=== PATIENT | female | born 1970 ===

== ENCOUNTER 2019-12-03 07:26 | Outpatient (REF) | payer OTHER, SELFPAY | END 2019-12-03 07:27 | disposition home or self-care (01) | LOC: HO.MDS 07:26 | PROVIDERS: PCP Internal Medicine; Visit Provider Internal Medicine | DX: D50.9 Iron deficiency anemia, unspecified (principal) | CPT/HCPCS: 96365; 96366; J1200; J1750; Q0163 ==

== ENCOUNTER 2019-12-21 14:10 | Outpatient (REF) | payer OTHER, SELFPAY | END 2019-12-21 14:11 | disposition home or self-care (01) | LOC: HO.LAB 14:10 | PROVIDERS: Visit Provider Nurse Practitioner Family | DX: Z20.828 Contact with and (suspected) exposure to other viral communicable diseases (principal) | CPT/HCPCS: U0003 ==

== ENCOUNTER 2020-07-26 12:00 | Outpatient (REF) | payer OTHER, SELFPAY ==
--- NOTE | ~2020-07-26 | XR_ITS ---
EXAMINATION: XR CHEST CLINICAL INFORMATION: Shortness of breath COMPARISON: CT chest without contrast TECHNIQUE: 2 views of the chest were obtained. FINDINGS: No significant abnormality is noted involving the heart, lungs, mediastinum, bony thorax or soft tissues. XR/XR chest 2V IMPRESSION: Unremarkable chest exam.
[2020-07-26 13:58] LABS: MANUAL DIFF FLAG NO
[2020-07-26 14:02] LABS: Basophils Percent Auto 0.4 % (0-2); Eosinophils Absolute Auto 0.1 X10*3/uL (0.0-0.4); Eosinophils Percent Auto 0.9 % (0-4); Hematocrit 38.7 % (37-47); Hemoglobin 12.4 g/dl (12.0-16.0); Imm Gran Abs Auto 0.01 X10*3/uL (0.00-0.03); Imm Gran Pct Auto 0.1 % (0.0-0.4); Lymphocytes Absolute Auto 2.6 X10*3/uL (1.2-4.9); Lymphocytes Percent Auto 39.3 % (20-40); Mean Corpuscular Hemoglobin 28.1 pg (27.0-33.0); Mean Corpuscular Volume 87.8 fL (80-98); Mean Platelet Volume 10.3 fL (9.4-12.3); Monocytes Absolute Auto 0.5 X10*3/uL (0.1-1.2); Monocytes Percent Auto 8.1 % (2-11); Neutrophils Absolute Auto 3.4 X10*3/uL (2.0-8.3); Neutrophils Percent Auto 51.2 % (45-73); Platelet Count 320 X10*3/uL (160-400); Red Blood Count 4.41 X10*6/uL (4.20-5.50); Red Cell Distribution Width 13.2 % (11.0-16.0); White Blood Count 6.7 X10*3/uL (4.8-10.8)
[2020-07-26 16:27] LABS: TSH reflex Free T4 1.29 uIU/mL (0.32-4.0)
[2020-07-26 16:33] LABS: Alanine Aminotransferase 13 U/L (0-31); Albumin Level 4.2 g/dL (3.5-5.0); Alkaline Phosphatase 79 U/L (39-117); Anion Gap 12 (12-20); Aspartate Amino Transferase 15 U/L (5-31); Bilirubin Total 0.2 mg/dL (0.0-1.0); Blood Urea Nitrogen 12 mg/dL (9-16); Calcium 9.3 mg/dL (8.4-10.2); Carbon Dioxide 27 mmol/L (22-29); Chloride 106 mmol/L (96-108); Estimated Glomerular Filt Rate > 60; Glucose Random 85 mg/dL (60-115); Potassium 4.2 mmol/L (3.3-5.1); Sodium 141 mmol/L (135-145)
== END 2020-07-26 12:01 | disposition home or self-care (01) ==
LOC: HO.HMGCX 12:00
PROVIDERS: PCP Internal Medicine; Visit Provider Internal Medicine
DX: R06.02 Shortness of breath (principal); E66.01 Morbid (severe) obesity due to excess calories; M25.471 Effusion, right ankle; M25.472 Effusion, left ankle; F41.1 Generalized anxiety disorder; R20.2 Paresthesia of skin
CPT/HCPCS: 36415; 71046; 80053; 84443; 85025

== ENCOUNTER 2020-12-04 13:53 | Outpatient (REF) | payer OTHER, SELFPAY ==
[2020-12-05 03:27] LABS: CT PCR NOT DETECTED (Not Detect.); NG PCR NOT DETECTED (Not Detect.)
[2020-12-05 11:38] LABS: BV Int Neg Control Negative (Negative); BV Int Pos Control Positive (Positive)
[2020-12-06 18:16] LABS: HPV mRNA E6/E7 rflx Not Detected (Not Detected)
== END 2020-12-04 13:54 | disposition home or self-care (01) ==
LOC: HO.LAB 13:53
PROVIDERS: PCP Internal Medicine; Visit Provider Advanced Practice Midwife
DX: Z01.419 Encounter for gynecological examination (general) (routine) without abnormal findings (principal); E66.01 Morbid (severe) obesity due to excess calories; Z20.2 Contact with and (suspected) exposure to infections with a predominantly sexual mode of transmission; Z79.899 Other long term (current) drug therapy; Z87.891 Personal history of nicotine dependence
CPT/HCPCS: 87480; 87491; 87510; 87591; 87624; 87660; 88142

== ENCOUNTER 2020-12-13 14:30 | Outpatient (REF) | payer OTHER, SELFPAY ==
[2020-12-13 16:26] LABS: MANUAL DIFF FLAG NO
[2020-12-13 16:31] LABS: Basophils Percent Auto 0.4 % (0-2); Eosinophils Absolute Auto 0.1 X10*3/uL (0.0-0.4); Eosinophils Percent Auto 0.7 % (0-4); Hematocrit 40.9 % (37-47); Hemoglobin 12.8 g/dl (12.0-16.0); Imm Gran Abs Auto 0.02 X10*3/uL (0.00-0.03); Imm Gran Pct Auto 0.3 % (0.0-0.4); Lymphocytes Absolute Auto 3.2 X10*3/uL (1.2-4.9); Lymphocytes Percent Auto 41.4 % (20-40); Mean Corpuscular HGB Conc 31.3 g/dl (31.0-35.0); Mean Corpuscular Hemoglobin 26.5 pg (27.0-33.0); Mean Corpuscular Volume 84.7 fL (80-98); Mean Platelet Volume 10.5 fL (9.4-12.3); Monocytes Absolute Auto 0.7 X10*3/uL (0.1-1.2); Monocytes Percent Auto 9.1 % (2-11); Neutrophils Absolute Auto 3.7 X10*3/uL (2.0-8.3); Neutrophils Percent Auto 48.1 % (45-73); Platelet Count 354 X10*3/uL (160-400); Red Blood Count 4.83 X10*6/uL (4.20-5.50); Red Cell Distribution Width 16.2 % (11.0-16.0); White Blood Count 7.7 X10*3/uL (4.8-10.8)
[2020-12-13 16:54] LABS: Alanine Aminotransferase 12 U/L (0-31); Albumin Level 4.1 g/dL (3.5-5.0); Alkaline Phosphatase 80 U/L (39-117); Anion Gap 11 (12-20); Aspartate Amino Transferase 14 U/L (5-31); Bilirubin Total 0.2 mg/dL (0.0-1.0); Blood Urea Nitrogen 11 mg/dL (9-16); Calcium 8.9 mg/dL (8.4-10.2); Carbon Dioxide 28 mmol/L (22-29); Chloride 103 mmol/L (96-108); Estimated Glomerular Filt Rate > 60; Glucose Random 81 mg/dL (60-115); Potassium 4.3 mmol/L (3.3-5.1); Sodium 138 mmol/L (135-145); Total Protein 7.1 g/dL (6.5-8.0)
[2020-12-13 17:28] LABS: Ferritin 5 ng/mL (10-250)
== END 2020-12-13 14:31 | disposition home or self-care (01) ==
LOC: HO.HMGCLDS 14:30
PROVIDERS: PCP Internal Medicine; Visit Provider Internal Medicine
DX: D64.9 Anemia, unspecified (principal); G43.909 Migraine, unspecified, not intractable, without status migrainosus; M79.2 Neuralgia and neuritis, unspecified
CPT/HCPCS: 36415; 80053; 82728; 85025

== ENCOUNTER → 2021-02-21 15:08 | Outpatient (BNVA) | payer OTHER, SELFPAY | PROVIDERS: PCP Internal Medicine; Visit Provider Internal Medicine Pulmonary Disease ==

== ENCOUNTER 2021-03-07 13:04 | Outpatient (REF) | payer OTHER, SELFPAY ==
--- NOTE | 2021-03-07 15:11 | PFT_ITS ---
FLOWS: FEV1 50% of predicted at 1.44 L. FVC 48% of predicted at 1.70 L. FEV1 to FVC ratio of 0.85. No bronchodilator response. LUNG VOLUMES: Total lung capacity 70% of predicted at 3.65 L. Residual volume 62% of predicted at 1.17 L. Slow vital capacity 74% of predicted at 2.48 L. Expiratory reserve volume 17% of predicted at 0.18 L. Diffusion capacity is moderately decreased, diffusion capacity corrects to normal after adjustment for alveolar ventilation. In comparison to pulmonary function test from March of 2019, FEV1 has decreased by 0.76 L; FVC has decreased by 0.96 L; total lung capacity and slow vital capacity have been without significant changes; residual volume has decreased by 0.23 L; diffusion capacity has been without significant changes. IMPRESSION: Moderate to severe restrictive ventilatory defect with no bronchodilator response. Decreased expiratory reserve volume suggests extrathoracic restriction likely secondary to abdominal obesity. MD SUSANNE Nation/MODL / [id number]
== END 2021-03-07 13:05 | disposition home or self-care (01) ==
LOC: HO.RESP 13:04
PROVIDERS: PCP Internal Medicine; Visit Provider Internal Medicine Pulmonary Disease
DX: R06.00 Dyspnea, unspecified (principal)
CPT/HCPCS: 94060; 94727; 94729

== ENCOUNTER 2021-03-08 16:14 | Outpatient (REF) | payer OTHER, SELFPAY ==
--- NOTE | ~2021-03-08 | CT_ITS ---
EXAMINATION: CT CHEST WITHOUT CONTRAST CLINICAL INFORMATION: Abnormal finding of lung field. Follow-up pulmonary nodules. COMPARISON: Previous chest x-ray July [address] most recent October 2019 TECHNIQUE: Multidetector volumetric CT imaging of the chest was done. Axial MIP volume rendering provided. Sagittal and coronal reformatted images were obtained. This CT examination was performed using dose optimization techniques as appropriate, variously including the following: *Automated exposure control *Adjustment of mA and/or kV according to patient size (this includes techniques or standardized protocols for targeted exams where dose is matched to indication/reason for exam; i.e. extremities or head) *Use of iterative reconstruction technique DLP: 194 mGy-cm FINDINGS: [employer]GER: There is slight elevation of the right hemidiaphragm. LUNGS: The pulmonary nodules are stable. Largest pulmonary nodule is a 8 x 10 mm right lower lobe nodule axial image 233 series 37. No new pulmonary nodule is seen. There are scattered areas of increased groundglass attenuation seen in the lungs that are new, right greater than left. Largest areas measure approximately 2 x 3 cm in the lateral segment of the right middle lobe axial image 297 series 7 and 3 cm in the medial segment of the right middle lobe for example axial image 267 series 7. This may represent areas of pneumonitis MEDIASTINUM: The mediastinum is normal. PLEURA: There is no pleural effusion. No pleural mass or thickening. AXILLA: No lymphadenopathy. UPPER ABDOMEN: Unremarkable. OSSEOUS STRUCTURES: Unremarkable. CT/CT chest wo con IMPRESSION: Stable solid pulmonary nodules, largest measuring 8 x 10 mm in the right lower lobe. New scattered areas of groundglass attenuation questionable for pneumonitis. Largest area measures 3 cm in the medial segment of the right lower lobe. Fleischner guidelines were followed.
== END 2021-03-08 16:15 | disposition home or self-care (01) ==
LOC: HO.CT 16:14
PROVIDERS: PCP Internal Medicine; Visit Provider Internal Medicine Pulmonary Disease
DX: R91.8 Other nonspecific abnormal finding of lung field (principal)
CPT/HCPCS: 71250

== ENCOUNTER → 2021-03-21 14:29 | Outpatient (BNVA) | payer OTHER, SELFPAY | PROVIDERS: PCP Internal Medicine; Visit Provider Internal Medicine Pulmonary Disease ==

== ENCOUNTER 2021-09-25 09:22 | Outpatient (REF) | payer OTHER, SELFPAY ==
--- NOTE | ~2021-09-25 | CT_ITS ---
EXAMINATION: CT CHEST WITHOUT CONTRAST CLINICAL INFORMATION: Follow-up pulmonary nodules COMPARISON: Previous chest CT scans most recent February 2021 TECHNIQUE: Multidetector volumetric CT imaging of the chest was done. Axial MIP volume rendering provided. Sagittal and coronal reformatted images were obtained. This CT examination was performed using dose optimization techniques as appropriate, variously including the following: *Automated exposure control *Adjustment of mA and/or kV according to patient size (this includes techniques or standardized protocols for targeted exams where dose is matched to indication/reason for exam; i.e. extremities or head) *Use of iterative reconstruction technique DLP: 196 mGy-cm FINDINGS: LUNGS: The pulmonary nodules are stable. Largest pulmonary nodule measures 9 mm in the right lower lobe axial image 218 series 5. No new pulmonary nodule is seen. Previously identified scattered areas of groundglass attenuation appear improved from most recent exam February 2021. MEDIASTINUM: The mediastinum is normal. PLEURA: There is no pleural effusion. No pleural mass or thickening. AXILLA: No lymphadenopathy. UPPER ABDOMEN: There is a 1 cm low-attenuation lesion exophytic to the lateral left kidney that is stable and probably represents a cyst. OSSEOUS STRUCTURES: There are mild degenerative changes of the spine. CT/CT chest wo con IMPRESSION: Stable bilateral pulmonary nodules. Interval decrease in areas of groundglass attenuation compared to most recent exam February 2021. Fleischner guidelines were followed.
== END 2021-09-25 09:23 | disposition home or self-care (01) ==
LOC: HO.CT 09:22
PROVIDERS: PCP Internal Medicine; Visit Provider Internal Medicine Pulmonary Disease
DX: R91.8 Other nonspecific abnormal finding of lung field (principal)
CPT/HCPCS: 71250

== ENCOUNTER 2021-10-16 10:27 | Day surgery (SDC) | payer OTHER, SELFPAY ==
[2021-10-16] VITALS (8 sets, daily range): BP systolic 120–157; BP diastolic 78–96; PULSE 91–106; RESP 16–24; TEMP 36–36.3; O2SAT 92–98; BMI 36.3
--- NOTE | ~2021-10-16 | FL_ITS ---
EXAMINATION: XR FL WITH IMAGES CLINICAL INFORMATION: Stone. COMPARISON: CT abdomen of 10/16/2021. TECHNIQUE: Fluoroscopy performed by Dr. Demetris Bautista. Fluoroscopy Time: 54.1 seconds. Cumulative Dose: 24.97 mGy. Images: 1. FINDINGS: Single view of the lower pelvis provided with cystoscope overlying inferior right pubic bone. FL/FL guidance in OR IMPRESSION: Fluoroscopy for urologic procedure.
--- NOTE | ~2021-10-16 | CT_ITS ---
EXAMINATION: CT ABDOMEN AND PELVIS WITHOUT CONTRAST CLINICAL INFORMATION: Right flank pain COMPARISON: CT chest 09/25/2021, CT abdomen 11/30/2007. TECHNIQUE: Multidetector volumetric imaging was performed from the superior aspect of the liver through the pubic symphysis. No oral or intravenous contrast. Sagittal and coronal reformatted images were obtained on the technologist's workstation. This CT examination was performed using dose optimization techniques as appropriate, variously including the following: *Automated exposure control *Adjustment of mA and/or kV according to patient size (this includes techniques or standardized protocols for targeted exams where dose is matched to indication/reason for exam; i.e. extremities or head) *Use of iterative reconstruction technique DLP: 883 mGy-cm FINDINGS: LUNG BASES: The visualized lung bases are unremarkable. LIVER, GALLBLADDER, AND BILIARY TREE: Liver is smooth in contour and homogeneous and upper limits of normal size. No focal parenchymal lesion. No intrahepatic ductal dilatation. The gallbladder is unremarkable. No visible stone or pericholecystic inflammatory changes. Common duct unremarkable. PANCREAS: Unremarkable. SPLEEN: Normal in size. Incidental splenule again seen left upper quadrant under 2 cm. ADRENAL GLANDS: Unremarkable. KIDNEYS AND URETERS: Right: There is moderate to prominent right hydronephrosis and right hydroureter secondary to a right ureteral calculus at level S1, measuring approximately 8 x 5 mm, and 821 HU attenuation. There is no perinephric stranding. No other calculi. Left: No hydronephrosis, hydroureter, or calculi. 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 Ureters likely merge at level of upper sacrum. There is chronic 1 cm exophytic cyst lateral upper to midpole. BLADDER: Unremarkable. GASTROINTESTINAL TRACT: No bowel obstruction or focal inflammatory changes. Normal appendix. No ascites or fluid collection. ABDOMINAL WALL: No significant hernia is appreciated. LYMPH NODES: No lymphadenopathy. VASCULAR: Unremarkable. PELVIC VISCERA: No adnexal mass or pelvic ascites. OSSEOUS STRUCTURES: No acute bony abnormality. Degenerative disc changes L5-S1. CT/CT abdomen pelvis wo IV con IMPRESSION: -Right hydronephrosis and hydroureter secondary to a 8 x 5 mm right ureteral calculus at level S1. No perinephric stranding. -Duplication left renal collecting system. No hydronephrosis or calculi.
--- NOTE | 2021-10-16 11:09 | ED_ITS ---
HPI - Abdominal Pain General Chief Complaint: Urogenital-Female Stated Complaint: Sharp pain on R side Time Seen by Provider: 10/16/21 11:02 Source: patient Mode of arrival: ambulatory Limitations: no limitations History of Present Illness MD elicited complaint: flank pain Pertinent past history: kidney stones Onset (ago): hour(s) (4am today) Pain Consistency: constant Location: R flank Severity: severe Quality: stabbing Radiation: RLQ and R flank Migration to: no migration Exacerbating factors: nothing Relieving factors: nothing Context: history of similar episodes Associated symptoms: nausea and vomiting Related Data Home Medications Medication Instructions Recorded Confirmed carvedilol 12.5 mg tablet 12.5 mg PO BEDTIME 11/19/19 10/16/21 ferrous sulfate 325 mg (65 mg 325 mg PO BID 11/19/19 10/16/21 iron) tablet loratadine 10 mg disintegrating 10 mg PO DAILY PRN Allergic 11/19/19 10/16/21 tablet (Claritin RediTabs) Symptoms cholecalciferol (vitamin D3) 25 25 mcg PO DAILY 06/15/21 10/16/21 mcg (1,000 unit) capsule furosemide 40 mg tablet 20 mg PO DAILY PRN Edema 06/15/21 10/16/21 ascorbic acid (vitamin C) 500 mg 500 mg PO DAILY 10/16/21 10/16/21 tablet fluticasone propionate 50 2 spray intranasal DAILY PRN 10/16/21 10/16/21 mcg/actuation nasal Allergy Symptoms spray,suspension (Flonase Allergy Relief) gabapentin 300 mg capsule 300 mg PO BEDTIME PRN Pain 10/16/21 10/16/21 multivitamin 1 tab PO DAILY 10/16/21 10/16/21 Previous Rx's Medication Instructions Recorded buspirone 5 mg tablet 5 mg PO DAILY PRN Anxiety 90 days 10/16/21 #90 tabs Allergies Allergy/AdvReac Type Severity Reaction Status Date / Time terbutaline [TERBUTALINE] Allergy Severe ANAPHYLAXIS Verified 07/13/21 15:28 peanuts Allergy Unknown hives, Verified 07/13/21 15:28 itching Environmental Allergy Unknown unknown Uncoded 06/15/21 14:30 environmental Allergy Unknown unknown Uncoded 06/15/21 14:30 shrimp Allergy Unknown unknown Uncoded 06/15/21 14:30 Review of Systems Review of Systems Constitutional : No Weight loss, No Fever, No Chills ENT/Mouth : No sore throat, No Rhinorrhea Eyes: No Swelling, No Redness Cardiovascular : No Chest Pain, No SOB, No edema Respiratory : No Cough, No Sputum, No Wheezing Gastrointestinal : Positive Nausea, no Vomiting, no Diarrhea, positive abdominal Pain, No Hematochezia, No Melena Genitourinary : No Dysuria, No Urinary Frequency, No Hematuria, No Urgency Musculoskeletal : No joint pain, No Myalgias, No Joint Swelling, pos R flank pain Skin : No Skin Lesions, No rash Neuro : No Weakness, No Numbness, No Dizziness, No Headache Psych : No Anxiety/Panic, No Depression Heme/Lymph: No Bruising, No Lymphadenopathy Endocrine : No Polyuria, No Polydipsia All other systems reviewed and are negative. [facility] Past Medical History Attestation statement: The following information was validated with the patient. Medical History (Updated 10/16/21 @ 12:58 by Tammie Wagner DO) History of kidney stones Kidney stones Surgical History (Updated 10/16/21 @ 11:10 by Tammie Wagner DO) H/O lithotripsy History of tubal ligation Hx of microdiscectomy Family History Family History Father No problems noted. Mother HTN (hypertension) HLD (hyperlipidemia) Social History Social History Housing: House Alcohol intake: never Patient Tobacco Use Status: Former Tobacco user (15 years ago ) Tobacco use type: Cigarette Years Smoked: 7 years Advance Directives: No Advance Directives Information Provided: Yes Current occupational status: employed Cognitive needs: No Hearing needs: No Vision needs: Yes Physical Exam ED Vital Signs: Vital Signs - 24 hr 10/16/21 10:53 10/16/21 14:24 Temperature 96.8 F Pulse Rate 91 91 Respiratory Rate 24 H 16 Blood Pressure 120/78 155/84 H Pulse Oximetry 98 96 Oxygen Delivery Method Room Air Room Air BMI result Body Mass Index 36.3 Appearance: Alert. Oriented X3. anxious in pain mild acute distress. Eyes: Pupils equal, round and reactive to light. ENT: Pharynx normal. Neck: Normal inspection. Neck supple. CVS: Normal heart rate and rhythm. Pulses normal. Respiratory: No respiratory distress. Breath sounds normal. Abdomen: Soft and mild R sided abdominal ttp , pos R sided CVA ttp Skin: Skin warm and dry. Normal skin color. Normal skin turgor. Extremities: No lower extremity edema. No calf ttp Neuro: Oriented X 3. No motor deficit. No sensory deficit. Course Course Course Narrative: message sent to Dr. Bautista 1256pm to go to OR this afternoon per Dr. Bautista MDM - Abdominal Pain MDM Narrative Medical decision making narrative: 50 yo female with prior hx of renal colic here with R flank pain and nausea - presentation concerning for renal colic - at this time labs, CT scan UA, IV morphine for pain. Dispo per results and findings. Lab Data Result diagrams: 10/16/21 11:09 10/16/21 11:09 Labs: Lab Results 10/16/21 10/16/21 10/16/21 Range/Units 11:09 11:09 11:10 WBC 10.6 (4.8-10.8) X10*3/uL RBC 4.98 (4.20-5.50) X10*6/uL Hgb 12.6 (12.0-16.0) g/dl Hct 39.8 (37.0-47.0) % MCV 79.9 L (80.0-98.0) fL MCH 25.3 L (27.0-33.0) pg MCHC 31.7 (31.0-35.0) g/dl RDW 15.1 (11.0-16.0) % Plt Count 334 (160-400) X10*3/uL MPV 9.8 (9.4-12.3) fL Immature Gran % (Auto) 0.3 (0.0-0.4) % Neut % (Auto) 74.8 H (45-73) % Lymph % (Auto) 18.9 L (20-40) % [place] % (Auto) 4.7 (2-11) % Eos % (Auto) 0.7 (0-4) % Baso % (Auto) 0.6 (0-2) % Lymph # (Auto) 2.0 (1.2-4.9) X10*3/uL [place] # (Auto) 0.5 (0.1-1.2) X10*3/uL Eos # (Auto) 0.1 (0.0-0.4) X10*3/uL Baso # (Auto) 0.1 (0.0-0.2) X10*3/uL Abs Immat Gran (auto) 0.03 (0.00-0.03) X10*3/uL Absolute Neuts (auto) 7.9 (2.0-8.3) x10*3/uL Absolute Nucleated RBC 0.000 (0.0-0.012) X10*3/uL Nucleated RBC % (auto) 0.0 (0.0-0.2) /100WBC Sodium 143 (135-145) mmol/L Potassium 4.3 (3.3-5.1) mmol/L Chloride 104 (96-108) mmol/L Carbon Dioxide 25 (22-29) mmol/L Anion Gap 18 (12-20) BUN 14 (9-16) mg/dL Creatinine 0.94 (0.5-1.4) mg/dL Estim Creat Clear Calc 78.7 Estimated GFR > 60 Random Glucose 135 H (60-115) mg/dL Calcium 9.8 D (8.4-10.2) mg/dL Magnesium 1.9 (1.6-2.6) mg/dL Total Bilirubin 0.4 (0.0-1.0) mg/dL Direct Bilirubin < 0.2 (0.0-0.5) mg/dL AST 21 D (5-31) U/L ALT 22 (0-31) U/L Alkaline Phosphatase 80 (39-117) U/L Total Protein 7.8 (6.5-8.0) g/dL Albumin 4.5 (3.5-5.0) g/dL Lipase 15 (8-78) U/L Urine Color Urine Appearance Urine pH (5.0-9.0) Ur Specific [place] (1.005-1.025) Urine Protein (Neg-Trace) mg/dL Urine Glucose (UA) (Negative) mg/dL Urine Ketones (Negative) mg/dL Urine Blood (Negative) Urine Nitrite (Negative) Ur Leukocyte Esterase (Negative) Urine RBC (0-2) /HPF Urine WBC (0-5) /HPF Ur Squamous Epith Cells (0-2) /HPF Urine Bacteria (None Seen) Hyaline Casts (0-2) /LPF COVID-19 (ELYSE) Negative (Negative) COVID-19 Clin Com See Note 10/16/21 Range/Units 13:40 WBC (4.8-10.8) X10*3/uL RBC (4.20-5.50) X10*6/uL Hgb (12.0-16.0) g/dl Hct (37.0-47.0) % MCV (80.0-98.0) fL MCH (27.0-33.0) pg MCHC (31.0-35.0) g/dl RDW (11.0-16.0) % Plt Count (160-400) X10*3/uL MPV (9.4-12.3) fL Immature Gran % (Auto) (0.0-0.4) % Neut % (Auto) (45-73) % Lymph % (Auto) (20-40) % [place] % (Auto) (2-11) % Eos % (Auto) (0-4) % Baso % (Auto) (0-2) % Lymph # (Auto) (1.2-4.9) X10*3/uL [place] # (Auto) (0.1-1.2) X10*3/uL Eos # (Auto) (0.0-0.4) X10*3/uL Baso # (Auto) (0.0-0.2) X10*3/uL Abs Immat Gran (auto) (0.00-0.03) X10*3/uL Absolute Neuts (auto) (2.0-8.3) x10*3/uL Absolute Nucleated RBC (0.0-0.012) X10*3/uL Nucleated RBC % (auto) (0.0-0.2) /100WBC Sodium (135-145) mmol/L Potassium (3.3-5.1) mmol/L Chloride (96-108) mmol/L Carbon Dioxide (22-29) mmol/L Anion Gap (12-20) BUN (9-16) mg/dL Creatinine (0.5-1.4) mg/dL Estim Creat Clear Calc Estimated GFR Random Glucose (60-115) mg/dL Calcium (8.4-10.2) mg/dL Magnesium (1.6-2.6) mg/dL Total Bilirubin (0.0-1.0) mg/dL Direct Bilirubin (0.0-0.5) mg/dL AST (5-31) U/L ALT (0-31) U/L Alkaline Phosphatase (39-117) U/L Total Protein (6.5-8.0) g/dL Albumin (3.5-5.0) g/dL Lipase (8-78) U/L Urine Color Yellow Urine Appearance Turbid Urine pH 7.0 (5.0-9.0) Ur Specific [place] 1.020 (1.005-1.025) Urine Protein Trace (Neg-Trace) mg/dL Urine Glucose (UA) Negative (Negative) mg/dL Urine Ketones Negative (Negative) mg/dL Urine Blood Large (3+) H (Negative) Urine Nitrite Negative (Negative) Ur Leukocyte Esterase Negative (Negative) Urine RBC >20 H (0-2) /HPF Urine WBC 0-5 (0-5) /HPF Ur Squamous Epith Cells 0-2 (0-2) /HPF Urine Bacteria None Seen (None Seen) Hyaline Casts 0-2 (0-2) /LPF COVID-19 (ELYSE) (Negative) COVID-19 Clin Com Discharge Plan Discharge Clinical Impression: Ureterolithiasis Patient Disposition: Admitted As Inpatient
[2021-10-16] MEDS: Ketorolac Tromethamine 30 MG/ML VIAL IVPUSH (11:13)
[2021-10-16] MEDS: ondansetron HCL 4 MG/2 ML VIAL IVPUSH ×2 (11:13→20:13)
[2021-10-16 11:14] LABS: MANUAL DIFF FLAG NO
[2021-10-16] MEDS: Morphine Sulfate 4 MG/ML CARTRIDGE IVPUSH (11:14)
[2021-10-16] MEDS: Lactated Ringers 1,000 ML 999 ML IV (11:15)
[2021-10-16 11:16] LABS: Basophils Absolute Auto 0.1 X10*3/uL (0.0-0.2); Basophils Percent Auto 0.6 % (0-2); Eosinophils Absolute Auto 0.1 X10*3/uL (0.0-0.4); Eosinophils Percent Auto 0.7 % (0-4); Hematocrit 39.8 % (37.0-47.0); Hemoglobin 12.6 g/dl (12.0-16.0); Imm Gran Abs Auto 0.03 X10*3/uL (0.00-0.03); Imm Gran Pct Auto 0.3 % (0.0-0.4); Lymphocytes Percent Auto 18.9 % (20-40); Mean Corpuscular HGB Conc 31.7 g/dl (31.0-35.0); Mean Corpuscular Hemoglobin 25.3 pg (27.0-33.0); Mean Corpuscular Volume 79.9 fL (80.0-98.0); Mean Platelet Volume 9.8 fL (9.4-12.3); Monocytes Absolute Auto 0.5 X10*3/uL (0.1-1.2); Monocytes Percent Auto 4.7 % (2-11); Neutrophils Absolute Auto 7.9 x10*3/uL (2.0-8.3); Neutrophils Percent Auto 74.8 % (45-73); Platelet Count 334 X10*3/uL (160-400); Red Blood Count 4.98 X10*6/uL (4.20-5.50); Red Cell Distribution Width 15.1 % (11.0-16.0); White Blood Count 10.6 X10*3/uL (4.8-10.8)
[2021-10-16] MEDS: HYDROmorphone HCl 1 MG/ML SYRINGE IVPUSH (11:28)
[2021-10-16 11:32] LABS: COVID-19 Test Negative (Negative); IDNOW Serial# 16C4AD1C
[2021-10-16 11:37] LABS: Alanine Aminotransferase 22 U/L (0-31); Albumin Level 4.5 g/dL (3.5-5.0); Alkaline Phosphatase 80 U/L (39-117); Anion Gap 18 (12-20); Aspartate Amino Transferase 21 U/L (5-31); Bilirubin Direct < 0.2 mg/dL (0.0-0.5); Bilirubin Total 0.4 mg/dL (0.0-1.0); Blood Urea Nitrogen 14 mg/dL (9-16); Calcium 9.8 mg/dL (8.4-10.2); Carbon Dioxide 25 mmol/L (22-29); Chloride 104 mmol/L (96-108); Creatinine Clr Calc Pharmacy 78.7; Estimated Glomerular Filt Rate > 60; Glucose Random 135 mg/dL (60-115); Lipase 15 U/L (8-78); Magnesium 1.9 mg/dL (1.6-2.6); Potassium 4.3 mmol/L (3.3-5.1); Sodium 143 mmol/L (135-145); Total Protein 7.8 g/dL (6.5-8.0)
[2021-10-16] MEDS: Tamsulosin HCL 0.4 MG CAPSULE PO (12:09)
[2021-10-16] MEDS: methylPREDNISolone Sod Succ 125 MG/2 ML VIAL 60 MG IVPUSH (12:10)
[2021-10-16 13:48] LABS: Appearance Urine Turbid; Color Urine Yellow; Glucose Urine UA Negative (Negative); Leukocyte Esterase Urine Negative (Negative); Nitrite Urine Negative (Negative); Urine Blood Large (3+) (Negative); Urine Ketones Negative (Negative); Urine Protein Trace mg/dL (Neg-Trace)
[2021-10-16 13:53] LABS: Bacteria Urine None Seen (None Seen); Hyaline Casts Urine 0-2 /LPF (0-2); RBC Urine >20 /HPF (0-2); Squamous Epithelial Cell Urine 0-2 /HPF (0-2); WBC Urine 0-5 /HPF (0-5)
--- NOTE | 2021-10-16 13:54 | PC.NURSE ---
contact made to surgery regarding pending Antibiotic. Per Denilson RN Don't give it, will give by Anesthesia- Plan for 1630/1700 for transport to .
[2021-10-16] MEDS: Lactated Ringers 1,000 ML 100 ML IVCONT (14:01)
[2021-10-16] MEDS: HYDROmorphone HCl 0.5 MG/0.5 ML SYRINGE IVPUSH (14:40)
--- NOTE | 2021-10-16 14:48 | PHA.MEDREC ---
Pharmacy Consult ? Medication Reconciliation Pharmacy has completed the medication reconciliation. Patient is not adherent to her medications. Reports taking Carvedilol at bedtime only instead of BID. Patient takes the rest of her medications PRN. Moni Moser, Carlos AlbertoD
--- NOTE | 2021-10-16 16:32 | PM.UROCN ---
History of Present Illness Consult details Consult date: 10/16/21 Narrative: Consulting complaint - Right ureteric stone 50-year-old female. Present to emergency room this morning with right-sided flank pain 4 hours in duration Level 8/10 No aggravating or relieving factors Associated nausea and vomiting Denies hematuria or fever CT scan shows 8 mm stone in distal right ureter with associated hydroureteronephrosis. WBC 10.6. Creatinine 0.9. Recommendation for cystoscopy, right retrograde, right ureteroscopy with laser lithotripsy and stent placement Review of Systems Constitutional: Constitutional: Denies chills and Denies fever(s) Cardiovascular: Cardiovascular: Reports no additional cardiovascular complaints and Denies syncope Respiratory: Respiratory: Denies cough Gastrointestinal: Gastrointestinal: Denies abdominal pain and Denies heartburn Genitourinary: Genitourinary: Reports as per HPI and Denies change in libido Neurologic: Denies syncope Psychiatric: Psychiatric: Denies change in libido Endocrine: Endocrine: Denies change in libido [facility] Past Medical History Medical History (Updated 10/16/21 @ 12:58 by Tammie Wagner DO) History of kidney stones Kidney stones Family History Family History Father No problems noted. Mother HTN (hypertension) HLD (hyperlipidemia) Surgical History Surgical History (Updated 10/16/21 @ 11:10 by Tammie Wagner DO) H/O lithotripsy History of tubal ligation Hx of microdiscectomy Social History Social History Housing: House Alcohol intake: never Patient Tobacco Use Status: Former Tobacco user (15 years ago ) Tobacco use type: Cigarette Years Smoked: 7 years Advance Directives: No Advance Directives Information Provided: Yes Current occupational status: employed Cognitive needs: No Hearing needs: No Vision needs: Yes Meds Allergies Allergy/AdvReac Type Severity Reaction Status Date / Time terbutaline [TERBUTALINE] Allergy Severe ANAPHYLAXIS Verified 07/13/21 15:28 peanuts Allergy Unknown hives, Verified 07/13/21 15:28 itching Environmental Allergy Unknown unknown Uncoded 06/15/21 14:30 environmental Allergy Unknown unknown Uncoded 06/15/21 14:30 shrimp Allergy Unknown unknown Uncoded 06/15/21 14:30 Active Medications: Current Medications Hydromorphone HCl (Hydromorphone Hcl 0.5 Mg/0.5 Ml Syringe) 0.5 mg IVPUSH Q3H PRN; Protocol PRN Reason: Pain, Moderate (Pain Scale 4-6 Last Admin: 10/16/21 14:40 Dose: 0.5 mg Lactated Ringer's (Lr) 1,000 mls @ 100 mls/hr IVCONT .Q10H KATERINA Last Admin: 10/16/21 14:01 Dose: 100 mls/hr Pharmacy Consult (Consult Rx Perform Med Rec) 1 each MISCELLANE ONCE PRN PRN Reason: Consult order Home Medications Medication Instructions Recorded Confirmed Last Taken Type carvedilol 12.5 mg tablet 12.5 mg PO BEDTIME 11/19/19 10/16/21 10/14/21 History ferrous sulfate 325 mg (65 mg 325 mg PO BID 11/19/19 10/16/21 Unknown History iron) tablet loratadine 10 mg disintegrating 10 mg PO DAILY PRN Allergic 11/19/19 10/16/21 Unknown History tablet (Claritin RediTabs) Symptoms cholecalciferol (vitamin D3) 25 25 mcg PO DAILY 06/15/21 10/16/21 Unknown History mcg (1,000 unit) capsule furosemide 40 mg tablet 20 mg PO DAILY PRN Edema 06/15/21 10/16/21 Unknown History ascorbic acid (vitamin C) 500 mg 500 mg PO DAILY 10/16/21 10/16/21 Unknown History tablet fluticasone propionate 50 2 spray intranasal DAILY PRN 10/16/21 10/16/21 Unknown History mcg/actuation nasal Allergy Symptoms spray,suspension (Flonase Allergy Relief) gabapentin 300 mg capsule 300 mg PO BEDTIME PRN Pain 10/16/21 10/16/21 Unknown History multivitamin 1 tab PO DAILY 10/16/21 10/16/21 Unknown History Physical Exam Vital Signs: Vital Signs: Last Vital Signs Temp 96.8 F 10/16/21 10:53 Pulse 91 10/16/21 14:24 Resp 16 10/16/21 14:24 BP 155/84 H 10/16/21 14:24 Pulse Ox 96 10/16/21 14:24 O2 Del Method 10/16/21 14:24 BMI result Body Mass Index 36.3 Const: General: cooperative, healthy appearing, comfortable and no acute distress Orientation/consciousness: patient oriented x3 HEENT: Face and sinus: Yes normal facial exam Mouth: moist mucous membranes Neck: Neck: Yes normal visual inspection, Yes full ROM and Yes trachea midline Chest: Chest palpation & inspection: normal inspection of the chest Resp: Effort & Inspection: normal respiratory effort, able to speak in complete sentences and no respiratory distress GI: Inspection: Yes normal to inspection Back/Spine/Pelvis: Cervical Spine: normal cervical lordosis Thoracic/Lumbar Spine: thoracic and lumbar spine normal to inspection Skin: General skin exam: no rashes or lesions noted Neuro: General: patient oriented x3, gait normal, tone normal and moves all extremities Extrem: General: Yes normal to inspection and Yes capillary refill normal Results Labs Result diagrams: 10/16/21 11:09 10/16/21 11:09 Labs: Abnormal lab results 10/16/21 10/16/21 10/16/21 Range/Units 11:09 11:09 13:40 MCV 79.9 L (80.0-98.0) fL MCH 25.3 L (27.0-33.0) pg Neut % (Auto) 74.8 H (45-73) % Lymph % (Auto) 18.9 L (20-40) % Random Glucose 135 H (60-115) mg/dL Urine Blood Large (3+) H (Negative) Urine RBC >20 H (0-2) /HPF Short CBC 10/16/21 Range/Units 11:09 WBC 10.6 (4.8-10.8) X10*3/uL Hgb 12.6 (12.0-16.0) g/dl Hct 39.8 (37.0-47.0) % Plt Count 334 (160-400) X10*3/uL BMP 10/16/21 11:09 Sodium 143 Potassium 4.3 Chloride 104 Carbon Dioxide 25 BUN 14 Creatinine 0.94 Calcium 9.8 D Liver Function 10/16/21 Range/Units 11:09 Total Bilirubin 0.4 (0.0-1.0) mg/dL Direct Bilirubin < 0.2 (0.0-0.5) mg/dL AST 21 D (5-31) U/L ALT 22 (0-31) U/L Alkaline Phosphatase 80 (39-117) U/L Albumin 4.5 (3.5-5.0) g/dL Urine 10/16/21 Range/Units 13:40 Urine Color Yellow Urine Appearance Turbid Urine pH 7.0 (5.0-9.0) Ur Specific [place] 1.020 (1.005-1.025) Urine Protein Trace (Neg-Trace) mg/dL Urine Glucose (UA) Negative (Negative) mg/dL All other labs normal. Assessment and Plan (1) Ureterolithiasis: Status: Acute Plan Ureteroscopy We discussed the nature of the decision and reasonable alternatives for performing the above surgery. Interventions include chemical dissolution, ESWL, ureteroscopy with laser lithotripsy and stent placement, PCNL. Options such as medical therapy were discussed. The relative uncertainties and benefits related to each alternate procedure were adequately discussed. General surgical risks including, but not limited to, pain, bleeding, infection, myocardial infarction, pulmonary embolus, deep vein thrombosis and cerebrovascular accident which may result in further hospitalization were discussed. Full disclosure of the procedure as well as all major risks, benefits and complications were discussed including but not limited to damage to the urethra, bladder and kidney infection, damage to the ureter, stent migration or malposition, scarring to the renal pelvis, remnant stone fragments, subsequent stone passage with need for secondary procedures. The overall secondary procedure rate is approximately 10-15%. The success rate of the procedure was discussed. Success of the procedure in the short-term does not necessarily guarantee that long-term success will be maintained. Suitable follow up will need to be maintained. The patient showed understanding of discussion and wishes to proceed with - cystoscopy, retrograde, ureteroscopy, possible lithotripsy/stone basketing and stent on the right side - semirigid Procedures Date of Service Date of Service: 10/16/21
--- NOTE | 2021-10-16 18:19 | MHC.SHP ---
Pre-Procedural Eval Section A Date of Service: 10/16/21 The patient is an INPATIENT: No Changes since office visit: No Cold of Flu in the past 2 weeks, No New Medical Problems, No Changes in Medication and No Patient answered all questions The History & Physical has been completed within 30 days and I have reviewed it.: Yes Section B Chief Complaint: Sharp pain on R side Details of Present Illness: Distal right ureteric Relevant Family History (Specify if Yes): No Relevant Social History: None Present Medications: see Short Stay Collaborative assessment Medical History: No relevant PMH History of Previous Operations: No relevant previous surgery Allergies: Allergies Allergy/AdvReac Type Severity Reaction Status Date / Time terbutaline [TERBUTALINE] Allergy Severe ANAPHYLAXIS Verified 07/13/21 15:28 peanuts Allergy Unknown hives, Verified 07/13/21 15:28 itching Environmental Allergy Unknown unknown Uncoded 06/15/21 14:30 environmental Allergy Unknown unknown Uncoded 06/15/21 14:30 shrimp Allergy Unknown unknown Uncoded 06/15/21 14:30 Review of Systems Sugical H&P ROS: Negative: Constitution, Cardiovascular, Respiratory, Neurological, Psychiatric, Hem-Onc, Allergic/Immunologic, Gastrointestinal, Genitourinary, Musculoskeletal, Integumentary, Endocrine and Eyes/Ears/Nose/Throat Exam Surgical H&P Exam: Normal: HEENT, Normal: Heart, Normal: Lungs, Normal: Extremities, Normal: Abdomen, Normal: Skin and Normal: Neurological Plan Diagnosis/Plan: Unchanged ( cystoscopy, right retrograde, right ureteroscopy laser lithotripsy with stent placement) I have reviewed the history and physical and performed a pertinent physical examination on my patient. No changes have occurred unless specified.
--- NOTE | 2021-10-16 18:34 | P.CONAN_ITS ---
[facility] Active Problems Active Problems: All Active Problems (Updated 10/16/21 @ 12:58 by Tammie Wagner DO) Ureterolithiasis (Acute) Impacted cerumen, right ear (Acute) Sinusitis (Acute) Otitis media of right ear (Acute) Pulmonary nodules (Acute) Leg edema (Acute) SUREKHA (obstructive sleep apnea) (Acute) Dyspnea (Acute) Obesity due to excess calories (Acute) Peripheral neuralgia (Acute) Anemia (Acute) Migraine headache (Acute) Janelle-menopausal (Acute) Potential exposure to STD (Acute) Cervical cancer screening (Acute) Women's annual routine gynecological examination (Acute) Tinea cruris (Acute) Shortness of breath (Acute) Morbid obesity due to excess calories (Acute) Swelling of both ankles (Acute) Anxiety, generalized (Acute) Paresthesias (Acute) Sinusitis, acute (Acute) Past Medical History Medical History History of kidney stones Kidney stones Functional capacity: independent ambulation Patient : No Family History Family History Father No problems noted. Mother HTN (hypertension) HLD (hyperlipidemia) Family history of problems with anesthesia: No Surgical History Surgical History H/O lithotripsy History of tubal ligation Hx of microdiscectomy History of Problems with Anesthesia: No Social History Social History Housing: House Alcohol intake: never Patient Tobacco Use Status: Former Tobacco user Tobacco use type: Cigarette Years Smoked: 7 years Advance Directives: No Advance Directives Information Provided: Yes Current occupational status: employed Cognitive needs: No Hearing needs: No Vision needs: Yes Meds Allergies Allergy/AdvReac Type Severity Reaction Status Date / Time terbutaline [TERBUTALINE] Allergy Severe ANAPHYLAXIS Verified 07/13/21 15:28 peanuts Allergy Unknown hives, Verified 07/13/21 15:28 itching Environmental Allergy Unknown unknown Uncoded 06/15/21 14:30 environmental Allergy Unknown unknown Uncoded 06/15/21 14:30 shrimp Allergy Unknown unknown Uncoded 06/15/21 14:30 Active Medications: Current Medications Hydromorphone HCl (Hydromorphone Hcl 0.5 Mg/0.5 Ml Syringe) 0.5 mg IVPUSH Q3H PRN; Protocol PRN Reason: Pain, Moderate (Pain Scale 4-6 Last Admin: 10/16/21 14:40 Dose: 0.5 mg Lactated Ringer's (Lr) 1,000 mls @ 100 mls/hr IVCONT .Q10H KATERINA Last Admin: 10/16/21 14:01 Dose: 100 mls/hr Pharmacy Consult (Consult Rx Perform Med Rec) 1 each MISCELLANE ONCE PRN PRN Reason: Consult order Home Medications Medication Instructions Recorded Confirmed Last Taken Type carvedilol 12.5 mg tablet 12.5 mg PO BEDTIME 11/19/19 10/16/21 10/14/21 History ferrous sulfate 325 mg (65 mg 325 mg PO BID 11/19/19 10/16/21 Unknown History iron) tablet loratadine 10 mg disintegrating 10 mg PO DAILY PRN Allergic 11/19/19 10/16/21 Unknown History tablet (Claritin RediTabs) Symptoms cholecalciferol (vitamin D3) 25 25 mcg PO DAILY 06/15/21 10/16/21 Unknown History mcg (1,000 unit) capsule furosemide 40 mg tablet 20 mg PO DAILY PRN Edema 06/15/21 10/16/21 Unknown History ascorbic acid (vitamin C) 500 mg 500 mg PO DAILY 10/16/21 10/16/21 Unknown History tablet fluticasone propionate 50 2 spray intranasal DAILY PRN 10/16/21 10/16/21 Unknown History mcg/actuation nasal Allergy Symptoms spray,suspension (Flonase Allergy Relief) gabapentin 300 mg capsule 300 mg PO BEDTIME PRN Pain 10/16/21 10/16/21 Unknown History multivitamin 1 tab PO DAILY 10/16/21 10/16/21 Unknown History Exam Exam Date and Time: October 16, [id number] Height,Weight and Vital Signs: Height 5 ft 4 in Weight 96.162 kg Last Vital Signs Temp 96.8 F 10/16/21 10:53 Pulse 91 10/16/21 14:24 Resp 16 10/16/21 14:24 BP 155/84 H 10/16/21 14:24 Pulse Ox 96 10/16/21 14:24 O2 Del Method 10/16/21 14:24 Pertinent Lab Results Pertinent Lab Results: Laboratory Tests 10/16/21 10/16/21 10/16/21 11:09 11:09 11:10 WBC 10.6 RBC 4.98 Hgb 12.6 Hct 39.8 MCV 79.9 L MCH 25.3 L MCHC 31.7 RDW 15.1 Plt Count 334 MPV 9.8 Immature Gran % (Auto) 0.3 Neut % (Auto) 74.8 H Lymph % (Auto) 18.9 L [place] % (Auto) 4.7 Eos % (Auto) 0.7 Baso % (Auto) 0.6 Lymph # (Auto) 2.0 [place] # (Auto) 0.5 Eos # (Auto) 0.1 Baso # (Auto) 0.1 Abs Immat Gran (auto) 0.03 Absolute Neuts (auto) 7.9 Absolute Nucleated RBC 0.000 Nucleated RBC % (auto) 0.0 Sodium 143 Potassium 4.3 Chloride 104 Carbon Dioxide 25 Anion Gap 18 BUN 14 Creatinine 0.94 Estim Creat Clear Calc 78.7 Estimated GFR > 60 Random Glucose 135 H Calcium 9.8 D Magnesium 1.9 Total Bilirubin 0.4 Direct Bilirubin < 0.2 AST 21 D ALT 22 Alkaline Phosphatase 80 Total Protein 7.8 Albumin 4.5 Lipase 15 Urine Color Urine Appearance Urine pH Ur Specific [place] Urine Protein Urine Glucose (UA) Urine Ketones Urine Blood Urine Nitrite Ur Leukocyte Esterase Urine RBC Urine WBC Ur Squamous Epith Cells Urine Bacteria Hyaline Casts COVID-19 (ELYSE) Negative COVID-19 Clin Com See Note 10/16/21 13:40 WBC RBC Hgb Hct MCV MCH MCHC RDW Plt Count MPV Immature Gran % (Auto) Neut % (Auto) Lymph % (Auto) [place] % (Auto) Eos % (Auto) Baso % (Auto) Lymph # (Auto) [place] # (Auto) Eos # (Auto) Baso # (Auto) Abs Immat Gran (auto) Absolute Neuts (auto) Absolute Nucleated RBC Nucleated RBC % (auto) Sodium Potassium Chloride Carbon Dioxide Anion Gap BUN Creatinine Estim Creat Clear Calc Estimated GFR Random Glucose Calcium Magnesium Total Bilirubin Direct Bilirubin AST ALT Alkaline Phosphatase Total Protein Albumin Lipase Urine Color Yellow Urine Appearance Turbid Urine pH 7.0 Ur Specific [place] 1.020 Urine Protein Trace Urine Glucose (UA) Negative Urine Ketones Negative Urine Blood Large (3+) H Urine Nitrite Negative Ur Leukocyte Esterase Negative Urine RBC >20 H Urine WBC 0-5 Ur Squamous Epith Cells 0-2 Urine Bacteria None Seen Hyaline Casts 0-2 COVID-19 (ELYSE) COVID-19 Clin Com Airway Mallampati Class: II TM Dist: >3cm Neck ROM: Full Heart: RRR Lungs: CTA Assessment and Plan Final Anesthetic Review Family History of Problems with Anesthesia: No History of Problems with Anesthesia: No ASA Class: III and Emergency Final Preanesthetic Review: No Changes in Pt Med Stat, Meds/Allgs Chart Reviewed, Consent Obtained/Reviewed and Anes Risks/Benef Reviewed Patient Risk: Intermediate Procedure Risk: Low Anesthetic Plan Anesthetic Plan: GA Disposition: Standard PACU
--- NOTE | 2021-10-16 19:29 | P.OP_ITS ---
Operative Note Operative Note Date of Service: 10/16/21 Narrative: PreOperative Diagnosis: distal right ureteric stone Post Operative Diagnosis: distal right ureteric stone Procedure: - cystoscopy, right retrograde - right dilatation of ureteric orifice under fluoroscopy - right ureteroscopy, laser lithotripsy - right stent placement Surgeon: Dr Demetris Bautista Anesthesia: General Indications for procedure: distal right ureteric stone Procedure: After informed consent was verified patient was brought to the operating placed in supine position. Anesthesia was administered per protocol. Patient was placed in modified dorsal lithotomy position and prepped and draped in a sterile fashion. Safety pause time-out and side of surgery confirmed. Antibiotics confirmed. A 22 Bangl[place] cystoscope was inserted per urethra. Bladder was normal in its entirety. Both ureteric orifices were in normal position. The right ureteric orifice was cannulated and a retrograde examination was performed. filling defects seen distal right ureter with proximal hydroureteronephrosis . A Sensor guidewire was placed up to the level of the renal pelvis under fluoroscopy. The rigid cystoscope was removed. A dilator was placed over the Sensor guidewire and used to dilate the ureteric orifice under fluoroscopy. The dilator was removed. a vacuum access sheath was placed The semi rigid ureteral scope was placed through the sheath in the stone was encountered. Using a 362 micron laser fiber the stone was broken into small pieces and fragments were removed via the vacuum access sheath. A 6 [place] by 22 cm double-J stent was placed into the renal pelvis and bladder under a combination of fluoroscopy and direct visualization. The bladder was emptied. The patient tolerated the procedure well and was extubated in the operating room, and transferred in stable condition to the recovery area. Pathology: Stone Drains: 6 [place] by 22 cm double-J stent
[2021-10-16] MEDS: Phenazopyridine HCL 100 MG TABLET PO (19:46)
[2021-10-24 13:12] LABS: Stone Source RIGHT URETERAL STONE
== END 2021-10-16 20:25 | disposition home or self-care (01) ==
LOC: HO.ED 13:59 → HO.SSS 16:06
PROVIDERS: Emergency Provider Emergency Medicine; PCP Internal Medicine; Visit Provider Urology
PROC: (CPT 52356; principal; 2021-10-16 17:40)
DX: N13.2 Hydronephrosis with renal and ureteral calculous obstruction (principal); Z20.822 Contact with and (suspected) exposure to COVID-19; J30.2 Other seasonal allergic rhinitis; Z98.51 Tubal ligation status; E66.9 Obesity, unspecified; Z68.36 Body mass index [BMI] 36.0-36.9, adult; Z87.442 Personal history of urinary calculi; Z88.8 Allergy status to other drugs, medicaments and biological substances; Z87.891 Personal history of nicotine dependence; Z79.899 Other long term (current) drug therapy; Z79.51 Long term (current) use of inhaled steroids; Z98.890 Other specified postprocedural states
CPT/HCPCS: 52356; 36415; 74176; 80048; 80076; 81001; 82365; 83690; 83735; 85025; 87635; 88300; 96361; 96374; 96375; 96376; 99284; 99285; C1758; C1769; C2617; J1100; J1170; J1885; J1956; J2250; J2270; J2405; J2930; J3010; Q9965

== ENCOUNTER → 2021-10-23 13:55 | Outpatient (BNVA) | payer OTHER, SELFPAY | PROVIDERS: PCP Internal Medicine; Visit Provider Urology | DX: N20.1 Calculus of ureter (principal) | CPT/HCPCS: 52310 ==

== ENCOUNTER 2021-10-26 11:27 | Outpatient (REF) | payer OTHER, SELFPAY ==
[2021-10-26 13:47] LABS: MANUAL DIFF FLAG NO
[2021-10-26 13:48] LABS: Basophils Absolute Auto 0.1 X10*3/uL (0.0-0.2); Basophils Percent Auto 0.8 % (0-2); Eosinophils Absolute Auto 0.1 X10*3/uL (0.0-0.4); Hematocrit 42.7 % (37.0-47.0); Hemoglobin 13.2 g/dl (12.0-16.0); Imm Gran Abs Auto 0.01 X10*3/uL (0.00-0.03); Imm Gran Pct Auto 0.2 % (0.0-0.4); Lymphocytes Absolute Auto 2.4 X10*3/uL (1.2-4.9); Lymphocytes Percent Auto 39.9 % (20-40); Mean Corpuscular HGB Conc 30.9 g/dl (31.0-35.0); Mean Corpuscular Hemoglobin 24.8 pg (27.0-33.0); Mean Corpuscular Volume 80.1 fL (80.0-98.0); Mean Platelet Volume 9.9 fL (9.4-12.3); Monocytes Absolute Auto 0.5 X10*3/uL (0.1-1.2); Monocytes Percent Auto 8.5 % (2-11); Neutrophils Absolute Auto 2.9 x10*3/uL (2.0-8.3); Neutrophils Percent Auto 48.6 % (45-73); Platelet Count 345 X10*3/uL (160-400); Red Blood Count 5.33 X10*6/uL (4.20-5.50); Red Cell Distribution Width 15.4 % (11.0-16.0)
[2021-10-26 14:02] LABS: Alanine Aminotransferase 22 U/L (0-31); Albumin Level 4.2 g/dL (3.5-5.0); Alkaline Phosphatase 81 U/L (39-117); Anion Gap 13 (12-20); Aspartate Amino Transferase 16 U/L (5-31); Bilirubin Total 0.3 mg/dL (0.0-1.0); Blood Urea Nitrogen 12 mg/dL (9-16); Calcium 9.2 mg/dL (8.4-10.2); Carbon Dioxide 29 mmol/L (22-29); Chloride 106 mmol/L (96-108); Estimated Glomerular Filt Rate > 60; Glucose Random 95 mg/dL (60-115); Potassium 4.6 mmol/L (3.3-5.1); Sodium 143 mmol/L (135-145); Total Protein 7.2 g/dL (6.5-8.0)
[2021-10-26 14:24] LABS: Ferritin 10 ng/mL (10-250)
== END 2021-10-26 11:28 | disposition home or self-care (01) ==
LOC: HO.HMGCLDS 11:27
PROVIDERS: PCP Internal Medicine; Visit Provider Internal Medicine
DX: E66.09 Other obesity due to excess calories (principal); F41.1 Generalized anxiety disorder; G43.909 Migraine, unspecified, not intractable, without status migrainosus; M79.2 Neuralgia and neuritis, unspecified; D64.9 Anemia, unspecified
CPT/HCPCS: 36415; 80053; 82728; 85025

== ENCOUNTER 2022-01-09 14:10 | Outpatient (REF) | payer OTHER, SELFPAY ==
[2022-01-09 17:44] LABS: CT PCR NOT DETECTED (Not Detect.); NG PCR NOT DETECTED (Not Detect.)
[2022-01-10 12:51] LABS: BV Int Neg Control Negative (Negative); BV Int Pos Control Positive (Positive)
== END 2022-01-09 14:11 | disposition home or self-care (01) ==
LOC: HO.LNP 14:10
PROVIDERS: Visit Provider Advanced Practice Midwife
DX: Z01.419 Encounter for gynecological examination (general) (routine) without abnormal findings (principal)
CPT/HCPCS: 87480; 87491; 87510; 87591; 87660

== ENCOUNTER 2022-01-09 14:20 | Outpatient (REF) | payer OTHER, SELFPAY ==
--- NOTE | ~2022-01-09 | US_ITS ---
EXAMINATION: US RETROPERITONEAL LIMITED (RENAL ONLY) CLINICAL INFORMATION: Calculus of kidney. COMPARISON: CT abdomen and pelvis 10/16/2021. TECHNIQUE: Real-time imaging of the kidneys. FINDINGS: RIGHT KIDNEY: 11.3 x 4.4 x 6.7 cm (SAG x AP x TRV). The kidney is normal in size, contour, and echogenicity. Renal cortical thickness is normal. No calculi or focal parenchymal lesions. No hydronephrosis. LEFT KIDNEY: 13.3 x 5.7 x 5.5 cm (SAG x AP x TRV). The kidney is normal in size, contour, and echogenicity. Renal cortical thickness is normal. No hydronephrosis. There is a exophytic lesion in the upper and lateral pole measuring 0.9 x 0.9 x 0.8 cm. There is echogenic stone lower pole measuring 0.4 x 0.2 x 0.3 cm. A duplicated collecting system is suspected. US/US renal BI IMPRESSION: There is an exophytic cyst in the upper pole and a nonobstructive echogenic stone lower pole left kidney. 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 The right kidney is unremarkable.
== END 2022-01-09 14:21 | disposition home or self-care (01) ==
LOC: HO.US 14:20
PROVIDERS: PCP Internal Medicine; Visit Provider Urology
DX: N20.0 Calculus of kidney (principal); N20.1 Calculus of ureter
CPT/HCPCS: 76775

== ENCOUNTER → 2022-02-08 15:07 | Outpatient (BNVA) | payer OTHER, SELFPAY | PROVIDERS: PCP Internal Medicine; Visit Provider Nurse Practitioner Family | DX: N20.0 Calculus of kidney (principal) ==

== ENCOUNTER 2022-04-22 15:55 | Outpatient (REF) | payer OTHER, SELFPAY ==
--- NOTE | ~2022-04-22 | US_ITS ---
EXAMINATION: US RETROPERITONEAL LIMITED (RENAL ONLY) CLINICAL INFORMATION: Calculus of kidney. COMPARISON: Ultrasound retroperitoneal limited (renal only) 01/09/2022. CT abdomen and pelvis without contrast 10/16/2021. TECHNIQUE: Real-time imaging of the kidneys. FINDINGS: RIGHT KIDNEY: 12.1 x 4.1 x 4.9 cm (SAG x AP x TRV). The kidney is normal in size, contour, and echogenicity. Renal cortical thickness is normal. No calculi or focal parenchymal lesions. No hydronephrosis. LEFT KIDNEY: 12.7 x 5.9 x 5.5 cm (SAG x AP x TRV). The kidney is normal in size, contour, and echogenicity. A duplicated collecting system is redemonstrated. Renal cortical thickness is normal. No hydronephrosis. At the lower pole, a 2 mm nonobstructing calculus is redemonstrated, with twinkle artifact. This is consistent with prior CT findings dated 10/16/2021 (5:61). At the upper pole, a 1.1 cm in maximal diameter anechoic, simple cyst is seen. US/US renal BI IMPRESSION: 1. A 2 mm nonobstructing left renal calculus is redemonstrated. No further urinary calculus is seen, and there is no bilateral hydronephrosis. 2. A 1.1 cm benign, simple left renal cyst is seen. This requires no imaging follow-up.
== END 2022-04-22 15:56 | disposition home or self-care (01) ==
LOC: HO.US 15:55
PROVIDERS: PCP Internal Medicine; Visit Provider Nurse Practitioner Family
DX: N20.0 Calculus of kidney (principal); N28.1 Cyst of kidney, acquired
CPT/HCPCS: 76775

== ENCOUNTER 2022-10-17 16:00 | Outpatient (AMB) | payer OTHER, SELFPAY ==
--- NOTE | 2022-10-17 16:37 | MHC.OFFWIV ---
Intake Vital Signs 10/17/22 16:39 Weight 230 lb BP 130/90 H Blood Pressure Location Rt brachial Position Sitting Pulse 88 Pulse Source Pulse Oximeter Temp 97.2 F Temp Source Temporal Artery Scan Pulse Oximetry (%) 98 Oxygen Delivery Method Room Air Intake Visit Reasons: EST/sore throat and rash on legs Intake Note: Patient here for sore throat, she states when she woke up this morning she felt like her tonsils were swollen and having a hard time breathing but slowly went away with gargling. Patient Tobacco Use Status: Former Tobacco user Allergies terbutaline [TERBUTALINE] Allergy (Severe, Verified 10/17/22 16:40) ANAPHYLAXIS peanut Allergy (Unknown, Verified 10/17/22 16:40) Hives, itching shrimp Allergy (Unknown, Verified 10/17/22 16:40) Unknown Environmental Allergy (Unknown, Uncoded 10/17/22 16:40) unknown Do you need a note to return to daycare/school/sports/work: Yes HPI HPI Comments History of Present Illness Details 51-year-old female sore throat. Patient states she will smile sore throat or tonsils were inflamed she did saltwater gargles and improved a little bit. She also nausea rash on her legs and her arms which also went away. Denies fevers or chills. PFSH Medical History Anemia History of kidney stones Kidney stones Neuropathy Palpitation Recurrent kidney stones Renal cyst Surgical History H/O lithotripsy History of back surgery History of tubal ligation Hx of microdiscectomy Family History Father No problems noted. Mother HTN (hypertension) HLD (hyperlipidemia) Social History Housing: House Alcohol intake: never Patient Tobacco Use Status: Former Tobacco user Tobacco use type: Cigarette Years Smoked: 7 years e-Cigarette/Vaping Use: Never Used Current occupational status: employed Cognitive needs: No Hearing needs: No Vision needs: Yes Female Reproductive History Menstrual Age of Menarche: 8 Review of Systems Const All systems reviewed & are unremarkable except as noted in HPI and below ENT Reports sore throat Skin/Breast Reports rash Physical Exam Vital Signs: Last Vital Signs Temp 97.2 F 10/17/22 16:39 Pulse 88 10/17/22 16:39 BP 130/90 H 10/17/22 16:39 Pulse Ox 98 10/17/22 16:39 Oxygen Delivery Method Room Air 10/17/22 16:39 Const General: healthy appearing, no acute distress and alert HEENT Other: Posterior pharynx with mild erythema no exudates present tonsils 1+ bilaterally uvula midline no trismus Results AMB Rapid Strep AMB Rapid Strep Negative Last Edit by DIANE Penny on 10/17/22 16:52 Results Reviewed Results Reviewed: Laboratory Last Values Strep Scn Rapid Clinic Negative 10/17/22 16:52 Assessment & Plan Assessment & Plan (1) Pharyngitis: Code(s): J02.9 - Acute pharyngitis, unspecified Plan Posterior pharynx with mild erythema no exudates present tonsils 1+ bilaterally uvula midline no trismus. strep negative patient likely suffering from viral pharyngitis. Recommend symptomatic treatment. Discharge instructions, follow up and treatment are discussed with patient in my usual fashion. Alternatives in treatment are also discussed. The patient will return for worsening symptoms or as needed. Advised that any labs/imaging ordered will be followed up on and contact made if further treatment needed. Counseled that patient's condition may require further evaluation and/or treatment. Symptoms of concern for worsening disorder discussed in detail in my customary manner. Patient does verbalize understanding of the plan, there are no apparent barriers to communication. The patient is given the opportunity to ask questions and have them answered to his/her satisfaction Orders: Orders AMB Rapid Strep Screen Today Z13.9 - Encounter for screening, unspecified Coding Level of Care Code Est Pt Level 3 (97312) Diagnoses Pharyngitis J02.9
[2022-10-17 16:39] VITALS: BP 130/90; PULSE 88; TEMP 36.2; O2SAT 98
== END 2022-10-17 16:58 | disposition home or self-care (01) ==
PROVIDERS: PCP Internal Medicine; Visit Provider Physician Assistant
DX: J02.9 Acute pharyngitis, unspecified (principal)
CPT/HCPCS: 87880; 99213

== ENCOUNTER 2022-11-19 16:12 | Outpatient (REF) | payer OTHER, SELFPAY | END 2022-11-19 16:13 | disposition home or self-care (01) | LOC: HO.CT 16:12 | PROVIDERS: PCP Internal Medicine; Visit Provider Internal Medicine Pulmonary Disease | DX: R91.8 Other nonspecific abnormal finding of lung field (principal) | CPT/HCPCS: 71250 ==

== ENCOUNTER 2022-12-13 13:43 | Outpatient (AMB) | payer OTHER, SELFPAY ==
--- NOTE | 2022-12-13 13:58 | A.OFFVIS_ITS ---
Intake Vital Signs 12/13/22 13:59 Height 5 ft 5 in Weight 233 lb 11.04 oz BMI 38.9 BP 138/82 Blood Pressure Location Lt brachial Position Sitting Pulse 92 Pulse Source Doppler Pulse Oximetry (%) 97 Oxygen Delivery Method Room Air Intake Visit Reasons: S/p ct chest Allergies terbutaline [TERBUTALINE] Allergy (Severe, Verified 12/13/22 14:01) ANAPHYLAXIS peanut Allergy (Unknown, Verified 12/13/22 14:01) Hives, itching shrimp Allergy (Unknown, Verified 12/13/22 14:01) Unknown Environmental Allergy (Unknown, Uncoded 10/17/22 16:40) unknown HPI S/p ct chest HPI Details 52-year-old lady, former under 5 pack-ye ar smoker in her 20s, now followed for lower extremity edema, moderate SUREKHA, and pulmonary nodules. After the last office visit patient completed her 2nd follow-up CT chest that showed stable 9 mm pulmonary nodule over the last 3 years. She has received her CPAP and has been intermittently using it. She continues complain of orthopnea, lower extremity edema, and dyspnea on exertion. She is taking her diuretic as needed. [facility] Medical History (Updated 12/13/22 @ 13:49 by Shea Rutherford PA-C) Pulmonary nodules SUREKHA (obstructive sleep apnea) Dyspnea History of COVID-19 Environmental allergies Obesity due to excess calories Recurrent kidney stones Renal cyst Palpitation Anemia Surgical History (Updated 12/13/22 @ 13:38 by Shea Rutherford PA-C) History of lithotripsy History of back surgery Hx of microdiscectomy History of tubal ligation Family History Father No problems noted. Mother HTN (hypertension) HLD (hyperlipidemia) Social History Housing: House Alcohol intake: never Patient Tobacco Use Status: Former Tobacco user Tobacco use type: Cigarette Years Smoked: 7 years e-Cigarette/Vaping Use: Never Used Current occupational status: employed Cognitive needs: No Hearing needs: No Vision needs: Yes Female Reproductive History Menstrual Age of Menarche: 8 Review of Systems Const Denies daytime sleepiness, Denies excessive sweating, Denies fatigue, Denies fever(s), Denies lethargy, Denies malaise, Denies night sweats, Denies snoring and Denies weight loss Eyes Denies blurry vision and Denies itchy eyes ENT Denies nasal congestion, Denies post nasal drip, Denies sinus pain, Denies sinus pressure and Denies other ( Thrush) Card Denies chest pain, Reports pedal edema, Denies dyspnea, Reports dyspnea on exertion, Denies orthopnea and Denies paroxysmal nocturnal dyspnea Resp Denies cough, Denies hemoptysis, Denies excessive phlegm production, Denies dyspnea, Reports dyspnea on exertion, Denies snoring and Denies wheezing GI Denies abdominal pain and Denies heartburn Musc Denies myalgias, Denies arthralgias and Denies joint swelling Skin/Breast Denies rash Neuro Denies memory loss and Denies seizure-like activity Psych Denies abnormal sleep pattern, Denies anxiety and Denies memory loss Endo Denies excessive sweating, Denies fatigue and Denies heat intolerance Pal/Lymph Denies easy bruising Aller/Immun Denies itchy eyes, Denies seasonal rhinorrhea and Denies wheezing Physical Exam Vital Signs: Last Vital Signs Pulse 92 12/13/22 13:59 BP 138/82 12/13/22 13:59 Pulse Ox 97 12/13/22 13:59 Oxygen Delivery Method Room Air 12/13/22 13:59 BMI result Body Mass Index 38.9 Const General: no acute distress and alert Nutritional Appearance: obese Orientation/consciousness: Other orientation findings ( oriented) HEENT Head: Yes atraumatic Eyes General: appearance normal, both eyes and all related structures Sclerae: sclerae normal EOM: EOMs intact bilaterally Neck Neck: Yes supple Lymphatic: no lymphadenopathy noted Resp Effort & Inspection: normal respiratory effort and no use of accessory muscles Auscultation: clear to auscultation bilaterally Cardio Rate: regular rate Rhythm: regular rhythm Heart sounds: no gallops, no murmurs and no rubs Skin General skin exam: other ( warm) Extrem General: No clubbing, No cyanosis and No edema Assessment & Plan Assessment & Plan (1) SUREKHA (obstructive sleep apnea): Code(s): G47.33 - Obstructive sleep apnea (adult) (pediatric) Plan: Patient has been encouraged to be more compliant with her CPAP therapy. (2) Dyspnea: Code(s): R06.00 - Dyspnea, unspecified Plan: Unclear etiology. Will obtain cardiopulmonary exercise test. (3) Pulmonary nodules: Comment: (11/19/22 shows stable nodules - largest is 9mm in RLL) Code(s): R91.8 - Other nonspecific abnormal finding of lung field Plan: Stable on CT imaging follow-up since 2019. No further imaging follow-up is required. Orders: Orders CA cardiopulmonary stress test Today R06.00 - Dyspnea, unspecified Coding Level of Care Code Est Pt Level 4 (07527) Diagnoses SUREKHA (obstructive sleep apnea) G47.33 Dyspnea R06.00 Pulmonary nodules R91.8
[2022-12-13 13:59] VITALS: BP 138/82; PULSE 92; O2SAT 97; BMI 38.9
== END 2022-12-13 14:38 | disposition home or self-care (01) ==
PROVIDERS: PCP Internal Medicine; Visit Provider Internal Medicine Pulmonary Disease
DX: G47.33 Obstructive sleep apnea (adult) (pediatric) (principal); R06.00 Dyspnea, unspecified; R91.8 Other nonspecific abnormal finding of lung field
CPT/HCPCS: 99214

== ENCOUNTER → 2022-12-13 13:43 | Outpatient (BNVA) | payer OTHER, SELFPAY | PROVIDERS: PCP Internal Medicine; Visit Provider Internal Medicine Pulmonary Disease ==

== ENCOUNTER 2023-07-08 10:41 | Outpatient (AMB) | payer OTHER, SELFPAY ==
--- NOTE | 2023-07-08 10:45 | AM.OFFWIN_ITS ---
Intake Vital Signs 07/08/23 10:46 Height 5 ft 5 in Weight 238 lb BMI 39.6 BP 160/100 H Blood Pressure Location Lt brachial Position Sitting Pulse 97 Pulse Source Pulse Oximeter Temp 97.5 F Temp Source Temporal Artery Scan Pulse Oximetry (%) 99 Oxygen Delivery Method Room Air Intake Visit Reasons: EST/sore throat(lobby) Intake Note: pt is here today for sore throat started friday Patient Tobacco Use Status: Former Tobacco user Allergies terbutaline [TERBUTALINE] Allergy (Severe, Verified 07/08/23 10:49) ANAPHYLAXIS peanut Allergy (Unknown, Verified 07/08/23 10:49) Hives, itching shrimp Allergy (Unknown, Verified 07/08/23 10:49) Unknown Environmental Allergy (Unknown, Uncoded 10/17/22 16:40) unknown Do you need a note to return to daycare/school/sports/work: No HPI HPI Comments History of Present Illness Details 52-year-old female presents today compla ining severe sore throat swollen glands myalgias fever to 102 x3 or 4 days. Rapid strep done today was negative [facility] Medical History (Updated 07/08/23 @ 14:15 by SOUMYA Mcclellan) Pulmonary nodules SUREKHA (obstructive sleep apnea) Dyspnea History of COVID-19 Environmental allergies Obesity due to excess calories Recurrent kidney stones Renal cyst Palpitation Anemia Surgical History (Updated 12/13/22 @ 13:38 by Shea Rutherford PA-C) History of lithotripsy History of back surgery Hx of microdiscectomy History of tubal ligation Family History Father No problems noted. Mother HTN (hypertension) HLD (hyperlipidemia) Social History Housing: House Alcohol intake: never Patient Tobacco Use Status: Former Tobacco user Tobacco use type: Cigarette Years Smoked: 7 years e-Cigarette/Vaping Use: Never Used Current occupational status: employed Cognitive needs: No Hearing needs: No Vision needs: Yes Female Reproductive History Menstrual Age of Menarche: 8 Review of Systems Const All systems reviewed & are unremarkable except as noted in HPI and below Reports body aches, Reports chills and Reports fever(s) Eyes Reports no additional complaints ENT Reports sore throat Card Reports no additional complaints Resp Reports no additional complaints GI Reports no additional complaints Physical Exam Vital Signs: Last Vital Signs Temp 97.5 F 07/08/23 10:46 Pulse 97 07/08/23 10:46 BP 160/100 H 07/08/23 10:46 Pulse Ox 99 07/08/23 10:46 Oxygen Delivery Method Room Air 07/08/23 10:46 BMI result Body Mass Index 39.6 Const General: acute distress moderate HEENT Head: Yes normal to inspection, Yes normocephalic and Yes atraumatic Ears: hearing grossly normal bilaterally and TM's normal bilaterally General nose exam: Normal external nose present Face and sinus: Yes normal facial exam Throat: Yes posterior oropharynx abnormal (Erythematous) Neck Lymphatic: lymphadenopathy (Anterior cervical lymphadenopathy) Resp Effort & Inspection: normal respiratory effort Auscultation: clear to auscultation bilaterally Cardio Rate: regular rate Rhythm: regular rhythm Heart sounds: S1 normal heart sound present and S2 normal heart sound present Results AMB Rapid Strep AMB Rapid Strep Negative Last Edit by Tamiko Diaz MA on 07/08/23 11:10 Results Reviewed Results Reviewed: Laboratory Last Values Strep Scn Rapid [facility] Negative 07/08/23 11:10 Rapid strep done in the office today he was negative but exudative pharynx needs to be treated Assessment & Plan Assessment & Plan (1) Exudative pharyngitis: Code(s): J02.9 - Acute pharyngitis, unspecified Plan: The patient will be on antibiotics for 10 days I did do a COVID test and we will call with the results in 2 days. Plan See plan Orders: Orders SARS-CoV2/FLU/RSV Today R09.89 - Other specified symptoms and signs involving the circulatory and respiratory systems Medications: New amoxicillin 875 mg PO BID 20 tabs 0RF 10 days Coding Level of Care Code Est Pt Level 3 (77221) Diagnoses Exudative pharyngitis J02.9
[2023-07-08 10:46] VITALS: BP 160/100; PULSE 97; TEMP 36.4; O2SAT 99; BMI 39.6
== END 2023-07-08 13:31 | disposition home or self-care (01) ==
PROVIDERS: PCP Internal Medicine; Visit Provider Physician Assistant Medical
DX: J02.9 Acute pharyngitis, unspecified (principal)
CPT/HCPCS: 87880; 99213

== ENCOUNTER 2023-07-08 16:32 | Outpatient (REF) | payer OTHER, SELFPAY ==
[2023-07-08 17:30] LABS: Influenza A PCR NEGATIVE (Negative); Influenza B PCR NEGATIVE (Negative); Resp Syncy Virus RNA Qual PCR NEGATIVE (Negative); SARS COV2 PCR INHOUSE NEGATIVE (Negative)
== END 2023-07-08 16:33 | disposition home or self-care (01) ==
LOC: HO.LNP 16:32
PROVIDERS: Visit Provider Physician Assistant Medical
DX: R09.89 Other specified symptoms and signs involving the circulatory and respiratory systems (principal)
CPT/HCPCS: 0241U

== ENCOUNTER 2023-08-12 11:58 | Outpatient (AMB) | payer OTHER, SELFPAY ==
[2023-08-12 12:00] VITALS: BP 140/94; PULSE 99; O2SAT 96; BMI 39.1
--- NOTE | 2023-08-12 12:00 | MHC.PC.OV ---
Vital Signs 08/12/23 12:00 Height 5 ft 5 in Weight 235 lb 4 oz BMI 39.1 BP 140/94 H Blood Pressure Location Rt brachial Position Sitting Pulse 99 Pulse Source Pulse Oximeter Pulse Oximetry (%) 96 Oxygen Delivery Method Room Air Intake Visit Reasons: PE Allergies terbutaline [TERBUTALINE] Allergy (Severe, Verified 08/12/23 12:04) ANAPHYLAXIS peanut Allergy (Unknown, Verified 08/12/23 12:04) Hives, itching shrimp Allergy (Unknown, Verified 08/12/23 12:04) Unknown Environmental Allergy (Unknown, Uncoded 10/17/22 16:40) unknown Medication List - Last Reconciled 08/12/23 by Wagner Bardales MD ascorbic acid (vitamin C) 500 mg PO DAILY carvedilol 25 mg PO BID cholecalciferol (vitamin D3) 25 mcg PO DAILY ferrous sulfate 325 mg PO BID furosemide 20 mg PO DAILY PRN gabapentin 300 mg PO BEDTIME PRN 90 days loratadine (Claritin RediTabs) 10 mg PO DAILY PRN multivitamin 1 tab PO DAILY pyridoxine (vitamin B6) 100 mg PO DAILY Tobacco use date assessed: 08/12/23 Dental Screening Dental Screen Date: 08/12/23 Did you have a dental visit in the last 12 months?: Yes Did you have a dental problem in the last 6 months where you did not have access to dental care?: No Was dental information given to patient?: Patient has dentist HPI PE HPI Details PE Patient is a 52-year-old female came in today physical examination Patient had a viral illness 5 weeks ago she has recovered from it however continued to have dry cough Patient says that she hear herself wheeze at time. I have sent ProAir inhaler patient is to start using it q.6 as needed We will book telemedicine visit in 2 days to see how she is doing Meanwhile she also need to have labs done fasting She is still using gabapentin only as needed for paresthesia lower extremity Explained to patient that medication does not work like that. If she has not taking it regularly she may stop. Patient had Cologuard test done last year which was negative She does not want to do colonoscopy Lab order placed to be done fasting She is requesting frusemide script for p.r.n. use due to swelling in her feet. Patient is morbidly obese and is requesting a script for Wegovy as a weight loss medication Side effect of medication reviewed with the patient I have sent script however patient was notified it may not be covered. Mammogram ordered [facility] Medical History Pulmonary nodules SUREKHA (obstructive sleep apnea) Dyspnea History of COVID-19 Environmental allergies Obesity due to excess calories Recurrent kidney stones Renal cyst Palpitation Anemia Surgical History History of lithotripsy History of back surgery Hx of microdiscectomy History of tubal ligation Family History Father No problems noted. Mother HTN (hypertension) HLD (hyperlipidemia) Social History Housing: House Alcohol intake: never Patient Tobacco Use Status: Former Tobacco user Tobacco use type: Cigarette Years Smoked: 7 years e-Cigarette/Vaping Use: Never Used Current occupational status: employed Cognitive needs: No Hearing needs: No Vision needs: Yes Female Reproductive History Menstrual Age of Menarche: 8 Questionnaire Thrive Questionnaire Date Thrive assessed: 03/27/22 CITLALY-7 AMB Questionnaire CITLALY-7 Date CITLALY - 7 assessed: 03/27/22 Source: Developed by Drs. Hunter Dow, Ale Hernandez, Tayo Ervin and colleagues, with an educational senthil from [employer]. Review of Systems Const Denies chills, Denies fever(s) and Denies headache(s) Eyes Denies blurry vision ENT Denies headache(s), Denies nasal discharge, Denies nasal obstruction, Denies odynophagia and Denies sinus pain Card Denies chest pain at rest and Denies chest pain with activity Resp Denies cough and Denies hemoptysis GI Denies diarrhea, Denies odynophagia, Denies vomiting and Denies hematemesis Reports as per HPI Musc Denies abnormal gait Skin/Breast Reports as per HPI Neuro Denies Neuro-related abnormal movements, Denies Abnormal speech present, Denies abnormal gait and Denies headache(s) Psych Denies mood swings and Denies paranoia Endo Reports as per HPI Pal/Lymph Reports as per HPI Aller/Immun Reports as per HPI Physical exam (Primary Care) Vital Signs: Last Vital Signs Pulse 99 08/12/23 12:00 BP 140/94 H 08/12/23 12:00 Pulse Ox 96 08/12/23 12:00 Oxygen Delivery Method Room Air 08/12/23 12:00 BMI result Body Mass Index 39.1 Tobacco/Smoking Status: Tobacco use Status Tobacco use date assessed 08/12/23 08/12/23 12:04 Patient Tobacco Use Status Former Tobacco user 08/12/23 12:04 Tobacco use type Cigarette 08/12/23 12:04 e-Cigarette/Vaping Use Never Used 08/12/23 12:04 Thrive Assessment: Date of Thrive Assessment Date Thrive assessed 03/27/22 08/12/23 12:04 Const General: cooperative, comfortable and no acute distress Orientation/consciousness: patient oriented x3 HENMT Head: Yes normocephalic and Yes atraumatic Eyes General: appearance normal, both eyes and all related structures Pupils: Equal, round and reactive pupils present EOM: EOMs intact bilaterally Neck Neck: Yes supple and No lymphadenopathy Thyroid: Thyroid normal Lymphatic: no lymphadenopathy noted Chest Breast/axilla palpation: normal palpation of the breasts Resp Effort & Inspection: normal respiratory effort and able to speak in complete sentences Auscultation: clear to auscultation bilaterally Cardio Heart sounds: S1 normal heart sound present and S2 normal heart sound present GI Palpation (GI): Soft to palpation and nontender Auscultation: normal bowel sounds General: Yes no CVA tenderness Back/Spine/Pelvis Back: no CVA tenderness Skin General skin exam: elasticity normal and turgor normal Neuro General: patient oriented x3 and gait normal Cranial nerves: Yes Equal, round and reactive pupils present Speech: No Abnormal speech present Coordination: tandem gait normal and Romberg test negative Extrem General: Yes normal exam except as noted and No edema Assessment and Plan Assessment & Plan (1) Encounter for general adult medical examination with abnormal findings: Code(s): Z00.01 - Encounter for general adult medical examination with abnormal findings (2) Cough variant not due to asthma: Code(s): R05.8 - Other specified cough (3) Chronic shortness of breath: Code(s): R06.02 - Shortness of breath (4) SUREKHA (obstructive sleep apnea): Code(s): G47.33 - Obstructive sleep apnea (adult) (pediatric) (5) Obesity due to excess calories: Code(s): E66.09 - Other obesity due to excess calories Qualifiers: Obesity classification: adult class 2 (BMI 35 - 39.9) Serious obesity comorbidity presence: without serious comorbidity Body mass index: BMI 39.0-39.9 Qualified Code(s): E66.09 - Other obesity due to excess calories; Z68.39 - Body mass index [BMI] 39.0-39.9, adult (6) Environmental allergies: Code(s): Z91.09 - Other allergy status, other than to drugs and biological substances (7) Peripheral neuralgia: Code(s): M79.2 - Neuralgia and neuritis, unspecified (8) Leg edema: Code(s): R60.0 - Localized edema Plan PE Patient is a 52-year-old female came in today physical examination Patient had a viral illness 5 weeks ago she has recovered from it however continued to have dry cough Patient says that she hear herself wheeze at time. I have sent ProAir inhaler patient is to start using it q.6 as needed She has chronic shortness a breath off and has been evaluated by mass spectrometry specialist. We will book telemedicine visit in 2 days to see how she is doing Meanwhile she also need to have labs done fasting She is still using gabapentin only as needed for paresthesia lower extremity Explained to patient that medication does not work like that. If she has not taking it regularly she may stop. Patient had Cologuard test done last year which was negative She does not want to do colonoscopy Lab order placed to be done fasting She is requesting frusemide script for p.r.n. use due to swelling in her feet. Patient is morbidly obese and is requesting a script for Wegovy as a weight loss medication Side effect of medication reviewed with the patient I have sent script however patient was notified it may not be covered. Mammogram ordered Orders: Orders MM tomosynthesis screening BI Today Z12.31 - Encounter for screening mammogram for malignant neoplasm of breast Medications: New furosemide 20 mg (1/2 x 40 mg) PO DAILY PRN 30 tabs 0RF Edema semaglutide (weight loss) (Wegovy) administer weeks 1 through 4 of therapy 0.25 mg (0.5 mL) subcut QWEEK 30 days 2.5 mL 0RF E66.09 - Other obesity due to excess calories, G47.33 - Obstructive sleep apnea (adult) (pediatric) Coding Level of Care Code Est Pt Level 4 (04259) Est Pt Prev Care 40-64y(98575) Diagnoses Encounter for general adult medical examination with abnormal findings Z00.01 Cough variant not due to asthma R05.8 Chronic shortness of breath R06.02 SUREKHA (obstructive sleep apnea) G47.33 Class 2 obesity due to excess calories without serious comorbidity with body mass index (BMI) of 39.0 to 39.9 in adult E66.09; Z68.39 Obesity classification: adult class 2 (BMI 35 - 39.9) Serious obesity comorbidity presence: without serious comorbidity Body mass index: BMI 39.0-39.9 Environmental allergies Z91.09 Peripheral neuralgia M79.2 Leg edema R60.0
== END 2023-08-12 12:26 | disposition home or self-care (01) ==
PROVIDERS: PCP Internal Medicine; Visit Provider Internal Medicine
DX: Z00.01 Encounter for general adult medical examination with abnormal findings (principal); R05.8 Other specified cough; E66.09 Other obesity due to excess calories; Z68.39 Body mass index [BMI] 39.0-39.9, adult; R06.02 Shortness of breath; G47.33 Obstructive sleep apnea (adult) (pediatric); Z91.09 Other allergy status, other than to drugs and biological substances; M79.2 Neuralgia and neuritis, unspecified; R60.0 Localized edema
CPT/HCPCS: 99214; 99396

== ENCOUNTER 2023-08-13 12:14 | Outpatient (REF) | payer OTHER, SELFPAY ==
[2023-08-13 13:08] LABS: MANUAL DIFF FLAG NO
[2023-08-13 13:17] LABS: Basophils Absolute Auto 0.1 X10*3/uL (0.0-0.2); Basophils Percent Auto 0.7 % (0-2); Eosinophils Absolute Auto 0.1 X10*3/uL (0.0-0.4); Eosinophils Percent Auto 1.4 % (0-4); Hematocrit 45.2 % (37.0-47.0); Hemoglobin 15.5 g/dl (12.0-16.0); Imm Gran Abs Auto 0.02 X10*3/uL (0.00-0.03); Imm Gran Pct Auto 0.3 % (0.0-0.4); Lymphocytes Absolute Auto 2.7 X10*3/uL (1.2-4.9); Lymphocytes Percent Auto 38.4 % (20-40); Mean Corpuscular HGB Conc 34.3 g/dl (31.0-35.0); Mean Corpuscular Hemoglobin 30.2 pg (27.0-33.0); Mean Corpuscular Volume 88.1 fL (80.0-98.0); Mean Platelet Volume 9.7 fL (9.4-12.3); Monocytes Absolute Auto 0.5 X10*3/uL (0.1-1.2); Monocytes Percent Auto 7.3 % (2-11); Neutrophils Absolute Auto 3.7 x10*3/uL (2.0-8.3); Neutrophils Percent Auto 51.9 % (45-73); Platelet Count 335 X10*3/uL (160-400); Red Blood Count 5.13 X10*6/uL (4.20-5.50); Red Cell Distribution Width 13.5 % (11.0-16.0); White Blood Count 7.1 X10*3/uL (4.8-10.8)
[2023-08-13 13:28] LABS: Estimated Average Glucose 120 mg/dL; Hemoglobin A1c % 5.8 % (<6.0)
[2023-08-13 13:37] LABS: Alanine Aminotransferase 18 U/L (0-31); Albumin Level 4.2 g/dL (3.5-5.0); Alkaline Phosphatase 89 U/L (39-117); Anion Gap 12 (12-20); Aspartate Amino Transferase 21 U/L (5-31); Bilirubin Total 0.6 mg/dL (0.0-1.0); Blood Urea Nitrogen 10 mg/dL (9-16); Calcium 9.3 mg/dL (8.4-10.2); Carbon Dioxide 28 mmol/L (22-29); Chloride 108 mmol/L (96-108); Cholesterol 209 mg/dL (<200); Estimated Glomerular Filt Rate > 60; Glucose Fasting 86 mg/dL (60-99); HDL Cholesterol 41 mg/dL (>40); LDL Cholesterol Calculated 134 mg/dL (<100); Sodium 144 mmol/L (135-145); Total Protein 7.6 g/dL (6.5-8.0); Triglycerides 170 mg/dL (<150)
[2023-08-13 13:53] LABS: TSH reflex Free T4 1.11 uIU/mL (0.32-4.0)
[2023-08-13 14:12] LABS: Vitamin B12 340 pg/mL (200-900)
[2023-08-17 16:59] LABS: Vitamin D 25-OH, D2 <4 ng/mL; Vitamin D 25-OH, D3 9 ng/mL; Vitamin D 25-OH, Total 9 ng/mL (30-100)
== END 2023-08-13 12:15 | disposition home or self-care (01) ==
LOC: HO.HMGCLDS 12:14
PROVIDERS: PCP Internal Medicine; Visit Provider Internal Medicine
DX: R60.0 Localized edema (principal); R10.13 Epigastric pain; E66.09 Other obesity due to excess calories; Z68.39 Body mass index [BMI] 39.0-39.9, adult; F41.1 Generalized anxiety disorder; G43.909 Migraine, unspecified, not intractable, without status migrainosus; D64.9 Anemia, unspecified; Z13.1 Encounter for screening for diabetes mellitus
CPT/HCPCS: 36415; 80053; 80061; 82306; 82607; 83036; 84443; 85025

== ENCOUNTER 2023-08-18 13:55 | Outpatient (REF) | payer OTHER, SELFPAY ==
--- NOTE | ~2023-08-18 | MM_ITS ---
EXAMINATION: MM SCREENING DIGITAL BREAST TOMOSYNTHESIS, BILATERAL CLINICAL INFORMATION: Screening. Asymptomatic. COMPARISON: Mammography: This study is compared with prior exams dating back to 2015. TECHNIQUE: Digital breast tomosynthesis is performed in both the craniocaudal and mediolateral oblique views along with computer-aided detection (CAD). Synthesized 2D images are generated from the tomosynthesis. FINDINGS: There are scattered areas of fibroglandular density (ACR BI-RADS breast composition Category b). There are no significant masses, abnormal calcifications, or other abnormalities. There are 2 biopsy tissue markers in the right breast. MM/MM tomosynthesis screening BI IMPRESSION: No mammographic evidence of malignancy. ASSESSMENT: BI-RADS BI-RADS 2 - Benign Findings RECOMMENDATION: Routine annual mammography screening. 1 year F/U This examination should not preclude the clinical evaluation of a suspicious palpable abnormality. This patient's information was entered into a reminder system with a target due date for their next mammogram.
== END 2023-08-18 13:56 | disposition home or self-care (01) ==
LOC: HO.MAMMO 13:55
PROVIDERS: PCP Internal Medicine; Visit Provider Internal Medicine
DX: Z12.31 Encounter for screening mammogram for malignant neoplasm of breast (principal)
CPT/HCPCS: 77063; 77067

== ENCOUNTER → 2023-08-18 14:00 | Outpatient (BNV) | payer OTHER, SELFPAY | PROVIDERS: PCP Internal Medicine; Visit Provider Radiology Diagnostic Radiology | DX: Z12.31 Encounter for screening mammogram for malignant neoplasm of breast (principal) | CPT/HCPCS: 77063; 77067 ==

== ENCOUNTER 2023-11-04 16:02 | Outpatient (REF) | payer OTHER, SELFPAY ==
[2023-11-05 11:03] LABS: Influenza A PCR NEGATIVE (Negative); Influenza B PCR NEGATIVE (Negative); Resp Syncy Virus RNA Qual PCR NEGATIVE (Negative); SARS COV2 PCR INHOUSE NEGATIVE (Negative)
== END 2023-11-04 16:03 | disposition home or self-care (01) ==
LOC: HO.HMGCLNP 16:02
PROVIDERS: Physician Assistant; PCP Internal Medicine; Visit Provider Nurse Practitioner Family
DX: J06.9 Acute upper respiratory infection, unspecified (principal)
CPT/HCPCS: 0241U

== ENCOUNTER 2023-11-04 16:02 | Outpatient (AMB) | payer OTHER, SELFPAY ==
--- NOTE | 2023-11-04 16:22 | MHC.OFFWIV ---
Intake Vital Signs 11/04/23 16:23 Height 5 ft 5 in Weight 233 lb 2 oz BMI 38.8 BP 138/92 H Blood Pressure Location Rt brachial Position Sitting Pulse 88 Pulse Source Pulse Oximeter Pulse Oximetry (%) 96 Oxygen Delivery Method Room Air Intake Visit Reasons: EP headache,chills, nausea Patient Tobacco Use Status: Former Tobacco user Allergies terbutaline [TERBUTALINE] Allergy (Severe, Verified 11/04/23 16:23) ANAPHYLAXIS peanut Allergy (Unknown, Verified 11/04/23 16:23) Hives, itching shrimp Allergy (Unknown, Verified 11/04/23 16:23) Unknown Environmental Allergy (Unknown, Uncoded 10/17/22 16:40) unknown Do you need a note to return to daycare/school/sports/work: No HPI HPI Comments History of Present Illness Details This is a 52-year-old female with a past medical history palpitations, asthma and peripheral neuropathy presenting for evaluation of fevers, chills, nausea, cough, headache and diarrhea that started last night. Patient states she has had up to 10 episodes of diarrhea today for which she took Pepto-Bismol. Patient states that she has had fevers up to 102? for which she is taking Tylenol. She denies any otalgia, sore throat, chest pain, shortness of breath or vomiting. Patient states that she continues to feel nauseous at this time. 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 [facility] Medical History Pulmonary nodules SUREKHA (obstructive sleep apnea) Dyspnea History of COVID-19 Environmental allergies Obesity due to excess calories Recurrent kidney stones Renal cyst Palpitation Anemia Surgical History History of lithotripsy History of back surgery Hx of microdiscectomy History of tubal ligation Family History Father No problems noted. Mother HTN (hypertension) HLD (hyperlipidemia) Social History Housing: House Alcohol intake: never Patient Tobacco Use Status: Former Tobacco user Tobacco use type: Cigarette Years Smoked: 7 years e-Cigarette/Vaping Use: Never Used Current occupational status: employed Cognitive needs: No Hearing needs: No Vision needs: Yes Female Reproductive History Menstrual Age of Menarche: 8 Review of Systems Const All systems reviewed & are unremarkable except as noted in HPI and below Denies body aches, Reports chills, Reports fatigue, Reports fever(s) and Denies weakness Eyes Reports no additional complaints ENT Reports no additional complaints Card Reports no additional complaints and Denies dyspnea Resp Reports cough and Denies dyspnea GI Reports no additional complaints, Denies abdominal pain, Denies belching, Denies bloating, Denies heartburn, Reports diarrhea, Reports nausea and Denies vomiting Reports as per HPI, Denies difficulty voiding, Denies dysuria, Denies urinary incontinence and Denies urinary hesitancy Musc Reports no additional complaints Skin/Breast Reports system reviewed and no additional complaints, except as documented Neuro Reports no additional complaints and Denies weakness Psych Reports no additional complaints Endo Reports fatigue Physical Exam Vital Signs: Last Vital Signs Pulse 88 11/04/23 16:23 BP 138/92 H 11/04/23 16:23 Pulse Ox 96 11/04/23 16:23 Oxygen Delivery Method Room Air 11/04/23 16:23 BMI result Body Mass Index 38.8 Const General: cooperative, alert, awake, Physically active and ill appearing; No acute distress or lethargic Nutritional Appearance: overweight Orientation/consciousness: patient oriented x3 and No lethargic Limitations: no limitations HEENT Head: Yes normal to inspection Ears: hearing grossly normal bilaterally, external ears normal, TM's normal bilaterally and EAC's normal General nose exam: Normal external nose present Face and sinus: Yes normal facial exam and Yes sinuses nontender Mouth: Normal oral and palatal mucosa present and moist mucous membranes Throat: Yes posterior oropharynx normal (No erythema, edema or exudates) and No postnasal drainage Eyes General: appearance normal, both eyes and all related structures Neck Lymphatic: no lymphadenopathy noted Resp Effort & Inspection: normal respiratory effort, able to speak in complete sentences, abnormal respiratory pattern, no audible wheezes, no cough and no respiratory distress Auscultation: clear to auscultation bilaterally Cardio Rate: regular rate Rhythm: regular rhythm GI Inspection: Yes normal to inspection Palpation (GI): Soft to palpation and nontender Auscultation: normal bowel sounds General: Yes Bimanual renal exam normal bilaterally and Yes bladder normal to palpation Bimanual exam- vagina & uterus: bladder normal to palpation Skin General skin exam: no rashes or lesions noted Neuro General: patient oriented x3 Psych Appearance: grossly normal Mental Status: mental status grossly normal Insight: Good insight present (Psych) Judgement: Good judgement present (Psych) Assessment & Plan Assessment & Plan (1) Acute upper respiratory infection: Code(s): J06.9 - Acute upper respiratory infection, unspecified Plan: Testing for COVID-19, influenza and RSV is pending at this time. (2) Diarrhea: Code(s): R19.7 - Diarrhea, unspecified Qualifiers: Diarrhea type: unspecified type Qualified Code(s): R19.7 - Diarrhea, unspecified Plan: Imodium OTC, increase clear fluids daily, Zofran prescribed for nausea. (3) Febrile illness: Code(s): R50.9 - Fever, unspecified Plan: Tylenol or ibuprofen as needed for any fevers. Orders: Orders SARS-CoV2/FLU/RSV Today J06.9 - Acute upper respiratory infection, unspecified Medications: New ondansetron 4 mg PO Q8H PRN 10 tabs 0RF nausea and vomiting Coding Level of Care Code Est Pt Level 3 (12565) Diagnoses Acute upper respiratory infection J06.9 Diarrhea, unspecified type R19.7 Diarrhea type: unspecified type Febrile illness R50.9 Time Spent (min) 20
[2023-11-04 16:23] VITALS: BP 138/92; PULSE 88; O2SAT 96; BMI 38.8
== END 2023-11-04 16:49 | disposition home or self-care (01) ==
PROVIDERS: PCP Internal Medicine; Visit Provider Physician Assistant
DX: J06.9 Acute upper respiratory infection, unspecified (principal); R19.7 Diarrhea, unspecified; R50.9 Fever, unspecified

== ENCOUNTER 2023-12-16 08:43 | Outpatient (AMB) | payer OTHER, SELFPAY ==
[2023-12-16 08:49] VITALS: BP 140/90; PULSE 82; TEMP 36.7; O2SAT 98; BMI 38.8
--- NOTE | 2023-12-16 08:49 | AM.OFFWIN_ITS ---
Intake Vital Signs 12/16/23 08:49 Height 5 ft 5 in Weight 233 lb BMI 38.8 BP 140/90 H Blood Pressure Location Rt brachial Position Sitting Pulse 82 Pulse Source Pulse Oximeter Temp 98.0 F Temp Source Oral Pulse Oximetry (%) 98 Intake Visit Reasons: EP-fever, nasal congestion, cough Intake Note: pt is here for c/o fever, with nasal congestion and cough. tested pos for covd last Friday but still has fever Patient Tobacco Use Status: Former Tobacco user Allergies terbutaline [TERBUTALINE] Allergy (Severe, Verified 12/16/23 08:50) ANAPHYLAXIS peanut Allergy (Unknown, Verified 12/16/23 08:50) Hives, itching shrimp Allergy (Unknown, Verified 12/16/23 08:50) Unknown Environmental Allergy (Unknown, Uncoded 10/17/22 16:40) unknown Do you need a note to return to daycare/school/sports/work: No HPI HPI Comments History of Present Illness Details 53 y/o female patient who presents to hospital for special surgery walk in clinic c/o persistent Fevers at home. She tested positive for COVID 19 last week Friday. She has been taking Acetaminophen with good relief. Pt reports High fevers up to 101F without medications. Her work place wants her to RTW when fever free, patient asking for work note. [facility] Medical History Pulmonary nodules SUREKHA (obstructive sleep apnea) Dyspnea History of COVID-19 Environmental allergies Obesity due to excess calories Recurrent kidney stones Renal cyst Palpitation Anemia Surgical History History of lithotripsy History of back surgery Hx of microdiscectomy History of tubal ligation Family History Father No problems noted. Mother HTN (hypertension) HLD (hyperlipidemia) Social History Housing: House Alcohol intake: never Patient Tobacco Use Status: Former Tobacco user Tobacco use type: Cigarette Years Smoked: 7 years e-Cigarette/Vaping Use: Never Used Current occupational status: employed Cognitive needs: No Hearing needs: No Vision needs: Yes Female Reproductive History Menstrual Age of Menarche: 8 Review of Systems Const All systems reviewed & are unremarkable except as noted in HPI and below Physical Exam Vital Signs: Last Vital Signs Temp 98.0 F 12/16/23 08:49 Pulse 82 12/16/23 08:49 BP 140/90 H 12/16/23 08:49 Pulse Ox 98 12/16/23 08:49 BMI result Body Mass Index 38.8 Const General: no acute distress Nutritional Appearance: overweight Orientation/consciousness: patient oriented x3 Resp Effort & Inspection: normal respiratory effort Auscultation: clear to auscultation bilaterally Cardio Heart sounds: S1 normal heart sound present and S2 normal heart sound present Skin General skin exam: no rashes or lesions noted Neuro General: patient oriented x3, gait normal and moves all extremities Assessment & Plan Assessment & Plan (1) COVID-19: Code(s): U07.1 - COVID-19 Plan: Stay home, hydrate and continue taking Acetaminophen Work note provided to patient. Continue with Isolation until fever free and asymptomatic. Coding Level of Care Code Est Pt Level 3 (38273) Diagnoses COVID-19 U07.1 Time Spent (min) 15
== END 2023-12-16 09:47 | disposition home or self-care (01) ==
PROVIDERS: PCP Internal Medicine; Visit Provider Nurse Practitioner Family
DX: U07.1 COVID-19 (principal)

== ENCOUNTER → 2023-12-16 08:43 | Outpatient (BNVA) | payer OTHER, SELFPAY | PROVIDERS: PCP Internal Medicine; Visit Provider Nurse Practitioner Family ==

== ENCOUNTER 2024-04-27 16:01 | Outpatient (REF) | payer OTHER, SELFPAY ==
[2024-04-28 12:08] LABS: Influenza A PCR NEGATIVE (Negative); Influenza B PCR NEGATIVE (Negative); Resp Syncy Virus RNA Qual PCR NEGATIVE (Negative); SARS COV2 PCR INHOUSE NEGATIVE (Negative)
== END 2024-04-27 16:02 | disposition home or self-care (01) ==
LOC: HO.LAB 16:01
PROVIDERS: Physician Assistant; PCP Internal Medicine
DX: R42 Dizziness and giddiness (principal); R09.89 Other specified symptoms and signs involving the circulatory and respiratory systems
CPT/HCPCS: 0241U

== ENCOUNTER 2024-04-27 16:01 | Outpatient (AMB) | payer OTHER, SELFPAY ==
[2024-04-27 16:17] VITALS: BP 124/90; PULSE 89; O2SAT 98
--- NOTE | 2024-04-27 16:17 | AM.OFFWIN_ITS ---
Intake Vital Signs 04/27/24 16:17 Weight 235 lb BP 124/90 H Blood Pressure Location Rt brachial Position Sitting Pulse 89 Pulse Source Pulse Oximeter Pulse Oximetry (%) 98 Oxygen Delivery Method Room Air Intake Visit Reasons: EP Headache, lightheaded/dizzy Intake Note: Patient here for headaches that have been present for a couple of weeks on and off. Patient Tobacco Use Status: Former Tobacco user Allergies terbutaline [TERBUTALINE] Allergy (Severe, Verified 04/27/24 16:19) ANAPHYLAXIS peanut Allergy (Unknown, Verified 04/27/24 16:19) Hives, itching shrimp Allergy (Unknown, Verified 04/27/24 16:19) Unknown Environmental Allergy (Unknown, Uncoded 04/27/24 16:19) unknown Do you need a note to return to daycare/school/sports/work: No HPI HPI Comments History of Present Illness Details History of Present Illness - The patient is a 53-year-old female pr esenting with headaches and dizziness, experiencing headaches daily for the last two to three weeks. - Dizziness is characterized by a feelin g of being off balance; the patient denies any muscle weakness but feels very fatigued. - She missed work due to these symptoms and had a similar presentation three to four years ago, requiring an iron infusion for anemia. - she has been taking her iron supplemen tation but has missed a few doses recently. - In 2020, she was treated for vertigo w ith limited success until anemia was treated. - Current medication includes ferrous santiago lfate taken twice daily. - Recent evaluations for COVID-19 were n egative. - She has concerns about symptom recurre nce and its effect on her job responsibilities. Physical Exam General: Cooperative, healthy appearing, comfortable, no acute distress and well developed, but appears a little pale Orientation: Patient oriented x3 Limitations: No limitations Head: Normal to inspection Ears: Hearing grossly normal bilaterally, no evidence of ear infection Nose: Normal external nose present, no sinus infection noted Face and sinus: Normal facial exam Eyes: Appearance normal, both eyes and all related structures, but inner eyes appear a little pale Neck: Normal visual inspection and Yes full ROM Respiratory: Normal respiratory effort and able to speak in complete sentences. Clear to auscultation bilaterally Cardiovascular: Regular rate and rhythm. Normal S1 and S2 Skin: No rashes or lesions noted Neuro: Patient oriented x3 Extremities: Normal to inspection [facility] Medical History Pulmonary nodules SUREKHA (obstructive sleep apnea) Dyspnea History of COVID-19 Environmental allergies Obesity due to excess calories Recurrent kidney stones Renal cyst Palpitation Anemia Surgical History History of lithotripsy History of back surgery Hx of microdiscectomy History of tubal ligation Family History Father No problems noted. Mother HTN (hypertension) HLD (hyperlipidemia) Social History Housing: House Alcohol intake: never Patient Tobacco Use Status: Former Tobacco user Tobacco use type: Cigarette Years Smoked: 7 years e-Cigarette/Vaping Use: Never Used Current occupational status: employed Cognitive needs: No Hearing needs: No Vision needs: Yes Female Reproductive History Menstrual Age of Menarche: 8 Review of Systems Const All systems reviewed & are unremarkable except as noted in HPI and below Physical Exam Vital Signs: Last Vital Signs Pulse 89 04/27/24 16:17 BP 124/90 H 04/27/24 16:17 Pulse Ox 98 04/27/24 16:17 Oxygen Delivery Method Room Air 04/27/24 16:17 Assessment & Plan Assessment & Plan (1) Dizziness: Code(s): R42 - Dizziness and giddiness Plan: The patient's symptoms, including headaches and dizziness, likely relate to her history of anemia. In light of her previous beneficial response to iron infusion, further investigation into her current iron status is warranted. Physical findings showed slight conjunctival pallor, which may indicate ongoing anemia. I have messaged her PCP to follow up on the investigation for this and pt was told to go to the ED for worsening symptoms in the meanwhile. No significant ear or sinus issues were found, excluding these as causes of dizziness. Repeat testing for Flu, RSV and COVID-19 is advisable alongside assessments for other viral infections. While awaiting results, monitoring for symptom escalation is recommended, with emergency services as a contingency. All relevant results will be conveyed promptly to ensure timely intervention. Patient was informed and verbally consented to the use of an ambient scribe for clinic note documentation during this visit. Orders: Orders SARS-CoV2/FLU/RSV Today R09.89 - Other specified symptoms and signs involving the circulatory and respiratory systems Coding Level of Care Code Est Pt Level 3 (47594) Diagnoses Dizziness R42
--- OUTSIDE RECORDS SUMMARY | 2024-04-27 19:16 | XMS_ITS ---
Author Organization [facility] Address [address] [place] [address] Care Team Providers Care Dealer Card Room Name Role Phone MARIBELLBORIS HARRIS Unavailable [phone] ALLERGIES No Known Allergies REASON FOR VISIT Patient is here for weight management follow up MEDICATIONS Medication SIG (Take, Route, Fr equency, Duration) Notes Start Date End Date Status Wegovy 1.7 MG/0.75ML 1.7mg Subcutaneous weekly for 30 days Active Ondansetron 4 MG 1 tablet on the tong ue and allow to dissolve prn nausea/vomiting Orally twice day for 30 days 04/03/2024 Active PROBLEMS Problem Type ICD Code Onset Dates Problem Status W/U Status Risk SNOMED Code Notes Problem Body mass index [BMI] 35.0-35.9, adult (Z68.35) Active confirmed 586983754 VITAL SIGNS Blood pressure systolic 122 mm Hg 04/03/19 25 Blood pressure diastolic 80 mm Hg 025 Heart Rate 98 /min 04/03/2024 Height 65 in 04/03/2024 Weight 214.2 lbs 04/03/2024 BMI 35.64 kg/m2 04/03/2024 Oximetry 92 % 04/03/2024 Encounters Encounter Location Date Provider Diagnosis [facility] [address] [place] [address] 04/03/2024 BORIS HASSAN Other obesity due to excess calories E66.09 ; Body mass index [BMI] 35.0-35.9, adult Z68.35 ; Dietary counseling and surveillance Z71.3 and Prediabetes R73.03 ASSESSMENTS Encounter Date Diagnosis Assessment Notes Treatment Notes Treatment Clinical Notes Section Notes 04/03/2024 Other obesity due to excess calories (ICD-10 - E66.09) #Weight Management 04/03/2024 Continue 1.7 mg Wegovy dosing Will send prescription Zofran as needed Now euglycemic, A1c of 5.4 cont K2 and D3 high-dose vitamin D Total time spent today was 30 minutes of which greater than 50% was spent on coordinating and counseling Patient has been found to be obese with a BMI of (35). Patient has class (2) obesity. We are a board certified obesity and weight management practice Of note, some information is being carried forward from prior records for informational purposes only and is being cited so that efficiency, safety and quality of the patient's care is not compromised This note was prepared using voice recognition software and direct typing Please excuse inadvertent parking officer or typing errors, or uncorrected word substitutions Although every attempt has been made by the provider to proofread this document, occasional misspellings and typographical errors may still be present Due to the previous pandemic, and the use of personal protective equipment (PPE) This may decrease voice recognition accuracy Inadvertent parking officer errors may occur 04/03/2024 Body mass index [BMI] 35.0-35.9, adult (ICD-10 - Z68.35) #Weight Management 04/03/2024 Continue 1.7 mg Wegovy dosing Will send prescription Zofran as needed Now euglycemic, A1c of 5.4 cont K2 and D3 high-dose vitamin D Total time spent today was 30 minutes of which greater than 50% was spent on coordinating and counseling Patient has been found to be obese with a BMI of (35). Patient has class (2) obesity. We are a board certified obesity and weight management practice Of note, some information is being carried forward from prior records for informational purposes only and is being cited so that efficiency, safety and quality of the patient's care is not compromised This note was prepared using voice recognition software and direct typing Please excuse inadvertent parking officer or typing errors, or uncorrected word substitutions Although every attempt has been made by the provider to proofread this document, occasional misspellings and typographical errors may still be present Due to the previous pandemic, and the use of personal protective equipment (PPE) This may decrease voice recognition accuracy Inadvertent parking officer errors may occur 04/03/2024 Dietary counseling and surveillance (ICD-10 - Z71.3) #Weight Management 04/03/2024 Continue 1.7 mg Wegovy dosing Will send prescription Zofran as needed Now euglycemic, A1c of 5.4 cont K2 and D3 high-dose vitamin D Total time spent today was 30 minutes of which greater than 50% was spent on coordinating and counseling Patient has been found to be obese with a BMI of (35). Patient has class (2) obesity. We are a board certified obesity and weight management practice Of note, some information is being carried forward from prior records for informational purposes only and is being cited so that efficiency, safety and quality of the patient's care is not compromised This note was prepared using voice recognition software and direct typing Please excuse inadvertent parking officer or typing errors, or uncorrected word substitutions Although every attempt has been made by the provider to proofread this document, occasional misspellings and typographical errors may still be present Due to the previous pandemic, and the use of personal protective equipment (PPE) This may decrease voice recognition accuracy Inadvertent parking officer errors may occur 04/03/2024 Prediabetes (ICD-10 - R73.03) #Weight Management 04/03/2024 Continue 1.7 mg Wegovy dosing Will send prescription Zofran as needed Now euglycemic, A1c of 5.4 cont K2 and D3 high-dose vitamin D Total time spent today was 30 minutes of which greater than 50% was spent on coordinating and counseling Patient has been found to be obese with a BMI of (35). Patient has class (2) obesity. We are a board certified obesity and weight management practice Of note, some information is being carried forward from prior records for informational purposes only and is being cited so that efficiency, safety and quality of the patient's care is not compromised This note was prepared using voice recognition software and direct typing Please excuse inadvertent parking officer or typing errors, or uncorrected word substitutions Although every attempt has been made by the provider to proofread this document, occasional misspellings and typographical errors may still be present Due to the previous pandemic, and the use of personal protective equipment (PPE) This may decrease voice recognition accuracy Inadvertent parking officer errors may occur PLAN OF TREATMENT Medication Medication Name Sig Start Date Stop Date Notes Wegovy 1.7 MG/0.75ML 1.7mg Subcutaneous weekly for 30 days Ondansetron 4 MG 1 tablet on the tong ue and allow to dissolve prn nausea/vomiting Orally twice day for 30 days 04/03/2024 Next Appt Details Provider Name:BORIS HASSAN, 05/08/2024 09:15:00 AM, [address], [place], [address], Progress Notes * Bright GRANADOSB: [birth year] (53 yo F)Acc No.[id number]:04/03/2024 Patient:??Juliet GRANADOS Provider:??BORIS HASSAN NP :1970?Age:53 Y?Sex:Fe male Date:04/03/2024 Address:[address] [place], [place] [id number] Subjective: * Chief Complaints: * ?1. Patient is here for weight management follow up. * HPI: ?Constitutional:? Patient is here today for a weight management f/u visit ?Patient seen and examined. ? Full past medical history, social history, family history, ?allergies and current medications were reviewed and updated. ?Body composition analysis reviewed today ?#Weight Management ?04/03/2024 ?thriving ?Now euglycemic at 5.4 , previously prediabetic 5.8 ?down >7 lbs fat ,mass since 11/2023 ?Wegovy 1.7mg ?Injects Tues ?Tolerating medication well with no significant side effects ?Noticed some slight nausea on this increased dose ?hx of iron def anemia ?on iron supplementation ?We have started on a K2 and D3 high-dose vitamin D ?2013 hx of microdiscectomy @ [facility] ?Diet: sweet tooth ?Exercise: Currently tracking steps daily, also @ [facility] ?Non-smoker. ?ETOH use: denies ?04/03/2024, Weight 214lbs , BMI 35 (-8lbs) ?01/31/2024, Weight 222lbs , BMI 37 (-3lbs) ?12/27/2023, Weight 225lbs , BMI 38 (-4lbs) ?11/29/2023, Weight 229lbs , BMI 38 (-4lbs) ?11/01/2023, Weight 233 , BMI 38, (-4lbs) ?09/27/2023: Weight 237 lbs, BMI 39: ? 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 ?SUREKHA screening/STOP-BANG/[place], denies ?Metabolic workup: 07/2023 ?Tot Chol 209, LDL 134, HDL 41, Trigs 170 ?TSH 1.1 ?Hgb A1c 5.8 ?Vit B12 340 ?Vit D 9* ?Has not had an echocardiogram recently. * ROS:?All Other Systems:?Review of Systems (ROS)??All others negative except those mentioned in HPI.? * Medical History:??Medical Hi story Verified. * Family History:??No Family H istory documented..?? * Medications:??Taking Wegovy 1.7 MG/0.75ML Solution Auto-injector 1.7mg Subcutaneous weekly , Discontinued Wegovy 1 MG/0.5ML Solution Auto-injector 1mg Subcutaneous weekly , Discontinued Wegovy 0.25 MG/0.5ML Solution Auto-injector 0.5 mL Subcutaneous weekly , Discontinued Wegovy 0.5 MG/0.5ML Solution Auto-injector ADMINISTER 0.5 MG UNDER THE SKIN WEEKLY , Medication List reviewed and reconciled with the patient * Allergies:??N.K.D.A. Objective: * Vitals:??HR:98/min, BP:122/8 0mm Hg, Wt:214.2lbs, BMI:35.64Index, Ht: 65 in, Oxygen sat %:92%. * Examination: ?General Examination: ?GENERAL APPEARANCE:??in no acute distress, well developed, well nourished.??HEAD:??normocephalic, atraumatic.??EYES:??pupils equal, round, reactive to light and accommodation.??EARS:??normal.??ORAL CAVITY:??mucosa moist.??THROAT:??clear.??NECK/THYROID:??neck supple, full range of motion, no cervical lymphadenopathy.??SKIN:??no suspicious lesions, warm and dry.??HEART:??no murmurs, regular rate and rhythm, S1, S2 normal.??LUNGS:??clear to auscultation bilaterally.??ABDOMEN:??normal, bowel sounds present, soft, nontender, nondistended.??EXTREMITIES:??no clubbing, cyanosis, or edema.??NEUROLOGIC:??nonfocal, motor strength normal upper and lower extremities, sensory exam intact.? Assessment: * Assessment: 1.??Other obesity due to exc ess calories - E66.09 (Primary)??2.??Body mass index [BMI] 35.0-35.9, adult - Z68.35??3.??Dietary counseling and surveillance - Z71.3??4.??Prediabetes - R73.03?? #Weight Management 04/03/2024 Continue 1.7 mg Wegovy dosing Will send prescription Zofran as needed Now euglycemic, A1c of 5.4 cont K2 and D3 high-dose vitamin D Total time spent today was 30 minutes of which greater than 50% was spent on coordinating and counseling Patient has been found to be obese with a BMI of (35). Patient has class (2) obesity. We are a board certified obesity and weight management practice Of note, some information is being carried forward from prior records for informational purposes only and is being cited so that efficiency, safety and quality of the patient's care is not compromised This note was prepared using voice recognition software and direct typing Please excuse inadvertent parking officer or typing errors, or uncorrected word substitutions Although every attempt has been made by the provider to proofread this document, occasional misspellings and typographical errors may still be present Due to the previous pandemic, and the use of personal protective equipment (PPE) This may decrease voice recognition accuracy Inadvertent parking officer errors may occur. Plan: * Treatment: * Procedure Codes:??92377 P/M CLINICAL SUPPORT TECH, INDIV 15 MIN * Images: Billing Information: * Visit Code:?? 21236 Office Visit, Est Pt., Level 4. Modifiers: SA * Procedure Codes:?? 78400 P/M CLINICAL SUPPORT TECH, INDIV 15 MIN. * Sign off status: Completed true * Provider:??BORIS HASSAN NP Date:??03/20 History and Physical Notes * HPI (History of Present Illness) Category Sub-Category Detail Notes Category Not es Constitutional Patient is here today for a weight management f/u visit Patient seen and examined. Full past medical history, social history, family history, allergies and current medications were reviewed and updated. Body composition analysis reviewed today #Weight Management 04/03/2024 thriving Now euglycemic at 5.4 , previously prediabetic 5.8 down > 7 lbs fat ,mass since 11/2023 Wegovy 1.7mg Injects Tuesdays Tolerating medication well with no significant side effects Noticed some slight nausea on this increased dose hx of iron def anemia on iron supplementation We have started on a K2 and D3 high-dose vitamin D 2012 hx of microdiscectomy @ [facility] Diet: sweet tooth Exercise: Currently tracking steps daily, also @ [facility] Non-smoker. 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 SUREKHA screening/STOP-BANG/[facility] [place] Metabolic workup: 07/2023 Tot Chol 209, LDL 134, HDL 41, Trigs 170 TSH 1.1 Hgb A1c 5.8 Vit B12 340 Vit D 9* Has not had an echocardiogram recently. Examination Category Sub-Category Detail Notes Category Not es General Examination GENERAL APPEARANCE: in no ac maegan distress, well developed, well nourished HEAD: normocephalic, atrau matic EYES: pupils equal, round, reactive to light and accommodation EARS: normal THROAT: clear NECK/THYROID: neck supple, full ra nge of motion, no cervical lymphadenopathy HEART: no murmurs, regular rate and rhythm, S1, S2 normal LUNGS: clear to auscultatio n bilaterally ABDOMEN: normal, bowel sounds present, soft, nontender, nondistended NEUROLOGIC: nonfocal, motor stre ngth normal upper and lower extremities, sensory exam intact SKIN: no suspicious lesion s, warm and dry EXTREMITIES: no clubbing, cyanosi s, or edema ORAL CAVITY: mucosa moist
--- OUTSIDE RECORDS SUMMARY | 2024-04-27 19:17 | XMS_ITS | Clinical Summary ---
Author Organization [facility] Address [address] [place] [address] Care Team Providers Care Botany Technician Name Role Aerospace Products Sales EngineerJustin Genao MD Primary Care Provider [phone] Surgical History Surgery Date Site/Laterality Comments OTHER SURGICAL HISTORY PROCEDURE: ---- OTHER ----; COMMENT: lithotripsy TUBAL LIGATION PROCEDURE: HISTORICAL TUBAL LIGATION WISDOM TOOTH EXTRACTION PROCEDURE: HISTORICAL WISDOM TEETH EXTRACTION Medical History Medical History Date Comments Palpitations 04/11/2011 DX:Palpitations Environmental allergies 04/11/2011 DX:Envir onmental allergies Nephrolithiasis 04/11/2011 DX:Nephrolithias is Family History Medical History Relation Name Comments Other: valve Brother 1 Other cancer Maternal Grandmother liver p erhaps Hypertension Mother Depression Son 1 Coronary artery disease Uncle 1 Diabetes Neg Hx Relation Name Status Comments Brother 1 Brother 2 Alive Stroke (early 30's) Brother 3 Alive Healthy Brother 4 Alive Heart surgery f or a blockage Brother 5 Alive Healthy Father Alive Unknown Maternal Grandmother Mother Alive hypercholestero lemia, question of diabetes Sister 1 Alive Healthy Sister 2 Alive Healthy Son 1 Son 2 Alive Healthy Son 3 Alive Healthy Son 4 Alive Bipolar, schizo phrenia Uncle 1 Uncle 2 Social History Tobacco Use Types Packs/Day Years Used Date Smoking Tobacco: Former Cigarettes Q uit: 02/17/2007 Alcohol Use Standard Drinks/Week Comments No 0 (1 standard drink = 0.6 oz pur e alcohol) Comments Unknown Sex and Gender Information Value Date Recorded Sex Assigned at Not on file Legal Sex Female 4:52 AM EST Gender Identity Not on file Sexual Orientation Not on file Obstetrics History Plan of Treatment Health Maintenance Due Date Last Done Comments Breast Cancer Screening 1970 Hepatitis B Vaccines (1 of 3 - 19+ 3-dose series) 12/01/1987 Cervical Cancer Screening: P ap Smear 1989 Pneumococcal Vaccine: 50+ Ye ars (1 of 1 - PCV) 2018 Zoster Vaccines (1 of 2) 2018 DTaP,Tdap,and Td Vaccines (2 - Td or Tdap) 04/11/2021 04/11/2011 COVID-19 Vaccine (1 - 2023-2 5 season) 2023 Influenza Vaccine (#1) 2023 HIB Vaccines Aged Out No longer eligi ble based on patient's age to complete this topic HPV Vaccines Aged Out No longer eligi ble based on patient's age to complete this topic Hepatitis A Vaccines Aged Out No long er eligible based on patient's age to complete this topic IPV Vaccines Aged Out No longer eligi ble based on patient's age to complete this topic MMR Vaccines Aged Out No longer eligi ble based on patient's age to complete this topic Meningococcal ACWY Vaccine Aged Out N o longer eligible based on patient's age to complete this topic Meningococcal B Vacine Aged Out No lo nger eligible based on patient's age to complete this topic Pneumococcal Vaccine: Pediat rics (0 to 5 Years) and At-Risk Patients (6 to 64 Years) Aged Out No longer eligi ble based on patient's age to complete this topic RSV Immunization Patients Un dale 20 months Aged Out No longer eligible b ased on patient's age to complete this topic Varicella Vaccines Aged Out No longer eligible based on patient's age to complete this topic Care Teams Botany Technician Relationship Specialty Start Date End Date Justin Genao MD PCP - General Internal Medicine 06/12/11
--- OUTSIDE RECORDS SUMMARY | 2024-04-27 19:17 | XMS_ITS ---
Author Organization [facility] Address [address] [place] [address] Care Team Providers Care Returned Goods Repairer Name Role Phone MARIBELLKIMBERLY BORIS Unavailable [phone] REASON FOR VISIT Wegovy 1.7 Encounters Encounter Location Date Provider Diagnosis [address] [place] [id number] 04/12/2024 BORIS HASSAN PLAN OF TREATMENT Next Appt Details Provider Name:BORIS HASSAN, 05/08/2024 09:15:00 AM, [address], [place], [address], Progress Notes * Bright GRANADOSB: [birth year] (53 yo F)Acc No.[id number]:04/12/2024 Patient:??Juliet GRANADOS :1970?Age:53 Y?Sex:Fe male Address:[address] [place] [id number] * true * Date:??
--- OUTSIDE RECORDS SUMMARY | 2024-04-27 19:17 | XMS_ITS ---
Author Organization [facility] Address [address] [place] [address] Care Team Providers Care Reagent Tender Helper Name Role Phone BORIS HASSAN Unavailable [phone] MEDICATIONS Medication SIG (Take, Route, Fr equency, Duration) Notes Start Date End Date Status Wegovy 1.7 MG/0.75ML 1.7mg Subcutaneous weekly for 30 days Active Encounters Encounter Location Date Provider Diagnosis [facility] [address] [place] [address] 03/06/2024 BORIS HASSAN Other obesity due to excess calories E66.09 ; BMI 37.0-37.9, adult Z68.37 ; Dietary counseling and surveillance Z71.3 and Prediabetes R73.03 ASSESSMENTS Encounter Date Diagnosis Assessment Notes Treatment Notes Treatment Clinical Notes Section Notes 03/06/2024 Other obesity due to excess calories (ICD-10 - E66.09) #Weight Management 03/06/2024 Now euglycemic, A1c of 5.4 cont K2 and D3 high-dose vitamin D Increase to 1.7 mg when ready Total time spent today was 30 minutes of which greater than 50% was spent on coordinating and counseling Patient has been found to be obese with a BMI of (37). Patient has class (2) obesity. We are a board certified obesity and weight management practice Patient has trialed behavioral modification, dietary restrictions and exercise for a minimum of 6 months The most recent [place] [employer] clinical endocrinologists and [place] [employer] guidelines recommend patients who have overweight BMI or obesity BMI, who also have metabolic syndrome, prediabetes, HLD, and other comorbidities or at risk of developing type 2 diabetes should aim for a weight loss goal of at least 10% of the baseline body weight Patient counseled regarding effects of GLP/GIP-1 agonists, and other FDA approved wgt loss meds with regards to a multifactorial approach of weight loss as mentioned above and not solely appetite suppression. Of note, some information is being carried forward from prior records for informational purposes only and is being cited so that efficiency, safety and quality of the patient's care is not compromised This note was prepared using voice recognition software and direct typing Please excuse inadvertent online marketing strategist or typing errors, or uncorrected word substitutions Although every attempt has been made by the provider to proofread this document, occasional misspellings and typographical errors may still be present Due to the previous pandemic, and the use of personal protective equipment (PPE) This may decrease voice recognition accuracy Inadvertent online marketing strategist errors may occur 03/06/2024 BMI 37.0-37.9, adult (ICD-10 - Z68.37) #Weight Management 03/06/2024 Now euglycemic, A1c of 5.4 cont K2 and D3 high-dose vitamin D Increase to 1.7 mg when ready Total time spent today was 30 minutes of which greater than 50% was spent on coordinating and counseling Patient has been found to be obese with a BMI of (37). Patient has class (2) obesity. We are a board certified obesity and weight management practice Patient has trialed behavioral modification, dietary restrictions and exercise for a minimum of 6 months The most recent [place] [employer] clinical endocrinologists and [place] [employer] guidelines recommend patients who have overweight BMI or obesity BMI, who also have metabolic syndrome, prediabetes, HLD, and other comorbidities or at risk of developing type 2 diabetes should aim for a weight loss goal of at least 10% of the baseline body weight Patient counseled regarding effects of GLP/GIP-1 agonists, and other FDA approved wgt loss meds with regards to a multifactorial approach of weight loss as mentioned above and not solely appetite suppression. Of note, some information is being carried forward from prior records for informational purposes only and is being cited so that efficiency, safety and quality of the patient's care is not compromised This note was prepared using voice recognition software and direct typing Please excuse inadvertent online marketing strategist or typing errors, or uncorrected word substitutions Although every attempt has been made by the provider to proofread this document, occasional misspellings and typographical errors may still be present Due to the previous pandemic, and the use of personal protective equipment (PPE) This may decrease voice recognition accuracy Inadvertent online marketing strategist errors may occur 03/06/2024 Dietary counseling and surveillance (ICD-10 - Z71.3) #Weight Management 03/06/2024 Now euglycemic, A1c of 5.4 cont K2 and D3 high-dose vitamin D Increase to 1.7 mg when ready Total time spent today was 30 minutes of which greater than 50% was spent on coordinating and counseling Patient has been found to be obese with a BMI of (37). Patient has class (2) obesity. We are a board certified obesity and weight management practice Patient has trialed behavioral modification, dietary restrictions and exercise for a minimum of 6 months The most recent [place] [employer] of clinical endocrinologists and [place] [employer] guidelines recommend patients who have overweight BMI or obesity BMI, who also have metabolic syndrome, prediabetes, HLD, and other comorbidities or at risk of developing type 2 diabetes should aim for a weight loss goal of at least 10% of the baseline body weight Patient counseled regarding effects of GLP/GIP-1 agonists, and other FDA approved wgt loss meds with regards to a multifactorial approach of weight loss as mentioned above and not solely appetite suppression. Of note, some information is being carried forward from prior records for informational purposes only and is being cited so that efficiency, safety and quality of the patient's care is not compromised This note was prepared using voice recognition software and direct typing Please excuse inadvertent online marketing strategist or typing errors, or uncorrected word substitutions Although every attempt has been made by the provider to proofread this document, occasional misspellings and typographical errors may still be present Due to the previous pandemic, and the use of personal protective equipment (PPE) This may decrease voice recognition accuracy Inadvertent online marketing strategist errors may occur 03/06/2024 Prediabetes (ICD-10 - R73.03) #Weight Management 03/06/2024 Now euglycemic, A1c of 5.4 cont K2 and D3 high-dose vitamin D Increase to 1.7 mg when ready Total time spent today was 30 minutes of which greater than 50% was spent on coordinating and counseling Patient has been found to be obese with a BMI of (37). Patient has class (2) obesity. We are a board certified obesity and weight management practice Patient has trialed behavioral modification, dietary restrictions and exercise for a minimum of 6 months The most recent [place] [employer] clinical endocrinologists and [place] [employer] guidelines recommend patients who have overweight BMI or obesity BMI, who also have metabolic syndrome, prediabetes, HLD, and other comorbidities or at risk of developing type 2 diabetes should aim for a weight loss goal of at least 10% of the baseline body weight Patient counseled regarding effects of GLP/GIP-1 agonists, and other FDA approved wgt loss meds with regards to a multifactorial approach of weight loss as mentioned above and not solely appetite suppression. Of note, some information is being carried forward from prior records for informational purposes only and is being cited so that efficiency, safety and quality of the patient's care is not compromised This note was prepared using voice recognition software and direct typing Please excuse inadvertent online marketing strategist or typing errors, or uncorrected word substitutions Although every attempt has been made by the provider to proofread this document, occasional misspellings and typographical errors may still be present Due to the previous pandemic, and the use of personal protective equipment (PPE) This may decrease voice recognition accuracy Inadvertent online marketing strategist errors may occur PLAN OF TREATMENT Medication Medication Name Sig Start Date Stop Date Notes Wegovy 1.7 MG/0.75ML 1.7mg Subcutaneous weekly for 30 days Next Appt Details Provider Name:BORIS HASSAN, 05/08/2024 09:15:00 AM, [address] [facility], [place], [address], Progress Notes * Bright GRANADOSB: [birth year] (53 yo F)Acc No.[id number]:03/06/2024 Patient:??Juliet GRANADOS Provider:??BORIS HASSAN NP :[id number]?Age:53 Y?Sex:Fe male Date:03/06/2024 Address:[address] [place], [place] [id number] Subjective: * Chief Complaints: * ? * HPI: ?Constitutional:? Patient is here today for a weight management f/u visit ?Patient seen and examined. ? Full past medical history, social history, family history, ?allergies and current medications were reviewed and updated. ?Body composition analysis reviewed today ?#Weight Management ?03/06/2024 ?Steady and consistent progress ?in office hgb a1c today Now euglycemic at 5.4 , previously prediabetic 5.8 ?down >5 lbs fat ,mass since 11/2023 ?currently on 1 mg Wegovy ?just started 1 week ago ?Injects Tu ?Tolerating medication well with no significant side effects ?hx of iron def anemia ?Discussed the importance of vitamin D supplementation and iron supplementation ?We have started on a K2 and D3 high-dose vitamin D ?2013 hx of microdiscectomy @ [facility] ?03/06/2024, Weight , BMI ?01/31/2024, Weight 222lbs , BMI 37 (-3lbs) ?12/27/2023, Weight 225lbs , BMI 38 (-4lbs) ?11/29/2023, Weight 229lbs , BMI 38 (-4lbs) ?11/01/2023, Weight 233 , BMI 38, (-4lbs) ?09/27/2023: Weight 237 lbs, BMI 39: ? 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 ?Diet: sweet tooth ?Exercise: Currently tracking steps daily, also @ [facility] ?Non-smoker. ?ETOH use: denies. * ROS:?All Other Systems:?Review of Systems (ROS)??All others negative except those mentioned in HPI.? * Medical History:?? Objective: * Examination: ?General Examination: ?GENERAL APPEARANCE:??in no [...] due to exc ess calories - E66.09 (Primary)??2.??BMI 37.0-37.9, adult - Z68.37??3.??Dietary counseling and surveillance - Z71.3??4.??Prediabetes - R73.03?? #Weight Management 03/06/2024 Now euglycemic, A1c of 5.4 cont K2 and D3 high-dose vitamin D Increase to 1.7 mg when ready Total time spent today was 30 minutes of which greater than 50% was spent on coordinating and counseling Patient has been found to be obese with a BMI of (37). Patient has class (2) obesity. We are a board certified obesity and weight management practice Patient has trialed behavioral modification, dietary restrictions and exercise for a minimum of 6 months The most recent [place] [employer] of clinical endocrinologists and [place] [employer]in[employer] guidelines recommend patients who have overweight BMI or obesity BMI, who also have metabolic syndrome, prediabetes, HLD, and other comorbidities or at risk of developing type 2 diabetes should aim for a weight loss goal of at least 10% of the baseline body weight Patient counseled regarding effects of GLP/GIP-1 agonists, and other FDA approved wgt loss meds with regards to a multifactorial approach of weight loss as mentioned above and not solely appetite suppression. Of note, some information is being carried forward from prior records for informational purposes only and is being cited so that efficiency, safety and quality of the patient's care is not compromised This note was prepared using voice recognition software and direct typing Please excuse inadvertent online marketing strategist or typing errors, or uncorrected word substitutions Although every attempt has been made by the provider to proofread this document, occasional misspellings and typographical errors may still be present Due to the previous pandemic, and the use of personal protective equipment (PPE) This may decrease voice recognition accuracy Inadvertent online marketing strategist errors may occur. Plan: * Treatment: * Images: Billing Information: * Visit Code:?? * Procedure Codes:?? * Sign off status: Pending * Provider:??BORIS HASSAN NP Date:??02/17 History and Physical Notes * HPI (History of Present Illness) Category Sub-Category Detail Notes Category Not es Constitutional Patient is here today for a weight management f/u visit Patient seen and examined. Full past medical history, social history, family history, allergies and current medications were reviewed and updated. Body composition analysis reviewed today #Weight Management 03/06/2024 Steady and consistent progress in office hgb a1c today Now euglycemic at 5.4 , previously prediabetic 5.8 down > 5 lbs fat ,mass since 11/2023 currently on 1 mg Wegovy just started 1 week ago Injects Tuesdays Tolerating medication well with no significant side effects hx of iron def anemia Discussed the importance of vitamin D supplementation and iron supplementation We have started on a K2 and D3 high-dose vitamin D 2012 hx of microdiscectomy @ [facility] 03/06/2024, Weight , BMI 01/31/2024, Weight 222lbs , BMI 37 (-3lbs) 12/27/2023, Weight 225lbs , BMI 38 (-4lbs) 11/29/2023, Weight 229lbs , BMI 38 (-4lbs) 11/01/2023, Weight 233 , BMI 38, (-4lbs) 09/27/2023: Weight 237 lbs, BMI 39: referred to us from [facility] ([facility]) 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 Diet: sweet tooth Exercise: Currently tracking steps daily, also @ [facility] Non-smoker. ETOH use: denies Examination Category Sub-Category Detail Notes Category Not [...]
--- OUTSIDE RECORDS SUMMARY | 2024-04-27 19:17 | XMS_ITS | Patient Health Record ---
Author Organization [facility] Address [address] [place] [address] Care Team Providers Care Wrapper Dipper Name Role Phone BORIS HASSAN Unavailable [phone] JOSE HERNANDEZ Unavailable [phone] ALLERGIES No Known Allergies REASON FOR REFERRAL No Information MEDICATIONS Medication SIG (Take, Route, Fr equency, Duration) Notes Start Date End Date Status Wegovy 1.7 MG/0.75ML 1.7mg Subcutaneous weekly for 30 days Active Ondansetron 4 MG 1 tablet on the tong ue and allow to dissolve prn nausea/vomiting Orally twice day for 30 days 04/03/2024 Active PROBLEMS Problem Type ICD Code Onset Dates Problem Status W/U Status Risk SNOMED Code Notes Problem Other obesity due to excess calories (E66.09) Active confirmed 286798382 Problem Body mass index [BMI] 35.0-35.9, adult (Z68.35) Active confirmed 040583881 Problem Body mass index [BMI] 39.0-39.9, adult (Z68.39) Active confirmed [id number] Problem BMI 37.0-37.9, adult (Z68.37) Active confirmed 077400565 Problem BMI 38.0-38.9,adul t (Z68.38) Active confirmed [id number] VITAL SIGNS Heart Rate 98 /min 04/03/2024 Oximetry 92 % 04/03/2024 Blood pressure diastolic 80 mm Hg 04/03/2024 Height 65 in 04/03/2024 Blood pressure systolic 122 mm Hg 04/03/2024 Weight 214.2 lbs 04/03/2024 BMI 35.64 kg/m2 04/03/2024 Encounters Encounter Location Date Provider Diagnosis [facility] [address] [place], [place] 03/06/2024 BORIS BORHOT Other obesity due to excess calories E66.09 ; BMI 37.0-37.9, adult Z68.37 ; Dietary counseling and surveillance Z71.3 and Prediabetes R73.03 [facility] [address] [facility] [place] [address] 09/27/2023 BORIS BORHOT Other obesity due to excess calories E66.09 ; Body mass index [BMI] 39.0-39.9, adult Z68.39 ; Dietary counseling and surveillance Z71.3 and Prediabetes R73.03 [facility] [address] [facility] [place], [place] 11/01/2023 BORIS BORHOT Other obesity due to excess calories E66.09 ; BMI 38.0-38.9,adult Z68.38 ; Dietary counseling and surveillance Z71.3 and Prediabetes R73.03 [facility] [address] [facility] [place] 11/29/2023 BORIS BORHOT Other obesity due to excess calories E66.09 ; BMI 38.0-38.9,adult Z68.38 ; Dietary counseling and surveillance Z71.3 and Prediabetes R73.03 [facility] [address] [facility] [place] 12/27/2023 BORIS BORHOT Other obesity due to excess calories E66.09 ; BMI 37.0-37.9, adult Z68.37 ; Dietary counseling and surveillance Z71.3 and Prediabetes R73.03 [address] [address] 01/31/2024 BORIS BORHOT Other obesity due to excess calories E66.09 ; BMI 37.0-37.9, adult Z68.37 ; Dietary counseling and surveillance Z71.3 and Prediabetes R73.03 [facility] [address] [facility] [place] 04/03/2024 BORIS BORHOT Other obesity due to excess calories E66.09 ; Body mass index [BMI] 35.0-35.9, adult Z68.35 ; Dietary counseling and surveillance Z71.3 and Prediabetes R73.03 [address] [place] [address] 09/17/2023 JOSE HERNANDEZ [address] [place] [address] 10/25/2023 BORIS BORHOT [address] [place] [address] 11/05/2023 BORIS BORHOT [address] [place] [address] 11/05/2023 BORIS BORHOT [address] [place] [address] 11/11/2023 BORIS BORHOT [address] [place] [address] 11/12/2023 BORIS BORHOT [address] [place] [address] 01/31/2024 BORIS BORHOT [address] [place] [address] 03/05/2024 BORIS BORHOT [address] [place] [address] 04/12/2024 BORIS BORHOT ASSESSMENTS Encounter Date Diagnosis Assessment Notes Treatment Notes Treatment Clinical Notes Section Notes 09/27/2023 Body mass index [BMI] 39.0-39.9, adult (ICD-10 - Z68.39) Start Nisha Total time spent today was 60 minutes of which greater than 50% was spent on coordinating and counseling Patient has been found to be obese with a BMI of (39). Patient has class (2) obesity. We are a board certified obesity and weight management practice Patient has trialed behavioral modification, dietary restrictions and exercise for a minimum of 6 months The most recent [place] [employer] of clinical endocrinologists and [place] [employer]in[employer] guidelines recommend patients who [...] mentioned above and not solely appetite suppression. We have discussed the mechanism of GLP-1's/GIP, dual incretins I think this would be fantastic option for her given her metabolic workup and body composition We have discussed the risks and benefits and side effects including/and not limited to Sarcopenia, intestinal obstruction, constipation, nausea, lethargy, headache Discussed importance of protein consumption for muscle maintenance as well as strength and resistance training ,probiotics, B12 complex biotin , iron and other nutrients, To help avoid telogen effluvium There is no history of medullary thyroid cancer or multiple endocrine neoplasia There is also no history of cardiovascular disease, hypertension, palpitations, or arrhythmias In the setting of potential stimulant/amphetami ne use such as phentermine We have also discussed risks and benefits, and the use of compounded medications to help offset the national shortages as well as financial implications vs trade name drugs GLP must be discontinued upon initiation We have discussed the lifelong requirement of nutritional supplementation And adherence to an exercise regimen as well as importance We did discuss the neurohormonal changes that are occurring with these medications and Need for long-term Continued usage Encourage good sleep hygiene Optimize sleep/wake cycles 6-8 hours nightly Keep lights on his stimulus during the day Darkroom and minimize nighttime interruptions Continue melatonin, other sleep aid medications The patient understands and agrees Patient was reassured and welcomed to the practice. We discussed that we stress a hollistic medical approach with emphasis on lifestyle modification. Patient was informed that a healthy lifestyle with exercise and good eating habits can help reduce his risk of medical complications. He is explained that obesity increases his risk of diabetes, cardiovascular disease, or organ damage. We spent a lot of time discussing the relationship between food, exercise, sleep, mental health and obesity. Patient was counseled on the importance EATING local, organic food when possible. Patient was educated on clean 15 and dirty dozen. I provided information about reading books called The Food Rules by Franco Donovan and Eat Fat Get Lean by Dr Jurgen Medina. Self education is important in the journey for weight management. Patient was offered diagnostic testing. We want to measure visceral adiposity, advanced body composition, adverse lipids, fatty acid balance, risk for heart disease and atherosclerosis, markers of inflammation and genetic susceptibility. Patient was counseled on weight management and was advised to lose weight using A. Meal Replacement Products We discussed the lifelong requirement of nutritional supplementation and adherence to an exercise regimen as well as importance of dietary f/u Patient was educated on the replacement products called optifast. This is a good way of taking fixed amount of calories. It has been shown in studies to be ineffective weight management tool. We also recommend maintaining adequate protein intake and muscle composition, 1.5mg/kg This however has to be coupled with lifestyle intervention as well as laboratory data and EKG monitoring. It is impossible to know how a person will tolerate complete meal replacement. The side effects of meal replacement and weight loss could include syncopal attacks, dizziness, gallstones, potential cholecystectomy, possible heart attack and even . The benefits of meal replacement would be potential weight loss but no guarantees can be made. Meal replacement products are not covered by insurance. Once the patient has bought these products we cannot return them B. Lifestyle management which includes several strategies as below 1. Eat a low carbohydrate good fat good protein diet. Eliminate refined carbohydrates from the diet. Continue blood sugar and sugared beverages. Eat local organic when possible. Cook your own meals. Read food labels. None about healthy snacks. Portion control and food with low glycemic index 2. Exercise regularly. Try to get at least 6000 steps a day. Use a predominant to track activity level. Consider using apps like [facility], [employer], lose it, stick as needed for self-monitoring and weight management. Consider group exercises. Consider hiring a personal fitness manager. Regular exercise is sandra to sustainable health and prevents as a buffer against weight regain 3. Sleep is most important for healing. Tried to sleep at least 8 hours a night. A good quality sleep needs a sleep ritual with ideal room temperature of around 68. It might help to take a shower and have no electronics in the room and sleep in a very dark room without artificial light. Start her sleep routine and get up early in the morning and go to bed on time 4. Make a social connection. Surround yourself with positive people with positive energy. Connect with friends and family. 5. Get into the habit of meditating and mindfulness while doing everything. 6. Go outside and connect with nature. C. Prescription medications Patient was educated on the use of prescription medications for medical weight loss. This is a growing list and includes phentermine, Topamax,Qsymia, contrave, belviq and saxenda, wegovy All prescription medications could have side effects including but not limited to kidney stones, seizure disorder cardiac arrhythmias heart attack pancreatitis etc. etc.. Patient was encouraged to read the prescription insert and have coaching with their pharmacist and make an informed decision about taking medication and know that these medications are being prescribed with good intentions and we do not know how a patient would react to her medication. Sudden medications are FDA approved for weight loss and there is also off label use depending on patient's inability to afford medications in an attempt to lose weight D. Behavioral counseling was done to establish a relationship between food and an mood. Patient was provided information about local counseling and psychiatry and Dr Dao at [employer]. We would like to cover regular topics and build on low glycemic eating exercise mindful eating, using yoga and meditation along with deep breathing and connecting with friends and family. E. MASS PAT reviewed, Patient's current medications were reviewed and opinion was given on medication that can cause weight gain and can be substituted F. Patient was assessed for risk with obesity including and not limiting to atherosclerosis heart disease stroke kidney disease, restrictive lung disease, irritable bowel syndrome and overall mortality. Risk of developing prediabetes diabetes and metabolic syndrome was discussed G. Therapeutic plan: We have decided to make therapeutic plan which would include choosing wisely on calories restricting portion getting active, tracking weight, getting good quality sleep and working on time management H. Patient will follow up in (4) weeks for weight management Of note, some information is being carried forward from prior records for informational purposes only and is being cited so that efficiency, safety and quality of the patient's care is not compromised This note was prepared using voice recognition software and direct typing Please excuse inadvertent film editor supervisor or typing errors, or uncorrected word substitutions Although every attempt has been made by the provider to proofread this document, occasional misspellings and typographical errors may still be present Due to the previous pandemic, and the use of personal protective equipment (PPE) This may decrease voice recognition accuracy Inadvertent film editor supervisor errors may occur 11/01/2023 Other obesity due to excess calories (ICD-10 - E66.09) #Weight Management 11/01/2023 Total time spent today was 30 minutes of which greater than 50% was spent on coordinating and counseling Patient has been found to be obese with a BMI of (38). Patient has class (2) obesity. We are a board certified obesity and weight management practice Patient has trialed behavioral modification, dietary restrictions and exercise for a minimum of 6 months The most recent [place] [employer] of clinical endocrinologists and [place] [employer] end[employer]in[employer] guidelines recommend patients who [...] mentioned above and not solely appetite suppression. We have discussed the mechanism of GLP-1's/GIP, dual incretins I think this would be fantastic option for her given her metabolic workup and body composition We have discussed the risks and benefits and side effects including/and not limited to Sarcopenia, intestinal obstruction, constipation, nausea, lethargy, headache Discussed importance of protein consumption for muscle maintenance as well as strength and resistance training ,probiotics, B12 complex biotin , iron and other nutrients, To help avoid telogen effluvium There is no history of medullary thyroid cancer or multiple endocrine neoplasia There is also no history of cardiovascular disease, hypertension, palpitations, or arrhythmias In the setting of potential stimulant/amphetami ne use such as phentermine We have also discussed risks and benefits, and the use of compounded medications to help offset the national shortages as well as financial implications vs trade name drugs GLP must be discontinued upon initiation We have discussed the lifelong requirement of nutritional supplementation And adherence to an exercise regimen as well as importance We did discuss the neurohormonal changes that are occurring with these medications and Need for long-term Continued usage Encourage good sleep hygiene Optimize sleep/wake cycles 6-8 hours nightly Keep lights on his stimulus during the day Darkroom and minimize nighttime interruptions Continue melatonin, other sleep aid medications The patient understands and agrees Patient was reassured and welcomed to the practice. We discussed that we stress a hollistic medical approach with emphasis on lifestyle modification. Patient was informed that a healthy lifestyle with exercise and good eating habits can help reduce his risk of medical complications. He is explained that obesity increases his risk of diabetes, cardiovascular disease, or organ damage. We spent a lot of time discussing the relationship between food, exercise, sleep, mental health and obesity. Patient was counseled on the importance EATING local, organic food when possible. Patient was educated on clean 15 and dirty dozen. I provided information about reading books called The Food Rules by Franco Donovan and Eat Fat Get Lean by Dr Jurgen Medina. Self education is important in the journey for weight management. Patient was offered diagnostic testing. We want to measure visceral adiposity, advanced body composition, adverse lipids, fatty acid balance, risk for heart disease and atherosclerosis, markers of inflammation and genetic susceptibility. Patient was counseled on weight management and was advised to lose weight using A. Meal Replacement Products We discussed the lifelong requirement of nutritional supplementation and adherence to an exercise regimen as well as importance of dietary f/u Patient was educated on the replacement products called optifast. This is a good way of taking fixed amount of calories. It has been shown in studies to be ineffective weight management tool. We also recommend maintaining adequate protein intake and muscle composition, 1.5mg/kg This however has to be coupled with lifestyle intervention as well as laboratory data and EKG monitoring. It is impossible to know how a person will tolerate complete meal replacement. The side effects of meal replacement and weight loss could include syncopal attacks, dizziness, gallstones, potential cholecystectomy, possible heart attack and even . The benefits of meal replacement would be potential weight loss but no guarantees can be made. Meal replacement products are not covered by insurance. Once the patient has bought these products we cannot return them B. Lifestyle management which includes several strategies as below 1. Eat a low carbohydrate good fat good protein diet. Eliminate refined carbohydrates from the diet. Continue blood sugar and sugared beverages. Eat local organic when possible. Cook your own meals. Read food labels. None about healthy snacks. Portion control and food with low glycemic index 2. Exercise regularly. Try to get at least 6000 steps a day. Use a predominant to track activity level. Consider using apps like [employer], [employer]itnesspal, lose it, stick as needed for self-monitoring and weight management. Consider group exercises. Consider hiring a personal fitness manager. Regular exercise is sandra to sustainable health and prevents as a buffer against weight regain 3. Sleep is most important for healing. Tried to sleep at least 8 hours a night. A good quality sleep needs a sleep ritual with ideal room temperature of around 68. It might help to take a shower and have no electronics in the room and sleep in a very dark room without artificial light. Start her sleep routine and get up early in the morning and go to bed on time 4. Make a social connection. Surround yourself with positive people with positive energy. Connect with friends and family. 5. Get into the habit of meditating and mindfulness while doing everything. 6. Go outside and connect with nature. C. Prescription medications Patient was educated on the use of prescription medications for medical weight loss. This is a growing list and includes phentermine, Topamax,Qsymia, contrave, belviq and saxenda, wegovy All prescription medications could have side effects including but not limited to kidney stones, seizure disorder cardiac arrhythmias heart attack pancreatitis etc. etc.. Patient was encouraged to read the prescription insert and have coaching with their pharmacist and make an informed decision about taking medication and know that these medications are being prescribed with good intentions and we do not know how a patient would react to her medication. Sudden medications are FDA approved for weight loss and there is also off label use depending on patient's inability to afford medications in an attempt to lose weight D. Behavioral counseling was done to establish a relationship between food and an mood. Patient was provided information about local counseling and psychiatry and Dr Dao at [employer]. We would like to cover regular topics and build on low glycemic eating exercise mindful eating, using yoga and meditation along with deep breathing and connecting with friends and family. E. MASS PAT reviewed, Patient's current medications were reviewed and opinion was given on medication that can cause weight gain and can be substituted F. Patient was assessed for risk with obesity including and not limiting to atherosclerosis heart disease stroke kidney disease, restrictive lung disease, irritable bowel syndrome and overall mortality. Risk of developing prediabetes diabetes and metabolic syndrome was discussed G. Therapeutic plan: We have decided to make therapeutic plan which would include choosing wisely on calories restricting portion getting active, tracking weight, getting good quality sleep and working on time management H. Patient will follow up in (4) weeks for weight management Of note, some information is being carried forward from prior records for informational purposes only and is being cited so that efficiency, safety and quality of the patient's care is not compromised This note was prepared using voice recognition software and direct typing Please excuse inadvertent film editor supervisor or typing errors, or uncorrected word substitutions Although every attempt has been made by the provider to proofread this document, occasional misspellings and typographical errors may still be present Due to the previous pandemic, and the use of personal protective equipment (PPE) This may decrease voice recognition accuracy Inadvertent film editor supervisor errors may occur 11/01/2023 BMI 38.0-38.9,adult (ICD-10 - Z68.38) #Weight Management 11/01/2023 Total time spent today was 30 minutes of which greater than 50% was spent on coordinating and counseling Patient has been found to be obese with a BMI of (38). Patient has class (2) obesity. We are a board certified obesity and weight management practice Patient has trialed behavioral modification, dietary restrictions and exercise for a minimum of 6 months The most recent [place] [employer] of clinical endocrinologists and [place] [employer] end[employer]in[employer] guidelines recommend patients who [...] mentioned above and not solely appetite suppression. We have discussed the mechanism of GLP-1's/GIP, dual incretins I think this would be fantastic option for her given her metabolic workup and body composition We have discussed the risks and benefits and side effects including/and not limited to Sarcopenia, intestinal obstruction, constipation, nausea, lethargy, headache Discussed importance of protein consumption for muscle maintenance as well as strength and resistance training ,probiotics, B12 complex biotin , iron and other nutrients, To help avoid telogen effluvium There is no history of medullary thyroid cancer or multiple endocrine neoplasia There is also no history of cardiovascular disease, hypertension, palpitations, or arrhythmias In the setting of potential stimulant/amphetami ne use such as phentermine We have also discussed risks and benefits, and the use of compounded medications to help offset the national shortages as well as financial implications vs trade name drugs GLP must be discontinued upon initiation We have discussed the lifelong requirement of nutritional supplementation And adherence to an exercise regimen as well as importance We did discuss the neurohormonal changes that are occurring with these medications and Need for long-term Continued usage Encourage good sleep hygiene Optimize sleep/wake cycles 6-8 hours nightly Keep lights on his stimulus during the day Darkroom and minimize nighttime interruptions Continue melatonin, other sleep aid medications The patient understands and agrees Patient was reassured and welcomed to the practice. We discussed that we stress a hollistic medical approach with emphasis on lifestyle modification. Patient was informed that a healthy lifestyle with exercise and good eating habits can help reduce his risk of medical complications. He is explained that obesity increases his risk of diabetes, cardiovascular disease, or organ damage. We spent a lot of time discussing the relationship between food, exercise, sleep, mental health and obesity. Patient was counseled on the importance EATING local, organic food when possible. Patient was educated on clean 15 and dirty dozen. I provided information about reading books called The Food Rules by Franco Donovan and Eat Fat Get Lean by Dr Jurgen Medina. Self education is important in the journey for weight management. Patient was offered diagnostic testing. We want to measure visceral adiposity, advanced body composition, adverse lipids, fatty acid balance, risk for heart disease and atherosclerosis, markers of inflammation and genetic susceptibility. Patient was counseled on weight management and was advised to lose weight using A. Meal Replacement Products We discussed the lifelong requirement of nutritional supplementation and adherence to an exercise regimen as well as importance of dietary f/u Patient was educated on the replacement products called optifast. This is a good way of taking fixed amount of calories. It has been shown in studies to be ineffective weight management tool. We also recommend maintaining adequate protein intake and muscle composition, 1.5mg/kg This however has to be coupled with lifestyle intervention as well as laboratory data and EKG monitoring. It is impossible to know how a person will tolerate complete meal replacement. The side effects of meal replacement and weight loss could include syncopal attacks, dizziness, gallstones, potential cholecystectomy, possible heart attack and even . The benefits of meal replacement would be potential weight loss but no guarantees can be made. Meal replacement products are not covered by insurance. Once the patient has bought these products we cannot return them B. Lifestyle management which includes several strategies as below 1. Eat a low carbohydrate good fat good protein diet. Eliminate refined carbohydrates from the diet. Continue blood sugar and sugared beverages. Eat local organic when possible. Cook your own meals. Read food labels. None about healthy snacks. Portion control and food with low glycemic index 2. Exercise regularly. Try to get at least 6000 steps a day. Use a predominant to track activity level. Consider using apps like [email or web address][employer][email or web address], [employer], lose it, stick as needed for self-monitoring and weight management. Consider group exercises. Consider hiring a personal fitness manager. Regular exercise is sandra to sustainable health and prevents as a buffer against weight regain 3. Sleep is most important for healing. Tried to sleep at least 8 hours a night. A good quality sleep needs a sleep ritual with ideal room temperature of around 68. It might help to take a shower and have no electronics in the room and sleep in a very dark room without artificial light. Start her sleep routine and get up early in the morning and go to bed on time 4. Make a social connection. Surround yourself with positive people with positive energy. Connect with friends and family. 5. Get into the habit of meditating and mindfulness while doing everything. 6. Go outside and connect with nature. C. Prescription medications Patient was educated on the use of prescription medications for medical weight loss. This is a growing list and includes phentermine, Topamax,Qsymia, contrave, belviq and saxenda, wegovy All prescription medications could have side effects including but not limited to kidney stones, seizure disorder cardiac arrhythmias heart attack pancreatitis etc. etc.. Patient was encouraged to read the prescription insert and have coaching with their pharmacist and make an informed decision about taking medication and know that these medications are being prescribed with good intentions and we do not know how a patient would react to her medication. Sudden medications are FDA approved for weight loss and there is also off label use depending on patient's inability to afford medications in an attempt to lose weight D. Behavioral counseling was done to establish a relationship between food and an mood. Patient was provided information about local counseling and psychiatry and Dr Dao at [email or web address]. We would like to cover regular topics and build on low glycemic eating exercise mindful eating, using yoga and meditation along with deep breathing and connecting with friends and family. E. MASS PAT reviewed, Patient's current medications were reviewed and opinion was given on medication that can cause weight gain and can be substituted F. Patient was assessed for risk with obesity including and not limiting to atherosclerosis heart disease stroke kidney disease, restrictive lung disease, irritable bowel syndrome and overall mortality. Risk of developing prediabetes diabetes and metabolic syndrome was discussed G. Therapeutic plan: We have decided to make therapeutic plan which would include choosing wisely on calories restricting portion getting active, tracking weight, getting good quality sleep and working on time management H. Patient will follow up in (4) weeks for weight management Of note, some information is being carried forward from prior records for informational purposes only and is being cited so that efficiency, safety and quality of the patient's care is not compromised This note was prepared using voice recognition software and direct typing Please excuse inadvertent film editor supervisor or typing errors, or uncorrected word substitutions Although every attempt has been made by the provider to proofread this document, occasional misspellings and typographical errors may still be present Due to the previous pandemic, and the use of personal protective equipment (PPE) This may decrease voice recognition accuracy Inadvertent film editor supervisor errors may occur 11/29/2023 Other obesity due to excess calories (ICD-10 - E66.09) #Weight Management 11/29/2023 Increase to 1 mg when ready Total time spent today was 30 minutes of which greater than 50% was spent on coordinating and counseling Patient has been found to be obese with a BMI of (38). Patient has class (2) obesity. We are a board certified obesity and weight management practice Patient has trialed behavioral modification, dietary restrictions and exercise for a minimum of 6 months The most recent [place] [employer] clinical endocrinologists and [place] [employer] guidelines recommend patients who [...] mentioned above and not solely appetite suppression. We have discussed the mechanism of GLP-1's/GIP, dual incretins I think this would be fantastic option for her given her metabolic workup and body composition We have discussed the risks and benefits and side effects including/and not limited to Sarcopenia, intestinal obstruction, constipation, nausea, lethargy, headache Discussed importance of protein consumption for muscle maintenance as well as strength and resistance training ,probiotics, B12 complex biotin , iron and other nutrients, To help avoid telogen effluvium There is no history of medullary thyroid cancer or multiple endocrine neoplasia There is also no history of cardiovascular disease, hypertension, palpitations, or arrhythmias In the setting of potential stimulant/amphetami ne use such as phentermine We have also discussed risks and benefits, and the use of compounded medications to help offset the national shortages as well as financial implications vs trade name drugs GLP must be discontinued upon initiation We have discussed the lifelong requirement of nutritional supplementation And adherence to an exercise regimen as well as importance We did discuss the neurohormonal changes that are occurring with these medications and Need for long-term Continued usage Encourage good sleep hygiene Optimize sleep/wake cycles 6-8 hours nightly Keep lights on his stimulus during the day Darkroom and minimize nighttime interruptions Continue melatonin, other sleep aid medications The patient understands and agrees Patient was reassured and welcomed to the practice. We discussed that we stress a hollistic medical approach with emphasis on lifestyle modification. Patient was informed that a healthy lifestyle with exercise and good eating habits can help reduce his risk of medical complications. He is explained that obesity increases his risk of diabetes, cardiovascular disease, or organ damage. We spent a lot of time discussing the relationship between food, exercise, sleep, mental health and obesity. Patient was counseled on the importance EATING local, organic food when possible. Patient was educated on clean 15 and dirty dozen. I provided information about reading books called The Food Rules by Franco Donovan and Eat Fat Get Lean by Dr Jurgen Medina. Self education is important in the journey for weight management. Patient was offered diagnostic testing. We want to measure visceral adiposity, advanced body composition, adverse lipids, fatty acid balance, risk for heart disease and atherosclerosis, markers of inflammation and genetic susceptibility. Patient was counseled on weight management and was advised to lose weight using A. Meal Replacement Products We discussed the lifelong requirement of nutritional supplementation and adherence to an exercise regimen as well as importance of dietary f/u Patient was educated on the replacement products called optifast. This is a good way of taking fixed amount of calories. It has been shown in studies to be ineffective weight management tool. We also recommend maintaining adequate protein intake and muscle composition, 1.5mg/kg This however has to be coupled with lifestyle intervention as well as laboratory data and EKG monitoring. It is impossible to know how a person will tolerate complete meal replacement. The side effects of meal replacement and weight loss could include syncopal attacks, dizziness, gallstones, potential cholecystectomy, possible heart attack and even . The benefits of meal replacement would be potential weight loss but no guarantees can be made. Meal replacement products are not covered by insurance. Once the patient has bought these products we cannot return them B. Lifestyle management which includes several strategies as below 1. Eat a low carbohydrate good fat good protein diet. Eliminate refined carbohydrates from the diet. Continue blood sugar and sugared beverages. Eat local organic when possible. Cook your own meals. Read food labels. None about healthy snacks. Portion control and food with low glycemic index 2. Exercise regularly. Try to get at least 6000 steps a day. Use a predominant to track activity level. Consider using apps like [facility], [employer], lose it, stick as needed for self-monitoring and weight management. Consider group exercises. Consider hiring a personal fitness manager. Regular exercise is sandra to sustainable health and prevents as a buffer against weight regain 3. Sleep is most important for healing. Tried to sleep at least 8 hours a night. A good quality sleep needs a sleep ritual with ideal room temperature of around 68. It might help to take a shower and have no electronics in the room and sleep in a very dark room without artificial light. Start her sleep routine and get up early in the morning and go to bed on time 4. Make a social connection. Surround yourself with positive people with positive energy. Connect with friends and family. 5. Get into the habit of meditating and mindfulness while doing everything. 6. Go outside and connect with nature. C. Prescription medications Patient was educated on the use of prescription medications for medical weight loss. This is a growing list and includes phentermine, Topamax,Qsymia, contrave, belviq and saxenda, wegovy All prescription medications could have side effects including but not limited to kidney stones, seizure disorder cardiac arrhythmias heart attack pancreatitis etc. etc.. Patient was encouraged to read the prescription insert and have coaching with their pharmacist and make an informed decision about taking medication and know that these medications are being prescribed with good intentions and we do not know how a patient would react to her medication. Sudden medications are FDA approved for weight loss and there is also off label use depending on patient's inability to afford medications in an attempt to lose weight D. Behavioral counseling was done to establish a relationship between food and an mood. Patient was provided information about local counseling and psychiatry and Dr Dao at [email or web address]. We would like to cover regular topics and build on low glycemic eating exercise mindful eating, using yoga and meditation along with deep breathing and connecting with friends and family. E. MASS PAT reviewed, Patient's current medications were reviewed and opinion was given on medication that can cause weight gain and can be substituted F. Patient was assessed for risk with obesity including and not limiting to atherosclerosis heart disease stroke kidney disease, restrictive lung disease, irritable bowel syndrome and overall mortality. Risk of developing prediabetes diabetes and metabolic syndrome was discussed G. Therapeutic plan: We have decided to make therapeutic plan which would include choosing wisely on calories restricting portion getting active, tracking weight, getting good quality sleep and working on time management H. Patient will follow up in (4) weeks for weight management Of note, some information is being carried forward from prior records for informational purposes only and is being cited so that efficiency, safety and quality of the patient's care is not compromised This note was prepared using voice recognition software and direct typing Please excuse inadvertent film editor supervisor or typing errors, or uncorrected word substitutions Although every attempt has been made by the provider to proofread this document, occasional misspellings and typographical errors may still be present Due to the previous pandemic, and the use of personal protective equipment (PPE) This may decrease voice recognition accuracy Inadvertent film editor supervisor errors may occur 09/27/2023 Other obesity due to excess calories (ICD-10 - E66.09) Start Nisha Total time spent today was 60 minutes of which greater than 50% was spent on coordinating and counseling Patient has been found to be obese with a BMI of (39). Patient has class (2) obesity. We are a board certified obesity and weight management practice Patient has trialed behavioral modification, dietary restrictions and exercise for a minimum of 6 months The most recent [place] [employer] of [employer] endocrinologists and [place] [employer]in[employer] guidelines recommend patients who [...] mentioned above and not solely appetite suppression. We have discussed the mechanism of GLP-1's/GIP, dual incretins I think this would be fantastic option for her given her metabolic workup and body composition We have discussed the risks and benefits and side effects including/and not limited to Sarcopenia, intestinal obstruction, constipation, nausea, lethargy, headache Discussed importance of protein consumption for muscle maintenance as well as strength and resistance training ,probiotics, B12 complex biotin , iron and other nutrients, To help avoid telogen effluvium There is no history of medullary thyroid cancer or multiple endocrine neoplasia There is also no history of cardiovascular disease, hypertension, palpitations, or arrhythmias In the setting of potential stimulant/amphetami ne use such as phentermine We have also discussed risks and benefits, and the use of compounded medications to help offset the national shortages as well as financial implications vs trade name drugs GLP must be discontinued upon initiation We have discussed the lifelong requirement of nutritional supplementation And adherence to an exercise regimen as well as importance We did discuss the neurohormonal changes that are occurring with these medications and Need for long-term Continued usage Encourage good sleep hygiene Optimize sleep/wake cycles 6-8 hours nightly Keep lights on his stimulus during the day Darkroom and minimize nighttime interruptions Continue melatonin, other sleep aid medications The patient understands and agrees Patient was reassured and welcomed to the practice. We discussed that we stress a hollistic medical approach with emphasis on lifestyle modification. Patient was informed that a healthy lifestyle with exercise and good eating habits can help reduce his risk of medical complications. He is explained that obesity increases his risk of diabetes, cardiovascular disease, or organ damage. We spent a lot of time discussing the relationship between food, exercise, sleep, mental health and obesity. Patient was counseled on the importance EATING local, organic food when possible. Patient was educated on clean 15 and dirty dozen. I provided information about reading books called The Food Rules by Franco Donovan and Eat Fat Get Lean by Dr Jurgen Medina. Self education is important in the journey for weight management. Patient was offered diagnostic testing. We want to measure visceral adiposity, advanced body composition, adverse lipids, fatty acid balance, risk for heart disease and atherosclerosis, markers of inflammation and genetic susceptibility. Patient was counseled on weight management and was advised to lose weight using A. Meal Replacement Products We discussed the lifelong requirement of nutritional supplementation and adherence to an exercise regimen as well as importance of dietary f/u Patient was educated on the replacement products called optifast. This is a good way of taking fixed amount of calories. It has been shown in studies to be ineffective weight management tool. We also recommend maintaining adequate protein intake and muscle composition, 1.5mg/kg This however has to be coupled with lifestyle intervention as well as laboratory data and EKG monitoring. It is impossible to know how a person will tolerate complete meal replacement. The side effects of meal replacement and weight loss could include syncopal attacks, dizziness, gallstones, potential cholecystectomy, possible heart attack and even . The benefits of meal replacement would be potential weight loss but no guarantees can be made. Meal replacement products are not covered by insurance. Once the patient has bought these products we cannot return them B. Lifestyle management which includes several strategies as below 1. Eat a low carbohydrate good fat good protein diet. Eliminate refined carbohydrates from the diet. Continue blood sugar and sugared beverages. Eat local organic when possible. Cook your own meals. Read food labels. None about healthy snacks. Portion control and food with low glycemic index 2. Exercise regularly. Try to get at least 6000 steps a day. Use a predominant to track activity level. Consider using apps like [facility], [employer], lose it, stick as needed for self-monitoring and weight management. Consider group exercises. Consider hiring a personal fitness manager. Regular exercise is sandra to sustainable health and prevents as a buffer against weight regain 3. Sleep is most important for healing. Tried to sleep at least 8 hours a night. A good quality sleep needs a sleep ritual with ideal room temperature of around 68. It might help to take a shower and have no electronics in the room and sleep in a very dark room without artificial light. Start her sleep routine and get up early in the morning and go to bed on time 4. Make a social connection. Surround yourself with positive people with positive energy. Connect with friends and family. 5. Get into the habit of meditating and mindfulness while doing everything. 6. Go outside and connect with nature. C. Prescription medications Patient was educated on the use of prescription medications for medical weight loss. This is a growing list and includes phentermine, Topamax,Qsymia, contrave, belviq and saxenda, wegovy All prescription medications could have side effects including but not limited to kidney stones, seizure disorder cardiac arrhythmias heart attack pancreatitis etc. etc.. Patient was encouraged to read the prescription insert and have coaching with their pharmacist and make an informed decision about taking medication and know that these medications are being prescribed with good intentions and we do not know how a patient would react to her medication. Sudden medications are FDA approved for weight loss and there is also off label use depending on patient's inability to afford medications in an attempt to lose weight D. Behavioral counseling was done to establish a relationship between food and an mood. Patient was provided information about local counseling and psychiatry and Dr Dao at [email or web address]. We would like to cover regular topics and build on low glycemic eating exercise mindful eating, using yoga and meditation along with deep breathing and connecting with friends and family. E. MASS PAT reviewed, Patient's current medications were reviewed and opinion was given on medication that can cause weight gain and can be substituted F. Patient was assessed for risk with obesity including and not limiting to atherosclerosis heart disease stroke kidney disease, restrictive lung disease, irritable bowel syndrome and overall mortality. Risk of developing prediabetes diabetes and metabolic syndrome was discussed G. Therapeutic plan: We have decided to make therapeutic plan which would include choosing wisely on calories restricting portion getting active, tracking weight, getting good quality sleep and working on time management H. Patient will follow up in (4) weeks for weight management Of note, some information is being carried forward from prior records for informational purposes only and is being cited so that efficiency, safety and quality of the patient's care is not compromised This note was prepared using voice recognition software and direct typing Please excuse inadvertent film editor supervisor or typing errors, or uncorrected word substitutions Although every attempt has been made by the provider to proofread this document, occasional misspellings and typographical errors may still be present Due to the previous pandemic, and the use of personal protective equipment (PPE) This may decrease voice recognition accuracy Inadvertent film editor supervisor errors may occur 12/27/2023 Other obesity due to excess calories (ICD-10 - E66.09) #Weight Management 12/27/2023 We have started on a K2 and D3 high-dose vitamin D Increase [...] minimum of 6 months The most recent [place] [employer] endocrinologists and [place] [employer] guidelines recommend patients who [...] software and direct typing Please excuse inadvertent film editor supervisor or typing errors, or uncorrected word substitutions Although every attempt has been made by the provider to proofread this document, occasional misspellings and typographical errors may still be present Due to the previous pandemic, and the use of personal protective equipment (PPE) This may decrease voice recognition accuracy Inadvertent film editor supervisor errors may occur 12/27/2023 BMI 37.0-37.9, adult (ICD-10 - Z68.37) #Weight Management 12/27/2023 We have started on a K2 and D3 high-dose vitamin D Increase [...] minimum of 6 months The most recent [place] [employer]ocrinologists and [place] [employer] guidelines recommend patients who [...] software and direct typing Please excuse inadvertent film editor supervisor or typing errors, or uncorrected word substitutions Although every attempt has been made by the provider to proofread this document, occasional misspellings and typographical errors may still be present Due to the previous pandemic, and the use of personal protective equipment (PPE) This may decrease voice recognition accuracy Inadvertent film editor supervisor errors may occur 01/31/2024 Other obesity due to excess calories (ICD-10 - E66.09) #Weight Management 01/31/2024 Now euglycemic, A1c of 5.4 cont K2 [...] minimum of 6 months The most recent [place] [employer]ocrinologists and [place] [employer] guidelines recommend patients who [...] software and direct typing Please excuse inadvertent film editor supervisor or typing errors, or uncorrected word substitutions Although every attempt has been made by the provider to proofread this document, occasional misspellings and typographical errors may still be present Due to the previous pandemic, and the use of personal protective equipment (PPE) This may decrease voice recognition accuracy Inadvertent film editor supervisor errors may occur 03/06/2024 Other obesity due to excess calories [...] minimum of 6 months The most recent [place] [employer] of clinical endocrinologists and [place] [employer] guidelines recommend patients who [...] software and direct typing Please excuse inadvertent film editor supervisor or typing errors, or uncorrected word substitutions Although every attempt has been made by the provider to proofread this document, occasional misspellings and typographical errors may still be present Due to the previous pandemic, and the use of personal protective equipment (PPE) This may decrease voice recognition accuracy Inadvertent film editor supervisor errors may occur 04/03/2024 Other obesity due to excess calories [...] software and direct typing Please excuse inadvertent film editor supervisor or typing errors, or uncorrected word substitutions Although every attempt has been made by the provider to proofread this document, occasional misspellings and typographical errors may still be present Due to the previous pandemic, and the use of personal protective equipment (PPE) This may decrease voice recognition accuracy Inadvertent film editor supervisor errors may occur 04/03/2024 Body mass index [...] software and direct typing Please excuse inadvertent film editor supervisor or typing errors, or uncorrected word substitutions Although every attempt has been made by the provider to proofread this document, occasional misspellings and typographical errors may still be present Due to the previous pandemic, and the use of personal protective equipment (PPE) This may decrease voice recognition accuracy Inadvertent film editor supervisor errors may occur 03/06/2024 BMI 37.0-37.9, adult [...] minimum of 6 months The most recent [place] [employer] and [place] [employer] guidelines recommend patients who [...] software and direct typing Please excuse inadvertent film editor supervisor or typing errors, or uncorrected word substitutions Although every attempt has been made by the provider to proofread this document, occasional misspellings and typographical errors may still be present Due to the previous pandemic, and the use of personal protective equipment (PPE) This may decrease voice recognition accuracy Inadvertent film editor supervisor errors may occur 04/03/2024 Dietary counseling and [...] software and direct typing Please excuse inadvertent film editor supervisor or typing errors, or uncorrected word substitutions Although every attempt has been made by the provider to proofread this document, occasional misspellings and typographical errors may still be present Due to the previous pandemic, and the use of personal protective equipment (PPE) This may decrease voice recognition accuracy Inadvertent film editor supervisor errors may occur 11/29/2023 BMI 38.0-38.9,adult (ICD-10 - Z68.38) #Weight Management 11/29/2023 Increase to 1 mg when ready Total time spent today was 30 minutes of which greater than 50% was spent on coordinating and counseling Patient has been found to be obese with a BMI of (38). Patient has class (2) obesity. We are a board certified obesity and weight management practice Patient has trialed behavioral modification, dietary restrictions and exercise for a minimum of 6 months The most recent [place] [employer] and [place] [employer] guidelines recommend patients who [...] mentioned above and not solely appetite suppression. We have discussed the mechanism of GLP-1's/GIP, dual incretins I think this would be fantastic option for her given her metabolic workup and body composition We have discussed the risks and benefits and side effects including/and not limited to Sarcopenia, intestinal obstruction, constipation, nausea, lethargy, headache Discussed importance of protein consumption for muscle maintenance as well as strength and resistance training ,probiotics, B12 complex biotin , iron and other nutrients, To help avoid telogen effluvium There is no history of medullary thyroid cancer or multiple endocrine neoplasia There is also no history of cardiovascular disease, hypertension, palpitations, or arrhythmias In the setting of potential stimulant/amphetami ne use such as phentermine We have also discussed risks and benefits, and the use of compounded medications to help offset the national shortages as well as financial implications vs trade name drugs GLP must be discontinued upon initiation We have discussed the lifelong requirement of nutritional supplementation And adherence to an exercise regimen as well as importance We did discuss the neurohormonal changes that are occurring with these medications and Need for long-term Continued usage Encourage good sleep hygiene Optimize sleep/wake cycles 6-8 hours nightly Keep lights on his stimulus during the day Darkroom and minimize nighttime interruptions Continue melatonin, other sleep aid medications The patient understands and agrees Patient was reassured and welcomed to the practice. We discussed that we stress a hollistic medical approach with emphasis on lifestyle modification. Patient was informed that a healthy lifestyle with exercise and good eating habits can help reduce his risk of medical complications. He is explained that obesity increases his risk of diabetes, cardiovascular disease, or organ damage. We spent a lot of time discussing the relationship between food, exercise, sleep, mental health and obesity. Patient was counseled on the importance EATING local, organic food when possible. Patient was educated on clean 15 and dirty dozen. I provided information about reading books called The Food Rules by Franco Donovan and Eat Fat Get Lean by Dr Jurgen Medina. Self education is important in the journey for weight management. Patient was offered diagnostic testing. We want to measure visceral adiposity, advanced body composition, adverse lipids, fatty acid balance, risk for heart disease and atherosclerosis, markers of inflammation and genetic susceptibility. Patient was counseled on weight management and was advised to lose weight using A. Meal Replacement Products We discussed the lifelong requirement of nutritional supplementation and adherence to an exercise regimen as well as importance of dietary f/u Patient was educated on the replacement products called optifast. This is a good way of taking fixed amount of calories. It has been shown in studies to be ineffective weight management tool. We also recommend maintaining adequate protein intake and muscle composition, 1.5mg/kg This however has to be coupled with lifestyle intervention as well as laboratory data and EKG monitoring. It is impossible to know how a person will tolerate complete meal replacement. The side effects of meal replacement and weight loss could include syncopal attacks, dizziness, gallstones, potential cholecystectomy, possible heart attack and even . The benefits of meal replacement would be potential weight loss but no guarantees can be made. Meal replacement products are not covered by insurance. Once the patient has bought these products we cannot return them B. Lifestyle management which includes several strategies as below 1. Eat a low carbohydrate good fat good protein diet. Eliminate refined carbohydrates from the diet. Continue blood sugar and sugared beverages. Eat local organic when possible. Cook your own meals. Read food labels. None about healthy snacks. Portion control and food with low glycemic index 2. Exercise regularly. Try to get at least 6000 steps a day. Use a predominant to track activity level. Consider using apps like [facility], [employer], lose it, stick as needed for self-monitoring and weight management. Consider group exercises. Consider hiring a personal fitness manager. Regular exercise is sandra to sustainable health and prevents as a buffer against weight regain 3. Sleep is most important for healing. Tried to sleep at least 8 hours a night. A good quality sleep needs a sleep ritual with ideal room temperature of around 68. It might help to take a shower and have no electronics in the room and sleep in a very dark room without artificial light. Start her sleep routine and get up early in the morning and go to bed on time 4. Make a social connection. Surround yourself with positive people with positive energy. Connect with friends and family. 5. Get into the habit of meditating and mindfulness while doing everything. 6. Go outside and connect with nature. C. Prescription medications Patient was educated on the use of prescription medications for medical weight loss. This is a growing list and includes phentermine, Topamax,Qsymia, contrave, belviq and saxenda, wegovy All prescription medications could have side effects including but not limited to kidney stones, seizure disorder cardiac arrhythmias heart attack pancreatitis etc. etc.. Patient was encouraged to read the prescription insert and have coaching with their pharmacist and make an informed decision about taking medication and know that these medications are being prescribed with good intentions and we do not know how a patient would react to her medication. Sudden medications are FDA approved for weight loss and there is also off label use depending on patient's inability to afford medications in an attempt to lose weight D. Behavioral counseling was done to establish a relationship between food and an mood. Patient was provided information about local counseling and psychiatry and Dr Dao at [email or web address]. We would like to cover regular topics and build on low glycemic eating exercise mindful eating, using yoga and meditation along with deep breathing and connecting with friends and family. E. MASS PAT reviewed, Patient's current medications were reviewed and opinion was given on medication that can cause weight gain and can be substituted F. Patient was assessed for risk with obesity including and not limiting to atherosclerosis heart disease stroke kidney disease, restrictive lung disease, irritable bowel syndrome and overall mortality. Risk of developing prediabetes diabetes and metabolic syndrome was discussed G. Therapeutic plan: We have decided to make therapeutic plan which would include choosing wisely on calories restricting portion getting active, tracking weight, getting good quality sleep and working on time management H. Patient will follow up in (4) weeks for weight management Of note, some information is being carried forward from prior records for informational purposes only and is being cited so that efficiency, safety and quality of the patient's care is not compromised This note was prepared using voice recognition software and direct typing Please excuse inadvertent film editor supervisor or typing errors, or uncorrected word substitutions Although every attempt has been made by the provider to proofread this document, occasional misspellings and typographical errors may still be present Due to the previous pandemic, and the use of personal protective equipment (PPE) This may decrease voice recognition accuracy Inadvertent film editor supervisor errors may occur 01/31/2024 BMI 37.0-37.9, adult (ICD-10 - Z68.37) #Weight Management 01/31/2024 Now euglycemic, A1c of 5.4 cont K2 [...] minimum of 6 months The most recent [place] [employer] and [place] [employer] guidelines recommend patients who [...] software and direct typing Please excuse inadvertent film editor supervisor or typing errors, or uncorrected word substitutions Although every attempt has been made by the provider to proofread this document, occasional misspellings and typographical errors may still be present Due to the previous pandemic, and the use of personal protective equipment (PPE) This may decrease voice recognition accuracy Inadvertent film editor supervisor errors may occur 12/27/2023 Dietary counseling and surveillance (ICD-10 - Z71.3) #Weight Management 12/27/2023 We have started on a K2 and D3 high-dose vitamin D Increase [...] minimum of 6 months The most recent [place] [employer]in[employer] and [place] [employer] guidelines recommend patients who [...] software and direct typing Please excuse inadvertent film editor supervisor or typing errors, or uncorrected word substitutions Although every attempt has been made by the provider to proofread this document, occasional misspellings and typographical errors may still be present Due to the previous pandemic, and the use of personal protective equipment (PPE) This may decrease voice recognition accuracy Inadvertent film editor supervisor errors may occur 09/27/2023 Dietary counseling and surveillance (ICD-10 - Z71.3) Jose Alfredo Cameron Total time spent today was 60 minutes of which greater than 50% was spent on coordinating and counseling Patient has been found to be obese with a BMI of (39). Patient has class (2) obesity. We are a board certified obesity and weight management practice Patient has trialed behavioral modification, dietary restrictions and exercise for a minimum of 6 months The most recent [place] [employer]in[employer] and [place] [employer] guidelines recommend patients who [...] mentioned above and not solely appetite suppression. We have discussed the mechanism of GLP-1's/GIP, dual incretins I think this would be fantastic option for her given her metabolic workup and body composition We have discussed the risks and benefits and side effects including/and not limited to Sarcopenia, intestinal obstruction, constipation, nausea, lethargy, headache Discussed importance of protein consumption for muscle maintenance as well as strength and resistance training ,probiotics, B12 complex biotin , iron and other nutrients, To help avoid telogen effluvium There is no history of medullary thyroid cancer or multiple endocrine neoplasia There is also no history of cardiovascular disease, hypertension, palpitations, or arrhythmias In the setting of potential stimulant/amphetami ne use such as phentermine We have also discussed risks and benefits, and the use of compounded medications to help offset the national shortages as well as financial implications vs trade name drugs GLP must be discontinued upon initiation We have discussed the lifelong requirement of nutritional supplementation And adherence to an exercise regimen as well as importance We did discuss the neurohormonal changes that are occurring with these medications and Need for long-term Continued usage Encourage good sleep hygiene Optimize sleep/wake cycles 6-8 hours nightly Keep lights on his stimulus during the day Darkroom and minimize nighttime interruptions Continue melatonin, other sleep aid medications The patient understands and agrees Patient was reassured and welcomed to the practice. We discussed that we stress a hollistic medical approach with emphasis on lifestyle modification. Patient was informed that a healthy lifestyle with exercise and good eating habits can help reduce his risk of medical complications. He is explained that obesity increases his risk of diabetes, cardiovascular disease, or organ damage. We spent a lot of time discussing the relationship between food, exercise, sleep, mental health and obesity. Patient was counseled on the importance EATING local, organic food when possible. Patient was educated on clean 15 and dirty dozen. I provided information about reading books called The Food Rules by Franco Donovan and Eat Fat Get Lean by Dr Jurgen Medina. Self education is important in the journey for weight management. Patient was offered diagnostic testing. We want to measure visceral adiposity, advanced body composition, adverse lipids, fatty acid balance, risk for heart disease and atherosclerosis, markers of inflammation and genetic susceptibility. Patient was counseled on weight management and was advised to lose weight using A. Meal Replacement Products We discussed the lifelong requirement of nutritional supplementation and adherence to an exercise regimen as well as importance of dietary f/u Patient was educated on the replacement products called optifast. This is a good way of taking fixed amount of calories. It has been shown in studies to be ineffective weight management tool. We also recommend maintaining adequate protein intake and muscle composition, 1.5mg/kg This however has to be coupled with lifestyle intervention as well as laboratory data and EKG monitoring. It is impossible to know how a person will tolerate complete meal replacement. The side effects of meal replacement and weight loss could include syncopal attacks, dizziness, gallstones, potential cholecystectomy, possible heart attack and even . The benefits of meal replacement would be potential weight loss but no guarantees can be made. Meal replacement products are not covered by insurance. Once the patient has bought these products we cannot return them B. Lifestyle management which includes several strategies as below 1. Eat a low carbohydrate good fat good protein diet. Eliminate refined carbohydrates from the diet. Continue blood sugar and sugared beverages. Eat local organic when possible. Cook your own meals. Read food labels. None about healthy snacks. Portion control and food with low glycemic index 2. Exercise regularly. Try to get at least 6000 steps a day. Use a predominant to track activity level. Consider using apps like [facility], [employer], lose it, stick as needed for self-monitoring and weight management. Consider group exercises. Consider hiring a personal fitness manager. Regular exercise is sandra to sustainable health and prevents as a buffer against weight regain 3. Sleep is most important for healing. Tried to sleep at least 8 hours a night. A good quality sleep needs a sleep ritual with ideal room temperature of around 68. It might help to take a shower and have no electronics in the room and sleep in a very dark room without artificial light. Start her sleep routine and get up early in the morning and go to bed on time 4. Make a social connection. Surround yourself with positive people with positive energy. Connect with friends and family. 5. Get into the habit of meditating and mindfulness while doing everything. 6. Go outside and connect with nature. C. Prescription medications Patient was educated on the use of prescription medications for medical weight loss. This is a growing list and includes phentermine, Topamax,Qsymia, contrave, belviq and saxenda, wegovy All prescription medications could have side effects including but not limited to kidney stones, seizure disorder cardiac arrhythmias heart attack pancreatitis etc. etc.. Patient was encouraged to read the prescription insert and have coaching with their pharmacist and make an informed decision about taking medication and know that these medications are being prescribed with good intentions and we do not know how a patient would react to her medication. Sudden medications are FDA approved for weight loss and there is also off label use depending on patient's inability to afford medications in an attempt to lose weight D. Behavioral counseling was done to establish a relationship between food and an mood. Patient was provided information about local counseling and psychiatry and Dr Dao at [email or web address]. We would like to cover regular topics and build on low glycemic eating exercise mindful eating, using yoga and meditation along with deep breathing and connecting with friends and family. E. MASS PAT reviewed, Patient's current medications were reviewed and opinion was given on medication that can cause weight gain and can be substituted F. Patient was assessed for risk with obesity including and not limiting to atherosclerosis heart disease stroke kidney disease, restrictive lung disease, irritable bowel syndrome and overall mortality. Risk of developing prediabetes diabetes and metabolic syndrome was discussed G. Therapeutic plan: We have decided to make therapeutic plan which would include choosing wisely on calories restricting portion getting active, tracking weight, getting good quality sleep and working on time management H. Patient will follow up in (4) weeks for weight management Of note, some information is being carried forward from prior records for informational purposes only and is being cited so that efficiency, safety and quality of the patient's care is not compromised This note was prepared using voice recognition software and direct typing Please excuse inadvertent film editor supervisor or typing errors, or uncorrected word substitutions Although every attempt has been made by the provider to proofread this document, occasional misspellings and typographical errors may still be present Due to the previous pandemic, and the use of personal protective equipment (PPE) This may decrease voice recognition accuracy Inadvertent film editor supervisor errors may occur 11/01/2023 Dietary counseling and surveillance (ICD-10 - Z71.3) #Weight Management 11/01/2023 Total time spent today was 30 minutes of which greater than 50% was spent on coordinating and counseling Patient has been found to be obese with a BMI of (38). Patient has class (2) obesity. We are a board certified obesity and weight management practice Patient has trialed behavioral modification, dietary restrictions and exercise for a minimum of 6 months The most recent [place] [employer]in[employer] and [place] [employer] guidelines recommend patients who [...] mentioned above and not solely appetite suppression. We have discussed the mechanism of GLP-1's/GIP, dual incretins I think this would be fantastic option for her given her metabolic workup and body composition We have discussed the risks and benefits and side effects including/and not limited to Sarcopenia, intestinal obstruction, constipation, nausea, lethargy, headache Discussed importance of protein consumption for muscle maintenance as well as strength and resistance training ,probiotics, B12 complex biotin , iron and other nutrients, To help avoid telogen effluvium There is no history of medullary thyroid cancer or multiple endocrine neoplasia There is also no history of cardiovascular disease, hypertension, palpitations, or arrhythmias In the setting of potential stimulant/amphetami ne use such as phentermine We have also discussed risks and benefits, and the use of compounded medications to help offset the national shortages as well as financial implications vs trade name drugs GLP must be discontinued upon initiation We have discussed the lifelong requirement of nutritional supplementation And adherence to an exercise regimen as well as importance We did discuss the neurohormonal changes that are occurring with these medications and Need for long-term Continued usage Encourage good sleep hygiene Optimize sleep/wake cycles 6-8 hours nightly Keep lights on his stimulus during the day Darkroom and minimize nighttime interruptions Continue melatonin, other sleep aid medications The patient understands and agrees Patient was reassured and welcomed to the practice. We discussed that we stress a hollistic medical approach with emphasis on lifestyle modification. Patient was informed that a healthy lifestyle with exercise and good eating habits can help reduce his risk of medical complications. He is explained that obesity increases his risk of diabetes, cardiovascular disease, or organ damage. We spent a lot of time discussing the relationship between food, exercise, sleep, mental health and obesity. Patient was counseled on the importance EATING local, organic food when possible. Patient was educated on clean 15 and dirty dozen. I provided information about reading books called The Food Rules by Franco Donovan and Eat Fat Get Lean by Dr Jurgen Medina. Self education is important in the journey for weight management. Patient was offered diagnostic testing. We want to measure visceral adiposity, advanced body composition, adverse lipids, fatty acid balance, risk for heart disease and atherosclerosis, markers of inflammation and genetic susceptibility. Patient was counseled on weight management and was advised to lose weight using A. Meal Replacement Products We discussed the lifelong requirement of nutritional supplementation and adherence to an exercise regimen as well as importance of dietary f/u Patient was educated on the replacement products called optifast. This is a good way of taking fixed amount of calories. It has been shown in studies to be ineffective weight management tool. We also recommend maintaining adequate protein intake and muscle composition, 1.5mg/kg This however has to be coupled with lifestyle intervention as well as laboratory data and EKG monitoring. It is impossible to know how a person will tolerate complete meal replacement. The side effects of meal replacement and weight loss could include syncopal attacks, dizziness, gallstones, potential cholecystectomy, possible heart attack and even . The benefits of meal replacement would be potential weight loss but no guarantees can be made. Meal replacement products are not covered by insurance. Once the patient has bought these products we cannot return them B. Lifestyle management which includes several strategies as below 1. Eat a low carbohydrate good fat good protein diet. Eliminate refined carbohydrates from the diet. Continue blood sugar and sugared beverages. Eat local organic when possible. Cook your own meals. Read food labels. None about healthy snacks. Portion control and food with low glycemic index 2. Exercise regularly. Try to get at least 6000 steps a day. Use a predominant to track activity level. Consider using apps like [facility], [employer], lose it, stick as needed for self-monitoring and weight management. Consider group exercises. Consider hiring a personal fitness manager. Regular exercise is sandra to sustainable health and prevents as a buffer against weight regain 3. Sleep is most important for healing. Tried to sleep at least 8 hours a night. A good quality sleep needs a sleep ritual with ideal room temperature of around 68. It might help to take a shower and have no electronics in the room and sleep in a very dark room without artificial light. Start her sleep routine and get up early in the morning and go to bed on time 4. Make a social connection. Surround yourself with positive people with positive energy. Connect with friends and family. 5. Get into the habit of meditating and mindfulness while doing everything. 6. Go outside and connect with nature. C. Prescription medications Patient was educated on the use of prescription medications for medical weight loss. This is a growing list and includes phentermine, Topamax,Qsymia, contrave, belviq and saxenda, wegovy All prescription medications could have side effects including but not limited to kidney stones, seizure disorder cardiac arrhythmias heart attack pancreatitis etc. etc.. Patient was encouraged to read the prescription insert and have coaching with their pharmacist and make an informed decision about taking medication and know that these medications are being prescribed with good intentions and we do not know how a patient would react to her medication. Sudden medications are FDA approved for weight loss and there is also off label use depending on patient's inability to afford medications in an attempt to lose weight D. Behavioral counseling was done to establish a relationship between food and an mood. Patient was provided information about local counseling and psychiatry and Dr Dao at [email or web address]. We would like to cover regular topics and build on low glycemic eating exercise mindful eating, using yoga and meditation along with deep breathing and connecting with friends and family. E. MASS PAT reviewed, Patient's current medications were reviewed and opinion was given on medication that can cause weight gain and can be substituted F. Patient was assessed for risk with obesity including and not limiting to atherosclerosis heart disease stroke kidney disease, restrictive lung disease, irritable bowel syndrome and overall mortality. Risk of developing prediabetes diabetes and metabolic syndrome was discussed G. Therapeutic plan: We have decided to make therapeutic plan which would include choosing wisely on calories restricting portion getting active, tracking weight, getting good quality sleep and working on time management H. Patient will follow up in (4) weeks for weight management Of note, some information is being carried forward from prior records for informational purposes only and is being cited so that efficiency, safety and quality of the patient's care is not compromised This note was prepared using voice recognition software and direct typing Please excuse inadvertent film editor supervisor or typing errors, or uncorrected word substitutions Although every attempt has been made by the provider to proofread this document, occasional misspellings and typographical errors may still be present Due to the previous pandemic, and the use of personal protective equipment (PPE) This may decrease voice recognition accuracy Inadvertent film editor supervisor errors may occur 11/01/2023 Prediabetes (ICD-10 - R73.03) #Weight Management 11/01/2023 Total time spent today was 30 minutes of which greater than 50% was spent on coordinating and counseling Patient has been found to be obese with a BMI of (38). Patient has class (2) obesity. We are a board certified obesity and weight management practice Patient has trialed behavioral modification, dietary restrictions and exercise for a minimum of 6 months The most recent [place] [employer] endocrinologists and [place] [employer] guidelines recommend patients who [...] mentioned above and not solely appetite suppression. We have discussed the mechanism of GLP-1's/GIP, dual incretins I think this would be fantastic option for her given her metabolic workup and body composition We have discussed the risks and benefits and side effects including/and not limited to Sarcopenia, intestinal obstruction, constipation, nausea, lethargy, headache Discussed importance of protein consumption for muscle maintenance as well as strength and resistance training ,probiotics, B12 complex biotin , iron and other nutrients, To help avoid telogen effluvium There is no history of medullary thyroid cancer or multiple endocrine neoplasia There is also no history of cardiovascular disease, hypertension, palpitations, or arrhythmias In the setting of potential stimulant/amphetami ne use such as phentermine We have also discussed risks and benefits, and the use of compounded medications to help offset the national shortages as well as financial implications vs trade name drugs GLP must be discontinued upon initiation We have discussed the lifelong requirement of nutritional supplementation And adherence to an exercise regimen as well as importance We did discuss the neurohormonal changes that are occurring with these medications and Need for long-term Continued usage Encourage good sleep hygiene Optimize sleep/wake cycles 6-8 hours nightly Keep lights on his stimulus during the day Darkroom and minimize nighttime interruptions Continue melatonin, other sleep aid medications The patient understands and agrees Patient was reassured and welcomed to the practice. We discussed that we stress a hollistic medical approach with emphasis on lifestyle modification. Patient was informed that a healthy lifestyle with exercise and good eating habits can help reduce his risk of medical complications. He is explained that obesity increases his risk of diabetes, cardiovascular disease, or organ damage. We spent a lot of time discussing the relationship between food, exercise, sleep, mental health and obesity. Patient was counseled on the importance EATING local, organic food when possible. Patient was educated on clean 15 and dirty dozen. I provided information about reading books called The Food Rules by Franco Donovan and Eat Fat Get Lean by Dr Jurgen Medina. Self education is important in the journey for weight management. Patient was offered diagnostic testing. We want to measure visceral adiposity, advanced body composition, adverse lipids, fatty acid balance, risk for heart disease and atherosclerosis, markers of inflammation and genetic susceptibility. Patient was counseled on weight management and was advised to lose weight using A. Meal Replacement Products We discussed the lifelong requirement of nutritional supplementation and adherence to an exercise regimen as well as importance of dietary f/u Patient was educated on the replacement products called optifast. This is a good way of taking fixed amount of calories. It has been shown in studies to be ineffective weight management tool. We also recommend maintaining adequate protein intake and muscle composition, 1.5mg/kg This however has to be coupled with lifestyle intervention as well as laboratory data and EKG monitoring. It is impossible to know how a person will tolerate complete meal replacement. The side effects of meal replacement and weight loss could include syncopal attacks, dizziness, gallstones, potential cholecystectomy, possible heart attack and even . The benefits of meal replacement would be potential weight loss but no guarantees can be made. Meal replacement products are not covered by insurance. Once the patient has bought these products we cannot return them B. Lifestyle management which includes several strategies as below 1. Eat a low carbohydrate good fat good protein diet. Eliminate refined carbohydrates from the diet. Continue blood sugar and sugared beverages. Eat local organic when possible. Cook your own meals. Read food labels. None about healthy snacks. Portion control and food with low glycemic index 2. Exercise regularly. Try to get at least 6000 steps a day. Use a predominant to track activity level. Consider using apps like [facility], [employer], lose it, stick as needed for self-monitoring and weight management. Consider group exercises. Consider hiring a personal fitness manager. Regular exercise is sandra to sustainable health and prevents as a buffer against weight regain 3. Sleep is most important for healing. Tried to sleep at least 8 hours a night. A good quality sleep needs a sleep ritual with ideal room temperature of around 68. It might help to take a shower and have no electronics in the room and sleep in a very dark room without artificial light. Start her sleep routine and get up early in the morning and go to bed on time 4. Make a social connection. Surround yourself with positive people with positive energy. Connect with friends and family. 5. Get into the habit of meditating and mindfulness while doing everything. 6. Go outside and connect with nature. C. Prescription medications Patient was educated on the use of prescription medications for medical weight loss. This is a growing list and includes phentermine, Topamax,Qsymia, contrave, belviq and saxenda, wegovy All prescription medications could have side effects including but not limited to kidney stones, seizure disorder cardiac arrhythmias heart attack pancreatitis etc. etc.. Patient was encouraged to read the prescription insert and have coaching with their pharmacist and make an informed decision about taking medication and know that these medications are being prescribed with good intentions and we do not know how a patient would react to her medication. Sudden medications are FDA approved for weight loss and there is also off label use depending on patient's inability to afford medications in an attempt to lose weight D. Behavioral counseling was done to establish a relationship between food and an mood. Patient was provided information about local counseling and psychiatry and Dr Dao at [email or web address]. We would like to cover regular topics and build on low glycemic eating exercise mindful eating, using yoga and meditation along with deep breathing and connecting with friends and family. E. MASS PAT reviewed, Patient's current medications were reviewed and opinion was given on medication that can cause weight gain and can be substituted F. Patient was assessed for risk with obesity including and not limiting to atherosclerosis heart disease stroke kidney disease, restrictive lung disease, irritable bowel syndrome and overall mortality. Risk of developing prediabetes diabetes and metabolic syndrome was discussed G. Therapeutic plan: We have decided to make therapeutic plan which would include choosing wisely on calories restricting portion getting active, tracking weight, getting good quality sleep and working on time management H. Patient will follow up in (4) weeks for weight management Of note, some information is being carried forward from prior records for informational purposes only and is being cited so that efficiency, safety and quality of the patient's care is not compromised This note was prepared using voice recognition software and direct typing Please excuse inadvertent film editor supervisor or typing errors, or uncorrected word substitutions Although every attempt has been made by the provider to proofread this document, occasional misspellings and typographical errors may still be present Due to the previous pandemic, and the use of personal protective equipment (PPE) This may decrease voice recognition accuracy Inadvertent film editor supervisor errors may occur 11/29/2023 Dietary counseling and surveillance (ICD-10 - Z71.3) #Weight Management 11/29/2023 Increase to 1 mg when ready Total time spent today was 30 minutes of which greater than 50% was spent on coordinating and counseling Patient has been found to be obese with a BMI of (38). Patient has class (2) obesity. We are a board certified obesity and weight management practice Patient has trialed behavioral modification, dietary restrictions and exercise for a minimum of 6 months The most recent [place] [employer] endocrinologists and [place] [employer] guidelines recommend patients who [...] mentioned above and not solely appetite suppression. We have discussed the mechanism of GLP-1's/GIP, dual incretins I think this would be fantastic option for her given her metabolic workup and body composition We have discussed the risks and benefits and side effects including/and not limited to Sarcopenia, intestinal obstruction, constipation, nausea, lethargy, headache Discussed importance of protein consumption for muscle maintenance as well as strength and resistance training ,probiotics, B12 complex biotin , iron and other nutrients, To help avoid telogen effluvium There is no history of medullary thyroid cancer or multiple endocrine neoplasia There is also no history of cardiovascular disease, hypertension, palpitations, or arrhythmias In the setting of potential stimulant/amphetami ne use such as phentermine We have also discussed risks and benefits, and the use of compounded medications to help offset the national shortages as well as financial implications vs trade name drugs GLP must be discontinued upon initiation We have discussed the lifelong requirement of nutritional supplementation And adherence to an exercise regimen as well as importance We did discuss the neurohormonal changes that are occurring with these medications and Need for long-term Continued usage Encourage good sleep hygiene Optimize sleep/wake cycles 6-8 hours nightly Keep lights on his stimulus during the day Darkroom and minimize nighttime interruptions Continue melatonin, other sleep aid medications The patient understands and agrees Patient was reassured and welcomed to the practice. We discussed that we stress a hollistic medical approach with emphasis on lifestyle modification. Patient was informed that a healthy lifestyle with exercise and good eating habits can help reduce his risk of medical complications. He is explained that obesity increases his risk of diabetes, cardiovascular disease, or organ damage. We spent a lot of time discussing the relationship between food, exercise, sleep, mental health and obesity. Patient was counseled on the importance EATING local, organic food when possible. Patient was educated on clean 15 and dirty dozen. I provided information about reading books called The Food Rules by Franco Donovan and Eat Fat Get Lean by Dr Jurgen Medina. Self education is important in the journey for weight management. Patient was offered diagnostic testing. We want to measure visceral adiposity, advanced body composition, adverse lipids, fatty acid balance, risk for heart disease and atherosclerosis, markers of inflammation and genetic susceptibility. Patient was counseled on weight management and was advised to lose weight using A. Meal Replacement Products We discussed the lifelong requirement of nutritional supplementation and adherence to an exercise regimen as well as importance of dietary f/u Patient was educated on the replacement products called optifast. This is a good way of taking fixed amount of calories. It has been shown in studies to be ineffective weight management tool. We also recommend maintaining adequate protein intake and muscle composition, 1.5mg/kg This however has to be coupled with lifestyle intervention as well as laboratory data and EKG monitoring. It is impossible to know how a person will tolerate complete meal replacement. The side effects of meal replacement and weight loss could include syncopal attacks, dizziness, gallstones, potential cholecystectomy, possible heart attack and even . The benefits of meal replacement would be potential weight loss but no guarantees can be made. Meal replacement products are not covered by insurance. Once the patient has bought these products we cannot return them B. Lifestyle management which includes several strategies as below 1. Eat a low carbohydrate good fat good protein diet. Eliminate refined carbohydrates from the diet. Continue blood sugar and sugared beverages. Eat local organic when possible. Cook your own meals. Read food labels. None about healthy snacks. Portion control and food with low glycemic index 2. Exercise regularly. Try to get at least 6000 steps a day. Use a predominant to track activity level. Consider using apps like [facility], [employer], lose it, stick as needed for self-monitoring and weight management. Consider group exercises. Consider hiring a personal fitness manager. Regular exercise is sandra to sustainable health and prevents as a buffer against weight regain 3. Sleep is most important for healing. Tried to sleep at least 8 hours a night. A good quality sleep needs a sleep ritual with ideal room temperature of around 68. It might help to take a shower and have no electronics in the room and sleep in a very dark room without artificial light. Start her sleep routine and get up early in the morning and go to bed on time 4. Make a social connection. Surround yourself with positive people with positive energy. Connect with friends and family. 5. Get into the habit of meditating and mindfulness while doing everything. 6. Go outside and connect with nature. C. Prescription medications Patient was educated on the use of prescription medications for medical weight loss. This is a growing list and includes phentermine, Topamax,Qsymia, contrave, belviq and saxenda, wegovy All prescription medications could have side effects including but not limited to kidney stones, seizure disorder cardiac arrhythmias heart attack pancreatitis etc. etc.. Patient was encouraged to read the prescription insert and have coaching with their pharmacist and make an informed decision about taking medication and know that these medications are being prescribed with good intentions and we do not know how a patient would react to her medication. Sudden medications are FDA approved for weight loss and there is also off label use depending on patient's inability to afford medications in an attempt to lose weight D. Behavioral counseling was done to establish a relationship between food and an mood. Patient was provided information about local counseling and psychiatry and Dr Dao at [email or web address]. We would like to cover regular topics and build on low glycemic eating exercise mindful eating, using yoga and meditation along with deep breathing and connecting with friends and family. E. MASS PAT reviewed, Patient's current medications were reviewed and opinion was given on medication that can cause weight gain and can be substituted F. Patient was assessed for risk with obesity including and not limiting to atherosclerosis heart disease stroke kidney disease, restrictive lung disease, irritable bowel syndrome and overall mortality. Risk of developing prediabetes diabetes and metabolic syndrome was discussed G. Therapeutic plan: We have decided to make therapeutic plan which would include choosing wisely on calories restricting portion getting active, tracking weight, getting good quality sleep and working on time management H. Patient will follow up in (4) weeks for weight management Of note, some information is being carried forward from prior records for informational purposes only and is being cited so that efficiency, safety and quality of the patient's care is not compromised This note was prepared using voice recognition software and direct typing Please excuse inadvertent film editor supervisor or typing errors, or uncorrected word substitutions Although every attempt has been made by the provider to proofread this document, occasional misspellings and typographical errors may still be present Due to the previous pandemic, and the use of personal protective equipment (PPE) This may decrease voice recognition accuracy Inadvertent film editor supervisor errors may occur 09/27/2023 Prediabetes (ICD-10 - R73.03) Start Nisha Total time spent today was 60 minutes of which greater than 50% was spent on coordinating and counseling Patient has been found to be obese with a BMI of (39). Patient has class (2) obesity. We are a board certified obesity and weight management practice Patient has trialed behavioral modification, dietary restrictions and exercise for a minimum of 6 months The most recent [place] [employer] endocrinologists and [place] [employer] guidelines recommend patients who [...] mentioned above and not solely appetite suppression. We have discussed the mechanism of GLP-1's/GIP, dual incretins I think this would be fantastic option for her given her metabolic workup and body composition We have discussed the risks and benefits and side effects including/and not limited to Sarcopenia, intestinal obstruction, constipation, nausea, lethargy, headache Discussed importance of protein consumption for muscle maintenance as well as strength and resistance training ,probiotics, B12 complex biotin , iron and other nutrients, To help avoid telogen effluvium There is no history of medullary thyroid cancer or multiple endocrine neoplasia There is also no history of cardiovascular disease, hypertension, palpitations, or arrhythmias In the setting of potential stimulant/amphetami ne use such as phentermine We have also discussed risks and benefits, and the use of compounded medications to help offset the national shortages as well as financial implications vs trade name drugs GLP must be discontinued upon initiation We have discussed the lifelong requirement of nutritional supplementation And adherence to an exercise regimen as well as importance We did discuss the neurohormonal changes that are occurring with these medications and Need for long-term Continued usage Encourage good sleep hygiene Optimize sleep/wake cycles 6-8 hours nightly Keep lights on his stimulus during the day Darkroom and minimize nighttime interruptions Continue melatonin, other sleep aid medications The patient understands and agrees Patient was reassured and welcomed to the practice. We discussed that we stress a hollistic medical approach with emphasis on lifestyle modification. Patient was informed that a healthy lifestyle with exercise and good eating habits can help reduce his risk of medical complications. He is explained that obesity increases his risk of diabetes, cardiovascular disease, or organ damage. We spent a lot of time discussing the relationship between food, exercise, sleep, mental health and obesity. Patient was counseled on the importance EATING local, organic food when possible. Patient was educated on clean 15 and dirty dozen. I provided information about reading books called The Food Rules by Franco Donovan and Eat Fat Get Lean by Dr Jurgen Medina. Self education is important in the journey for weight management. Patient was offered diagnostic testing. We want to measure visceral adiposity, advanced body composition, adverse lipids, fatty acid balance, risk for heart disease and atherosclerosis, markers of inflammation and genetic susceptibility. Patient was counseled on weight management and was advised to lose weight using A. Meal Replacement Products We discussed the lifelong requirement of nutritional supplementation and adherence to an exercise regimen as well as importance of dietary f/u Patient was educated on the replacement products called optifast. This is a good way of taking fixed amount of calories. It has been shown in studies to be ineffective weight management tool. We also recommend maintaining adequate protein intake and muscle composition, 1.5mg/kg This however has to be coupled with lifestyle intervention as well as laboratory data and EKG monitoring. It is impossible to know how a person will tolerate complete meal replacement. The side effects of meal replacement and weight loss could include syncopal attacks, dizziness, gallstones, potential cholecystectomy, possible heart attack and even . The benefits of meal replacement would be potential weight loss but no guarantees can be made. Meal replacement products are not covered by insurance. Once the patient has bought these products we cannot return them B. Lifestyle management which includes several strategies as below 1. Eat a low carbohydrate good fat good protein diet. Eliminate refined carbohydrates from the diet. Continue blood sugar and sugared beverages. Eat local organic when possible. Cook your own meals. Read food labels. None about healthy snacks. Portion control and food with low glycemic index 2. Exercise regularly. Try to get at least 6000 steps a day. Use a predominant to track activity level. Consider using apps like [facility], myfitnesspal, lose it, stick as needed for self-monitoring and weight management. Consider group exercises. Consider hiring a personal fitness manager. Regular exercise is sandra to sustainable health and prevents as a buffer against weight regain 3. Sleep is most important for healing. Tried to sleep at least 8 hours a night. A good quality sleep needs a sleep ritual with ideal room temperature of around 68. It might help to take a shower and have no electronics in the room and sleep in a very dark room without artificial light. Start her sleep routine and get up early in the morning and go to bed on time 4. Make a social connection. Surround yourself with positive people with positive energy. Connect with friends and family. 5. Get into the habit of meditating and mindfulness while doing everything. 6. Go outside and connect with nature. C. Prescription medications Patient was educated on the use of prescription medications for medical weight loss. This is a growing list and includes phentermine, Topamax,Qsymia, contrave, belviq and saxenda, wegovy All prescription medications could have side effects including but not limited to kidney stones, seizure disorder cardiac arrhythmias heart attack pancreatitis etc. etc.. Patient was encouraged to read the prescription insert and have coaching with their pharmacist and make an informed decision about taking medication and know that these medications are being prescribed with good intentions and we do not know how a patient would react to her medication. Sudden medications are FDA approved for weight loss and there is also off label use depending on patient's inability to afford medications in an attempt to lose weight D. Behavioral counseling was done to establish a relationship between food and an mood. Patient was provided information about local counseling and psychiatry and Dr Dao at [email or web address]. We would like to cover regular topics and build on low glycemic eating exercise mindful eating, using yoga and meditation along with deep breathing and connecting with friends and family. E. MASS PAT reviewed, Patient's current medications were reviewed and opinion was given on medication that can cause weight gain and can be substituted F. Patient was assessed for risk with obesity including and not limiting to atherosclerosis heart disease stroke kidney disease, restrictive lung disease, irritable bowel syndrome and overall mortality. Risk of developing prediabetes diabetes and metabolic syndrome was discussed G. Therapeutic plan: We have decided to make therapeutic plan which would include choosing wisely on calories restricting portion getting active, tracking weight, getting good quality sleep and working on time management H. Patient will follow up in (4) weeks for weight management Of note, some information is being carried forward from prior records for informational purposes only and is being cited so that efficiency, safety and quality of the patient's care is not compromised This note was prepared using voice recognition software and direct typing Please excuse inadvertent film editor supervisor or typing errors, or uncorrected word substitutions Although every attempt has been made by the provider to proofread this document, occasional misspellings and typographical errors may still be present Due to the previous pandemic, and the use of personal protective equipment (PPE) This may decrease voice recognition accuracy Inadvertent film editor supervisor errors may occur 12/27/2023 Prediabetes (ICD-10 - R73.03) #Weight Management 12/27/2023 We have started on a K2 and D3 high-dose vitamin D Increase [...] minimum of 6 months The most recent [place] [employer]ocrin[employer] and [place] [employer] guidelines recommend patients who [...] software and direct typing Please excuse inadvertent film editor supervisor or typing errors, or uncorrected word substitutions Although every attempt has been made by the provider to proofread this document, occasional misspellings and typographical errors may still be present Due to the previous pandemic, and the use of personal protective equipment (PPE) This may decrease voice recognition accuracy Inadvertent film editor supervisor errors may occur 01/31/2024 Dietary counseling and surveillance (ICD-10 - Z71.3) #Weight Management 01/31/2024 Now euglycemic, A1c of 5.4 cont K2 [...] minimum of 6 months The most recent [place] [employer]in[employer] and [place] [employer] guidelines recommend patients who [...] software and direct typing Please excuse inadvertent film editor supervisor or typing errors, or uncorrected word substitutions Although every attempt has been made by the provider to proofread this document, occasional misspellings and typographical errors may still be present Due to the previous pandemic, and the use of personal protective equipment (PPE) This may decrease voice recognition accuracy Inadvertent film editor supervisor errors may occur 03/06/2024 Dietary counseling and [...] minimum of 6 months The most recent [place] [employer]ocrinologists and [place] [employer] guidelines recommend patients who [...] software and direct typing Please excuse inadvertent film editor supervisor or typing errors, or uncorrected word substitutions Although every attempt has been made by the provider to proofread this document, occasional misspellings and typographical errors may still be present Due to the previous pandemic, and the use of personal protective equipment (PPE) This may decrease voice recognition accuracy Inadvertent film editor supervisor errors may occur 04/03/2024 Prediabetes (ICD-10 - [...] software and direct typing Please excuse inadvertent film editor supervisor or typing errors, or uncorrected word substitutions Although every attempt has been made by the provider to proofread this document, occasional misspellings and typographical errors may still be present Due to the previous pandemic, and the use of personal protective equipment (PPE) This may decrease voice recognition accuracy Inadvertent film editor supervisor errors may occur 03/06/2024 Prediabetes (ICD-10 - [...] minimum of 6 months The most recent [place] [employer]ocrinologists and [place] [employer] guidelines recommend patients who [...] software and direct typing Please excuse inadvertent film editor supervisor or typing errors, or uncorrected word substitutions Although every attempt has been made by the provider to proofread this document, occasional misspellings and typographical errors may still be present Due to the previous pandemic, and the use of personal protective equipment (PPE) This may decrease voice recognition accuracy Inadvertent film editor supervisor errors may occur 01/31/2024 Prediabetes (ICD-10 - R73.03) #Weight Management 01/31/2024 Now euglycemic, A1c of 5.4 cont K2 [...] minimum of 6 months The most recent [place] [employer]ocrinologists and [place] [employer] guidelines recommend patients who [...] software and direct typing Please excuse inadvertent film editor supervisor or typing errors, or uncorrected word substitutions Although every attempt has been made by the provider to proofread this document, occasional misspellings and typographical errors may still be present Due to the previous pandemic, and the use of personal protective equipment (PPE) This may decrease voice recognition accuracy Inadvertent film editor supervisor errors may occur 11/29/2023 Prediabetes (ICD-10 - R73.03) #Weight Management 11/29/2023 Increase to 1 mg when ready Total time spent today was 30 minutes of which greater than 50% was spent on coordinating and counseling Patient has been found to be obese with a BMI of (38). Patient has class (2) obesity. We are a board certified obesity and weight management practice Patient has trialed behavioral modification, dietary restrictions and exercise for a minimum of 6 months The most recent [place] [employer]ocrinologists and [place] [employer] guidelines recommend patients who [...] mentioned above and not solely appetite suppression. We have discussed the mechanism of GLP-1's/GIP, dual incretins I think this would be fantastic option for her given her metabolic workup and body composition We have discussed the risks and benefits and side effects including/and not limited to Sarcopenia, intestinal obstruction, constipation, nausea, lethargy, headache Discussed importance of protein consumption for muscle maintenance as well as strength and resistance training ,probiotics, B12 complex biotin , iron and other nutrients, To help avoid telogen effluvium There is no history of medullary thyroid cancer or multiple endocrine neoplasia There is also no history of cardiovascular disease, hypertension, palpitations, or arrhythmias In the setting of potential stimulant/amphetami ne use such as phentermine We have also discussed risks and benefits, and the use of compounded medications to help offset the national shortages as well as financial implications vs trade name drugs GLP must be discontinued upon initiation We have discussed the lifelong requirement of nutritional supplementation And adherence to an exercise regimen as well as importance We did discuss the neurohormonal changes that are occurring with these medications and Need for long-term Continued usage Encourage good sleep hygiene Optimize sleep/wake cycles 6-8 hours nightly Keep lights on his stimulus during the day Darkroom and minimize nighttime interruptions Continue melatonin, other sleep aid medications The patient understands and agrees Patient was reassured and welcomed to the practice. We discussed that we stress a hollistic medical approach with emphasis on lifestyle modification. Patient was informed that a healthy lifestyle with exercise and good eating habits can help reduce his risk of medical complications. He is explained that obesity increases his risk of diabetes, cardiovascular disease, or organ damage. We spent a lot of time discussing the relationship between food, exercise, sleep, mental health and obesity. Patient was counseled on the importance EATING local, organic food when possible. Patient was educated on clean 15 and dirty dozen. I provided information about reading books called The Food Rules by Franco Donovan and Eat Fat Get Lean by Dr Jurgen Medina. Self education is important in the journey for weight management. Patient was offered diagnostic testing. We want to measure visceral adiposity, advanced body composition, adverse lipids, fatty acid balance, risk for heart disease and atherosclerosis, markers of inflammation and genetic susceptibility. Patient was counseled on weight management and was advised to lose weight using A. Meal Replacement Products We discussed the lifelong requirement of nutritional supplementation and adherence to an exercise regimen as well as importance of dietary f/u Patient was educated on the replacement products called optifast. This is a good way of taking fixed amount of calories. It has been shown in studies to be ineffective weight management tool. We also recommend maintaining adequate protein intake and muscle composition, 1.5mg/kg This however has to be coupled with lifestyle intervention as well as laboratory data and EKG monitoring. It is impossible to know how a person will tolerate complete meal replacement. The side effects of meal replacement and weight loss could include syncopal attacks, dizziness, gallstones, potential cholecystectomy, possible heart attack and even . The benefits of meal replacement would be potential weight loss but no guarantees can be made. Meal replacement products are not covered by insurance. Once the patient has bought these products we cannot return them B. Lifestyle management which includes several strategies as below 1. Eat a low carbohydrate good fat good protein diet. Eliminate refined carbohydrates from the diet. Continue blood sugar and sugared beverages. Eat local organic when possible. Cook your own meals. Read food labels. None about healthy snacks. Portion control and food with low glycemic index 2. Exercise regularly. Try to get at least 6000 steps a day. Use a predominant to track activity level. Consider using apps like [facility], [employer], lose it, stick as needed for self-monitoring and weight management. Consider group exercises. Consider hiring a personal fitness manager. Regular exercise is sandra to sustainable health and prevents as a buffer against weight regain 3. Sleep is most important for healing. Tried to sleep at least 8 hours a night. A good quality sleep needs a sleep ritual with ideal room temperature of around 68. It might help to take a shower and have no electronics in the room and sleep in a very dark room without artificial light. Start her sleep routine and get up early in the morning and go to bed on time 4. Make a social connection. Surround yourself with positive people with positive energy. Connect with friends and family. 5. Get into the habit of meditating and mindfulness while doing everything. 6. Go outside and connect with nature. C. Prescription medications Patient was educated on the use of prescription medications for medical weight loss. This is a growing list and includes phentermine, Topamax,Qsymia, contrave, belviq and saxenda, wegovy All prescription medications could have side effects including but not limited to kidney stones, seizure disorder cardiac arrhythmias heart attack pancreatitis etc. etc.. Patient was encouraged to read the prescription insert and have coaching with their pharmacist and make an informed decision about taking medication and know that these medications are being prescribed with good intentions and we do not know how a patient would react to her medication. Sudden medications are FDA approved for weight loss and there is also off label use depending on patient's inability to afford medications in an attempt to lose weight D. Behavioral counseling was done to establish a relationship between food and an mood. Patient was provided information about local counseling and psychiatry and Dr Dao at [email or web address]. We would like to cover regular topics and build on low glycemic eating exercise mindful eating, using yoga and meditation along with deep breathing and connecting with friends and family. E. MASS PAT reviewed, Patient's current medications were reviewed and opinion was given on medication that can cause weight gain and can be substituted F. Patient was assessed for risk with obesity including and not limiting to atherosclerosis heart disease stroke kidney disease, restrictive lung disease, irritable bowel syndrome and overall mortality. Risk of developing prediabetes diabetes and metabolic syndrome was discussed G. Therapeutic plan: We have decided to make therapeutic plan which would include choosing wisely on calories restricting portion getting active, tracking weight, getting good quality sleep and working on time management H. Patient will follow up in (4) weeks for weight management Of note, some information is being carried forward from prior records for informational purposes only and is being cited so that efficiency, safety and quality of the patient's care is not compromised This note was prepared using voice recognition software and direct typing Please excuse inadvertent film editor supervisor or typing errors, or uncorrected word substitutions Although every attempt has been made by the provider to proofread this document, occasional misspellings and typographical errors may still be present Due to the previous pandemic, and the use of personal protective equipment (PPE) This may decrease voice recognition accuracy Inadvertent film editor supervisor errors may occur PLAN OF TREATMENT Next Appt Details Provider Name:BORIS HASSAN, 05/08/2024 09:15:00 AM, [address] , [place], [id number], Insurance Providers Payer Name Payer Address Payer Phone Subscriber Number Group Number Insured Name Patient Relationship to Insured Coverage Start Date Coverage End Date [facility] [address] [facility] [place] [id number] Juliet Gan Self - patient is the insured 2
== END 2024-04-27 16:47 | disposition home or self-care (01) ==
PROVIDERS: PCP Internal Medicine; Visit Provider Physician Assistant
DX: R42 Dizziness and giddiness (principal)

== ENCOUNTER 2024-05-04 14:46 | Outpatient (AMB) | payer OTHER, SELFPAY ==
[2024-05-04 14:52] VITALS: BP 142/86; PULSE 97; O2SAT 98; BMI 36.0
--- NOTE | 2024-05-04 14:52 | MHC.PC.OV ---
Vital Signs 05/04/24 14:52 Height 5 ft 5 in Weight 216 lb 4 oz BMI 36.0 BP 142/86 H Blood Pressure Location Rt brachial Position Sitting Pulse 97 Pulse Source Pulse Oximeter Pulse Oximetry (%) 98 Oxygen Delivery Method Room Air Intake Visit Reasons: Walk in F/U Allergies terbutaline [TERBUTALINE] Allergy (Severe, Verified 05/04/24 14:58) ANAPHYLAXIS peanut Allergy (Unknown, Verified 05/04/24 14:58) Hives, itching shrimp Allergy (Unknown, Verified 05/04/24 14:58) Unknown Environmental Allergy (Unknown, Uncoded 04/27/24 16:19) unknown Medication List - Last Reconciled 05/04/24 by Wagner Bardales MD ascorbic acid (vitamin C) 500 mg PO DAILY carvedilol 25 mg PO BID cholecalciferol (vitamin D3) 25 mcg PO DAILY ferrous sulfate 325 mg PO BID furosemide 20 mg (1/2 x 40 mg) PO DAILY PRN gabapentin 300 mg PO BEDTIME PRN 90 days loratadine (Claritin RediTabs) 10 mg PO DAILY PRN multivitamin 1 tab PO DAILY ondansetron 4 mg PO Q8H PRN pyridoxine (vitamin B6) 100 mg PO DAILY semaglutide (weight loss) (Wegovy) 0.25 mg (0.5 mL) subcut QWEEK 30 days Ventolin HFA 90 mcg/actuation (albuterol sulfate) 2 puffs inhalation Q6H PRN NS Tobacco use date assessed: 05/04/24 Dental Screening Dental Screen Date: 05/04/24 Did you have a dental visit in the last 12 months?: Yes Did you have a dental problem in the last 6 months where you did not have access to dental care?: No Was dental information given to patient?: Patient has dentist HPI Walk in F/U HPI Details History - The patient is a 53 year old female presenting with constant headaches for approximately three weeks. - She describes the headaches as a pounding sensation predominantly located at the top of the head and occasionally more pronounced on one side. - The headaches, accompanied by dizziness, intensify when transitioning from a reclined position to standing, with a sensation reminiscent of previous iron deficiency episodes. - The dizziness occasionally occurs during ambulation. - The patient previously did not adhere reliably to her iron supplementation but has resumed daily intake due to recurrent dizziness. - Blood pressure readings have repeatedly been high during appointments, contributing to the headache severity. - The patient also reports lightheadedness and sensitivity on the scalp where the headache is most prominent. 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 - stopped taking gabapentin for peripheral neuropathy Medications - Carvedilol through Cardiology - Iron supplements, initially taken irregularly but resumed one tablet daily due to dizziness - Vitamin D supplements for deficiency - Loratadine as needed for allergic rhinitis - Nisha, current dose 1.7, with recent dose adjustments; through weight management - B6 vitamins - Diuretics on an as-needed basis - Discontinued gabapentin Problem List - elevated blood pressure reading - Migraine - Iron Deficiency - Vitamin D Deficiency - Allergic Rhinitis - Obesity - general ill feeling - dizziness - allergies Patient Instructions - Monitor blood pressure at home using a home blood pressure monitor; check in the afternoon after resting for five minutes and record readings on paper. - Bring the blood pressure machine to the next appointment for calibration. - Continue daily iron supplementation due to symptoms of dizziness. - Schedule laboratory work to be done fasting; follow up in a couple of weeks to review lab results and blood pressure readings. Review of Systems General: No fever no chills ear nose throat: No sore throat no hearing difficulty no ear pain cardiovascular: No syncope, no chest pain, no palpitations gastrointestinal: No nausea vomiting or diarrhea endocrine: No polyuria polydipsia no heat intolerance genitourinary: No dysuria skin: No new complaints Physical Exam general: No acute distress HEENT: No acute findings, ear exam within normal limit, slight sensitivity to scalp palpation right side, CACHORRO, EOMI neck: Supple respiratory system: Able to talk in full sentences, no audible wheeze no stridor cardiovascular: S1-S2, regular in rate and rhythm gastrointestinal: No pain extremities: No new findings SVP DIGITAL AD SALES: Alert awake oriented x3 motor sensory intact skin: Normal turgor [facility] Medical History Pulmonary nodules SUREKHA (obstructive sleep apnea) Dyspnea History of COVID-19 Environmental allergies Obesity due to excess calories Recurrent kidney stones Renal cyst Palpitation Anemia Surgical History History of lithotripsy History of back surgery Hx of microdiscectomy History of tubal ligation Family History Father No problems noted. Mother HTN (hypertension) HLD (hyperlipidemia) Social History Housing: House Alcohol intake: never Patient Tobacco Use Status: Former Tobacco user Tobacco use type: Cigarette Years Smoked: 7 years e-Cigarette/Vaping Use: Never Used Current occupational status: employed Cognitive needs: No Hearing needs: No Vision needs: Yes Female Reproductive History Menstrual Age of Menarche: 8 Questionnaire PHQ-9 Over the last 2 weeks, how often have you been bothered by any of the following problems? 1. Little interest or pleasure in doing things: not at all 2. Feeling down, depressed, or hopeless: not at all 3. Trouble falling or staying asleep, or sleeping too much: not at all 4. Feeling tired or having little energy: more than half the days 5. Poor appetite or overeating: not at all 6. Feeling bad about yourself - or that you are a failure or have let yourself or your family down: not at all 7. Trouble concentrating on things, such as reading the newspaper or watching television: not at all 8. Moving or speaking so slowly that other people could have noticed. Or the opposite - being so fidgety or restless that you have been moving around a lot more than usual: not at all 9. Thoughts that you would be better off or of hurting yourself in some way: not at all Total score: 2 Depression Screening Interpretation: Negative Depression Screening Done: Yes 17588 - PHQ-9 Billing: Yes Source: Developed by Drs. Hunter Dow, Ale Hernandez, Tayo Ervin and colleagues, with an educational senthil from [employer]. Thrive Questionnaire Date Thrive assessed: 05/04/24 I am a: Patient What is your living situation today?: I have a steady place to live Within the past 12 months, did the food you bought not last and you didn't have the money to get more?: Never true Within the past 12 months, did you worry whether your food would run out before you got money to buy more?: Never true Do you have trouble paying for medicines?: No Do you have trouble getting transportation to medical appointments?: No Do you have trouble paying your heating and electricity bill?: No Do you have trouble taking care of your child, family member or friend?: No Do you have trouble with day-to-day activities such as bathing, preparing meals, shopping, managing finances, etc.?: No Are you currently unemployed and looking for a job?: No Are you interested in more education?: No Please select the resources that you would like help with: None Currently or been in a relationship where the following occur: No concerns reported THRIVE Score: 0 AUDIT C Alcohol Use Questionnaire (AUDIT-C) 1. How often do you have a drink containing alcohol?: Never 3. How often do you have six or more drinks on one occasion?: Never Total Score: 0 Score Reviewed/Action Taken: Yes CITLALY-7 AMB Questionnaire CITLALY-7 Date CITLALY - 7 assessed: 05/04/24 Feeling nervous, anxious, or on edge: 0 = Not at all Not being able to stop or control worryin = Not at all Worrying too much about different things: 0 = Not at all Trouble relaxin = Not at all Being so restless that it is hard to sit still: 0 = Not at all Becoming easily annoyed or irritable: 0 = Not at all Feeling afraid as if something awful might happen: 0 = Not at all Total CITLALY-7 score (0-4 normal; 5-9 mild; 10-14 moderate; 15-21 severe): 0 Source: Developed by Drs. Hunter Dow, Ale Hernandez, Tayo Ervin and colleagues, with an educational senthil from [employer]. CITLALY-7 Assessment Billing CITLALY-7 Assessment Tool: CITLALY-7 Assessment 39086 Physical exam (Primary Care) Vital Signs: Last Vital Signs Pulse 97 05/04/24 14:52 BP 142/86 H 05/04/24 14:52 Pulse Ox 98 05/04/24 14:52 Oxygen Delivery Method Room Air 05/04/24 14:52 BMI result Body Mass Index 36.0 Tobacco/Smoking Status: Tobacco use Status Tobacco use date assessed 05/04/24 05/04/24 14:59 Patient Tobacco Use Status Former Tobacco user 05/04/24 14:59 Tobacco use type Cigarette 05/04/24 14:59 e-Cigarette/Vaping Use Never Used 05/04/24 14:59 PHQ-9: PHQ-9 Score PHQ-9: Total score 2 05/04/24 14:59 Depression Screening Interpretation: Negative Thrive Assessment: Date of Thrive Assessment Date Thrive assessed 05/04/24 05/04/24 14:59 Currently or been in a relationship where the following occur: No concerns reported Coding Level of Care Code Est Pt Level 4 (91430) Diagnoses General ill feeling R68.89 Other migraine without status migrainosus, not intractable G43.809 Migraine type: other Status migrainosus presence: without status migrainosus Intractability: not intractable Elevated blood pressure reading R03.0 Dizziness R42 Other iron deficiency anemia D50.8 Anemia type: iron deficiency Iron deficiency anemia type: other iron deficiency Peripheral neuralgia M79.2 Class 2 obesity due to excess calories without serious comorbidity with body mass index (BMI) of 39.0 to 39.9 in adult E66.09; Z68.39 Obesity classification: adult class 2 (BMI 35 - 39.9) Serious obesity comorbidity presence: without serious comorbidity Body mass index: BMI 39.0-39.9 Environmental allergies Z91.09 Additional Codes CITLALY-7 Assessment Billing - CITLALY-7 Assessment Tool: CITLALY-7 Assessment 29561 ([id number]) PHQ-9 - 36203 - PHQ-9 Billing: Yes ([id number]) Assessment & Plan Assessment & Plan (1) General ill feeling: Code(s): R68.89 - Other general symptoms and signs Category: Medical (2) Migraine headache: Code(s): G43.909 - Migraine, unspecified, not intractable, without status migrainosus Category: Medical Qualifiers: Migraine type: other Status migrainosus presence: without status migrainosus Intractability: not intractable Qualified Code(s): G43.809 - Other migraine, not intractable, without status migrainosus (3) Elevated blood pressure reading: Code(s): R03.0 - Elevated blood-pressure reading, without diagnosis of hypertension Category: Medical (4) Dizziness: Code(s): R42 - Dizziness and giddiness Category: Medical (5) Anemia: Code(s): D64.9 - Anemia, unspecified Category: Medical Qualifiers: Anemia type: iron deficiency Iron deficiency anemia type: other iron deficiency Qualified Code(s): D50.8 - Other iron deficiency anemias (6) Peripheral neuralgia: Code(s): M79.2 - Neuralgia and neuritis, unspecified Category: Medical (7) Obesity due to excess calories: Code(s): E66.09 - Other obesity due to excess calories Category: Medical Qualifiers: Obesity classification: adult class 2 (BMI 35 - 39.9) Serious obesity comorbidity presence: without serious comorbidity Body mass index: BMI 39.0-39.9 Qualified Code(s): E66.09 - Other obesity due to excess calories; Z68.39 - Body mass index [BMI] 39.0-39.9, adult (8) Environmental allergies: Code(s): Z91.09 - Other allergy status, other than to drugs and biological substances Category: Medical Plan History - The patient is a 53 year old female presenting with constant headaches for approximately three weeks. - She describes the headaches as a pounding sensation predominantly located at the top of the head and occasionally more pronounced on one side. - The headaches, accompanied by dizziness, intensify when transitioning from a reclined position to standing, with a sensation reminiscent of previous iron deficiency episodes. - The dizziness occasionally occurs during ambulation. - The patient previously did not adhere reliably to her iron supplementation but has resumed daily intake due to recurrent dizziness. - Blood pressure readings have repeatedly been high during appointments, contributing to the headache severity. - The patient also reports lightheadedness and sensitivity on the scalp where the headache is most prominent. 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 - stopped taking gabapentin for peripheral neuropathy Medications - Carvedilol through Cardiology - Iron supplements, initially taken irregularly but resumed one tablet daily due to dizziness - Vitamin D supplements for deficiency - Loratadine as needed for allergic rhinitis - Nisha, current dose 1.7, with recent dose adjustments; through weight management - B6 vitamins - Diuretics on an as-needed basis - Discontinued gabapentin Problem List - elevated blood pressure reading - Migraine - Iron Deficiency - Vitamin D Deficiency - Allergic Rhinitis - Obesity - general ill feeling - dizziness - allergies Patient Instructions - Monitor blood pressure at home using a home blood pressure monitor; check in the afternoon after resting for five minutes and record readings on paper. - Bring the blood pressure machine to the next appointment for calibration. - Continue daily iron supplementation due to symptoms of dizziness. - Schedule laboratory work to be done fasting; follow up in a couple of weeks to review lab results and blood pressure readings. Orders: Orders Comprehensive [place]. Panel Fast Today D64.9 - Anemia, unspecified, E66.09 - Other obesity due to excess calories, G43.909 - Migraine, unspecified, not intractable, without status migrainosus, M79.2 - Neuralgia and neuritis, unspecified, R42 - Dizziness and giddiness, R68.89 - Other general symptoms and signs, Z68.39 - Body mass index [BMI] 39.0-39.9, adult, Z91.09 - Other allergy status, other than to drugs and biological substances Vitamin D 25-OH (D2 and D3) Today D64.9 - Anemia, unspecified, E66.09 - Other obesity due to excess calories, G43.909 - Migraine, unspecified, not intractable, without status migrainosus, M79.2 - Neuralgia and neuritis, unspecified, R42 - Dizziness and giddiness, R68.89 - Other general symptoms and signs, Z68.39 - Body mass index [BMI] 39.0-39.9, adult, Z91.09 - Other allergy status, other than to drugs and biological substances Vitamin B12 Today D64.9 - Anemia, unspecified, E66.09 - Other obesity due to excess calories, G43.909 - Migraine, unspecified, not intractable, without status migrainosus, M79.2 - Neuralgia and neuritis, unspecified, R42 - Dizziness and giddiness, R68.89 - Other general symptoms and signs, Z68.39 - Body mass index [BMI] 39.0-39.9, adult, Z91.09 - Other allergy status, other than to drugs and biological substances Amylase Today D64.9 - Anemia, unspecified, E66.09 - Other obesity due to excess calories, G43.909 - Migraine, unspecified, not intractable, without status migrainosus, M79.2 - Neuralgia and neuritis, unspecified, R42 - Dizziness and giddiness, R68.89 - Other general symptoms and signs, Z68.39 - Body mass index [BMI] 39.0-39.9, adult, Z91.09 - Other allergy status, other than to drugs and biological substances Ferritin Today D64.9 - Anemia, unspecified, E66.09 - Other obesity due to excess calories, G43.909 - Migraine, unspecified, not intractable, without status migrainosus, M79.2 - Neuralgia and neuritis, unspecified, R42 - Dizziness and giddiness, R68.89 - Other general symptoms and signs, Z68.39 - Body mass index [BMI] 39.0-39.9, adult, Z91.09 - Other allergy status, other than to drugs and biological substances Folate Today D64.9 - Anemia, unspecified, E66.09 - Other obesity due to excess calories, G43.909 - Migraine, unspecified, not intractable, without status migrainosus, M79.2 - Neuralgia and neuritis, unspecified, R42 - Dizziness and giddiness, R68.89 - Other general symptoms and signs, Z68.39 - Body mass index [BMI] 39.0-39.9, adult, Z91.09 - Other allergy status, other than to drugs and biological substances Hemoglobin A1c Today D64.9 - Anemia, unspecified, E66.09 - Other obesity due to excess calories, G43.909 - Migraine, unspecified, not intractable, without status migrainosus, M79.2 - Neuralgia and neuritis, unspecified, R42 - Dizziness and giddiness, R68.89 - Other general symptoms and signs, Z68.39 - Body mass index [BMI] 39.0-39.9, adult, Z91.09 - Other allergy status, other than to drugs and biological substances Complete Blood Count Auto Diff Today D64.9 - Anemia, unspecified, E66.09 - Other obesity due to excess calories, G43.909 - Migraine, unspecified, not intractable, without status migrainosus, M79.2 - Neuralgia and neuritis, unspecified, R42 - Dizziness and giddiness, R68.89 - Other general symptoms and signs, Z68.39 - Body mass index [BMI] 39.0-39.9, adult, Z91.09 - Other allergy status, other than to drugs and biological substances Lipase Today D64.9 - Anemia, unspecified, E66.09 - Other obesity due to excess calories, G43.909 - Migraine, unspecified, not intractable, without status migrainosus, M79.2 - Neuralgia and neuritis, unspecified, R42 - Dizziness and giddiness, R68.89 - Other general symptoms and signs, Z68.39 - Body mass index [BMI] 39.0-39.9, adult, Z91.09 - Other allergy status, other than to drugs and biological substances Lipid Panel Today D64.9 - Anemia, unspecified, E66.09 - Other obesity due to excess calories, G43.909 - Migraine, unspecified, not intractable, without status migrainosus, M79.2 - Neuralgia and neuritis, unspecified, R42 - Dizziness and giddiness, R68.89 - Other general symptoms and signs, Z68.39 - Body mass index [BMI] 39.0-39.9, adult, Z91.09 - Other allergy status, other than to drugs and biological substances TSH reflex Free T4 Today D64.9 - Anemia, unspecified, E66.09 - Other obesity due to excess calories, G43.909 - Migraine, unspecified, not intractable, without status migrainosus, M79.2 - Neuralgia and neuritis, unspecified, R42 - Dizziness and giddiness, R68.89 - Other general symptoms and signs, Z68.39 - Body mass index [BMI] 39.0-39.9, adult, Z91.09 - Other allergy status, other than to drugs and biological substances UA CC w/rflx Micro + Cult Today D64.9 - Anemia, unspecified, E66.09 - Other obesity due to excess calories, G43.909 - Migraine, unspecified, not intractable, without status migrainosus, M79.2 - Neuralgia and neuritis, unspecified, R42 - Dizziness and giddiness, R68.89 - Other general symptoms and signs, Z68.39 - Body mass index [BMI] 39.0-39.9, adult, Z91.09 - Other allergy status, other than to drugs and biological substances Medications: New amitriptyline 10 mg PO BEDTIME 15 tabs 0RF Discontinued gabapentin Discontinued Reason: Doctor's Order 300 mg PO BEDTIME 90 days PRN 90 caps 1RF Pain
--- OUTSIDE RECORDS SUMMARY | 2024-05-04 17:33 | XMS_ITS ---
Author Organization [facility] Address [address] [place] [address] Care Team Providers Care Research Program Manager Name Role Phone MARIBELLBORIS HARRIS Unavailable [phone] ALLERGIES No Known Allergies REASON FOR VISIT [...] index [BMI] 35.0-35.9, adult (Z68.35) Active confirmed [id number] VITAL SIGNS Blood pressure systolic 122 mm Hg 04/03/19 25 Blood pressure diastolic 80 mm Hg 025 Heart Rate 98 /min 04/03/2024 Height 65 in 04/03/2024 Weight 214.2 lbs 04/03/2024 BMI 35.64 kg/m2 04/03/2024 Oximetry 92 % 04/03/2024 Encounters Encounter Location Date Provider Diagnosis [facility] [address] [place] [address] 04/03/2024 BORIS HASSAN Other obesity due to [...] software and direct typing Please excuse inadvertent carding supervisor or typing errors, or uncorrected word substitutions Although every attempt has been made by the provider to proofread this document, occasional misspellings and typographical errors may still be present Due to the previous pandemic, and the use of personal protective equipment (PPE) This may decrease voice recognition accuracy Inadvertent carding supervisor errors may occur 04/03/2024 Body mass [...] software and direct typing Please excuse inadvertent carding supervisor or typing errors, or uncorrected word substitutions Although every attempt has been made by the provider to proofread this document, occasional misspellings and typographical errors may still be present Due to the previous pandemic, and the use of personal protective equipment (PPE) This may decrease voice recognition accuracy Inadvertent carding supervisor errors may occur 04/03/2024 Dietary counseling [...] software and direct typing Please excuse inadvertent carding supervisor or typing errors, or uncorrected word substitutions Although every attempt has been made by the provider to proofread this document, occasional misspellings and typographical errors may still be present Due to the previous pandemic, and the use of personal protective equipment (PPE) This may decrease voice recognition accuracy Inadvertent carding supervisor errors may occur 04/03/2024 Prediabetes (ICD-10 [...] software and direct typing Please excuse inadvertent carding supervisor or typing errors, or uncorrected word substitutions Although every attempt has been made by the provider to proofread this document, occasional misspellings and typographical errors may still be present Due to the previous pandemic, and the use of personal protective equipment (PPE) This may decrease voice recognition accuracy Inadvertent carding supervisor errors may occur PLAN OF TREATMENT Medication Medication Name Sig Start Date Stop Date Notes Wegovy 1.7 MG/0.75ML 1.7mg Subcutaneous weekly for 30 days Ondansetron 4 MG 1 tablet on the tong ue and allow to dissolve prn nausea/vomiting Orally twice day for 30 days 04/03/2024 Next Appt Details Provider Name:BORIS HASSAN, 05/08/2024 09:15:00 AM, [address], [place], [address], Progress Notes * Bright GRANADOSB: [birth year] (53 yo F)Acc No.[id number]:04/03/2024 Patient:??Juliet GRANADOS Provider:??BORIS HASSAN NP :[id number]?Age:53 Y?Sex:Fe male Date:04/03/2024 Address:[address] [place], [place] [id number] Subjective: * Chief Complaints: * ?1. Patient [...] 39: ? 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 [employer] ?, 3 sons ?Highest weight: current 237 lbs ?Lowest weight: 150'slbs ?Goal weight: 170's lbs ?PCP [facility] ?SUREKHA screening/STOP-BANG/[place], denies ?Metabolic workup: 07/2023 ?Tot Chol 209, [...] software and direct typing Please excuse inadvertent carding supervisor or typing errors, or uncorrected word substitutions Although every attempt has been made by the provider to proofread this document, occasional misspellings and typographical errors may still be present Due to the previous pandemic, and the use of personal protective equipment (PPE) This may decrease voice recognition accuracy Inadvertent carding supervisor errors may occur. Plan: * Treatment: * Procedure Codes:??40451 P/M CADDIE SUPERVISOR, INDIV 15 MIN * Images: Billing Information: * Visit Code:?? 58501 Office Visit, Est Pt., Level 4. Modifiers: SA * Procedure Codes:?? 88690 P/M CADDIE SUPERVISOR, INDIV 15 MIN. * Sign off status: [...] Exercise: Currently tracking steps daily, also @ [facility] Non-smoker. 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
--- OUTSIDE RECORDS SUMMARY | 2024-05-04 17:33 | XMS_ITS ---
Author Organization [facility] Address [address] [place] [address] Care Team Providers Care Switchboard Inspector Name Role Phone BORIS HASSAN Unavailable [phone] MEDICATIONS Medication SIG (Take, Route, Fr equency, Duration) Notes Start Date End Date Status Wegovy 1.7 MG/0.75ML 1.7mg Subcutaneous weekly for 30 days Active Encounters Encounter Location Date Provider Diagnosis [facility] [address] [place] [address] 03/06/2024 BORIS HASSAN Other obesity due to [...] minimum of 6 months The most recent [place] [employer] clinical endocrinologists and [place] [employer] guidelines recommend patients who [...] software and direct typing Please excuse inadvertent line up examiner or typing errors, or uncorrected word substitutions Although every attempt has been made by the provider to proofread this document, occasional misspellings and typographical errors may still be present Due to the previous pandemic, and the use of personal protective equipment (PPE) This may decrease voice recognition accuracy Inadvertent line up examiner errors may occur 03/06/2024 BMI 37.0-37.9, adult [...] minimum of 6 months The most recent [place] [employer] of clinical endocrinologists and [place] [employer] guidelines recommend patients who [...] software and direct typing Please excuse inadvertent line up examiner or typing errors, or uncorrected word substitutions Although every attempt has been made by the provider to proofread this document, occasional misspellings and typographical errors may still be present Due to the previous pandemic, and the use of personal protective equipment (PPE) This may decrease voice recognition accuracy Inadvertent line up examiner errors may occur 03/06/2024 Dietary counseling and [...] minimum of 6 months The most recent [place] [employer] of clinical endocrinologists and [place] [employer] guidelines recommend patients who [...] software and direct typing Please excuse inadvertent line up examiner or typing errors, or uncorrected word substitutions Although every attempt has been made by the provider to proofread this document, occasional misspellings and typographical errors may still be present Due to the previous pandemic, and the use of personal protective equipment (PPE) This may decrease voice recognition accuracy Inadvertent line up examiner errors may occur 03/06/2024 Prediabetes (ICD-10 - [...] minimum of 6 months The most recent [place] [employer] of clinical endocrinologists and [place] [employer]in[employer] guidelines recommend patients who [...] software and direct typing Please excuse inadvertent line up examiner or typing errors, or uncorrected word substitutions Although every attempt has been made by the provider to proofread this document, occasional misspellings and typographical errors may still be present Due to the previous pandemic, and the use of personal protective equipment (PPE) This may decrease voice recognition accuracy Inadvertent line up examiner errors may occur PLAN OF TREATMENT Medication Medication Name Sig Start Date Stop Date Notes Wegovy 1.7 MG/0.75ML 1.7mg Subcutaneous weekly for 30 days Next Appt Details Provider Name:BORIS HASSAN, 05/08/2024 09:15:00 AM, [address] [facility], [place], [address], Progress Notes * Bright GRANADOSB: [birth year] (53 yo F)Acc No.[id number]:03/06/2024 Patient:??Juliet GRANADOS Provider:??BORIS HASSAN NP :1970?Age:53 Y?Sex:Fe male Date:03/06/2024 Address:[address] [place], [place] [id number] Subjective: * Chief Complaints: * ? * [...] 39: ? 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 [employer] ?, 3 sons ?Highest weight: current 237 lbs ?Lowest weight: 150'slbs ?Goal weight: 170's lbs ?PCP [facility] ?SUREKHA screening/STOP-BANG/[place], denies ?Metabolic workup: 07/2023 ?Tot Chol 209, [...] minimum of 6 months The most recent [place] [employer] of clinical endocrinologists and [place] [employer] of endocrinology guidelines recommend patients who [...] software and direct typing Please excuse inadvertent line up examiner or typing errors, or uncorrected word substitutions Although every attempt has been made by the provider to proofread this document, occasional misspellings and typographical errors may still be present Due to the previous pandemic, and the use of personal protective equipment (PPE) This may decrease voice recognition accuracy Inadvertent line up examiner errors may occur. 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 Diet: sweet tooth Exercise: Currently tracking steps daily, also @ [facility] Non-smoker. ETOH use: denies Examination Category Sub-Category [...]
--- OUTSIDE RECORDS SUMMARY | 2024-05-04 17:34 | XMS_ITS ---
Author Organization [facility] Address [address] [place] [address] Care Team Providers Care Division Sales Manager Name Role Phone MARIBELLKIMBERLY BORIS Unavailable [phone] REASON FOR VISIT Wegovy 1.7 Encounters Encounter Location Date Provider Diagnosis [address] [place] [phone] 04/12/2024 BORIS HASSAN PLAN OF TREATMENT Next Appt Details Provider Name:BORIS HASSAN, 05/08/2024 09:15:00 AM, [address], [place], [address], Progress Notes * Bright GRANADOSB: [birth year] (53 yo F)Acc No.[id number]:04/12/2024 Patient:??Juliet GRANADOS :1970?Age:53 Y?Sex:Fe male Address:[address] [place] [phone] * true * Date:??
--- OUTSIDE RECORDS SUMMARY | 2024-05-04 17:34 | XMS_ITS | Clinical Summary ---
Author Organization [facility] Address [address] [place] [address] Care Team Providers Care Fiber Technician Name Role Electric Clock MechanicJustin Genao MD Primary Care Provider [phone] Surgical History Surgery Date Site/Laterality Comments OTHER [...] age to complete this topic Care Teams Fiber Technician Relationship Specialty Start Date End Date Justin Genao MD PCP - General Internal Medicine 06/12/11
--- OUTSIDE RECORDS SUMMARY | 2024-05-04 17:34 | XMS_ITS | Patient Health Record ---
Author Organization [facility] Address [address] [place] [address] Care Team Providers Care Executive Kitchen Manager Name Role Phone BORIS HASSAN Unavailable [phone] JOSE HERNANDEZ Unavailable [phone] ALLERGIES No Known Allergies REASON FOR REFERRAL [...] due to excess calories (E66.09) Active confirmed 665856855 Problem Body mass index [BMI] 35.0-35.9, adult (Z68.35) Active confirmed [id number] Problem Body mass index [BMI] 39.0-39.9, adult (Z68.39) Active confirmed [id number] Problem BMI 37.0-37.9, adult (Z68.37) Active confirmed [id number] Problem BMI 38.0-38.9,adul t (Z68.38) Active confirmed 118246005 VITAL SIGNS Heart Rate 98 /min 04/03/2024 Oximetry 92 % 04/03/2024 Blood pressure diastolic 80 mm Hg 04/03/2024 Height 65 in 04/03/2024 Blood pressure systolic 122 mm Hg 04/03/2024 Weight 214.2 lbs 04/03/2024 BMI 35.64 kg/m2 04/03/2024 Encounters Encounter Location Date Provider Diagnosis [facility] [address] [place], [place] 03/06/2024 BORIS BORHOT Other obesity due to excess calories E66.09 ; BMI 37.0-37.9, adult Z68.37 ; Dietary counseling and surveillance Z71.3 and Prediabetes R73.03 [facility] [address] [facility] [place] [address] 09/27/2023 BORIS BORHOT Other obesity due to excess calories E66.09 ; Body mass index [BMI] 39.0-39.9, adult Z68.39 ; Dietary counseling and surveillance Z71.3 and Prediabetes R73.03 [facility] [address] [facility] [place], [place] 11/01/2023 BORIS BORHOT Other obesity due to excess calories E66.09 ; BMI 38.0-38.9,adult Z68.38 ; Dietary counseling and surveillance Z71.3 and Prediabetes R73.03 [facility] [address] [facility] [place] 11/29/2023 BORIS BORHOT Other obesity due to excess calories E66.09 ; BMI 38.0-38.9,adult Z68.38 ; Dietary counseling and surveillance Z71.3 and Prediabetes R73.03 [facility] [address] [facility] [place] 12/27/2023 BORIS BORHOT Other obesity due to excess calories E66.09 ; BMI 37.0-37.9, adult Z68.37 ; Dietary counseling and surveillance Z71.3 and Prediabetes R73.03 [address] [address] 01/31/2024 BORIS BORHOT Other obesity due to excess calories E66.09 ; BMI 37.0-37.9, adult Z68.37 ; Dietary counseling and surveillance Z71.3 and Prediabetes R73.03 [facility] [address] [facility] [place] 04/03/2024 BORIS BORHOT Other obesity due to excess calories E66.09 ; Body mass index [BMI] 35.0-35.9, adult Z68.35 ; Dietary counseling and surveillance Z71.3 and Prediabetes R73.03 [address] [place] [address] 09/17/2023 JOSE HERNANDEZ [address] [place] [address] 10/25/2023 BORIS BORHOT [address] [place] [address] 11/05/2023 BORIS BORHOT [address] [place] [address] 11/05/2023 BORIS BORHOT [address] [place] [address] 11/11/2023 BORIS BORHOT [address] [place] [address] 11/12/2023 BORIS BORHOT [address] [place] [address] 01/31/2024 BORIS BORHOT [address] [place] [address] 03/05/2024 BORIS BORHOT [address] [place] [address] 04/12/2024 BORIS BORHOT ASSESSMENTS Encounter Date Diagnosis [...] minimum of 6 months The most recent [employer] of clinical endocrinologists and [employer] endocrin[employer] guidelines recommend patients who [...] track activity level. Consider using apps like [employer], Badoopal, lose it, stick as needed for self-monitoring and weight management. Consider group exercises. Consider hiring a personal protection specialist. Regular exercise is sandra to sustainable health [...] counseling and psychiatry and Dr Dao at [facility]. We would like to cover regular topics [...] software and direct typing Please excuse inadvertent fishing rod marker or typing errors, or uncorrected word substitutions Although every attempt has been made by the provider to proofread this document, occasional misspellings and typographical errors may still be present Due to the previous pandemic, and the use of personal protective equipment (PPE) This may decrease voice recognition accuracy Inadvertent fishing rod marker errors may occur 11/01/2023 Other obesity due [...] minimum of 6 months The most recent [employer] of clinical endocrinologists and [employer] end[employer]in[employer] guidelines recommend patients who [...] track activity level. Consider using apps like [employer], myfitnesspal, lose it, stick as needed for self-monitoring and weight management. Consider group exercises. Consider hiring a personal protection specialist. Regular exercise is sandra to sustainable health [...] counseling and psychiatry and Dr Dao at [facility]. We would like to cover regular topics [...] software and direct typing Please excuse inadvertent fishing rod marker or typing errors, or uncorrected word substitutions Although every attempt has been made by the provider to proofread this document, occasional misspellings and typographical errors may still be present Due to the previous pandemic, and the use of personal protective equipment (PPE) This may decrease voice recognition accuracy Inadvertent fishing rod marker errors may occur 11/01/2023 BMI 38.0-38.9,adult (ICD-10 [...] minimum of 6 months The most recent [place] [employer] of clinical endocrinologists and [employer] endocrinology guidelines recommend patients who [...] track activity level. Consider using apps like [employer], Badoopal, lose it, stick as needed for self-monitoring and weight management. Consider group exercises. Consider hiring a personal protection specialist. Regular exercise is sandra to sustainable health [...] counseling and psychiatry and Dr Dao at [facility]. We would like to cover regular topics [...] software and direct typing Please excuse inadvertent fishing rod marker or typing errors, or uncorrected word substitutions Although every attempt has been made by the provider to proofread this document, occasional misspellings and typographical errors may still be present Due to the previous pandemic, and the use of personal protective equipment (PPE) This may decrease voice recognition accuracy Inadvertent fishing rod marker errors may occur 11/29/2023 Other obesity due [...] minimum of 6 months The most recent [employer] of clinical endocrinologists and [employer] endocrinology guidelines recommend patients who [...] track activity level. Consider using apps like [employer], Bado[employer], lose it, stick as needed for self-monitoring and weight management. Consider group exercises. Consider hiring a personal protection specialist. Regular exercise is sandra to sustainable health [...] counseling and psychiatry and Dr Dao at [facility]. We would like to cover regular topics [...] software and direct typing Please excuse inadvertent fishing rod marker or typing errors, or uncorrected word substitutions Although every attempt has been made by the provider to proofread this document, occasional misspellings and typographical errors may still be present Due to the previous pandemic, and the use of personal protective equipment (PPE) This may decrease voice recognition accuracy Inadvertent fishing rod marker errors may occur 09/27/2023 Other obesity due [...] minimum of 6 months The most recent [employer] of clinical endocrinologists and [employer] endocrinology guidelines recommend patients who [...] track activity level. Consider using apps like [employer], Badoopal, lose it, stick as needed for self-monitoring and weight management. Consider group exercises. Consider hiring a personal protection specialist. Regular exercise is sandra to sustainable health [...] counseling and psychiatry and Dr Dao at [facility]. We would like to cover regular topics [...] software and direct typing Please excuse inadvertent fishing rod marker or typing errors, or uncorrected word substitutions Although every attempt has been made by the provider to proofread this document, occasional misspellings and typographical errors may still be present Due to the previous pandemic, and the use of personal protective equipment (PPE) This may decrease voice recognition accuracy Inadvertent fishing rod marker errors may occur 12/27/2023 Other obesity due [...] minimum of 6 months The most recent [employer] of clinical endocrinologists and [employer] endocrinology guidelines recommend patients who [...] software and direct typing Please excuse inadvertent fishing rod marker or typing errors, or uncorrected word substitutions Although every attempt has been made by the provider to proofread this document, occasional misspellings and typographical errors may still be present Due to the previous pandemic, and the use of personal protective equipment (PPE) This may decrease voice recognition accuracy Inadvertent fishing rod marker errors may occur 12/27/2023 BMI 37.0-37.9, adult [...] minimum of 6 months The most recent [employer] of clinical endocrinologists and [employer] endocrinology guidelines recommend patients who [...] software and direct typing Please excuse inadvertent fishing rod marker or typing errors, or uncorrected word substitutions Although every attempt has been made by the provider to proofread this document, occasional misspellings and typographical errors may still be present Due to the previous pandemic, and the use of personal protective equipment (PPE) This may decrease voice recognition accuracy Inadvertent fishing rod marker errors may occur 01/31/2024 Other obesity due [...] minimum of 6 months The most recent [employer] of clinical endocrinologists and [employer] endocrinology guidelines recommend patients who [...] software and direct typing Please excuse inadvertent fishing rod marker or typing errors, or uncorrected word substitutions Although every attempt has been made by the provider to proofread this document, occasional misspellings and typographical errors may still be present Due to the previous pandemic, and the use of personal protective equipment (PPE) This may decrease voice recognition accuracy Inadvertent fishing rod marker errors may occur 03/06/2024 Other obesity due [...] minimum of 6 months The most recent [employer] of clinical endocrinologists and [employer] endocrinology guidelines recommend patients who [...] software and direct typing Please excuse inadvertent fishing rod marker or typing errors, or uncorrected word substitutions Although every attempt has been made by the provider to proofread this document, occasional misspellings and typographical errors may still be present Due to the previous pandemic, and the use of personal protective equipment (PPE) This may decrease voice recognition accuracy Inadvertent fishing rod marker errors may occur 04/03/2024 Other obesity due [...] software and direct typing Please excuse inadvertent fishing rod marker or typing errors, or uncorrected word substitutions Although every attempt has been made by the provider to proofread this document, occasional misspellings and typographical errors may still be present Due to the previous pandemic, and the use of personal protective equipment (PPE) This may decrease voice recognition accuracy Inadvertent fishing rod marker errors may occur 04/03/2024 Body mass index [...] software and direct typing Please excuse inadvertent fishing rod marker or typing errors, or uncorrected word substitutions Although every attempt has been made by the provider to proofread this document, occasional misspellings and typographical errors may still be present Due to the previous pandemic, and the use of personal protective equipment (PPE) This may decrease voice recognition accuracy Inadvertent fishing rod marker errors may occur 03/06/2024 BMI 37.0-37.9, adult [...] minimum of 6 months The most recent [employer] of clinical endocrinologists and [employer] endocrinology guidelines recommend patients who [...] software and direct typing Please excuse inadvertent fishing rod marker or typing errors, or uncorrected word substitutions Although every attempt has been made by the provider to proofread this document, occasional misspellings and typographical errors may still be present Due to the previous pandemic, and the use of personal protective equipment (PPE) This may decrease voice recognition accuracy Inadvertent fishing rod marker errors may occur 04/03/2024 Dietary counseling and [...] software and direct typing Please excuse inadvertent fishing rod marker or typing errors, or uncorrected word substitutions Although every attempt has been made by the provider to proofread this document, occasional misspellings and typographical errors may still be present Due to the previous pandemic, and the use of personal protective equipment (PPE) This may decrease voice recognition accuracy Inadvertent fishing rod marker errors may occur 11/29/2023 BMI 38.0-38.9,adult (ICD-10 [...] minimum of 6 months The most recent [employer] of clinical endocrinologists and [employer] endocrinology guidelines recommend patients who [...] track activity level. Consider using apps like [employer], [employer]ine[employer], lose it, stick as needed for self-monitoring and weight management. Consider group exercises. Consider hiring a personal protection specialist. Regular exercise is sandra to sustainable health [...] counseling and psychiatry and Dr Dao at [facility]. We would like to cover regular topics [...] software and direct typing Please excuse inadvertent fishing rod marker or typing errors, or uncorrected word substitutions Although every attempt has been made by the provider to proofread this document, occasional misspellings and typographical errors may still be present Due to the previous pandemic, and the use of personal protective equipment (PPE) This may decrease voice recognition accuracy Inadvertent fishing rod marker errors may occur 01/31/2024 BMI 37.0-37.9, adult [...] minimum of 6 months The most recent [place] [employer] of clinical endocrinologists and [employer] of endocrinology guidelines recommend patients who [...] software and direct typing Please excuse inadvertent fishing rod marker or typing errors, or uncorrected word substitutions Although every attempt has been made by the provider to proofread this document, occasional misspellings and typographical errors may still be present Due to the previous pandemic, and the use of personal protective equipment (PPE) This may decrease voice recognition accuracy Inadvertent fishing rod marker errors may occur 12/27/2023 Dietary counseling and [...] minimum of 6 months The most recent [employer] of clinical endocrinologists and [employer] of endocrinology guidelines recommend patients who [...] software and direct typing Please excuse inadvertent fishing rod marker or typing errors, or uncorrected word substitutions Although every attempt has been made by the provider to proofread this document, occasional misspellings and typographical errors may still be present Due to the previous pandemic, and the use of personal protective equipment (PPE) This may decrease voice recognition accuracy Inadvertent fishing rod marker errors may occur 09/27/2023 Dietary counseling and [...] minimum of 6 months The most recent [employer] of clinical endocrinologists and [employer] of endocrinology guidelines recommend patients who [...] track activity level. Consider using apps like [employer], Badoopal, lose it, stick as needed for self-monitoring and weight management. Consider group exercises. Consider hiring a personal protection specialist. Regular exercise is sandra to sustainable health [...] counseling and psychiatry and Dr Dao at [facility]. We would like to cover regular topics [...] software and direct typing Please excuse inadvertent fishing rod marker or typing errors, or uncorrected word substitutions Although every attempt has been made by the provider to proofread this document, occasional misspellings and typographical errors may still be present Due to the previous pandemic, and the use of personal protective equipment (PPE) This may decrease voice recognition accuracy Inadvertent fishing rod marker errors may occur 11/01/2023 Dietary counseling and [...] minimum of 6 months The most recent [employer] of clinical endocrinologists and [employer] of endocrinology guidelines recommend patients who [...] track activity level. Consider using apps like [employer], Badoopal, lose it, stick as needed for self-monitoring and weight management. Consider group exercises. Consider hiring a personal protection specialist. Regular exercise is sandra to sustainable health [...] counseling and psychiatry and Dr Dao at [facility]. We would like to cover regular topics [...] software and direct typing Please excuse inadvertent fishing rod marker or typing errors, or uncorrected word substitutions Although every attempt has been made by the provider to proofread this document, occasional misspellings and typographical errors may still be present Due to the previous pandemic, and the use of personal protective equipment (PPE) This may decrease voice recognition accuracy Inadvertent fishing rod marker errors may occur 11/01/2023 Prediabetes (ICD-10 - [...] minimum of 6 months The most recent [employer] of clinical endocrinologists and [employer] of endocrinology guidelines recommend patients who [...] track activity level. Consider using apps like [employer], [employer]ine[employer], lose it, stick as needed for self-monitoring and weight management. Consider group exercises. Consider hiring a personal protection specialist. Regular exercise is sandra to sustainable health [...] counseling and psychiatry and Dr Dao at [facility]. We would like to cover regular topics [...] software and direct typing Please excuse inadvertent fishing rod marker or typing errors, or uncorrected word substitutions Although every attempt has been made by the provider to proofread this document, occasional misspellings and typographical errors may still be present Due to the previous pandemic, and the use of personal protective equipment (PPE) This may decrease voice recognition accuracy Inadvertent fishing rod marker errors may occur 11/29/2023 Dietary counseling and [...] minimum of 6 months The most recent [employer] of clinical endocrinologists and [employer] of endocrinology guidelines recommend patients who [...] track activity level. Consider using apps like [employer], myfitnesspal, lose it, stick as needed for self-monitoring and weight management. Consider group exercises. Consider hiring a personal protection specialist. Regular exercise is sandra to sustainable health [...] counseling and psychiatry and Dr Dao at [facility]. We would like to cover regular topics [...] software and direct typing Please excuse inadvertent fishing rod marker or typing errors, or uncorrected word substitutions Although every attempt has been made by the provider to proofread this document, occasional misspellings and typographical errors may still be present Due to the previous pandemic, and the use of personal protective equipment (PPE) This may decrease voice recognition accuracy Inadvertent fishing rod marker errors may occur 09/27/2023 Prediabetes (ICD-10 - [...] minimum of 6 months The most recent [employer] of clinical endocrinologists and [employer] of endocrinology guidelines recommend patients who [...] track activity level. Consider using apps like [employer], myfitnesspal, lose it, stick as needed for self-monitoring and weight management. Consider group exercises. Consider hiring a personal protection specialist. Regular exercise is sandra to sustainable health [...] counseling and psychiatry and Dr Dao at [facility]. We would like to cover regular topics [...] software and direct typing Please excuse inadvertent fishing rod marker or typing errors, or uncorrected word substitutions Although every attempt has been made by the provider to proofread this document, occasional misspellings and typographical errors may still be present Due to the previous pandemic, and the use of personal protective equipment (PPE) This may decrease voice recognition accuracy Inadvertent fishing rod marker errors may occur 12/27/2023 Prediabetes (ICD-10 - [...] minimum of 6 months The most recent [employer] of clinical endocrinologists and [employer] endocrinology guidelines recommend patients who [...] software and direct typing Please excuse inadvertent fishing rod marker or typing errors, or uncorrected word substitutions Although every attempt has been made by the provider to proofread this document, occasional misspellings and typographical errors may still be present Due to the previous pandemic, and the use of personal protective equipment (PPE) This may decrease voice recognition accuracy Inadvertent fishing rod marker errors may occur 01/31/2024 Dietary counseling and [...] minimum of 6 months The most recent [employer] of clinical endocrinologists and [employer] of endocrinology guidelines recommend patients who [...] software and direct typing Please excuse inadvertent fishing rod marker or typing errors, or uncorrected word substitutions Although every attempt has been made by the provider to proofread this document, occasional misspellings and typographical errors may still be present Due to the previous pandemic, and the use of personal protective equipment (PPE) This may decrease voice recognition accuracy Inadvertent fishing rod marker errors may occur 03/06/2024 Dietary counseling and [...] minimum of 6 months The most recent [place] [employer] of clinical endocrinologists and [employer] of endocrinology guidelines recommend patients who [...] software and direct typing Please excuse inadvertent fishing rod marker or typing errors, or uncorrected word substitutions Although every attempt has been made by the provider to proofread this document, occasional misspellings and typographical errors may still be present Due to the previous pandemic, and the use of personal protective equipment (PPE) This may decrease voice recognition accuracy Inadvertent fishing rod marker errors may occur 04/03/2024 Prediabetes (ICD-10 - [...] software and direct typing Please excuse inadvertent fishing rod marker or typing errors, or uncorrected word substitutions Although every attempt has been made by the provider to proofread this document, occasional misspellings and typographical errors may still be present Due to the previous pandemic, and the use of personal protective equipment (PPE) This may decrease voice recognition accuracy Inadvertent fishing rod marker errors may occur 03/06/2024 Prediabetes (ICD-10 - [...] minimum of 6 months The most recent [employer] of clinical endocrinologists and [employer] endocrinology guidelines recommend patients who [...] software and direct typing Please excuse inadvertent fishing rod marker or typing errors, or uncorrected word substitutions Although every attempt has been made by the provider to proofread this document, occasional misspellings and typographical errors may still be present Due to the previous pandemic, and the use of personal protective equipment (PPE) This may decrease voice recognition accuracy Inadvertent fishing rod marker errors may occur 01/31/2024 Prediabetes (ICD-10 - [...] minimum of 6 months The most recent [employer] of clinical endocrinologists and [employer] of endocrinology guidelines recommend patients who [...] software and direct typing Please excuse inadvertent fishing rod marker or typing errors, or uncorrected word substitutions Although every attempt has been made by the provider to proofread this document, occasional misspellings and typographical errors may still be present Due to the previous pandemic, and the use of personal protective equipment (PPE) This may decrease voice recognition accuracy Inadvertent fishing rod marker errors may occur 11/29/2023 Prediabetes (ICD-10 - [...] minimum of 6 months The most recent [employer] of clinical endocrinologists and [employer] of endocrinology guidelines recommend patients who [...] track activity level. Consider using apps like [employer], Badoopal, lose it, stick as needed for self-monitoring and weight management. Consider group exercises. Consider hiring a personal protection specialist. Regular exercise is sandra to sustainable health [...] counseling and psychiatry and Dr Dao at [facility]. We would like to cover regular topics [...] software and direct typing Please excuse inadvertent fishing rod marker or typing errors, or uncorrected word substitutions Although every attempt has been made by the provider to proofread this document, occasional misspellings and typographical errors may still be present Due to the previous pandemic, and the use of personal protective equipment (PPE) This may decrease voice recognition accuracy Inadvertent fishing rod marker errors may occur PLAN OF TREATMENT Next Appt Details Provider Name:BORIS HASSAN, 05/08/2024 09:15:00 AM, [address] , [place], [address], Insurance Providers Payer Name Payer Address Payer Phone Subscriber Number Group Number Insured Name Patient Relationship to Insured Coverage Start Date Coverage End Date [facility] [address] [place] [address] [id number] Juliet Gan Self - patient is the insured 2
== END 2024-05-04 15:10 | disposition home or self-care (01) ==
LOC: HO.HMCC 14:47
PROVIDERS: PCP Internal Medicine; Visit Provider Internal Medicine
DX: R68.89 Other general symptoms and signs (principal); G43.809 Other migraine, not intractable, without status migrainosus; R03.0 Elevated blood-pressure reading, without diagnosis of hypertension; R42 Dizziness and giddiness; D50.8 Other iron deficiency anemias; M79.2 Neuralgia and neuritis, unspecified; E66.09 Other obesity due to excess calories; Z68.39 Body mass index [BMI] 39.0-39.9, adult; Z91.09 Other allergy status, other than to drugs and biological substances

== ENCOUNTER → 2024-05-04 14:46 | Outpatient (BNVA) | payer OTHER, SELFPAY | PROVIDERS: PCP Internal Medicine; Visit Provider Internal Medicine | DX: G43.809 Other migraine, not intractable, without status migrainosus (principal); R68.89 Other general symptoms and signs; R03.0 Elevated blood-pressure reading, without diagnosis of hypertension; R42 Dizziness and giddiness; D50.8 Other iron deficiency anemias; M79.2 Neuralgia and neuritis, unspecified; E66.09 Other obesity due to excess calories; Z68.39 Body mass index [BMI] 39.0-39.9, adult; E55.9 Vitamin D deficiency, unspecified; Z79.899 Other long term (current) drug therapy; Z91.09 Other allergy status, other than to drugs and biological substances | CPT/HCPCS: 96127 ==

== ENCOUNTER 2024-05-07 06:54 | Outpatient (REF) | payer OTHER, SELFPAY ==
[2024-05-07 10:08] LABS: MANUAL DIFF FLAG NO
[2024-05-07 10:22] LABS: Basophils Percent Auto 0.4 % (0-2); Eosinophils Absolute Auto 0.1 X10*3/uL (0.0-0.4); Eosinophils Percent Auto 1.1 % (0-4); Hematocrit 45.9 % (37.0-47.0); Hemoglobin 15.1 g/dl (12.0-16.0); Imm Gran Abs Auto 0.02 X10*3/uL (0.00-0.03); Imm Gran Pct Auto 0.4 % (0.0-0.4); Lymphocytes Percent Auto 37.7 % (20-40); Mean Corpuscular HGB Conc 32.9 g/dl (31.0-35.0); Mean Corpuscular Hemoglobin 28.8 pg (27.0-33.0); Mean Corpuscular Volume 87.4 fL (80.0-98.0); Mean Platelet Volume 9.8 fL (9.4-12.3); Monocytes Absolute Auto 0.4 X10*3/uL (0.1-1.2); Monocytes Percent Auto 7.2 % (2-11); Neutrophils Absolute Auto 2.8 x10*3/uL (2.0-8.3); Neutrophils Percent Auto 53.2 % (45-73); Platelet Count 307 X10*3/uL (160-400); Red Blood Count 5.25 X10*6/uL (4.20-5.50); Red Cell Distribution Width 13.1 % (11.0-16.0); White Blood Count 5.3 X10*3/uL (4.8-10.8)
[2024-05-07 10:34] LABS: Estimated Average Glucose 105 mg/dL; Hemoglobin A1c % 5.3 % (<6.0); Total Hemoglobin (HGBA1C) 3946.3613 umol/L
[2024-05-07 10:55] LABS: Alanine Aminotransferase 26 U/L (0-31); Albumin Level 4.3 g/dL (3.5-5.0); Alkaline Phosphatase 85 U/L (39-117); Amylase 55 U/L (28-100); Anion Gap 9 (12-20); Aspartate Amino Transferase 20 U/L (5-31); Bilirubin Total 0.4 mg/dL (0.0-1.0); Blood Urea Nitrogen 13 mg/dL (9-16); Calcium 9.8 mg/dL (8.4-10.2); Carbon Dioxide 29 mmol/L (22-29); Chloride 109 mmol/L (96-108); Cholesterol 166 mg/dL (<200); Estimated Glomerular Filt Rate > 60; Ferritin 87 ng/mL (10-250); Glucose Fasting 96 mg/dL (60-99); HDL Cholesterol 41 mg/dL (>40); LDL Cholesterol Calculated 98 mg/dL (<100); Lipase 78 U/L (8-78); Potassium 4.4 mmol/L (3.3-5.1); Sodium 143 mmol/L (135-145); TSH reflex Free T4 1.32 uIU/mL (0.32-4.0); Triglycerides 137 mg/dL (<150)
[2024-05-07 11:00] LABS: Appearance Urine Cloudy; Color Urine Yellow; Glucose Urine UA Negative (Negative); Leukocyte Esterase Urine Negative (Negative); Nitrite Urine Negative (Negative); PH 5.5 (5.0-9.0); Specific Gravity - Urine 1.025 (1.005-1.025); Urine Blood Negative (Negative); Urine Ketones Trace mg/dL (Negative); Urine Protein Negative (Neg-Trace)
[2024-05-07 11:01] LABS: Vitamin B12 254 pg/mL (200-900)
[2024-05-12 14:14] LABS: Vitamin D 25-OH, D2 <4 ng/mL; Vitamin D 25-OH, D3 28 ng/mL; Vitamin D 25-OH, Total 28 ng/mL (30-100)
== END 2024-05-07 06:55 | disposition home or self-care (01) ==
LOC: HO.HMGCLDS 06:54
PROVIDERS: PCP Internal Medicine; Visit Provider Internal Medicine
DX: R42 Dizziness and giddiness (principal); Z91.09 Other allergy status, other than to drugs and biological substances; D64.9 Anemia, unspecified; M79.2 Neuralgia and neuritis, unspecified; G43.909 Migraine, unspecified, not intractable, without status migrainosus; E66.09 Other obesity due to excess calories; Z68.39 Body mass index [BMI] 39.0-39.9, adult; R68.89 Other general symptoms and signs; Z13.1 Encounter for screening for diabetes mellitus
CPT/HCPCS: 36415; 80053; 80061; 81003; 82150; 82306; 82607; 82728; 82746; 83036; 83690; 84443; 85025

== ENCOUNTER 2024-05-21 15:11 | Outpatient (AMB) | payer OTHER, SELFPAY ==
[2024-05-21 15:14] VITALS: BP 136/80; PULSE 86; O2SAT 98; BMI 36.0
--- NOTE | 2024-05-21 15:14 | A.OFFPC_ITS ---
Vital Signs 05/21/24 15:14 Height 5 ft 5 in Weight 216 lb 8 oz BMI 36.0 BP 136/80 Blood Pressure Location Rt brachial Position Sitting Pulse 86 Pulse Source Pulse Oximeter Pulse Oximetry (%) 98 Oxygen Delivery Method Room Air Intake Visit Reasons: 2 weeks f/up Allergies terbutaline [TERBUTALINE] Allergy (Severe, Verified 05/21/24 15:14) ANAPHYLAXIS peanut Allergy (Unknown, Verified 05/21/24 15:14) Hives, itching shrimp Allergy (Unknown, Verified 05/21/24 15:14) Unknown Environmental Allergy (Unknown, Uncoded 04/27/24 16:19) unknown Medication List - Last Reconciled 05/21/24 by Wagner Bardales MD amitriptyline 10 mg PO BEDTIME ascorbic acid (vitamin C) 500 mg PO DAILY carvedilol 25 mg PO BID cholecalciferol (vitamin D3) 25 mcg PO DAILY ferrous sulfate 325 mg PO BID furosemide 20 mg (1/2 x 40 mg) PO DAILY PRN loratadine (Claritin RediTabs) 10 mg PO DAILY PRN multivitamin 1 tab PO DAILY ondansetron 4 mg PO Q8H PRN pyridoxine (vitamin B6) 100 mg PO DAILY semaglutide (weight loss) (Wegovy) 0.25 mg (0.5 mL) subcut QWEEK 30 days Ventolin HFA 90 mcg/actuation (albuterol sulfate) 2 puffs inhalation Q6H PRN NS Tobacco use date assessed: 05/21/24 Dental Screening Dental Screen Date: 05/21/24 Did you have a dental visit in the last 12 months?: Yes Did you have a dental problem in the last 6 months where you did not have access to dental care?: No Was dental information given to patient?: Patient has dentist HPI 2 weeks f/up HPI Details History - The patient is a 53-year-old female pr esenting with a follow-up visit for hypertension management, headaches, and monitoring weight loss progress. - Hypertension diagnosis persists with r ecent improvement in blood pressure measurements after inconsistency in medication use, carvedilol She was given amitriptyline 10 mg last visit for headache prevention which she is also taking inconsistently Headaches has improved and her hardly there now - The patient initiated weight loss john ures approximately eight months ago, reporting a significant weight loss facilitated by Wegovy and lifestyle modifications. - Past edema has diminished alongside we ight loss. That is through [place] provider [place] patient is currently on 1.5 mg injections iron deficiency, managed with an iron supplement, and ongoing vitamin D deficiency requiring monitoring and supplementation. Allergies are stable with loratadine Medications - Amitriptyline 10 mg, taken at night fo r headache management. - Carvedilol 25 mg, two times per day fo r hypertension. - Iron supplementation for iron deficien cy. - Loratadine for allergic rhinitis. - Wegovy for weight management. - B6 vitamins - Diuretics on an as-needed basis - Discontinued gabapentin Problem List - Essential Hypertension - Intermittent Headaches - Iron Deficiency - Allergic Rhinitis - Vitamin D Deficiency - Obesity - Edema Patient Instructions - Continue taking amitriptyline every ni ght as it helps with headache prevention and sleep. - Consistently use carvedilol as prescri bed by the physician, which also aids in headache management and blood pressure control. - Maintain vitamin D supplementation as previously directed. - Continue dietary modifications and phy sical activity to support ongoing weight loss and overall health. - Adhere to routine and next appointment for a physical exam in August. - Seek immediate medical attention if ex periencing severe headaches, significant blood pressure fluctuations, or if edema reoccurs. - Monitor blood pressure at home using a home blood pressure monitor; check in the afternoon after resting for five minutes and record readings on paper. Review of Systems General: No fever no chills neurological: No headaches no dizziness ear nose throat: No sore throat no hearing difficulty no ear pain cardiovascular: No syncope, no chest pain, no palpitations gastrointestinal: No nausea vomiting or diarrhea endocrine: No polyuria polydipsia no heat intolerance genitourinary: No dysuria skin: No new complaints Physical Exam general: No acute distress HEENT: No acute findings, slight headache present, headaches have improved neck: Supple, previously swollen respiratory system: Able to talk in full sentences, no audible wheeze no stridor cardiovascular: S1-S2, blood pressure acceptable at 136 gastrointestinal: No pain extremities: No new findings PERIOPERATIVE TECH: Alert awake oriented x3 motor sensory intact, reports dizziness skin: Normal turgor [facility] Medical History Pulmonary nodules SUREKHA (obstructive sleep apnea) Dyspnea History of COVID-19 Environmental allergies Obesity due to excess calories Recurrent kidney stones Renal cyst Palpitation Anemia Surgical History History of lithotripsy History of back surgery Hx of microdiscectomy History of tubal ligation Family History Father No problems noted. Mother HTN (hypertension) HLD (hyperlipidemia) Social History Housing: House Alcohol intake: never Patient Tobacco Use Status: Former Tobacco user Tobacco use type: Cigarette Years Smoked: 7 years e-Cigarette/Vaping Use: Never Used Current occupational status: employed Cognitive needs: No Hearing needs: No Vision needs: Yes Female Reproductive History Menstrual Age of Menarche: 8 Questionnaire Thrive Questionnaire Date Thrive assessed: 05/21/24 I am a: Patient What is your living situation today?: I have a steady place to live Within the past 12 months, did the food you bought not last and you didn't have the money to get more?: Never true Within the past 12 months, did you worry whether your food would run out before you got money to buy more?: Never true Do you have trouble paying for medicines?: No Do you have trouble getting transportation to medical appointments?: No Do you have trouble paying your heating and electricity bill?: No Do you have trouble taking care of your child, family member or friend?: No Do you have trouble with day-to-day activities such as bathing, preparing meals, shopping, managing finances, etc.?: No Are you currently unemployed and looking for a job?: No Are you interested in more education?: No Please select the resources that you would like help with: None Currently or been in a relationship where the following occur: No concerns reported THRIVE Score: 0 AUDIT C Alcohol Use Questionnaire (AUDIT-C) 1. How often do you have a drink containing alcohol?: Never 3. How often do you have six or more drinks on one occasion?: Never Total Score: 0 Score Reviewed/Action Taken: Yes CITLALY-7 AMB Questionnaire CITLALY-7 Date CITLALY - 7 assessed: 05/04/24 Source: Developed by Drs. Hunter Dow, Ale Hernandez, Tayo Ervin and colleagues, with an educational senthil from [employer]. Physical exam (Primary Care) Vital Signs: Last Vital Signs Pulse 86 05/21/24 15:14 BP 136/80 05/21/24 15:14 Pulse Ox 98 05/21/24 15:14 Oxygen Delivery Method Room Air 05/21/24 15:14 BMI result Body Mass Index 36.0 Tobacco/Smoking Status: Tobacco use Status Tobacco use date assessed 05/21/24 05/21/24 15:16 Patient Tobacco Use Status Former Tobacco user 05/21/24 15:16 Tobacco use type Cigarette 05/21/24 15:16 e-Cigarette/Vaping Use Never Used 05/21/24 15:16 Thrive Assessment: Date of Thrive Assessment Date Thrive assessed 05/21/24 05/21/24 15:19 Currently or been in a relationship where the following occur: No concerns reported Coding Level of Care Code Est Pt Level 4 (85495) Diagnoses Other migraine without status migrainosus, not intractable G43.809 Migraine type: other Status migrainosus presence: without status migrainosus Intractability: not intractable Hypertension, essential I10 Other iron deficiency anemia D50.8 Anemia type: iron deficiency Iron deficiency anemia type: other iron deficiency Class 2 obesity due to excess calories without serious comorbidity with body mass index (BMI) of 39.0 to 39.9 in adult E66.09; Z68.39 Obesity classification: adult class 2 (BMI 35 - 39.9) Serious obesity comorbidity presence: without serious comorbidity Body mass index: BMI 39.0-39.9 Environmental allergies Z91.09 Assessment & Plan Assessment & Plan (1) Migraine headache: Code(s): G43.909 - Migraine, unspecified, not intractable, without status migrainosus Category: Medical Qualifiers: Migraine type: other Status migrainosus presence: without status migrainosus Intractability: not intractable Qualified Code(s): G43.809 - Other migraine, not intractable, without status migrainosus (2) Hypertension, essential: Code(s): I10 - Essential (primary) hypertension Category: Medical (3) Anemia: Code(s): D64.9 - Anemia, unspecified Category: Medical Qualifiers: Anemia type: iron deficiency Iron deficiency anemia type: other iron deficiency Qualified Code(s): D50.8 - Other iron deficiency anemias (4) Obesity due to excess calories: Code(s): E66.09 - Other obesity due to excess calories Category: Medical Qualifiers: Obesity classification: adult class 2 (BMI 35 - 39.9) Serious obesity comorbidity presence: without serious comorbidity Body mass index: BMI 39.0- 39.9 Qualified Code(s): E66.09 - Other obesity due to excess calories; Z68.39 - Body mass index [BMI] 39.0-39.9, adult (5) Environmental allergies: Code(s): Z91.09 - Other allergy status, other than to drugs and biological substances Category: Medical Plan History - The patient is a 53-year-old female presenting with a follow-up visit for hypertension management, headaches, and monitoring weight loss progress. - Hypertension diagnosis persists with recent improvement in blood pressure measurements after inconsistency in medication use, carvedilol She was given amitriptyline 10 mg last visit for headache prevention which she is also taking inconsistently Headaches has improved and her hardly there now - The patient initiated weight loss measures approximately eight months ago, reporting a significant weight loss facilitated by Wegovy and lifestyle modifications. - Past edema has diminished alongside weight loss. That is through a different provider in [facility] patient is currently on 1.5 mg injections iron deficiency, managed with an iron supplement, and ongoing vitamin D deficiency requiring monitoring and supplementation. Allergies are stable with loratadine Medications - Amitriptyline 10 mg, taken at night for headache management. - Carvedilol 25 mg, two times per day for hypertension. - Iron supplementation for iron deficiency. - Loratadine for allergic rhinitis. - Wegovy for weight management. - B6 vitamins - Diuretics on an as-needed basis - Discontinued gabapentin Problem List - Essential Hypertension - Intermittent Headaches - Iron Deficiency - Allergic Rhinitis - Vitamin D Deficiency - Obesity - Edema Patient Instructions - Continue taking amitriptyline every night as it helps with headache prevention and sleep. - Consistently use carvedilol as prescribed by the physician, which also aids in headache management and blood pressure control. - Maintain vitamin D supplementation as previously directed. - Continue dietary modifications and physical activity to support ongoing weight loss and overall health. - Adhere to routine and next appointment for a physical exam in August. - Seek immediate medical attention if experiencing severe headaches, significant blood pressure fluctuations, or if edema reoccurs. - Monitor blood pressure at home using a home blood pressure monitor; check in the afternoon after resting for five minutes and record readings on paper.
--- OUTSIDE RECORDS SUMMARY | 2024-05-21 16:30 | XMS_ITS ---
Author Organization [facility] Address [address] [place] [address] Care Team Providers Care Draw Bench Operator Name Role Phone BORIS HASSAN Unavailable [phone] MEDICATIONS Medication SIG (Take, Route, Fr equency, Duration) Notes Start Date End Date Status Wegovy 1.7 MG/0.75ML 1.7mg Subcutaneous weekly for 30 days Active Ondansetron 4 MG 1 tablet on the tong ue and allow to dissolve prn nausea/vomiting Orally twice day for 30 days Active Encounters Encounter Location Date Provider Diagnosis [facility] [address] [place] [address] 05/08/2024 BORIS HASSAN Other obesity due to excess calories E66.09 ; Body mass index [BMI] 35.0-35.9, adult Z68.35 ; Dietary counseling and surveillance Z71.3 and Prediabetes R73.03 ASSESSMENTS Encounter Date Diagnosis Assessment Notes Treatment Notes Treatment Clinical Notes Section Notes 05/08/2024 Other obesity due to excess calories (ICD-10 - E66.09) #Weight Management 05/08/2024 Continue 1.7 mg Wegovy dosing Will send [...] software and direct typing Please excuse inadvertent polyethylene combiner or typing errors, or uncorrected word substitutions Although every attempt has been made by the provider to proofread this document, occasional misspellings and typographical errors may still be present Due to the previous pandemic, and the use of personal protective equipment (PPE) This may decrease voice recognition accuracy Inadvertent polyethylene combiner errors may occur 05/08/2024 Body mass index [BMI] 35.0-35.9, adult (ICD-10 - Z68.35) #Weight Management 05/08/2024 Continue 1.7 mg Wegovy dosing Will send [...] software and direct typing Please excuse inadvertent polyethylene combiner or typing errors, or uncorrected word substitutions Although every attempt has been made by the provider to proofread this document, occasional misspellings and typographical errors may still be present Due to the previous pandemic, and the use of personal protective equipment (PPE) This may decrease voice recognition accuracy Inadvertent polyethylene combiner errors may occur 05/08/2024 Dietary counseling and surveillance (ICD-10 - Z71.3) #Weight Management 05/08/2024 Continue 1.7 mg Wegovy dosing Will send [...] software and direct typing Please excuse inadvertent polyethylene combiner or typing errors, or uncorrected word substitutions Although every attempt has been made by the provider to proofread this document, occasional misspellings and typographical errors may still be present Due to the previous pandemic, and the use of personal protective equipment (PPE) This may decrease voice recognition accuracy Inadvertent polyethylene combiner errors may occur 05/08/2024 Prediabetes (ICD-10 - R73.03) #Weight Management 05/08/2024 Continue 1.7 mg Wegovy dosing Will send [...] software and direct typing Please excuse inadvertent polyethylene combiner or typing errors, or uncorrected word substitutions Although every attempt has been made by the provider to proofread this document, occasional misspellings and typographical errors may still be present Due to the previous pandemic, and the use of personal protective equipment (PPE) This may decrease voice recognition accuracy Inadvertent polyethylene combiner errors may occur PLAN OF TREATMENT Medication Medication Name Sig Start Date Stop Date Notes Wegovy 1.7 MG/0.75ML 1.7mg Subcutaneous weekly for 30 days Ondansetron 4 MG 1 tablet on the tong ue and allow to dissolve prn nausea/vomiting Orally twice day for 30 days Next Appt Details Provider Name:BORIS HASSAN, 05/22/2024 10:30:00 AM, [address] [facility], [place], [address], Progress Notes * Bright GRANADOSB: [birth year] (53 yo F)Acc No.[id number]:05/08/2024 Patient:??Juliet GRANADOS Provider:??BORIS HASSAN NP :1970?Age:53 Y?Sex:Fe male Date:05/08/2024 Address:[address] [facility] [facility], [id number] Subjective: * Chief Complaints: * ? * HPI: ?Constitutional:? Patient is here today for a weight management f/u visit ?Patient seen and examined. ? Full past medical history, social history, family history, ?allergies and current medications were reviewed and updated. ?Body composition analysis reviewed today ?#Weight Management ?05/08/2024 ?Now euglycemic at 5.4 , previously prediabetic 5.8 ?down >7 lbs fat ,mass since 11/2023 ?Wegovy 1.7mg ?Injects Tuesdays ?Tolerating medication well with no significant side effects ?Noticed some slight nausea on this increased dose ?hx of iron def anemia ?on iron supplementation ?We have started on a K2 and D3 high-dose vitamin D ?2013 hx of microdiscectomy @ [facility] ?Diet: sweet tooth ?Exercise: Currently tracking steps daily, also @ [facility] ?Non-smoker. ?ETOH use: denies ?05/08/2024, Weight , BMI ?04/03/2024, Weight 214lbs , BMI 35 (-8lbs) ?01/31/2024, Weight 222lbs , BMI 37 (-3lbs) ?12/27/2023, Weight 225lbs , BMI 38 (-4lbs) ?11/29/2023, Weight 229lbs , BMI 38 (-4lbs) ?11/01/2023, Weight 233 , BMI 38, (-4lbs) ?09/27/2023: Weight 237 lbs, BMI 39: ? 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 #Weight Management 05/08/2024 Continue 1.7 mg Wegovy dosing Will send [...] software and direct typing Please excuse inadvertent polyethylene combiner or typing errors, or uncorrected word substitutions Although every attempt has been made by the provider to proofread this document, occasional misspellings and typographical errors may still be present Due to the previous pandemic, and the use of personal protective equipment (PPE) This may decrease voice recognition accuracy Inadvertent polyethylene combiner errors may occur. Plan: * Treatment: * Images: Billing Information: * Visit Code:?? * Procedure Codes:?? * Sign off status: Pending * Provider:??BORIS HASSAN NP Date:??04/18 History and Physical Notes * HPI (History of Present Illness) Category Sub-Category Detail Notes Category Not es Constitutional Patient is here today for a weight management f/u visit Patient seen and examined. Full past medical history, social history, family history, allergies and current medications were reviewed and updated. Body composition analysis reviewed today #Weight Management 05/08/2024 Now euglycemic at 5.4 , previously prediabetic 5.8 down > 7 lbs fat ,mass since 11/2023 Wegovy 1.7mg Injects Tuesdays Tolerating medication well with no significant side effects Noticed some slight nausea on this increased dose hx of iron def anemia on iron supplementation We have started on a K2 and D3 high-dose vitamin D 2013 hx of microdiscectomy @ [facility] Diet: sweet tooth Exercise: Currently tracking steps daily, also @ [facility] Non-smoker. 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
--- OUTSIDE RECORDS SUMMARY | 2024-05-21 16:30 | XMS_ITS ---
Author Organization [facility] Address [address] [place] [address] Care Team Providers Care Finishing Manager Name Role Phone BORIS HASSAN Unavailable [phone] MEDICATIONS Medication SIG (Take, Route, Frequency, Duration) Notes Start Date End Date Status Wegovy 1.7 MG/0.75ML 1.7mg Subcutaneous weekly for 30 days PA approved Active Encounters Encounter Location Date Provider Diagnosis [facility] [address] [place] [address] 05/10/2024 BORIS HASSAN Other obesity due to excess calories E66.09 ASSESSMENTS Encounter Date Diagnosis Assessment Notes Treatment Notes Treatment Clinical Notes Section Notes 05/10/2024 Other obesity due to excess calories (ICD-10 - E66.09) PLAN OF TREATMENT Medication Medication Name Sig Start Date Stop Date Notes Wegovy 1.7 MG/0.75ML 1.7mg Subcutaneous weekly for 30 days PA approved Next Appt Details Provider Name:BORIS HASSAN, 05/22/2024 10:30:00 AM, [address] [place], [address], Progress Notes * Sachin GRANADOS: [birth year] (53 yo F)Acc No.[id number]:05/10/2024 Patient:??Juliet GRANADOS :1970?Age:53 Y?Sex:Fe male Address:[address] [place] [id number] * Refills?? Refill Wegovy Solution Auto-injector, 1.7 MG/0.75ML, Subcutaneous, 4 Pen Needle, 1.7mg, weekly, 30 days, Refills=1 * true * Date:??
--- OUTSIDE RECORDS SUMMARY | 2024-05-21 16:30 | XMS_ITS | Patient Health Record ---
Author Organization [facility] Address [address] [place] [address] Care Team Providers Care Vulnerability Assessment Analyst Name Role Phone BORIS HASSAN Unavailable [phone] JOSE HERNANDEZ Unavailable [phone] ALLERGIES No Known Allergies REASON FOR REFERRAL No Information MEDICATIONS Medication SIG (Take, Route, Fr equency, Duration) Notes Start Date End Date Status Ondansetron 4 MG 1 tablet on the tong ue and allow to dissolve prn nausea/vomiting Orally twice day for 30 days Active Wegovy 1.7 MG/0.75ML INJECT 1.7MG UNDER THE SKIN ONCE A WEEK for 28 Active PROBLEMS Problem Type ICD Code Onset Dates Problem Status W/U Status Risk SNOMED Code Notes Problem Other obesity due to excess calories (E66.09) Active confirmed 355789697 Problem Body mass index [BMI] 35.0-35.9, adult (Z68.35) Active confirmed 670450563 Problem Body mass index [BMI] 39.0-39.9, adult (Z68.39) Active confirmed 381691534 Problem BMI 37.0-37.9, adult (Z68.37) Active confirmed 316486284 Problem BMI 38.0-38.9,adul t (Z68.38) Active confirmed 041809660 VITAL SIGNS Heart Rate 98 /min 04/03/2024 Oximetry 92 % 04/03/2024 Blood pressure diastolic 80 mm Hg 04/03/2024 Height 65 in 04/03/2024 Blood pressure systolic 122 mm Hg 04/03/2024 Weight 214.2 lbs 04/03/2024 BMI 35.64 kg/m2 04/03/2024 Encounters Encounter Location Date Provider Diagnosis [facility] [address] [place], [place] 03/06/2024 BORIS BORHOT Other obesity due to excess calories E66.09 ; BMI 37.0-37.9, adult Z68.37 ; Dietary counseling and surveillance Z71.3 and Prediabetes R73.03 [facility] [address] [facility] [place], [place] 05/08/2024 BORIS BORHOT Other obesity due to excess calories E66.09 ; Body mass index [BMI] 35.0-35.9, adult Z68.35 ; Dietary counseling and surveillance Z71.3 and Prediabetes R73.03 [facility] [address] [facility] [place] 09/27/2023 BORIS BORHOT Other obesity due to excess calories E66.09 ; Body mass index [BMI] 39.0-39.9, adult Z68.39 ; Dietary counseling and surveillance Z71.3 and Prediabetes R73.03 [facility] [address] [place], [place] 11/01/2023 BORIS BORHOT Other obesity due to excess calories E66.09 ; BMI 38.0-38.9,adult Z68.38 ; Dietary counseling and surveillance Z71.3 and Prediabetes R73.03 [facility] [address] [place] [address], [place] 11/29/2023 BORIS BORHOT Other obesity due to excess calories E66.09 ; BMI 38.0-38.9,adult Z68.38 ; Dietary counseling and surveillance Z71.3 and Prediabetes R73.03 [facility] [address] [place] [address] 12/27/2023 BORIS BORHOT Other obesity due to excess calories E66.09 ; BMI 37.0-37.9, adult Z68.37 ; Dietary counseling and surveillance Z71.3 and Prediabetes R73.[address] [address] 01/31/2024 BORIS BORHOT Other obesity due to excess calories E66.09 ; BMI 37.0-37.9, adult Z68.37 ; Dietary counseling and surveillance Z71.3 and Prediabetes R73.[address] [facility] [address] [place] [address] 04/03/2024 BORIS BORHOT Other obesity due to excess calories E66.09 ; Body mass index [BMI] 35.0-35.9, adult Z68.35 ; Dietary counseling and surveillance Z71.3 and Prediabetes R73.03 [address] [place] [address] 09/17/2023 JOSE FENG [facility] [address] [place] [address] 05/10/2024 BORIS BORHOT Other obesity due to excess calories E66.09 [address] [place] [address] 10/25/2023 BORIS BORHOT [address] [place] [address] 11/05/2023 BORIS BORHOT [address] [place] [address] 11/05/2023 BORIS BORHOT [address] [place] [address] 11/11/2023 BORIS BORHOT [address] [place] [address] 11/12/2023 BORIS BORHOT [address] [place] [address] 01/31/2024 BORIS BORHOT [address] [place] [address] 03/05/2024 BORIS BORHOT [address] [place] [address] 04/12/2024 BORIS BORHOT ASSESSMENTS Encounter Date Diagnosis Assessment Notes Treatment Notes Treatment Clinical Notes Section Notes 09/27/2023 Body mass index [BMI] 39.0-39.9, adult (ICD-10 - Z68.39) Start Wegovy Total time spent today was 60 minutes of which greater than 50% was spent on coordinating and counseling Patient has been found to be obese with a BMI of (39). Patient has class (2) obesity. We are a board certified obesity and weight management practice Patient has trialed behavioral modification, dietary restrictions and exercise for a minimum of 6 months The most recent [place] [employer] of clinical endocrinologists and [employer] of endocrinology guidelines recommend patients who [...] track activity level. Consider using apps like [employer], myfitnesspal, lose it, stick as needed for self-monitoring and weight management. Consider group exercises. Consider hiring a certified personal trainer. Regular exercise is sandra to sustainable health [...] counseling and psychiatry and Dr Dao at [employer]. We would like to cover regular topics [...] software and direct typing Please excuse inadvertent planishing hammer operator or typing errors, or uncorrected word substitutions Although every attempt has been made by the provider to proofread this document, occasional misspellings and typographical errors may still be present Due to the previous pandemic, and the use of personal protective equipment (PPE) This may decrease voice recognition accuracy Inadvertent planishing hammer operator errors may occur 11/01/2023 Other obesity due [...] minimum of 6 months The most recent [employer] of clinical endocrinologists and [employer] of endocrinology guidelines recommend patients who [...] track activity level. Consider using apps like [employer], [employer], lose it, stick as needed for self-monitoring and weight management. Consider group exercises. Consider hiring a certified personal trainer. Regular exercise is sandra to sustainable health [...] counseling and psychiatry and Dr Dao at [employer]. We would like to cover regular topics [...] software and direct typing Please excuse inadvertent planishing hammer operator or typing errors, or uncorrected word substitutions Although every attempt has been made by the provider to proofread this document, occasional misspellings and typographical errors may still be present Due to the previous pandemic, and the use of personal protective equipment (PPE) This may decrease voice recognition accuracy Inadvertent planishing hammer operator errors may occur 11/01/2023 BMI 38.0-38.9,adult (ICD-10 [...] minimum of 6 months The most recent [employer] of clinical endocrinologists and [employer] of endocrinology guidelines recommend patients who [...] track activity level. Consider using apps like [employer], [employer], lose it, stick as needed for self-monitoring and weight management. Consider group exercises. Consider hiring a certified personal trainer. Regular exercise is sandra to sustainable health [...] counseling and psychiatry and Dr Dao at [employer]. We would like to cover regular topics [...] software and direct typing Please excuse inadvertent planishing hammer operator or typing errors, or uncorrected word substitutions Although every attempt has been made by the provider to proofread this document, occasional misspellings and typographical errors may still be present Due to the previous pandemic, and the use of personal protective equipment (PPE) This may decrease voice recognition accuracy Inadvertent planishing hammer operator errors may occur 11/29/2023 Other obesity due [...] minimum of 6 months The most recent [employer] Association of clinical endocrinologists and [employer] College of endocrinology guidelines recommend patients who [...] track activity level. Consider using apps like [employer], [employer], lose it, stick as needed for self-monitoring and weight management. Consider group exercises. Consider hiring a certified personal trainer. Regular exercise is sandra to sustainable health [...] counseling and psychiatry and Dr Dao at [employer]. We would like to cover regular topics [...] software and direct typing Please excuse inadvertent planishing hammer operator or typing errors, or uncorrected word substitutions Although every attempt has been made by the provider to proofread this document, occasional misspellings and typographical errors may still be present Due to the previous pandemic, and the use of personal protective equipment (PPE) This may decrease voice recognition accuracy Inadvertent planishing hammer operator errors may occur 09/27/2023 Other obesity due to excess calories (ICD-10 - E66.09) Jose Alfredo Cameron Total time spent today [...] minimum of 6 months The most recent [employer] of clinical endocrinologists and [employer] College of endocrinology guidelines recommend patients who [...] track activity level. Consider using apps like [employer], myfitnesspal, lose it, stick as needed for self-monitoring and weight management. Consider group exercises. Consider hiring a certified personal trainer. Regular exercise is sandra to sustainable health [...] counseling and psychiatry and Dr Dao at [employer]. We would like to cover regular topics [...] software and direct typing Please excuse inadvertent planishing hammer operator or typing errors, or uncorrected word substitutions Although every attempt has been made by the provider to proofread this document, occasional misspellings and typographical errors may still be present Due to the previous pandemic, and the use of personal protective equipment (PPE) This may decrease voice recognition accuracy Inadvertent planishing hammer operator errors may occur 12/27/2023 Other obesity due [...] minimum of 6 months The most recent [employer] of clinical endocrinologists and [employer] of endocrinology guidelines recommend patients who [...] software and direct typing Please excuse inadvertent planishing hammer operator or typing errors, or uncorrected word substitutions Although every attempt has been made by the provider to proofread this document, occasional misspellings and typographical errors may still be present Due to the previous pandemic, and the use of personal protective equipment (PPE) This may decrease voice recognition accuracy Inadvertent planishing hammer operator errors may occur 12/27/2023 BMI 37.0-37.9, adult [...] minimum of 6 months The most recent [employer] of clinical endocrinologists and [employer] College of endocrinology guidelines recommend patients who [...] software and direct typing Please excuse inadvertent planishing hammer operator or typing errors, or uncorrected word substitutions Although every attempt has been made by the provider to proofread this document, occasional misspellings and typographical errors may still be present Due to the previous pandemic, and the use of personal protective equipment (PPE) This may decrease voice recognition accuracy Inadvertent planishing hammer operator errors may occur 01/31/2024 Other obesity due [...] minimum of 6 months The most recent [employer] of clinical endocrinologists and [employer] of endocrinology guidelines recommend patients who [...] software and direct typing Please excuse inadvertent planishing hammer operator or typing errors, or uncorrected word substitutions Although every attempt has been made by the provider to proofread this document, occasional misspellings and typographical errors may still be present Due to the previous pandemic, and the use of personal protective equipment (PPE) This may decrease voice recognition accuracy Inadvertent planishing hammer operator errors may occur 03/06/2024 Other obesity due [...] minimum of 6 months The most recent [employer] of clinical endocrinologists and [employer] of endocrinology guidelines recommend patients who [...] software and direct typing Please excuse inadvertent planishing hammer operator or typing errors, or uncorrected word substitutions Although every attempt has been made by the provider to proofread this document, occasional misspellings and typographical errors may still be present Due to the previous pandemic, and the use of personal protective equipment (PPE) This may decrease voice recognition accuracy Inadvertent planishing hammer operator errors may occur 04/03/2024 Body mass index [...] software and direct typing Please excuse inadvertent planishing hammer operator or typing errors, or uncorrected word substitutions Although every attempt has been made by the provider to proofread this document, occasional misspellings and typographical errors may still be present Due to the previous pandemic, and the use of personal protective equipment (PPE) This may decrease voice recognition accuracy Inadvertent planishing hammer operator errors may occur 05/08/2024 Other obesity due to excess calories [...] software and direct typing Please excuse inadvertent planishing hammer operator or typing errors, or uncorrected word substitutions Although every attempt has been made by the provider to proofread this document, occasional misspellings and typographical errors may still be present Due to the previous pandemic, and the use of personal protective equipment (PPE) This may decrease voice recognition accuracy Inadvertent planishing hammer operator errors may occur 04/03/2024 Other obesity due [...] software and direct typing Please excuse inadvertent planishing hammer operator or typing errors, or uncorrected word substitutions Although every attempt has been made by the provider to proofread this document, occasional misspellings and typographical errors may still be present Due to the previous pandemic, and the use of personal protective equipment (PPE) This may decrease voice recognition accuracy Inadvertent planishing hammer operator errors may occur 05/10/2024 Other obesity due to excess calories (ICD-10 - E66.09) 04/03/2024 Dietary counseling and surveillance (ICD-10 - [...] software and direct typing Please excuse inadvertent planishing hammer operator or typing errors, or uncorrected word substitutions Although every attempt has been made by the provider to proofread this document, occasional misspellings and typographical errors may still be present Due to the previous pandemic, and the use of personal protective equipment (PPE) This may decrease voice recognition accuracy Inadvertent planishing hammer operator errors may occur 03/06/2024 BMI 37.0-37.9, adult [...] minimum of 6 months The most recent [employer] Association of clinical endocrinologists and [employer] College of endocrinology guidelines recommend patients who [...] software and direct typing Please excuse inadvertent planishing hammer operator or typing errors, or uncorrected word substitutions Although every attempt has been made by the provider to proofread this document, occasional misspellings and typographical errors may still be present Due to the previous pandemic, and the use of personal protective equipment (PPE) This may decrease voice recognition accuracy Inadvertent planishing hammer operator errors may occur 05/08/2024 Body mass index [...] software and direct typing Please excuse inadvertent planishing hammer operator or typing errors, or uncorrected word substitutions Although every attempt has been made by the provider to proofread this document, occasional misspellings and typographical errors may still be present Due to the previous pandemic, and the use of personal protective equipment (PPE) This may decrease voice recognition accuracy Inadvertent planishing hammer operator errors may occur 11/29/2023 BMI 38.0-38.9,adult (ICD-10 [...] minimum of 6 months The most recent [employer] of clinical endocrinologists and [employer] of endocrinology guidelines recommend patients who [...] track activity level. Consider using apps like [employer], myfitnesspal, lose it, stick as needed for self-monitoring and weight management. Consider group exercises. Consider hiring a certified personal trainer. Regular exercise is sandra to sustainable health [...] counseling and psychiatry and Dr Dao at [employer]. We would like to cover regular topics [...] software and direct typing Please excuse inadvertent planishing hammer operator or typing errors, or uncorrected word substitutions Although every attempt has been made by the provider to proofread this document, occasional misspellings and typographical errors may still be present Due to the previous pandemic, and the use of personal protective equipment (PPE) This may decrease voice recognition accuracy Inadvertent planishing hammer operator errors may occur 01/31/2024 BMI 37.0-37.9, adult [...] minimum of 6 months The most recent [employer] Association of clinical endocrinologists and [employer] College of endocrinology guidelines recommend patients who [...] software and direct typing Please excuse inadvertent planishing hammer operator or typing errors, or uncorrected word substitutions Although every attempt has been made by the provider to proofread this document, occasional misspellings and typographical errors may still be present Due to the previous pandemic, and the use of personal protective equipment (PPE) This may decrease voice recognition accuracy Inadvertent planishing hammer operator errors may occur 12/27/2023 Dietary counseling and [...] minimum of 6 months The most recent [employer] Association of clinical endocrinologists and [employer] College of endocrinology guidelines recommend patients who [...] software and direct typing Please excuse inadvertent planishing hammer operator or typing errors, or uncorrected word substitutions Although every attempt has been made by the provider to proofread this document, occasional misspellings and typographical errors may still be present Due to the previous pandemic, and the use of personal protective equipment (PPE) This may decrease voice recognition accuracy Inadvertent planishing hammer operator errors may occur 09/27/2023 Dietary counseling and [...] minimum of 6 months The most recent [employer] Association of clinical endocrinologists and [employer] College of endocrinology guidelines recommend patients who [...] track activity level. Consider using apps like [employer], [employer], lose it, stick as needed for self-monitoring and weight management. Consider group exercises. Consider hiring a certified personal trainer. Regular exercise is sandra to sustainable health [...] counseling and psychiatry and Dr Dao at [employer]. We would like to cover regular topics [...] software and direct typing Please excuse inadvertent planishing hammer operator or typing errors, or uncorrected word substitutions Although every attempt has been made by the provider to proofread this document, occasional misspellings and typographical errors may still be present Due to the previous pandemic, and the use of personal protective equipment (PPE) This may decrease voice recognition accuracy Inadvertent planishing hammer operator errors may occur 11/01/2023 Dietary counseling and [...] minimum of 6 months The most recent [employer] Association of clinical endocrinologists and [employer] College of endocrinology guidelines recommend patients who [...] track activity level. Consider using apps like [employer], myfitnesspal, lose it, stick as needed for self-monitoring and weight management. Consider group exercises. Consider hiring a certified personal trainer. Regular exercise is sandra to sustainable health [...] counseling and psychiatry and Dr Dao at [employer]. We would like to cover regular topics [...] software and direct typing Please excuse inadvertent planishing hammer operator or typing errors, or uncorrected word substitutions Although every attempt has been made by the provider to proofread this document, occasional misspellings and typographical errors may still be present Due to the previous pandemic, and the use of personal protective equipment (PPE) This may decrease voice recognition accuracy Inadvertent planishing hammer operator errors may occur 11/01/2023 Prediabetes (ICD-10 - [...] minimum of 6 months The most recent [employer] Association of clinical endocrinologists and [employer] College of endocrinology guidelines recommend patients who [...] track activity level. Consider using apps like [employer], myfitnesspal, lose it, stick as needed for self-monitoring and weight management. Consider group exercises. Consider hiring a certified personal trainer. Regular exercise is sandra to sustainable health [...] counseling and psychiatry and Dr Dao at [employer]. We would like to cover regular topics [...] software and direct typing Please excuse inadvertent planishing hammer operator or typing errors, or uncorrected word substitutions Although every attempt has been made by the provider to proofread this document, occasional misspellings and typographical errors may still be present Due to the previous pandemic, and the use of personal protective equipment (PPE) This may decrease voice recognition accuracy Inadvertent planishing hammer operator errors may occur 11/29/2023 Dietary counseling and [...] minimum of 6 months The most recent [employer] Association of clinical endocrinologists and [employer] College of endocrinology guidelines recommend patients who [...] track activity level. Consider using apps like [employer], myfitnesspal, lose it, stick as needed for self-monitoring and weight management. Consider group exercises. Consider hiring a certified personal trainer. Regular exercise is sandra to sustainable health [...] counseling and psychiatry and Dr Dao at [employer]. We would like to cover regular topics [...] software and direct typing Please excuse inadvertent planishing hammer operator or typing errors, or uncorrected word substitutions Although every attempt has been made by the provider to proofread this document, occasional misspellings and typographical errors may still be present Due to the previous pandemic, and the use of personal protective equipment (PPE) This may decrease voice recognition accuracy Inadvertent planishing hammer operator errors may occur 09/27/2023 Prediabetes (ICD-10 - [...] minimum of 6 months The most recent [employer] Association of clinical endocrinologists and [employer] College of endocrinology guidelines recommend patients who [...] track activity level. Consider using apps like [employer], [employer], lose it, stick as needed for self-monitoring and weight management. Consider group exercises. Consider hiring a certified personal trainer. Regular exercise is sandra to sustainable health [...] counseling and psychiatry and Dr Dao at [employer]. We would like to cover regular topics [...] software and direct typing Please excuse inadvertent planishing hammer operator or typing errors, or uncorrected word substitutions Although every attempt has been made by the provider to proofread this document, occasional misspellings and typographical errors may still be present Due to the previous pandemic, and the use of personal protective equipment (PPE) This may decrease voice recognition accuracy Inadvertent planishing hammer operator errors may occur 12/27/2023 Prediabetes (ICD-10 - [...] minimum of 6 months The most recent [employer] of clinical endocrinologists and [employer] College of endocrinology guidelines recommend patients who [...] software and direct typing Please excuse inadvertent planishing hammer operator or typing errors, or uncorrected word substitutions Although every attempt has been made by the provider to proofread this document, occasional misspellings and typographical errors may still be present Due to the previous pandemic, and the use of personal protective equipment (PPE) This may decrease voice recognition accuracy Inadvertent planishing hammer operator errors may occur 01/31/2024 Dietary counseling and [...] minimum of 6 months The most recent [employer] of clinical endocrinologists and [employer] College of endocrinology guidelines recommend patients who [...] software and direct typing Please excuse inadvertent planishing hammer operator or typing errors, or uncorrected word substitutions Although every attempt has been made by the provider to proofread this document, occasional misspellings and typographical errors may still be present Due to the previous pandemic, and the use of personal protective equipment (PPE) This may decrease voice recognition accuracy Inadvertent planishing hammer operator errors may occur 03/06/2024 Dietary counseling and [...] minimum of 6 months The most recent [employer] of clinical endocrinologists and [employer] of endocrinology guidelines recommend patients who [...] software and direct typing Please excuse inadvertent planishing hammer operator or typing errors, or uncorrected word substitutions Although every attempt has been made by the provider to proofread this document, occasional misspellings and typographical errors may still be present Due to the previous pandemic, and the use of personal protective equipment (PPE) This may decrease voice recognition accuracy Inadvertent planishing hammer operator errors may occur 05/08/2024 Dietary counseling and [...] software and direct typing Please excuse inadvertent planishing hammer operator or typing errors, or uncorrected word substitutions Although every attempt has been made by the provider to proofread this document, occasional misspellings and typographical errors may still be present Due to the previous pandemic, and the use of personal protective equipment (PPE) This may decrease voice recognition accuracy Inadvertent planishing hammer operator errors may occur 04/03/2024 Prediabetes (ICD-10 - [...] software and direct typing Please excuse inadvertent planishing hammer operator or typing errors, or uncorrected word substitutions Although every attempt has been made by the provider to proofread this document, occasional misspellings and typographical errors may still be present Due to the previous pandemic, and the use of personal protective equipment (PPE) This may decrease voice recognition accuracy Inadvertent planishing hammer operator errors may occur 05/08/2024 Prediabetes (ICD-10 - [...] software and direct typing Please excuse inadvertent planishing hammer operator or typing errors, or uncorrected word substitutions Although every attempt has been made by the provider to proofread this document, occasional misspellings and typographical errors may still be present Due to the previous pandemic, and the use of personal protective equipment (PPE) This may decrease voice recognition accuracy Inadvertent planishing hammer operator errors may occur 03/06/2024 Prediabetes (ICD-10 - [...] minimum of 6 months The most recent [employer] of clinical endocrinologists and [employer] of endocrinology guidelines recommend patients who [...] software and direct typing Please excuse inadvertent planishing hammer operator or typing errors, or uncorrected word substitutions Although every attempt has been made by the provider to proofread this document, occasional misspellings and typographical errors may still be present Due to the previous pandemic, and the use of personal protective equipment (PPE) This may decrease voice recognition accuracy Inadvertent planishing hammer operator errors may occur 01/31/2024 Prediabetes (ICD-10 - [...] minimum of 6 months The most recent [employer] of clinical endocrinologists and [employer] of endocrinology guidelines recommend patients who [...] software and direct typing Please excuse inadvertent planishing hammer operator or typing errors, or uncorrected word substitutions Although every attempt has been made by the provider to proofread this document, occasional misspellings and typographical errors may still be present Due to the previous pandemic, and the use of personal protective equipment (PPE) This may decrease voice recognition accuracy Inadvertent planishing hammer operator errors may occur 11/29/2023 Prediabetes (ICD-10 - [...] minimum of 6 months The most recent [employer] Association of clinical endocrinologists and [employer] College of endocrinology guidelines recommend patients who [...] track activity level. Consider using apps like [employer], Cardicapal, lose it, stick as needed for self-monitoring and weight management. Consider group exercises. Consider hiring a certified personal trainer. Regular exercise is sandra to sustainable health [...] counseling and psychiatry and Dr Dao at [employer]. We would like to cover regular topics [...] software and direct typing Please excuse inadvertent planishing hammer operator or typing errors, or uncorrected word substitutions Although every attempt has been made by the provider to proofread this document, occasional misspellings and typographical errors may still be present Due to the previous pandemic, and the use of personal protective equipment (PPE) This may decrease voice recognition accuracy Inadvertent planishing hammer operator errors may occur PLAN OF TREATMENT Next Appt Details Provider Name:BORIS HASSAN, 05/22/2024 10:30:00 AM, [address] , [place], [address], Insurance Providers Payer Name Payer Address Payer Phone Subscriber Number Group Number Insured Name Patient Relationship to Insured Coverage Start Date Coverage End Date [facility] [address] [facility] [place] [id number] Juliet Gan Self - patient is the insured 2
--- OUTSIDE RECORDS SUMMARY | 2024-05-21 16:30 | XMS_ITS ---
Author Organization [facility] Address [address] [place] [address] Care Team Providers Care Plate Mounter Name Role Phone ZIGGYEdwigeBORIS Unavailable [phone] REASON FOR VISIT Wegovy 1.7 Encounters Encounter Location Date Provider Diagnosis [address] [place] [id number] 04/12/2024 BORIS AHSSAN PLAN OF TREATMENT Next Appt Details Provider Name:BORIS HASSAN, 05/22/2024 10:30:00 AM, [address], [place], [address], Progress Notes * Bright GRANADOSB: 969 (53 yo F)Acc No.[id number]:04/12/2024 Patient:??Juliet GRANADOS :1970?Age:53 Y?Sex:Fe male Address:[address] [place] [id number] * true * Date:??
--- OUTSIDE RECORDS SUMMARY | 2024-05-21 16:30 | XMS_ITS | Clinical Summary ---
Author Organization [facility] [facility] Address [address] [place] [address] Care Team Providers Care Speech Therapist Name Role Kettle TenderJustin Genao MD Primary Care Provider [phone] Surgical History Surgery Date Site/Laterality Comments OTHER [...] age to complete this topic Care Teams Speech Therapist Relationship Specialty Start Date End Date Justin Genao MD PCP - General Internal Medicine 06/12/11
== END 2024-05-21 15:34 | disposition home or self-care (01) ==
LOC: HO.HMCC 15:11
PROVIDERS: PCP Internal Medicine; Visit Provider Internal Medicine
DX: G43.809 Other migraine, not intractable, without status migrainosus (principal); I10 Essential (primary) hypertension; D50.8 Other iron deficiency anemias; E66.09 Other obesity due to excess calories; Z68.39 Body mass index [BMI] 39.0-39.9, adult; Z91.09 Other allergy status, other than to drugs and biological substances

== ENCOUNTER → 2024-05-21 15:11 | Outpatient (BNVA) | payer OTHER, SELFPAY | PROVIDERS: PCP Internal Medicine; Visit Provider Internal Medicine ==

== ENCOUNTER 2024-08-17 13:46 | Outpatient (AMB) | payer OTHER, SELFPAY ==
--- NOTE | 2024-08-17 13:52 | MHC.PC.OV ---
Vital Signs 08/17/24 13:53 Height 5 ft 5 in Weight 207 lb 2 oz BMI 34.5 BP 152/90 H Blood Pressure Location Rt brachial Position Sitting Pulse 94 Pulse Source Pulse Oximeter Temp 96.9 F Temp Source Temporal Artery Scan Pulse Oximetry (%) 95 Oxygen Delivery Method Room Air Intake Visit Reasons: PE Intake Coordinator Required: No Is last menstrual period known: Yes Post menopausal: No Patient : No Allergies terbutaline (TERBUTALINE) Allergy (Severe, Verified 05/21/24 15:14) ANAPHYLAXIS peanut Allergy (Unknown, Verified 05/21/24 15:14) Hives, itching shrimp Allergy (Unknown, Verified 05/21/24 15:14) Unknown Environmental Allergy (Unknown, Uncoded 04/27/24 16:19) unknown Medication List - Last Reconciled 08/17/24 by Wagner Bardales MD ascorbic acid (vitamin C) 500 mg PO DAILY carvedilol 25 mg PO BID cholecalciferol (vitamin D3) 25 mcg PO DAILY ferrous sulfate 325 mg PO BID furosemide 20 mg (1/2 x 40 mg) PO DAILY PRN loratadine (Claritin RediTabs) 10 mg PO DAILY PRN multivitamin 1 tab PO DAILY pyridoxine (vitamin B6) 100 mg PO DAILY semaglutide (weight loss) (Wegovy) 0.25 mg (0.5 mL) subcut QWEEK 30 days Ventolin HFA 90 mcg/actuation (albuterol sulfate) 2 puffs inhalation Q6H PRN NS Tobacco use date assessed: 08/17/24 Dental Screening Dental Screen Date: 08/17/24 Did you have a dental visit in the last 12 months?: Yes Did you have a dental problem in the last 6 months where you did not have access to dental care?: No Was dental information given to patient?: Patient has dentist HPI PE HPI Details Physical exam - The patient is a 53-year-old female presenting with a routine physical examination. - Hypertension: The patient has a history of high blood pressure, with a recent measurement of 152/90 mmHg. - The patient reports taking carvedilol on an as-needed basis for palpitations, but has been advised to take it regularly due to high blood pressure. - Obesity: The patient has been on semaglutide for weight management and has lost weight from 235 lbs in April to 207 lbs currently. - Vitamin D deficiency: The patient's vitamin D levels have improved but remain low. - Allergic rhinitis: The patient is taking loratadine for allergy management. - Edema: The patient experiences occasional swelling in the feet, managed with furosemide, which has been reduced to 20 mg. - Preventative care: The patient underwent a colon cancer screening with Cologuard in September 2022, which was negative. Health Maintenance - Colon cancer screening with Cologuard completed in September 2022, negative result. - Mammogram scheduled for tomorrow, last completed in August of the previous year. - STATE DIRECTOR visit last completed in December 2021. - Vitamin D supplementation advised due to deficiency. Medications - Carvedilol for hypertension and palpitations, taken irregularly. - Semaglutide 2.4 mg for weight management. - Loratadine for allergic rhinitis. - Furosemide 20 mg for edema management. - Vitamin D supplement for deficiency. Diagnostic results - Labs: CBC normal, metabolic profile normal, kidney function normal, electrolytes normal, A1c 5.3%, liver enzymes normal, LDL 98, vitamin D low. - Tests: Colon cancer screening with Cologuard negative in September 2022. Patient Instructions - Take carvedilol twice daily, 12 hours apart, to manage blood pressure. - Monitor blood pressure regularly and record readings to discuss at the next visit. - Continue weight management efforts to help control blood pressure. - Reduce salt intake to help manage blood pressure. Review of Systems - General: No fever no chills - Neurological: No headaches no dizziness - Ear nose throat: No sore throat no hearing difficulty no ear pain - Cardiovascular: No syncope, no chest pain, no palpitations - Gastrointestinal: No nausea vomiting or diarrhea - Endocrine: No polyuria polydipsia no heat intolerance - Genitourinary: No dysuria - Skin: No new complaints Physical Exam General: Cooperative, healthy appearing, comfortable, no acute distress Orientation: Patient oriented x3 Head: Normal to inspection Ears: Within normal limit visually Nose: Normal external nose present Face and sinus: Normal facial exam Eyes: Appearance normal, extraocular movement intact pupils reactive Neck: Normal visual inspection and supple Respiratory: Normal respiratory effort and able to speak in complete sentences. Clear to auscultation, no stridor Cardiovascular: S1 and S2 RRR, Breast exam benign GI: Normal to inspection. Soft to palpation and nontender Skin: Turgor normal, no acute findings, no rashes, no moles Neuro: Patient oriented x3, motor sensory intact, balance intact, tandem pass Extremities: Normal to inspection, range of motion intact PFSH Medical History Pulmonary nodules SUREKHA (obstructive sleep apnea) Dyspnea History of COVID-19 Environmental allergies Obesity due to excess calories Recurrent kidney stones Renal cyst Palpitation Anemia Surgical History History of lithotripsy History of back surgery Hx of microdiscectomy History of tubal ligation Family History Father No problems noted. Mother HTN (hypertension) HLD (hyperlipidemia) Social History Housing: House Alcohol intake: never Patient Tobacco Use Status: Former Tobacco user Tobacco use type: Cigarette Years Smoked: 7 years e-Cigarette/Vaping Use: Never Used Current occupational status: employed Cognitive needs: No Hearing needs: No Vision needs: Yes Female Reproductive History Menstrual Age of Menarche: 8 Questionnaire Thrive Questionnaire Date Thrive assessed: 05/21/24 I am a: Patient What is your living situation today?: I have a steady place to live Within the past 12 months, did the food you bought not last and you didn't have the money to get more?: Never true Within the past 12 months, did you worry whether your food would run out before you got money to buy more?: Never true Do you have trouble paying for medicines?: No Do you have trouble getting transportation to medical appointments?: No Do you have trouble paying your heating and electricity bill?: No Do you have trouble taking care of your child, family member or friend?: No Do you have trouble with day-to-day activities such as bathing, preparing meals, shopping, managing finances, etc.?: No Are you currently unemployed and looking for a job?: No Are you interested in more education?: No Please select the resources that you would like help with: None Currently or been in a relationship where the following occur: No concerns reported THRIVE Score: 0 CITLALY-7 AMB Questionnaire CITLALY-7 Date CITLALY - 7 assessed: 05/04/24 Source: Developed by Drs. Hunter Dow, Ale Hernandez, Tayo Ervin and colleagues, with an educational senthil from [employer]. Physical exam (Primary Care) Vital Signs: Last Vital Signs Temp 96.9 F 08/17/24 13:53 Pulse 94 08/17/24 13:53 BP 152/90 H 08/17/24 13:53 Pulse Ox 95 08/17/24 13:53 Oxygen Delivery Method Room Air 08/17/24 13:53 BMI result Body Mass Index 34.5 Tobacco/Smoking Status: Tobacco use Status Tobacco use date assessed 08/17/24 08/17/24 14:00 Patient Tobacco Use Status Former Tobacco user 08/17/24 14:00 Tobacco use type Cigarette 08/17/24 14:00 e-Cigarette/Vaping Use Never Used 08/17/24 14:00 Thrive Assessment: Date of Thrive Assessment Date Thrive assessed 05/21/24 08/17/24 14:00 Currently or been in a relationship where the following occur: No concerns reported Coding Assessment & Plan Assessment & Plan Plan Physical exam - The patient is a 53-year-old female presenting with a routine physical examination. - Hypertension: The patient has a history of high blood pressure, with a recent measurement of 152/90 mmHg. - The patient reports taking carvedilol on an as-needed basis for palpitations, but has been advised to take it regularly due to high blood pressure. - Obesity: The patient has been on semaglutide for weight management and has lost weight from 235 lbs in April to 207 lbs currently. - Vitamin D deficiency: The patient's vitamin D levels have improved but remain low. - Allergic rhinitis: The patient is taking loratadine for allergy management. - Edema: The patient experiences occasional swelling in the feet, managed with furosemide, which has been reduced to 20 mg. - Preventative care: The patient underwent a colon cancer screening with Cologuard in September 2022, which was negative. Health Maintenance - Colon cancer screening with Cologuard completed in September 2022, negative result. - Mammogram scheduled for tomorrow, last completed in August of the previous year. - STATE DIRECTOR visit last completed in December 2021. - Vitamin D supplementation advised due to deficiency. Medications - Carvedilol for hypertension and palpitations, taken irregularly. - Semaglutide 2.4 mg for weight management. - Loratadine for allergic rhinitis. - Furosemide 20 mg for edema management. - Vitamin D supplement for deficiency. Diagnostic results - Labs: CBC normal, metabolic profile normal, kidney function normal, electrolytes normal, A1c 5.3%, liver enzymes normal, LDL 98, vitamin D low. - Tests: Colon cancer screening with Cologuard negative in September 2022. Patient Instructions - Take carvedilol twice daily, 12 hours apart, to manage blood pressure. - Monitor blood pressure regularly and record readings to discuss at the next visit. - Continue weight management efforts to help control blood pressure. - Reduce salt intake to help manage blood pressure. Medications: New furosemide (Lasix) 20 mg PO DAILY 30 tabs 0RF Changed From carvedilol 25 mg PO BID To carvedilol 25 mg PO BID 180 tabs 0RF 90 days Discontinued furosemide Discontinued Reason: Doctor's Order 20 mg (1/2 x 40 mg) PO DAILY PRN 30 tabs 0RF Edema
--- NOTE | 2024-08-17 13:52 | MHC.PC.OV ---
Vital Signs 08/17/24 13:53 Height 5 ft 5 in Weight 207 lb 2 oz BMI 34.5 BP 152/90 H Blood Pressure Location Rt brachial Position Sitting Pulse 94 Pulse Source Pulse Oximeter Temp 96.9 F Temp Source Temporal Artery Scan Pulse Oximetry (%) 95 Oxygen Delivery Method Room Air Intake Visit Reasons: PE Allergies terbutaline (TERBUTALINE) Allergy (Severe, Verified 05/21/24 15:14) ANAPHYLAXIS peanut Allergy (Unknown, Verified 05/21/24 15:14) Hives, itching shrimp Allergy (Unknown, Verified 05/21/24 15:14) Unknown Environmental Allergy (Unknown, Uncoded 04/27/24 16:19) unknown Medication List - Last Reconciled 08/17/24 by Wagner Bardales MD ascorbic acid (vitamin C) 500 mg PO DAILY carvedilol 25 mg PO BID cholecalciferol (vitamin D3) 25 mcg PO DAILY ferrous sulfate 325 mg PO BID furosemide 20 mg (1/2 x 40 mg) PO DAILY PRN loratadine (Claritin RediTabs) 10 mg PO DAILY PRN multivitamin 1 tab PO DAILY pyridoxine (vitamin B6) 100 mg PO DAILY semaglutide (weight loss) (Wegovy) 0.25 mg (0.5 mL) subcut QWEEK 30 days Ventolin HFA 90 mcg/actuation (albuterol sulfate) 2 puffs inhalation Q6H PRN NS Tobacco use date assessed: 05/21/24 Dental Screening Dental Screen Date: 05/21/24 HPI PE HPI Details History of Present Illness - The patient is a 53-year-old female presenting with a routine physical examination. - Hypertension: The patient has a history of high blood pressure, with a recent measurement of 152/90 mmHg. - The patient reports taking carvedilol on an as-needed basis for palpitations, but has been advised to take it regularly due to high blood pressure. - Obesity: The patient has been on semaglutide for weight management and has lost weight from 235 lbs in April to 207 lbs currently. - Vitamin D deficiency: The patient's vitamin D levels have improved but remain low. - Allergic rhinitis: The patient is taking loratadine for allergy management. - Edema: The patient experiences occasional swelling in the feet, managed with furosemide, which has been reduced to 20 mg. - Preventative care: The patient underwent a colon cancer screening with Cologuard in September 2022, which was negative. Health Maintenance - Colon cancer screening with Cologuard completed in September 2022, negative result. - Mammogram scheduled for tomorrow, last completed in August of the previous year. 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 - Vitamin D supplementation advised due to deficiency. Medications - Carvedilol for hypertension and palpitations, taken irregularly. - Semaglutide 2.4 mg for weight management. - Loratadine for allergic rhinitis. - Furosemide 20 mg for edema management. - Vitamin D supplement for deficiency. Diagnostic results - Labs: CBC normal, metabolic profile normal, kidney function normal, electrolytes normal, A1c 5.3%, liver enzymes normal, LDL 98, vitamin D low. - Tests: Colon cancer screening with Cologuard negative in September 2022. Patient Instructions - Take carvedilol twice daily, 12 hours apart, to manage blood pressure. - Monitor blood pressure regularly and record readings to discuss at the next visit. - Continue weight management efforts to help control blood pressure. - Reduce salt intake to help manage blood pressure. Review of Systems - General: No fever no chills - Neurological: No headaches no dizziness - Ear nose throat: No sore throat no hearing difficulty no ear pain - Cardiovascular: No syncope, no chest pain, no palpitations - Gastrointestinal: No nausea vomiting or diarrhea - Endocrine: No polyuria polydipsia no heat intolerance - Genitourinary: No dysuria - Skin: No new complaints Physical Exam General: Cooperative, healthy appearing, comfortable, no acute distress Orientation: Patient oriented x3 Head: Normal to inspection Ears: Within normal limit visually Nose: Normal external nose present Face and sinus: Normal facial exam Eyes: Appearance normal, extraocular movement intact pupils reactive Neck: Normal visual inspection and supple Respiratory: Normal respiratory effort and able to speak in complete sentences. Clear to auscultation, no stridor Cardiovascular: S1 and S2 RRR, Breast exam benign GI: Normal to inspection. Soft to palpation and nontender Skin: Turgor normal, no acute findings, no rashes, no moles Neuro: Patient oriented x3, motor sensory intact, balance intact, tandem pass Extremities: Normal to inspection, knees sometimes hurt but pain is manageable [facility] Medical History (Updated 08/17/24 @ 14:28 by Wagner Bardales MD) Pulmonary nodules SUREKHA (obstructive sleep apnea) Dyspnea History of COVID-19 Environmental allergies Obesity due to excess calories Recurrent kidney stones Renal cyst Palpitation Anemia Surgical History History of lithotripsy History of back surgery Hx of microdiscectomy History of tubal ligation Family History Father No problems noted. Mother HTN (hypertension) HLD (hyperlipidemia) Social History Housing: House Alcohol intake: never Patient Tobacco Use Status: Former Tobacco user Tobacco use type: Cigarette Years Smoked: 7 years e-Cigarette/Vaping Use: Never Used Current occupational status: employed Cognitive needs: No Hearing needs: No Vision needs: Yes Female Reproductive History Menstrual Age of Menarche: 8 Questionnaire Thrive Questionnaire Date Thrive assessed: 05/21/24 I am a: Patient What is your living situation today?: I have a steady place to live Within the past 12 months, did the food you bought not last and you didn't have the money to get more?: Never true Within the past 12 months, did you worry whether your food would run out before you got money to buy more?: Never true Do you have trouble paying for medicines?: No Do you have trouble getting transportation to medical appointments?: No Do you have trouble paying your heating and electricity bill?: No Do you have trouble taking care of your child, family member or friend?: No Do you have trouble with day-to-day activities such as bathing, preparing meals, shopping, managing finances, etc.?: No Are you currently unemployed and looking for a job?: No Are you interested in more education?: No Please select the resources that you would like help with: None Currently or been in a relationship where the following occur: No concerns reported THRIVE Score: 0 CITLALY-7 AMB Questionnaire CITLALY-7 Date CITLALY - 7 assessed: 05/04/24 Source: Developed by Drs. Hunter Dow, Ale Hernandez, Tayo Ervin and colleagues, with an educational senthil from [employer]. Physical exam (Primary Care) Vital Signs: Last Vital Signs Temp 96.9 F 08/17/24 13:53 Pulse 94 08/17/24 13:53 BP 152/90 H 08/17/24 13:53 Pulse Ox 95 08/17/24 13:53 Oxygen Delivery Method Room Air 08/17/24 13:53 BMI result Body Mass Index 34.5 Tobacco/Smoking Status: Tobacco use Status Tobacco use date assessed 08/17/24 08/17/24 14:00 Patient Tobacco Use Status Former Tobacco user 08/17/24 14:00 Tobacco use type Cigarette 08/17/24 14:00 e-Cigarette/Vaping Use Never Used 08/17/24 14:00 Thrive Assessment: Date of Thrive Assessment Date Thrive assessed 05/21/24 08/17/24 14:00 Currently or been in a relationship where the following occur: No concerns reported Coding Level of Care Code Est Pt Level 3 (01303) Est Pt Prev Care 40-64y(90129) Diagnoses Encounter for general adult medical examination with abnormal findings Z00.01 Hypertension, essential I10 Class 2 obesity due to excess calories without serious comorbidity with body mass index (BMI) of 39.0 to 39.9 in adult E66.09; Z68.39 Obesity classification: adult class 2 (BMI 35 - 39.9) Serious obesity comorbidity presence: without serious comorbidity Body mass index: BMI 39.0-39.9 Environmental allergies Z91.09 Palpitation R00.2 Assessment & Plan Assessment & Plan (1) Encounter for general adult medical examination with abnormal findings: Code(s): Z00.01 - Encounter for general adult medical examination with abnormal findings Category: Medical (2) Hypertension, essential: Code(s): I10 - Essential (primary) hypertension Category: Medical (3) Obesity due to excess calories: Code(s): E66.09 - Other obesity due to excess calories Category: Medical Qualifiers: Obesity classification: adult class 2 (BMI 35 - 39.9) Serious obesity comorbidity presence: without serious comorbidity Body mass index: BMI 39.0-39.9 Qualified Code(s): E66.09 - Other obesity due to excess calories; Z68.39 - Body mass index [BMI] 39.0-39.9, adult (4) Environmental allergies: Code(s): Z91.09 - Other allergy status, other than to drugs and biological substances Category: Medical (5) Palpitation: Code(s): R00.2 - Palpitations Category: Medical Plan History of Present Illness - The patient is a 53-year-old female presenting with a routine physical examination. - Hypertension: The patient has a history of high blood pressure, with a recent measurement of 152/90 mmHg. - The patient reports taking carvedilol on an as-needed basis for palpitations, but has been advised to take it regularly due to high blood pressure. - Obesity: The patient has been on semaglutide for weight management and has lost weight from 235 lbs in April to 207 lbs currently. - Vitamin D deficiency: The patient's vitamin D levels have improved but remain low. - Allergic rhinitis: The patient is taking loratadine for allergy management. - Edema: The patient experiences occasional swelling in the feet, managed with furosemide, which has been reduced to 20 mg. - Preventative care: The patient underwent a colon cancer screening with Cologuard in September 2022, which was negative. Health Maintenance - Colon cancer screening with Cologuard completed in September 2022, negative result. - Mammogram scheduled for tomorrow, last completed in August of the previous year. 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 - Vitamin D supplementation advised due to deficiency. Medications - Carvedilol for hypertension and palpitations, taken irregularly. - Semaglutide 2.4 mg for weight management. - Loratadine for allergic rhinitis. - Furosemide 20 mg for edema management. - Vitamin D supplement for deficiency. Diagnostic results - Labs: CBC normal, metabolic profile normal, kidney function normal, electrolytes normal, A1c 5.3%, liver enzymes normal, LDL 98, vitamin D low. - Tests: Colon cancer screening with Cologuard negative in September 2022. Patient Instructions - Take carvedilol twice daily, 12 hours apart, to manage blood pressure. - Monitor blood pressure regularly and record readings to discuss at the next visit. - Continue weight management efforts to help control blood pressure. - Reduce salt intake to help manage blood pressure. Medications: New furosemide (Lasix) 20 mg PO DAILY 30 tabs 0RF Changed From carvedilol 25 mg PO BID To carvedilol 25 mg PO BID 180 tabs 0RF 90 days Discontinued furosemide Discontinued Reason: Doctor's Order 20 mg (1/2 x 40 mg) PO DAILY PRN 30 tabs 0RF Edema
[2024-08-17 13:53] VITALS: BP 152/90; PULSE 94; TEMP 36.1; O2SAT 95; BMI 34.5
--- OUTSIDE RECORDS SUMMARY | 2024-08-17 14:57 | XMS_ITS | Clinical Summary ---
Author Organization [facility] Address [address] [place] [address] Care Team Providers Care Community Liaison Officer Name Role Plan ExaminerJustin Genao MD Primary Care Provider [phone] Surgical History Surgery Date Site/Laterality Comments OTHER [...] 2023-2 5 season) 2023 Influenza Vaccine (#1) 2024 HIB Vaccines Aged Out No longer eligi [...] age to complete this topic Meningococcal B Vaccine Aged Out No l onger eligible based on patient's age to complete [...] age to complete this topic Care Teams Community Liaison Officer Relationship Specialty Start Date End Date Justin Genao MD PCP - General Internal Medicine 06/12/11
--- OUTSIDE RECORDS SUMMARY | 2024-08-17 14:57 | XMS_ITS | Patient Health Record ---
Author Organization [facility] [address] Address [address] [place] [address] Care Team Providers [facility] Well Treatment Offsider Name Role Phone BORIS HASSAN Unavailable [phone] JOSE HERNANDEZ Unavailable [phone] Allergies No Known Allergies Reason For Referral No Information Medications Medication SIG (Take, Route, Fr equency, Duration) Notes Start Date End Date Status Ondansetron 4 MG 1 tablet on the tong ue and allow to dissolve prn nausea/vomiting Orally twice day; Duration: 30 days Active Wegovy 2.4 MG/0.75ML ADMINISTER 2.4 MG U NDER THE SKIN WEEKLY Subcutaneous once a week; Duration: 28 days Active Problems Problem Type SNOMED Code ICD Code Onset Dates Problem Status W/U Status Risk Notes Problem Obesity due to excess calories (184574072) Other obesity due to excess calories (E66.09) Active confirmed Problem Obese class II (2643748577615 05) Body mass index [BMI] 35.0-35.9, adult (Z68.35) Active confirmed Problem Body mass index 35.00 to 39.99 (9522434701292 05) Body mass index [BMI] 39.0-39.9, adult (Z68.39) Active confirmed Problem Obese class II (0640279806015 05) BMI 37.0-37.9, adult (Z68.37) Active confirmed Problem Obese class II (7470957153171 05) BMI 38.0-38.9,adul t (Z68.38) Active confirmed Vital Signs Heart Rate 100 /min 07/03/2024 Oximetry 98 % 07/03/2024 Blood pressure diastolic 82 mm Hg 07/03/2024 Height 65 in 07/03/2024 Blood pressure systolic 130 mm Hg 07/03/2024 Weight 208.6 lbs 07/03/2024 BMI 34.71 kg/m2 07/03/2024 Encounters Encounter Location Date Provider Diagnosis [facility] [address] [place], [place] 09/27/2023 BORIS BORHOT Other obesity due to excess calories E66.09 ; Body mass index [BMI] 39.0-39.9, adult Z68.39 ; Dietary counseling and surveillance Z71.3 and Prediabetes R73.[address] [facility] [address] [place], [place] 11/01/2023 BORIS BORHOT Other obesity due to excess calories E66.09 ; BMI 38.0-38.9,adult Z68.38 ; Dietary counseling and surveillance Z71.3 and Prediabetes R73.[address] [facility] [address] [place], [place] 11/29/2023 BORIS BORHOT Other obesity due to excess calories E66.09 ; BMI 38.0-38.9,adult Z68.38 ; Dietary counseling and surveillance Z71.3 and Prediabetes R73.[address] [facility] [address] [place], [place] 12/27/2023 BORIS BORHOT Other obesity due to excess calories E66.09 ; BMI 37.0-37.9, adult Z68.37 ; Dietary counseling and surveillance Z71.3 and Prediabetes R73.03 [facility] [address] [place] [phone] 01/31/2024 BORIS BORHOT Other obesity due to excess calories E66.09 ; BMI 37.0-37.9, adult Z68.37 ; Dietary counseling and surveillance Z71.3 and Prediabetes R73.[address] [facility] [address] [place], [place] 04/03/2024 BORIS BORHOT Other obesity due to excess calories E66.09 ; Body mass index [BMI] 35.0-35.9, adult Z68.35 ; Dietary counseling and surveillance Z71.3 and Prediabetes R73.[address] [facility] [address] [place], [place] 05/22/2024 BORIS BORHOT Other obesity due to excess calories E66.09 ; Body mass index [BMI] 35.0-35.9, adult Z68.35 ; Dietary counseling and surveillance Z71.3 and Prediabetes R73.[address] [facility] [address] [place] [address] 07/03/2024 BORIS BORHOT Other obesity due to excess calories E66.09 ; Body mass index [BMI] 35.0-35.9, adult Z68.35 ; Dietary counseling and surveillance Z71.3 and Prediabetes R73.03 [facility] [address] [place] [address] 09/17/2023 JOSE HERNANDEZ [facility] [address] [place] [address] 05/10/2024 BORIS BORHOT Other obesity due to excess calories E66.09 [facility] [address] [place] [address] 10/25/2023 BORIS BORHOT [facility] [address] [place] [phone] 11/05/2023 BORIS BORHOT [facility] [address] [place] [phone] 11/05/2023 BORIS BORHOT [facility] [address] [place] [address] 11/11/2023 BORIS BORHOT [facility] [address] [place] [address] 11/12/2023 BORIS BORHOT [facility] [address] [place] [address] 01/31/2024 BORIS BORHOT [facility] [address] [place] [address] 03/05/2024 BORIS BORHOT [facility] [address] [place] [phone] 04/12/2024 BORIS BORHOT [facility] [address] [place] [phone] 08/03/2024 BORIS BORHOT Other obesity due to excess calories E66.09 Assessments Encounter Date Diagnosis (ICD Code) Assessment Notes Treatment Notes Treatment Clinical Notes [...] minimum of 6 months The most recent [place] [employer]ocrinologists and [place] [employer] guidelines recommend patients who [...] track activity level. Consider using apps like [employer], [employer], lose it, stick as needed for self-monitoring [...] counseling and psychiatry and Dr Dao at [facility]. We would like to cover regular topics [...] software and direct typing Please excuse inadvertent eligibility examiner or typing errors, or uncorrected word substitutions Although every attempt has been made by the provider to proofread this document, occasional misspellings and typographical errors may still be present Due to the previous pandemic, and the use of personal protective equipment (PPE) This may decrease voice recognition accuracy Inadvertent eligibility examiner errors may occur 11/01/2023 Other obesity due [...] minimum of 6 months The most recent [place] [employer]ocrinologists and [place] [employer] guidelines recommend patients who [...] track activity level. Consider using apps like [employer], [employer], lose it, stick as needed for self-monitoring [...] counseling and psychiatry and Dr Dao at [facility]. We would like to cover regular topics [...] software and direct typing Please excuse inadvertent eligibility examiner or typing errors, or uncorrected word substitutions Although every attempt has been made by the provider to proofread this document, occasional misspellings and typographical errors may still be present Due to the previous pandemic, and the use of personal protective equipment (PPE) This may decrease voice recognition accuracy Inadvertent eligibility examiner errors may occur 11/01/2023 BMI 38.0-38.9,adult (ICD-10 [...] minimum of 6 months The most recent [place] [employer]ocrinologists and [place] [employer] guidelines recommend patients who [...] track activity level. Consider using apps like [employer], [employer], lose it, stick as needed for self-monitoring [...] counseling and psychiatry and Dr Dao at [facility]. We would like to cover regular topics [...] software and direct typing Please excuse inadvertent eligibility examiner or typing errors, or uncorrected word substitutions Although every attempt has been made by the provider to proofread this document, occasional misspellings and typographical errors may still be present Due to the previous pandemic, and the use of personal protective equipment (PPE) This may decrease voice recognition accuracy Inadvertent eligibility examiner errors may occur 11/29/2023 Other obesity due [...] minimum of 6 months The most recent [place] [employer]ocrinologists and [place] [employer] guidelines recommend patients who [...] track activity level. Consider using apps like [employer], [employer], lose it, stick as needed [...] counseling and psychiatry and Dr Dao at [facility]. We would like to cover regular topics [...] software and direct typing Please excuse inadvertent eligibility examiner or typing errors, or uncorrected word substitutions Although every attempt has been made by the provider to proofread this document, occasional misspellings and typographical errors may still be present Due to the previous pandemic, and the use of personal protective equipment (PPE) This may decrease voice recognition accuracy Inadvertent eligibility examiner errors may occur 09/27/2023 Other obesity due [...] minimum of 6 months The most recent [place] [employer]ocrinologists and [place] [employer] guidelines recommend patients who [...] track activity level. Consider using apps like [employer], [employer], lose it, stick as needed [...] counseling and psychiatry and Dr Dao at [facility]. We would like to cover regular topics [...] software and direct typing Please excuse inadvertent eligibility examiner or typing errors, or uncorrected word substitutions Although every attempt has been made by the provider to proofread this document, occasional misspellings and typographical errors may still be present Due to the previous pandemic, and the use of personal protective equipment (PPE) This may decrease voice recognition accuracy Inadvertent eligibility examiner errors may occur 12/27/2023 Other obesity due [...] minimum of 6 months The most recent [place] [employer]ocrinologists and [place] [employer] guidelines recommend patients who [...] software and direct typing Please excuse inadvertent eligibility examiner or typing errors, or uncorrected word substitutions Although every attempt has been made by the provider to proofread this document, occasional misspellings and typographical errors may still be present Due to the previous pandemic, and the use of personal protective equipment (PPE) This may decrease voice recognition accuracy Inadvertent eligibility examiner errors may occur 12/27/2023 BMI 37.0-37.9, adult [...] minimum of 6 months The most recent [place] [employer]ocrinologists and [place] [employer] guidelines recommend patients who [...] software and direct typing Please excuse inadvertent eligibility examiner or typing errors, or uncorrected word substitutions Although every attempt has been made by the provider to proofread this document, occasional misspellings and typographical errors may still be present Due to the previous pandemic, and the use of personal protective equipment (PPE) This may decrease voice recognition accuracy Inadvertent eligibility examiner errors may occur 01/31/2024 Other obesity due [...] minimum of 6 months The most recent [place] [employer] endocrinologists and [place] [employer] guidelines recommend patients who [...] software and direct typing Please excuse inadvertent eligibility examiner or typing errors, or uncorrected word substitutions Although every attempt has been made by the provider to proofread this document, occasional misspellings and typographical errors may still be present Due to the previous pandemic, and the use of personal protective equipment (PPE) This may decrease voice recognition accuracy Inadvertent eligibility examiner errors may occur 04/03/2024 Body mass index [...] software and direct typing Please excuse inadvertent eligibility examiner or typing errors, or uncorrected word substitutions Although every attempt has been made by the provider to proofread this document, occasional misspellings and typographical errors may still be present Due to the previous pandemic, and the use of personal protective equipment (PPE) This may decrease voice recognition accuracy Inadvertent eligibility examiner errors may occur 04/03/2024 Other obesity due [...] software and direct typing Please excuse inadvertent eligibility examiner or typing errors, or uncorrected word substitutions Although every attempt has been made by the provider to proofread this document, occasional misspellings and typographical errors may still be present Due to the previous pandemic, and the use of personal protective equipment (PPE) This may decrease voice recognition accuracy Inadvertent eligibility examiner errors may occur 05/10/2024 Other obesity due to excess calories (ICD-10 - E66.09) 05/22/2024 Other obesity due to excess calories (ICD-10 - E66.09) #Weight Management 05/22/2024 Increase to 2.4 mg We[facility] reviewed cont K2 and D3 high-dose vitamin D [...] software and direct typing Please excuse inadvertent eligibility examiner or typing errors, or uncorrected word substitutions Although every attempt has been made by the provider to proofread this document, occasional misspellings and typographical errors may still be present Due to the previous pandemic, and the use of personal protective equipment (PPE) This may decrease voice recognition accuracy Inadvertent eligibility examiner errors may occur 08/03/2024 Other obesity due to excess calories (ICD-10 - E66.09) 07/03/2024 Other obesity due to excess calories (ICD-10 - E66.09) #Weight Management 07/03/2024 Improving body composition analysis cont 2.4 mg Wegovy cont K2 and D3 high-dose vitamin D [...] software and direct typing Please excuse inadvertent eligibility examiner or typing errors, or uncorrected word substitutions Although every attempt has been made by the provider to proofread this document, occasional misspellings and typographical errors may still be present Due to the previous pandemic, and the use of personal protective equipment (PPE) This may decrease voice recognition accuracy Inadvertent eligibility examiner errors may occur 05/22/2024 Body mass index [BMI] 35.0-35.9, adult (ICD-10 - Z68.35) #Weight Management 05/22/2024 Increase to 2.4 mg [facility] reviewed cont K2 and D3 high-dose vitamin D [...] software and direct typing Please excuse inadvertent eligibility examiner or typing errors, or uncorrected word substitutions Although every attempt has been made by the provider to proofread this document, occasional misspellings and typographical errors may still be present Due to the previous pandemic, and the use of personal protective equipment (PPE) This may decrease voice recognition accuracy Inadvertent eligibility examiner errors may occur 07/03/2024 Body mass index [BMI] 35.0-35.9, adult (ICD-10 - Z68.35) #Weight Management 07/03/2024 Improving body composition analysis cont 2.4 mg Wegovy cont K2 and D3 high-dose vitamin D [...] software and direct typing Please excuse inadvertent eligibility examiner or typing errors, or uncorrected word substitutions Although every attempt has been made by the provider to proofread this document, occasional misspellings and typographical errors may still be present Due to the previous pandemic, and the use of personal protective equipment (PPE) This may decrease voice recognition accuracy Inadvertent eligibility examiner errors may occur 04/03/2024 Dietary counseling and [...] software and direct typing Please excuse inadvertent eligibility examiner or typing errors, or uncorrected word substitutions Although every attempt has been made by the provider to proofread this document, occasional misspellings and typographical errors may still be present Due to the previous pandemic, and the use of personal protective equipment (PPE) This may decrease voice recognition accuracy Inadvertent eligibility examiner errors may occur 11/29/2023 BMI 38.0-38.9,adult (ICD-10 [...] minimum of 6 months The most recent [place] [employer] endocrinologists and [place] [employer] guidelines recommend patients who [...] track activity level. Consider using apps like [employer], my[employer]ubble Gum Interactivepal, lose it, stick as needed for self-monitoring [...] counseling and psychiatry and Dr Dao at [facility]. We would like to cover regular topics [...] software and direct typing Please excuse inadvertent eligibility examiner or typing errors, or uncorrected word substitutions Although every attempt has been made by the provider to proofread this document, occasional misspellings and typographical errors may still be present Due to the previous pandemic, and the use of personal protective equipment (PPE) This may decrease voice recognition accuracy Inadvertent eligibility examiner errors may occur 01/31/2024 BMI 37.0-37.9, adult [...] minimum of 6 months The most recent [place] [employer]ocrinologists and [place] [employer] guidelines recommend patients who [...] software and direct typing Please excuse inadvertent eligibility examiner or typing errors, or uncorrected word substitutions Although every attempt has been made by the provider to proofread this document, occasional misspellings and typographical errors may still be present Due to the previous pandemic, and the use of personal protective equipment (PPE) This may decrease voice recognition accuracy Inadvertent eligibility examiner errors may occur 12/27/2023 Dietary counseling and [...] minimum of 6 months The most recent [place] [employer] endocrinologists and [place] [employer] guidelines recommend patients who [...] software and direct typing Please excuse inadvertent eligibility examiner or typing errors, or uncorrected word substitutions Although every attempt has been made by the provider to proofread this document, occasional misspellings and typographical errors may still be present Due to the previous pandemic, and the use of personal protective equipment (PPE) This may decrease voice recognition accuracy Inadvertent eligibility examiner errors may occur 09/27/2023 Dietary counseling and [...] minimum of 6 months The most recent [place] [employer] endocrinologists and [place] [employer] guidelines recommend patients who [...] track activity level. Consider using apps like [employer], [employer], lose it, stick as needed for self-monitoring [...] counseling and psychiatry and Dr Dao at [facility]. We would like to cover regular topics [...] software and direct typing Please excuse inadvertent eligibility examiner or typing errors, or uncorrected word substitutions Although every attempt has been made by the provider to proofread this document, occasional misspellings and typographical errors may still be present Due to the previous pandemic, and the use of personal protective equipment (PPE) This may decrease voice recognition accuracy Inadvertent eligibility examiner errors may occur 11/01/2023 Dietary counseling and [...] minimum of 6 months The most recent [place] [employer] endocrinologists and [place] [employer] guidelines recommend patients who [...] track activity level. Consider using apps like [employer], [employer], lose it, stick as needed for self-monitoring [...] counseling and psychiatry and Dr Dao at [facility]. We would like to cover regular topics [...] software and direct typing Please excuse inadvertent eligibility examiner or typing errors, or uncorrected word substitutions Although every attempt has been made by the provider to proofread this document, occasional misspellings and typographical errors may still be present Due to the previous pandemic, and the use of personal protective equipment (PPE) This may decrease voice recognition accuracy Inadvertent eligibility examiner errors may occur 11/01/2023 Prediabetes (ICD-10 - [...] minimum of 6 months The most recent [place] [employer] endocrinologists and [place] [employer] guidelines recommend patients who [...] track activity level. Consider using apps like [employer], myfitnesspal, lose it, stick as needed [...] counseling and psychiatry and Dr Dao at [facility]. We would like to cover regular topics [...] software and direct typing Please excuse inadvertent eligibility examiner or typing errors, or uncorrected word substitutions Although every attempt has been made by the provider to proofread this document, occasional misspellings and typographical errors may still be present Due to the previous pandemic, and the use of personal protective equipment (PPE) This may decrease voice recognition accuracy Inadvertent eligibility examiner errors may occur 11/29/2023 Dietary counseling and [...] minimum of 6 months The most recent [place] [employer] endocrinologists and [place] [employer] guidelines recommend patients who [...] track activity level. Consider using apps like [employer], myfitnesspal, lose it, stick as needed for [...] counseling and psychiatry and Dr Dao at [facility]. We would like to cover regular topics [...] software and direct typing Please excuse inadvertent eligibility examiner or typing errors, or uncorrected word substitutions Although every attempt has been made by the provider to proofread this document, occasional misspellings and typographical errors may still be present Due to the previous pandemic, and the use of personal protective equipment (PPE) This may decrease voice recognition accuracy Inadvertent eligibility examiner errors may occur 09/27/2023 Prediabetes (ICD-10 - R73.03) Jose Alfredo Nisha Total time spent today was 60 [...] minimum of 6 months The most recent [place] [employer] endocrinologists and [place] [employer] guidelines recommend patients who [...] track activity level. Consider using apps like [employer], [employer], lose it, stick as needed for self-monitoring [...] counseling and psychiatry and Dr Dao at [facility]. We would like to cover regular topics [...] software and direct typing Please excuse inadvertent eligibility examiner or typing errors, or uncorrected word substitutions Although every attempt has been made by the provider to proofread this document, occasional misspellings and typographical errors may still be present Due to the previous pandemic, and the use of personal protective equipment (PPE) This may decrease voice recognition accuracy Inadvertent eligibility examiner errors may occur 12/27/2023 Prediabetes (ICD-10 - [...] minimum of 6 months The most recent [place] [employer] endocrinologists and [place] [employer] guidelines recommend patients who [...] software and direct typing Please excuse inadvertent eligibility examiner or typing errors, or uncorrected word substitutions Although every attempt has been made by the provider to proofread this document, occasional misspellings and typographical errors may still be present Due to the previous pandemic, and the use of personal protective equipment (PPE) This may decrease voice recognition accuracy Inadvertent eligibility examiner errors may occur 01/31/2024 Dietary counseling and [...] minimum of 6 months The most recent [place] [employer] clinical endocrinologists and [place] [employer] guidelines recommend patients who [...] software and direct typing Please excuse inadvertent eligibility examiner or typing errors, or uncorrected word substitutions Although every attempt has been made by the provider to proofread this document, occasional misspellings and typographical errors may still be present Due to the previous pandemic, and the use of personal protective equipment (PPE) This may decrease voice recognition accuracy Inadvertent eligibility examiner errors may occur 04/03/2024 Prediabetes (ICD-10 - [...] software and direct typing Please excuse inadvertent eligibility examiner or typing errors, or uncorrected word substitutions Although every attempt has been made by the provider to proofread this document, occasional misspellings and typographical errors may still be present Due to the previous pandemic, and the use of personal protective equipment (PPE) This may decrease voice recognition accuracy Inadvertent eligibility examiner errors may occur 05/22/2024 Dietary counseling and surveillance (ICD-10 - Z71.3) #Weight Management 05/22/2024 Increase to 2.4 mg [facility] reviewed cont K2 and D3 high-dose vitamin D [...] software and direct typing Please excuse inadvertent eligibility examiner or typing errors, or uncorrected word substitutions Although every attempt has been made by the provider to proofread this document, occasional misspellings and typographical errors may still be present Due to the previous pandemic, and the use of personal protective equipment (PPE) This may decrease voice recognition accuracy Inadvertent eligibility examiner errors may occur 07/03/2024 Dietary counseling and surveillance (ICD-10 - Z71.3) #Weight Management 07/03/2024 Improving body composition analysis cont 2.4 mg Wegovy cont K2 and D3 high-dose vitamin D [...] software and direct typing Please excuse inadvertent eligibility examiner or typing errors, or uncorrected word substitutions Although every attempt has been made by the provider to proofread this document, occasional misspellings and typographical errors may still be present Due to the previous pandemic, and the use of personal protective equipment (PPE) This may decrease voice recognition accuracy Inadvertent eligibility examiner errors may occur 07/03/2024 Prediabetes (ICD-10 - R73.03) #Weight Management 07/03/2024 Improving body composition analysis cont 2.4 mg Wegovy cont K2 and D3 high-dose vitamin D [...] software and direct typing Please excuse inadvertent eligibility examiner or typing errors, or uncorrected word substitutions Although every attempt has been made by the provider to proofread this document, occasional misspellings and typographical errors may still be present Due to the previous pandemic, and the use of personal protective equipment (PPE) This may decrease voice recognition accuracy Inadvertent eligibility examiner errors may occur 05/22/2024 Prediabetes (ICD-10 - R73.03) #Weight Management 05/22/2024 Increase to 2.4 mg Wegovy Labs reviewed cont K2 and D3 high-dose vitamin D [...] software and direct typing Please excuse inadvertent eligibility examiner or typing errors, or uncorrected word substitutions Although every attempt has been made by the provider to proofread this document, occasional misspellings and typographical errors may still be present Due to the previous pandemic, and the use of personal protective equipment (PPE) This may decrease voice recognition accuracy Inadvertent eligibility examiner errors may occur 01/31/2024 Prediabetes (ICD-10 - [...] minimum of 6 months The most recent [place] [employer] and [place] [employer] guidelines recommend patients who [...] software and direct typing Please excuse inadvertent eligibility examiner or typing errors, or uncorrected word substitutions Although every attempt has been made by the provider to proofread this document, occasional misspellings and typographical errors may still be present Due to the previous pandemic, and the use of personal protective equipment (PPE) This may decrease voice recognition accuracy Inadvertent eligibility examiner errors may occur 11/29/2023 Prediabetes (ICD-10 - [...] minimum of 6 months The most recent [place] [employer] and [place] [employer] guidelines recommend patients who [...] track activity level. Consider using apps like [employer], myfitnesspal, lose it, stick as needed [...] counseling and psychiatry and Dr Dao at [facility]. We would like to cover regular topics [...] software and direct typing Please excuse inadvertent eligibility examiner or typing errors, or uncorrected word substitutions Although every attempt has been made by the provider to proofread this document, occasional misspellings and typographical errors may still be present Due to the previous pandemic, and the use of personal protective equipment (PPE) This may decrease voice recognition accuracy Inadvertent eligibility examiner errors may occur 03/06/2024 #Weight Management 03/06/2024 Now euglycemic, A1c of [...] minimum of 6 months The most recent [place] [employer] and [place] [employer] guidelines recommend patients who [...] software and direct typing Please excuse inadvertent eligibility examiner or typing errors, or uncorrected word substitutions Although every attempt has been made by the provider to proofread this document, occasional misspellings and typographical errors may still be present Due to the previous pandemic, and the use of personal protective equipment (PPE) This may decrease voice recognition accuracy Inadvertent eligibility examiner errors may occur 05/08/2024 #Weight Management 05/08/2024 Continue 1.7 mg Wegovy [...] software and direct typing Please excuse inadvertent eligibility examiner or typing errors, or uncorrected word substitutions Although every attempt has been made by the provider to proofread this document, occasional misspellings and typographical errors may still be present Due to the previous pandemic, and the use of personal protective equipment (PPE) This may decrease voice recognition accuracy Inadvertent eligibility examiner errors may occur Plan Of Treatment Next Appt Details Provider Name:BORIS SONYA, 08/21/2024 09:45:00 AM, [address], [place], [address], Insurance Providers Payer Name Payer Address Payer Phone Subscriber Number Group Number Insured Name Patient Relationship to Insured Coverage Start Date Coverage End Date [facility] [address] [facility] [place] howard [id number] Juliet Gan Self - patient is the insured 2
== END 2024-08-17 14:25 | disposition home or self-care (01) ==
LOC: HO.HMCC 13:47
PROVIDERS: PCP Internal Medicine; Visit Provider Internal Medicine
DX: Z00.01 Encounter for general adult medical examination with abnormal findings (principal); R00.2 Palpitations; E66.09 Other obesity due to excess calories; Z68.39 Body mass index [BMI] 39.0-39.9, adult; I10 Essential (primary) hypertension; Z91.09 Other allergy status, other than to drugs and biological substances

== ENCOUNTER 2024-08-31 15:03 | Outpatient (REF) | payer OTHER, SELFPAY ==
--- OUTSIDE RECORDS SUMMARY | 2024-08-31 16:19 | XMS_ITS | Clinical Summary ---
Author Organization [facility] Address [address] [place] [address] Care Team Providers Care Splicing Technician Name Role Cytology TeacherJustin Genao MD Primary Care Provider [phone] Surgical History Surgery Date Site/Laterality Comments OTHER [...] age to complete this topic Care Teams Splicing Technician Relationship Specialty Start Date End Date Justin Genao MD PCP - General Internal Medicine 06/12/11
--- OUTSIDE RECORDS SUMMARY | 2024-08-31 16:19 | XMS_ITS | Patient Health Record ---
Author Organization [facility] [address] Address [address] [place] [address] Care Team Providers Care Compensation Adjuster Name Role Phone BORIS HASSAN Unavailable [phone] JOSE HERNANDEZ Unavailable [phone] Allergies No Known Allergies Reason For Referral [...] Notes Problem Obesity due to excess calories ([id number]) Other obesity due to excess calories (E66.09) Active confirmed Problem Obese class II (5211555890177 05) Body mass index [BMI] 35.0-35.9, adult (Z68.35) Active confirmed Problem Body mass index 35.00 to 39.99 ([id number] 05) Body mass index [BMI] 39.0-39.9, adult (Z68.39) Active confirmed Problem Obese class II (7893416666536 05) BMI 37.0-37.9, adult (Z68.37) Active confirmed Problem Obese class II (2420356965151 05) BMI 38.0-38.9,adul t (Z68.38) Active confirmed Problem Body mass index 30.00 to 34.99 (0832914745715 07) BMI 34.0-34.9,adul t (Z68.34) Active confirmed Vital Signs Heart Rate 100 /min 08/21/2024 Oximetry 95 % 08/21/2024 Blood pressure diastolic 84 mm Hg 08/21/2024 Height 65 in 08/21/2024 Blood pressure systolic 128 mm Hg 08/21/2024 Weight 207 lbs 08/21/2024 BMI 34.44 kg/m2 08/21/2024 Encounters Encounter Location Date Provider Diagnosis [facility] [address] [place], [place] 09/27/2023 BORIS BORHOT Other obesity due to excess calories E66.09 ; Body mass index [BMI] 39.0-39.9, adult Z68.39 ; Dietary counseling and surveillance Z71.3 and Prediabetes R73.03 [facility] [address] [place], [place] 11/01/2023 BORIS BORHOT Other obesity due to excess calories E66.09 ; BMI 38.0-38.9,adult Z68.38 ; Dietary counseling and surveillance Z71.3 and Prediabetes R73.03 [facility] [address] [place], [place] 11/29/2023 BORIS BORHOT Other obesity due to excess calories E66.09 ; BMI 38.0-38.9,adult Z68.38 ; Dietary counseling and surveillance Z71.3 and Prediabetes R73.03 [facility] [address] [place] 12/27/2023 BORIS BORHOT Other obesity due to excess calories E66.09 ; BMI 37.0-37.9, adult Z68.37 ; Dietary counseling and surveillance Z71.3 and Prediabetes R73.03 [facility] [address] [place] [id number] 01/31/2024 BORIS BORHOT Other obesity due to excess calories E66.09 ; BMI 37.0-37.9, adult Z68.37 ; Dietary counseling and surveillance Z71.3 and Prediabetes R73.03 [facility] [address] [place] 04/03/2024 BORIS BORHOT Other obesity due to excess calories E66.09 ; Body mass index [BMI] 35.0-35.9, adult Z68.35 ; Dietary counseling and surveillance Z71.3 and Prediabetes R73.[address] [facility] [address] [place], [place] 05/22/2024 BORIS BORHOT Other obesity due to excess calories E66.09 ; Body mass index [BMI] 35.0-35.9, adult Z68.35 ; Dietary counseling and surveillance Z71.3 and Prediabetes R73.[address] [facility] [address] [place] 07/03/2024 BORIS BORHOT Other obesity due to excess calories E66.09 ; Body mass index [BMI] 35.0-35.9, adult Z68.35 ; Dietary counseling and surveillance Z71.3 and Prediabetes R73.[address] [facility] [address] [place] 08/21/2024 BORIS BORHOT Other obesity due to excess calories E66.09 ; BMI 34.0-34.9,adult Z68.34 ; Dietary counseling and surveillance Z71.3 ; Prediabetes R73.03 and Encounter for examination of blood pressure without abnormal findings Z01.30 [facility] [address] [facility] [address] [place] [id number] 09/17/2023 JOSE HERNADNEZ [facility] [address] [place] 05/10/2024 BORIS MARIBELLHOT Other obesity due to excess calories E66.09 [facility] [address] [place] [address] [place] [phone] 10/25/2023 BORIS BORHOT [facility] [address] [place], [place] 11/05/2023 BORIS BORHOT [facility] [address] [facility] [address] [place], [place] 11/05/2023 BORIS BORHOT [facility] [address] [facility] [address] [place], [place] 11/11/2023 BORIS BORHOT [facility] [address] [place] [phone] 11/12/2023 BORIS BORHOT [facility] [address] [place] [id number] BORIS HASSAN [facility] [address] [facility] [address] [place] [address] 03/05/2024 BORIS HASSAN [facility] [address] [place] [address] 04/12/2024 BORIS HASSAN [facility] [address] [facility] [address] [facility] [address] [place] [address] 08/03/2024 BORIS HASSAN Other obesity due to excess [...] minimum of 6 months The most recent [place] [employer] of clinical endocrinologists and [employer] [place] [employer] guidelines recommend patients who [...] track activity level. Consider using apps like GetOutfitted, GELIpal, lose it, stick as needed for self-monitoring and weight management. Consider group exercises. Consider hiring a senior animal trainer. Regular exercise is sandra to sustainable [...] counseling and psychiatry and Dr Dao at [facility]. We would like to cover regular topics [...] software and direct typing Please excuse inadvertent powder coat painter or typing errors, or uncorrected word substitutions Although every attempt has been made by the provider to proofread this document, occasional misspellings and typographical errors may still be present Due to the previous pandemic, and the use of personal protective equipment (PPE) This may decrease voice recognition accuracy Inadvertent powder coat painter errors may occur 11/01/2023 Other obesity due [...] minimum of 6 months The most recent [place] [employer] of clinical endocrinologists and [employer] [place] [employer] guidelines recommend patients who [...] track activity level. Consider using apps like GetOutfitted, GELIpal, lose it, stick as needed for self-monitoring and weight management. Consider group exercises. Consider hiring a senior animal trainer. Regular exercise is sandra to sustainable [...] counseling and psychiatry and Dr Dao at [facility]. We would like to cover regular topics [...] software and direct typing Please excuse inadvertent powder coat painter or typing errors, or uncorrected word substitutions Although every attempt has been made by the provider to proofread this document, occasional misspellings and typographical errors may still be present Due to the previous pandemic, and the use of personal protective equipment (PPE) This may decrease voice recognition accuracy Inadvertent powder coat painter errors may occur 11/01/2023 BMI 38.0-38.9,adult (ICD-10 [...] minimum of 6 months The most recent [place] [employer] of clinical endocrinologists and [employer] [place] [employer] guidelines recommend patients who [...] track activity level. Consider using apps like GetOutfitted, GELIpal, lose it, stick as needed for self-monitoring and weight management. Consider group exercises. Consider hiring a senior animal trainer. Regular exercise is sandra to sustainable [...] counseling and psychiatry and Dr Dao at [facility]. We would like to cover regular topics [...] software and direct typing Please excuse inadvertent powder coat painter or typing errors, or uncorrected word substitutions Although every attempt has been made by the provider to proofread this document, occasional misspellings and typographical errors may still be present Due to the previous pandemic, and the use of personal protective equipment (PPE) This may decrease voice recognition accuracy Inadvertent powder coat painter errors may occur 11/29/2023 Other obesity due [...] minimum of 6 months The most recent [place] [employer] of clinical endocrinologists and [employer] [place] [employer] guidelines recommend patients who [...] track activity level. Consider using apps like GetOutfitted, GELIpal, lose it, stick as needed for self-monitoring and weight management. Consider group exercises. Consider hiring a senior animal trainer. Regular exercise is sandra to sustainable [...] counseling and psychiatry and Dr Dao at [facility]. We would like to cover regular topics [...] software and direct typing Please excuse inadvertent powder coat painter or typing errors, or uncorrected word substitutions Although every attempt has been made by the provider to proofread this document, occasional misspellings and typographical errors may still be present Due to the previous pandemic, and the use of personal protective equipment (PPE) This may decrease voice recognition accuracy Inadvertent powder coat painter errors may occur 09/27/2023 Other obesity due [...] minimum of 6 months The most recent [place] [employer] of clinical endocrinologists and [employer] [place] [employer] guidelines recommend patients who [...] track activity level. Consider using apps like GetOutfitted, GELIpal, lose it, stick as needed for self-monitoring and weight management. Consider group exercises. Consider hiring a senior animal trainer. Regular exercise is sandra to sustainable [...] counseling and psychiatry and Dr Dao at [facility]. We would like to cover regular topics [...] software and direct typing Please excuse inadvertent powder coat painter or typing errors, or uncorrected word substitutions Although every attempt has been made by the provider to proofread this document, occasional misspellings and typographical errors may still be present Due to the previous pandemic, and the use of personal protective equipment (PPE) This may decrease voice recognition accuracy Inadvertent powder coat painter errors may occur 12/27/2023 Other obesity due [...] minimum of 6 months The most recent [place] [employer] of clinical endocrinologists and [employer] [place] [employer]in[employer] guidelines recommend patients who [...] software and direct typing Please excuse inadvertent powder coat painter or typing errors, or uncorrected word substitutions Although every attempt has been made by the provider to proofread this document, occasional misspellings and typographical errors may still be present Due to the previous pandemic, and the use of personal protective equipment (PPE) This may decrease voice recognition accuracy Inadvertent powder coat painter errors may occur 12/27/2023 BMI 37.0-37.9, adult [...] minimum of 6 months The most recent [place] [employer] of clinical endocrinologists and [employer] [place] [employer] guidelines recommend patients who [...] software and direct typing Please excuse inadvertent powder coat painter or typing errors, or uncorrected word substitutions Although every attempt has been made by the provider to proofread this document, occasional misspellings and typographical errors may still be present Due to the previous pandemic, and the use of personal protective equipment (PPE) This may decrease voice recognition accuracy Inadvertent powder coat painter errors may occur 01/31/2024 Other obesity due [...] minimum of 6 months The most recent [place] [employer] of clinical endocrinologists and [employer] [place] [employer] guidelines recommend patients who [...] software and direct typing Please excuse inadvertent powder coat painter or typing errors, or uncorrected word substitutions Although every attempt has been made by the provider to proofread this document, occasional misspellings and typographical errors may still be present Due to the previous pandemic, and the use of personal protective equipment (PPE) This may decrease voice recognition accuracy Inadvertent powder coat painter errors may occur 04/03/2024 Body mass index [...] software and direct typing Please excuse inadvertent powder coat painter or typing errors, or uncorrected word substitutions Although every attempt has been made by the provider to proofread this document, occasional misspellings and typographical errors may still be present Due to the previous pandemic, and the use of personal protective equipment (PPE) This may decrease voice recognition accuracy Inadvertent powder coat painter errors may occur 04/03/2024 Other obesity due [...] software and direct typing Please excuse inadvertent powder coat painter or typing errors, or uncorrected word substitutions Although every attempt has been made by the provider to proofread this document, occasional misspellings and typographical errors may still be present Due to the previous pandemic, and the use of personal protective equipment (PPE) This may decrease voice recognition accuracy Inadvertent powder coat painter errors may occur 05/10/2024 Other obesity due [...] software and direct typing Please excuse inadvertent powder coat painter or typing errors, or uncorrected word substitutions Although every attempt has been made by the provider to proofread this document, occasional misspellings and typographical errors may still be present Due to the previous pandemic, and the use of personal protective equipment (PPE) This may decrease voice recognition accuracy Inadvertent powder coat painter errors may occur 07/03/2024 Other obesity due to excess calories [...] software and direct typing Please excuse inadvertent powder coat painter or typing errors, or uncorrected word substitutions Although every attempt has been made by the provider to proofread this document, occasional misspellings and typographical errors may still be present Due to the previous pandemic, and the use of personal protective equipment (PPE) This may decrease voice recognition accuracy Inadvertent powder coat painter errors may occur 08/03/2024 Other obesity due to excess calories (ICD-10 - E66.09) 08/21/2024 Other obesity due to excess calories (ICD-10 - E66.09) #Weight Management 08/21/2024 cont 2.4 mg Wegovy cont K2 and D3 high-dose vitamin D, micrnutrients Total time spent today was 30 minutes of which greater than 50% was spent on coordinating and counseling Patient has been found to be obese with a BMI of (34). Patient has class (2) obesity. We are a board certified obesity and weight management practice Of note, some information is being carried forward from prior records for informational purposes only and is being cited so that efficiency, safety and quality of the patient's care is not compromised This note was prepared using voice recognition software and direct typing Please excuse inadvertent powder coat painter or typing errors, or uncorrected word substitutions Although every attempt has been made by the provider to proofread this document, occasional misspellings and typographical errors may still be present Due to the previous pandemic, and the use of personal protective equipment (PPE) This may decrease voice recognition accuracy Inadvertent powder coat painter errors may occur 08/21/2024 BMI 34.0-34.9,adult (ICD-10 - Z68.34) #Weight Management 08/21/2024 cont 2.4 mg Wegovy cont K2 and D3 high-dose vitamin D, micrnutrients Total time spent today was 30 minutes of which greater than 50% was spent on coordinating and counseling Patient has been found to be obese with a BMI of (34). Patient has class (2) obesity. We are a board certified obesity and weight management practice Of note, some information is being carried forward from prior records for informational purposes only and is being cited so that efficiency, safety and quality of the patient's care is not compromised This note was prepared using voice recognition software and direct typing Please excuse inadvertent powder coat painter or typing errors, or uncorrected word substitutions Although every attempt has been made by the provider to proofread this document, occasional misspellings and typographical errors may still be present Due to the previous pandemic, and the use of personal protective equipment (PPE) This may decrease voice recognition accuracy Inadvertent powder coat painter errors may occur 08/21/2024 Dietary counseling and surveillance (ICD-10 - Z71.3) #Weight Management 08/21/2024 cont 2.4 mg Wegovy cont K2 and D3 high-dose vitamin D, micrnutrients Total time spent today was 30 minutes of which greater than 50% was spent on coordinating and counseling Patient has been found to be obese with a BMI of (34). Patient has class (2) obesity. We are a board certified obesity and weight management practice Of note, some information is being carried forward from prior records for informational purposes only and is being cited so that efficiency, safety and quality of the patient's care is not compromised This note was prepared using voice recognition software and direct typing Please excuse inadvertent powder coat painter or typing errors, or uncorrected word substitutions Although every attempt has been made by the provider to proofread this document, occasional misspellings and typographical errors may still be present Due to the previous pandemic, and the use of personal protective equipment (PPE) This may decrease voice recognition accuracy Inadvertent powder coat painter errors may occur 05/22/2024 Body mass index [...] software and direct typing Please excuse inadvertent powder coat painter or typing errors, or uncorrected word substitutions Although every attempt has been made by the provider to proofread this document, occasional misspellings and typographical errors may still be present Due to the previous pandemic, and the use of personal protective equipment (PPE) This may decrease voice recognition accuracy Inadvertent powder coat painter errors may occur 07/03/2024 Body mass index [...] software and direct typing Please excuse inadvertent powder coat painter or typing errors, or uncorrected word substitutions Although every attempt has been made by the provider to proofread this document, occasional misspellings and typographical errors may still be present Due to the previous pandemic, and the use of personal protective equipment (PPE) This may decrease voice recognition accuracy Inadvertent powder coat painter errors may occur 04/03/2024 Dietary counseling and [...] software and direct typing Please excuse inadvertent powder coat painter or typing errors, or uncorrected word substitutions Although every attempt has been made by the provider to proofread this document, occasional misspellings and typographical errors may still be present Due to the previous pandemic, and the use of personal protective equipment (PPE) This may decrease voice recognition accuracy Inadvertent powder coat painter errors may occur 11/29/2023 BMI 38.0-38.9,adult (ICD-10 [...] minimum of 6 months The most recent [place] [employer] of clinical endocrinologists and [employer] [place] [employer] guidelines recommend patients who [...] track activity level. Consider using apps like GetOutfitted, GELIpal, lose it, stick as needed for self-monitoring and weight management. Consider group exercises. Consider hiring a senior animal trainer. Regular exercise is sandra to sustainable [...] counseling and psychiatry and Dr Dao at [facility]. We would like to cover regular topics [...] software and direct typing Please excuse inadvertent powder coat painter or typing errors, or uncorrected word substitutions Although every attempt has been made by the provider to proofread this document, occasional misspellings and typographical errors may still be present Due to the previous pandemic, and the use of personal protective equipment (PPE) This may decrease voice recognition accuracy Inadvertent powder coat painter errors may occur 01/31/2024 BMI 37.0-37.9, adult [...] minimum of 6 months The most recent [place] [employer] of clinical endocrinologists and [employer] [place] [employer]in[employer] guidelines recommend patients who [...] software and direct typing Please excuse inadvertent powder coat painter or typing errors, or uncorrected word substitutions Although every attempt has been made by the provider to proofread this document, occasional misspellings and typographical errors may still be present Due to the previous pandemic, and the use of personal protective equipment (PPE) This may decrease voice recognition accuracy Inadvertent powder coat painter errors may occur 12/27/2023 Dietary counseling and [...] minimum of 6 months The most recent [place] [employer] of clinical endocrinologists and [employer] [place] [employer]in[employer] guidelines recommend patients who [...] software and direct typing Please excuse inadvertent powder coat painter or typing errors, or uncorrected word substitutions Although every attempt has been made by the provider to proofread this document, occasional misspellings and typographical errors may still be present Due to the previous pandemic, and the use of personal protective equipment (PPE) This may decrease voice recognition accuracy Inadvertent powder coat painter errors may occur 09/27/2023 Dietary counseling and surveillance (ICD-10 - Z71.3) Start Nisha Total time spent today was [...] minimum of 6 months The most recent [place] [employer] of clinical endocrinologists and [employer] [place] [employer] guidelines recommend patients who [...] track activity level. Consider using apps like GetOutfitted, myfitnesspal, lose it, stick as needed for self-monitoring and weight management. Consider group exercises. Consider hiring a senior animal trainer. Regular exercise is sandra to sustainable [...] counseling and psychiatry and Dr Dao at [facility]. We would like to cover regular topics [...] software and direct typing Please excuse inadvertent powder coat painter or typing errors, or uncorrected word substitutions Although every attempt has been made by the provider to proofread this document, occasional misspellings and typographical errors may still be present Due to the previous pandemic, and the use of personal protective equipment (PPE) This may decrease voice recognition accuracy Inadvertent powder coat painter errors may occur 11/01/2023 Dietary counseling and [...] minimum of 6 months The most recent [place] [employer] of clinical endocrinologists and [employer] [place] [employer] guidelines recommend patients who [...] track activity level. Consider using apps like GetOutfitted, GELIpal, lose it, stick as needed for self-monitoring and weight management. Consider group exercises. Consider hiring a senior animal trainer. Regular exercise is sandra to sustainable [...] counseling and psychiatry and Dr Dao at [facility]. We would like to cover regular topics [...] software and direct typing Please excuse inadvertent powder coat painter or typing errors, or uncorrected word substitutions Although every attempt has been made by the provider to proofread this document, occasional misspellings and typographical errors may still be present Due to the previous pandemic, and the use of personal protective equipment (PPE) This may decrease voice recognition accuracy Inadvertent powder coat painter errors may occur 11/01/2023 Prediabetes (ICD-10 - [...] minimum of 6 months The most recent [place] [employer] of clinical endocrinologists and [employer] [place] [employer] guidelines recommend patients who [...] track activity level. Consider using apps like GetOutfitted, GELIpal, lose it, stick as needed for self-monitoring and weight management. Consider group exercises. Consider hiring a senior animal trainer. Regular exercise is sandra to sustainable [...] counseling and psychiatry and Dr Dao at [facility]. We would like to cover regular topics [...] software and direct typing Please excuse inadvertent powder coat painter or typing errors, or uncorrected word substitutions Although every attempt has been made by the provider to proofread this document, occasional misspellings and typographical errors may still be present Due to the previous pandemic, and the use of personal protective equipment (PPE) This may decrease voice recognition accuracy Inadvertent powder coat painter errors may occur 11/29/2023 Dietary counseling and [...] minimum of 6 months The most recent [place] [employer] of clinical endocrinologists and [employer] [place] [employer] guidelines recommend patients who [...] track activity level. Consider using apps like GetOutfitted, GELIpal, lose it, stick as needed for self-monitoring and weight management. Consider group exercises. Consider hiring a senior animal trainer. Regular exercise is asndra to sustainable health and prevents as a [...] counseling and psychiatry and Dr Dao at [facility]. We would like to cover regular topics [...] software and direct typing Please excuse inadvertent powder coat painter or typing errors, or uncorrected word substitutions Although every attempt has been made by the provider to proofread this document, occasional misspellings and typographical errors may still be present Due to the previous pandemic, and the use of personal protective equipment (PPE) This may decrease voice recognition accuracy Inadvertent powder coat painter errors may occur 09/27/2023 Prediabetes (ICD-10 - R73.03) Jose Alfredo Cameron Total time spent today [...] minimum of 6 months The most recent [place] [employer] of clinical endocrinologists and [employer] [place] [employer]in[employer] guidelines recommend patients who [...] track activity level. Consider using apps like GetOutfitted, [facility], lose it, stick as needed for self-monitoring and weight management. Consider group exercises. Consider hiring a senior animal trainer. Regular exercise is sandra to sustainable [...] includes phentermine, Topamax,Qsymia, contrave, belviq and saxenda, wegovjustice All prescription medications could have side effects [...] counseling and psychiatry and Dr Dao at [facility]. We would like to cover regular topics [...] software and direct typing Please excuse inadvertent powder coat painter or typing errors, or uncorrected word substitutions Although every attempt has been made by the provider to proofread this document, occasional misspellings and typographical errors may still be present Due to the previous pandemic, and the use of personal protective equipment (PPE) This may decrease voice recognition accuracy Inadvertent powder coat painter errors may occur 12/27/2023 Prediabetes (ICD-10 - [...] minimum of 6 months The most recent [place] [employer] of clinical endocrinologists and [employer] [place] [employer]in[employer] guidelines recommend patients who [...] software and direct typing Please excuse inadvertent powder coat painter or typing errors, or uncorrected word substitutions Although every attempt has been made by the provider to proofread this document, occasional misspellings and typographical errors may still be present Due to the previous pandemic, and the use of personal protective equipment (PPE) This may decrease voice recognition accuracy Inadvertent powder coat painter errors may occur 01/31/2024 Dietary counseling and [...] minimum of 6 months The most recent [place] [employer] of clinical endocrinologists and [employer] [place] [employer] endocrinology guidelines recommend patients who [...] software and direct typing Please excuse inadvertent powder coat painter or typing errors, or uncorrected word substitutions Although every attempt has been made by the provider to proofread this document, occasional misspellings and typographical errors may still be present Due to the previous pandemic, and the use of personal protective equipment (PPE) This may decrease voice recognition accuracy Inadvertent powder coat painter errors may occur 04/03/2024 Prediabetes (ICD-10 - [...] software and direct typing Please excuse inadvertent powder coat painter or typing errors, or uncorrected word substitutions Although every attempt has been made by the provider to proofread this document, occasional misspellings and typographical errors may still be present Due to the previous pandemic, and the use of personal protective equipment (PPE) This may decrease voice recognition accuracy Inadvertent powder coat painter errors may occur 05/22/2024 Dietary counseling and [...] software and direct typing Please excuse inadvertent powder coat painter or typing errors, or uncorrected word substitutions Although every attempt has been made by the provider to proofread this document, occasional misspellings and typographical errors may still be present Due to the previous pandemic, and the use of personal protective equipment (PPE) This may decrease voice recognition accuracy Inadvertent powder coat painter errors may occur 07/03/2024 Dietary counseling and [...] software and direct typing Please excuse inadvertent powder coat painter or typing errors, or uncorrected word substitutions Although every attempt has been made by the provider to proofread this document, occasional misspellings and typographical errors may still be present Due to the previous pandemic, and the use of personal protective equipment (PPE) This may decrease voice recognition accuracy Inadvertent powder coat painter errors may occur 08/21/2024 Prediabetes (ICD-10 - R73.03) #Weight Management 08/21/2024 cont 2.4 mg Wegovy cont K2 and D3 high-dose vitamin D, micrnutrients Total time spent today was 30 minutes of which greater than 50% was spent on coordinating and counseling Patient has been found to be obese with a BMI of (34). Patient has class (2) obesity. We are a board certified obesity and weight management practice Of note, some information is being carried forward from prior records for informational purposes only and is being cited so that efficiency, safety and quality of the patient's care is not compromised This note was prepared using voice recognition software and direct typing Please excuse inadvertent powder coat painter or typing errors, or uncorrected word substitutions Although every attempt has been made by the provider to proofread this document, occasional misspellings and typographical errors may still be present Due to the previous pandemic, and the use of personal protective equipment (PPE) This may decrease voice recognition accuracy Inadvertent powder coat painter errors may occur 08/21/2024 Encounter for examination of blood pressure without abnormal findings (ICD-10 - Z01.30) #Weight Management 08/21/2024 cont 2.4 mg Wegovy cont K2 and D3 high-dose vitamin D, micrnutrients Total time spent today was 30 minutes of which greater than 50% was spent on coordinating and counseling Patient has been found to be obese with a BMI of (34). Patient has class (2) obesity. We are a board certified obesity and weight management practice Of note, some information is being carried forward from prior records for informational purposes only and is being cited so that efficiency, safety and quality of the patient's care is not compromised This note was prepared using voice recognition software and direct typing Please excuse inadvertent powder coat painter or typing errors, or uncorrected word substitutions Although every attempt has been made by the provider to proofread this document, occasional misspellings and typographical errors may still be present Due to the previous pandemic, and the use of personal protective equipment (PPE) This may decrease voice recognition accuracy Inadvertent powder coat painter errors may occur 07/03/2024 Prediabetes (ICD-10 - [...] software and direct typing Please excuse inadvertent powder coat painter or typing errors, or uncorrected word substitutions Although every attempt has been made by the provider to proofread this document, occasional misspellings and typographical errors may still be present Due to the previous pandemic, and the use of personal protective equipment (PPE) This may decrease voice recognition accuracy Inadvertent powder coat painter errors may occur 05/22/2024 Prediabetes (ICD-10 - [...] software and direct typing Please excuse inadvertent powder coat painter or typing errors, or uncorrected word substitutions Although every attempt has been made by the provider to proofread this document, occasional misspellings and typographical errors may still be present Due to the previous pandemic, and the use of personal protective equipment (PPE) This may decrease voice recognition accuracy Inadvertent powder coat painter errors may occur 01/31/2024 Prediabetes (ICD-10 - [...] minimum of 6 months The most recent [place] [employer] of clinical endocrinologists and [place] [employer] of endocrinology guidelines recommend patients who [...] software and direct typing Please excuse inadvertent powder coat painter or typing errors, or uncorrected word substitutions Although every attempt has been made by the provider to proofread this document, occasional misspellings and typographical errors may still be present Due to the previous pandemic, and the use of personal protective equipment (PPE) This may decrease voice recognition accuracy Inadvertent powder coat painter errors may occur 11/29/2023 Prediabetes (ICD-10 - [...] minimum of 6 months The most recent [place] [employer] of clinical endocrinologists and [place] [employer] of endocrinology guidelines recommend patients who [...] track activity level. Consider using apps like GetOutfitted, myfitnesspal, lose it, stick as needed for self-monitoring and weight management. Consider group exercises. Consider hiring a senior animal trainer. Regular exercise is sandra to sustainable [...] counseling and psychiatry and Dr Dao at [facility]. We would like to cover regular topics [...] software and direct typing Please excuse inadvertent powder coat painter or typing errors, or uncorrected word substitutions Although every attempt has been made by the provider to proofread this document, occasional misspellings and typographical errors may still be present Due to the previous pandemic, and the use of personal protective equipment (PPE) This may decrease voice recognition accuracy Inadvertent powder coat painter errors may occur 03/06/2024 #Weight Management 03/06/2024 [...] minimum of 6 months The most recent [place] Association of clinical endocrinologists and [place] [employer] of endocrinology guidelines recommend patients who [...] software and direct typing Please excuse inadvertent powder coat painter or typing errors, or uncorrected word substitutions Although every attempt has been made by the provider to proofread this document, occasional misspellings and typographical errors may still be present Due to the previous pandemic, and the use of personal protective equipment (PPE) This may decrease voice recognition accuracy Inadvertent powder coat painter errors may occur 05/08/2024 #Weight Management 05/08/2024 [...] software and direct typing Please excuse inadvertent powder coat painter or typing errors, or uncorrected word substitutions Although every attempt has been made by the provider to proofread this document, occasional misspellings and typographical errors may still be present Due to the previous pandemic, and the use of personal protective equipment (PPE) This may decrease voice recognition accuracy Inadvertent powder coat painter errors may occur Plan Of Treatment Next Appt Details Provider Name:BORIS SONYA, 10/02/2024 09:30:00 AM, [address] , [place], [address], Insurance Providers Payer Name Payer Address Payer Phone Subscriber Number Group Number Insured Name Patient Relationship to Insured Coverage Start Date Coverage End Date [facility] [address] [place] [address] [id number] Juliet Gan Self - patient is the insured 2
== END 2024-08-31 15:04 | disposition home or self-care (01) ==
LOC: HO.MAMMO 15:03
PROVIDERS: PCP Internal Medicine; Visit Provider Internal Medicine
DX: Z12.31 Encounter for screening mammogram for malignant neoplasm of breast (principal)
CPT/HCPCS: 77063; 77067

== ENCOUNTER → 2024-08-31 15:15 | Outpatient (BNV) | payer OTHER, SELFPAY | PROVIDERS: PCP Internal Medicine; Visit Provider Radiology Body Imaging | DX: Z12.31 Encounter for screening mammogram for malignant neoplasm of breast (principal) | CPT/HCPCS: 77063; 77067 ==

== ENCOUNTER 2024-11-15 08:57 | Outpatient (REF) | payer OTHER, SELFPAY ==
[2024-11-15 11:44] LABS: Chlamydia pneumoniae PCR Not Detected (Not Detect.); Coronavirus 229E PCR Not Detected (Not Detect.); Coronavirus HKU1 PCR Not Detected (Not Detect.); Coronavirus NL63 PCR Not Detected (Not Detect.); Coronavirus OC43 PCR Not Detected (Not Detect.); RSV PCR Not Detected (Not Detect.); Rhino/Enterovirus PCR Not Detected (Not Detect.)
[2024-11-15 11:45] LABS: Influenza A H1 PCR Not Detected (Not Detect.); Influenza A H1-2009 PCR Not Detected (Not Detect.); Influenza A H3 PCR Not Detected (Not Detect.); SARS-CoV-2 PCR Not Detected (Not Detect.)
== END 2024-11-15 08:58 | disposition home or self-care (01) ==
LOC: HO.LAB 08:57
PROVIDERS: Nurse Practitioner Family; PCP Internal Medicine
DX: J06.9 Acute upper respiratory infection, unspecified (principal); R50.9 Fever, unspecified; R53.83 Other fatigue; R09.81 Nasal congestion; M54.2 Cervicalgia; Z87.891 Personal history of nicotine dependence
CPT/HCPCS: 87633

== ENCOUNTER 2024-11-15 08:57 | Outpatient (AMB) | payer OTHER, SELFPAY ==
--- OUTSIDE RECORDS SUMMARY | 2024-07-31 05:00 | XMS_ITS ---
Author Organization [facility] [address] Address [address] [place] [address] Care Team Providers Care Portfolio Strategist Name Role Phone BORIS HASSAN Unavailable [phone] Encounters Encounter Location Date Provider Diagnosis [facility] [address] [place] [address] 07/31/2024 BORIS HASSAN Plan Of Treatment Next Appt Details Provider Name:BORIS HASSAN, 11/20/2024 09:00:00 AM, [address] , [place], [address], Progress Notes * Bright GRANADOSB: 969 (53 yo F)Acc No.[id number]:07/31/2024 Patient: Juliet KOVACS Provider: Adrianna HASSAN NP :1970 A ge:53 Y S ex:Female Date:07/31/2024 Address:[address] [place], [place] [id number] Subjective: * Chief Complaints: * * Medical History: Objective: * Vitals: Assessment: Plan: * Treatment: * Images: Billing Information: * Visit Code: * Procedure Codes: * Electronic signature of YOHANA HASSAN on 11/15/2024 at 09:26 AM EDT Sign off status: Pending * Provider: Adrianna HASSAN NP Date: 07/31/2024 Generated for Waynei ng/Facollin/eTransmitting on: 11/15/2024 09:26 AM EDT
--- NOTE | 2024-11-15 08:59 | AM.OFFWIN_ITS ---
Intake Vital Signs 11/15/24 09:00 Height 5 ft 5 in Weight 208 lb BMI 34.6 BP 140/98 H Blood Pressure Location Lt brachial Respiration 16 Pulse 85 Pulse Source Pulse Oximeter Temp 97.5 F Temp Source Oral Pulse Oximetry (%) 96 Oxygen Delivery Method Room Air Intake Visit Reasons: ep fever sore throat since yesterday Patient Tobacco Use Status: Former Tobacco user Allergies terbutaline (TERBUTALINE) Allergy (Severe, Verified 05/21/24 15:14) ANAPHYLAXIS peanut Allergy (Unknown, Verified 05/21/24 15:14) Hives, itching shrimp Allergy (Unknown, Verified 05/21/24 15:14) Unknown Environmental Allergy (Unknown, Uncoded 04/27/24 16:19) unknown HPI HPI Comments History of Present Illness Details 53 y/o Female patient presents to the [facility] clinic this morning with c/o URI symptoms since Yesterday. Reports Sore-throat, Neck Pain, Fevers (100F), Fatigue and nasal congestion. She has not taken any OTC medications for her symptoms. Denies any recent Sick contact. [facility] Medical History Pulmonary nodules SUREKHA (obstructive sleep apnea) Dyspnea History of COVID-19 Environmental allergies Obesity due to excess calories Recurrent kidney stones Renal cyst Palpitation Anemia Surgical History History of lithotripsy History of back surgery Hx of microdiscectomy History of tubal ligation Family History Father No problems noted. Mother HTN (hypertension) HLD (hyperlipidemia) Social History Housing: House Alcohol intake: never Patient Tobacco Use Status: Former Tobacco user Tobacco use type: Cigarette Years Smoked: 7 years e-Cigarette/Vaping Use: Never Used Current occupational status: employed Cognitive needs: No Hearing needs: No Vision needs: Yes Female Reproductive History Menstrual Age of Menarche: 8 Review of Systems Const All systems reviewed & are unremarkable except as noted in HPI and below Physical Exam Vital Signs: Last Vital Signs Temp 97.5 F 11/15/24 09:00 Pulse 85 11/15/24 09:00 Resp 16 11/15/24 09:00 BP 140/98 H 11/15/24 09:00 Pulse Ox 96 11/15/24 09:00 Oxygen Delivery Method Room Air 11/15/24 09:00 BMI result Body Mass Index 34.6 Const General: no acute distress Nutritional Appearance: obese and overweight Orientation/consciousness: patient oriented x3 HEENT Head: Yes normocephalic Ears: external ears normal and TM's normal bilaterally General nose exam: Abnormal mucous membranes and turbinates present boggy and Nasal discharge present Face and sinus: Yes sinuses nontender Mouth: moist mucous membranes Throat: Yes uvula midline Resp Effort & Inspection: normal respiratory effort Auscultation: clear to auscultation bilaterally, no crackles, no rales, no rhonchi and no wheezes Cardio Heart sounds: S1 normal heart sound present and S2 normal heart sound present Neuro General: patient oriented x3, gait normal and moves all extremities Psych Speech and movement: Normal speech and movement present Assessment & Plan Assessment & Plan (1) Acute upper respiratory infection: Code(s): J06.9 - Acute upper respiratory infection, unspecified Plan: Ordered Resp Path panel Rapid Strep Negative Acetaminophen for pain relief OTC Cold/Sinus Medications. Rest and hydrate well with warm fluids. RTC if not feeling any better. Orders: Orders Resp Pathogen Panel - [facility] Today J06.9 - Acute upper respiratory infection, unspecified Medications: New acetaminophen 1,000 mg (2 x 500 mg) PO Q6H PRN 20 caps 0RF pain J06.9 - Acute upper respiratory infection, unspecified Coding Level of Care Code Est Pt Level 4 (37252) Diagnoses Acute upper respiratory infection J06.9 Time Spent (min) 20
[2024-11-15 09:00] VITALS: BP 140/98; PULSE 85; RESP 16; TEMP 36.4; O2SAT 96; BMI 34.6
--- OUTSIDE RECORDS SUMMARY | 2024-11-15 09:27 | XMS_ITS | Encounter Summary ---
Author Organization [facility] Address [address] [facility] [address] [place] [address] Phone Care Team Providers Care Simulation Educator Name Role Phone Wagner Bardales MD Primary Care Provider [phone] En Esteban MD Unavailable [phone] Encounter Details Date Type Department Care Team (Late st Contact Info) Description 01/17/2023 Procedure [facility] [address] [place] [address] Social History Tobacco Use Types Packs/Day Years Used Date Smoking Tobacco: Former Cigarettes 0.5 7 2 002 - 2009 Alcohol Use Standard Drinks/Week Comments Not Currently 0 (1 standard drink = 0.6 oz pur e alcohol) Education Answer Date Recorded Are you interested in more education? Not on jones e 06/14/2022 Are you concerned about learning? Not on file 06/14/2022 No 06/14/2022 No 06/14/2022 Digital Access Answer Date Recorded No 07/13/2022 No 07/13/2022 Reliable internet access at home? Not on file 07/13/2022 Device with a working camera? 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 Not on file Not on f ile documented as of this encounter Plan of Treatment Not on file documented as of this encounter Visit Diagnoses Not on filedocumented in this encounter Additional Health Concerns Assessment Noted Time PHQ-2 Depression Total Score: 0 01/18/20 23 10:50 AM EST documented as of this encounter Care Teams Simulation Educator Relationship Specialty Start Date End Date Wagner Bardales MD [address] [place] [address] [place] [address] PCP - General Internal Medicine 01/17/23 En Esteban MD [address] [place] [address] Inspector Elevators Pulmonary Disease 01/17/23 documented as of this encounter Additional Source Comments The information contained in this document represents components of the legal health record. It is not the complete legal health record.[facility]
--- OUTSIDE RECORDS SUMMARY | 2024-11-15 09:27 | XMS_ITS | Clinical Summary ---
Author Organization [facility] Address [address] [place] [address] Care Team Providers Care Rock Wool Insulator Name Role Chainstitch BinderJustin Genao MD Primary Care Provider [phone] Surgical History Surgery Date Site/Laterality Comments OTHER [...] (2 - Td or Tdap) 04/11/2021 04/11/2011 Depression Screening 02/18/2024 COVID-19 Vaccine (1 - 2023-2 5 season) 2024 Influenza Vaccine (#1) 2024 RSV Immunization Adult Patie nts (1 - 1-dose 75+ series) 12/01/2043 HIB Vaccines Aged Out No longer eligi [...] age to complete this topic Care Teams Rock Wool Insulator Relationship Specialty Start Date End Date Justin Genao MD PCP - General Internal Medicine 06/12/11
--- OUTSIDE RECORDS SUMMARY | 2024-11-15 09:27 | XMS_ITS | Clinical Summary ---
Author Organization [facility] Address [address] [facility] [address] [place] [address] Phone Care Team Providers Care Emt Basic Name Role Phone Wagner Bardales MD Primary Care Provider [phone] En Esteban MD Unavailable [phone] Allergies Active Allergy Reactions Criticality Noted Date Comments Peanut Hives Low 01/17/2023 Terbutaline Palpitations,Tremor Low 01/17/2023 Medications gabapentin (NEURONTIN) 300 MG capsule Take 300 mg by mouth 3 (three) times a day. As needed Active carvedilol (COREG) 12.5 MG tablet Take 12.5 mg by mouth 2 (two) times a day with meals. As needed Active furosemide (LASIX) 20 MG tablet Take 20 mg by mouth daily as needed. 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 on f ile Last Filed Vital Signs Vital Sign Reading Time Taken Comments Blood Pressure 162/86 01/17/2023 10:49 AM EST PT states she feels nervous Pulse 96 01/17/2023 10:49 AM EST Temperature 36.8 C (98.2 F) 01/17/2023 10:49 AM EST Respiratory Rate 16 01/17/2023 10:4 9 AM EST Oxygen Saturation 97% 01/17/2023 10: 49 AM EST Inhaled Oxygen Concentration - - Weight 107.7 kg (237 lb 8 oz) 01/17/2023 10:49 AM EST Height 165.1 cm (5' 5 ) 01/17/2023 10:4 9 AM EST Body Mass Index 39.52 01/17/2023 10:49 AM EST Plan of Treatment Health Maintenance Due Date Last Done Comments LIPID PANEL 1968 SMOKING Hx and SMOKELESS TOBACCO SCREENING 1981 HEPATITIS C SCREENING 1986 HIV ONE-TIME SCREENING (18-6 5 YEARS) 1986 PAP SMEAR 1989 SCREENING FOR DIABETES 12/01/2003 MAMMOGRAM 2008 COLOGUARD 2013 COLONOSCOPY 2013 COLORECTAL CANCER SCREENING 2013 FIT TEST 2013 FOBT 2013 SIGMOIDOSCOPY 2013 VIRTUAL COLONOSCOPY 2013 PNEUMOCOCCAL VACCINES (50+ years) (1 of 1 - PCV) 2018 ZOSTER VACCINES (1 of 2) 2018 Adult Td,Tdap Booster 04/11/2021 04/11/2011 DEPRESSION SCREENING 01/18/2024 01/17/2023 INFLUENZA VACCINE (#1) 2024 COVID-19 VACCINE (2024-2 6 season) 2024 02/13/2021, 06/02/2020, 05/11/2020 HEPATITIS A VACCINES Aged Out No long er eligible based on patient's age to complete this topic HIB VACCINES Aged Out No longer eligi ble based on patient's age to complete this topic MENINGOCOCCAL VACCINES (ACWY) Aged Out No longer eligible based on patient's age to complete this topic MENINGOCOCCAL VACCINES (B) Aged Out N o longer eligible based on patient's age to complete this topic Medical Devices Not on file Insurance O O O Care Teams Emt Basic Relationship Specialty Start Date End Date Wagner Bardales MD [facility] [place] [address] PCP - General Internal Medicine 01/17/23 En Esteban MD [address] [place] [phone] Customer Solutions Supervisor Pulmonary Disease 01/17/23 Additional Source Comments The information contained in this document represents components of the legal health record. It is not the complete legal health record.[facility]
--- OUTSIDE RECORDS SUMMARY | 2024-11-15 09:27 | XMS_ITS | Patient Health Record ---
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 Name Role Phone BORIS HASSAN Unavailable [phone] Allergies No Known Allergies Reason For Referral No Information Medications Medication SIG (Take, Route, Fr equency, Duration) Notes Start Date End Date Status Wegovy 2.4 MG/0.75ML ADMINISTER 2.4 MG U NDER THE SKIN WEEKLY Subcutaneous once a week; Duration: 28 days Active Problems Problem Type SNOMED Code ICD Code Onset Dates Problem Status W/U Status Risk Notes Problem Obesity due to excess calories (048725222) Other obesity due to excess calories (E66.09) Active confirmed Problem Obese class II (3880248501756 05) Body mass index [BMI] 35.0-35.9, adult (Z68.35) Active confirmed Problem Body mass index 35.00 to 39.99 (1779207068573 05) Body mass index [BMI] 39.0-39.9, adult (Z68.39) Active confirmed Problem Obese class II (2032903081138 05) BMI 37.0-37.9, adult (Z68.37) Active confirmed Problem Obese class II (2054545699188 05) BMI 38.0-38.9,adul t (Z68.38) Active confirmed Problem Body mass index 30.00 to 34.99 (3631412432196 07) BMI 34.0-34.9,adul t (Z68.34) Active confirmed Vital Signs Heart Rate 95 /min 10/02/2024 Oximetry 97 % 10/02/2024 Blood pressure diastolic 80 mm Hg 10/02/2024 Height 65 in 10/02/2024 Blood pressure systolic 130 mm Hg 10/02/2024 Weight 208.8 lbs 10/02/2024 BMI 34.74 kg/m2 10/02/2024 Encounters Encounter Location Date Provider Diagnosis [facility] [address] [place], [place] 11/29/2023 BORIS BORHOT Other obesity due to excess calories E66.09 ; BMI 38.0-38.9,adult Z68.38 ; Dietary counseling and surveillance Z71.3 and Prediabetes R73.[address] [facility] [address] [place], [place] 12/27/2023 BORIS BORHOT Other obesity due to excess calories E66.09 ; BMI 37.0-37.9, adult Z68.37 ; Dietary counseling and surveillance Z71.3 and Prediabetes R73.03 [facility] [address] [place] [phone] 01/31/2024 BORIS BORHOT Other obesity due to excess calories E66.09 ; BMI 37.0-37.9, adult Z68.37 ; Dietary counseling and surveillance Z71.3 and Prediabetes R73.[address] [facility] [address] [place], [place] 04/03/2024 BORIS BORHOT Other obesity due to excess calories E66.09 ; Body mass index [BMI] 35.0-35.9, adult Z68.35 ; Dietary counseling and surveillance Z71.3 and Prediabetes R73.[address] [facility] [address] [place], [place] 05/22/2024 BORIS BORHOT Other obesity due to excess calories E66.09 ; Body mass index [BMI] 35.0-35.9, adult Z68.35 ; Dietary counseling and surveillance Z71.3 and Prediabetes R73.[address] [facility] [address] [place], [place] 07/03/2024 BORIS BORHOT Other obesity due to excess calories E66.09 ; Body mass index [BMI] 35.0-35.9, adult Z68.35 ; Dietary counseling and surveillance Z71.3 and Prediabetes R73.[address] [facility] [address] [place], [place] 08/21/2024 BORIS BORHOT Other obesity due to excess calories E66.09 ; BMI 34.0-34.9,adult Z68.34 ; Dietary counseling and surveillance Z71.3 ; Prediabetes R73.03 and Encounter for examination of blood pressure without abnormal findings Z01.[address] [facility] [address] [place] [address] 10/02/2024 BORIS BORHOT Other obesity due to excess calories E66.09 ; BMI 34.0-34.9,adult Z68.34 ; Dietary counseling and surveillance Z71.3 ; Prediabetes R73.03 and Encounter for examination of blood pressure without abnormal findings Z01.[address] [address] [place] [address] 05/10/2024 BORIS BORHOT Other obesity due to excess calories E66.09 [facility] [address] [address] 01/31/2024 BORIS BORHOT [facility] [address] [place] [address] [place] [phone] 03/05/2024 BORIS BORHOT [facility] [address] [place] [address] [place] [phone] 04/12/2024 BORIS BORHOT [facility] [address] [place] [address] [place] [phone] 08/03/2024 BORIS BORHOT Other obesity due to excess calories E66.09 [facility] [address] [place] [address] [place] [phone] 11/01/2024 BORIS BORHOT [facility] [address] [place] [address] [place] [phone] 11/03/2024 BORIS BORHOT Assessments Encounter Date Diagnosis (ICD Code) Assessment Notes Treatment Notes Treatment Clinical Notes Section Notes 11/29/2023 Other obesity due to excess calories [...] minimum of 6 months The most recent [place] [employer]ocrinologists and [place] [employer] guidelines recommend patients who [...] track activity level. Consider using apps like [employer], myfitnesspal, lose it, stick as needed for self-monitoring and weight management. Consider group exercises. Consider hiring a personal carer. Regular exercise is sandra to sustainable health [...] counseling and psychiatry and Dr Dao at [employer]. We would like to cover regular topics [...] software and direct typing Please excuse inadvertent prosthetic assistant or typing errors, or uncorrected word substitutions Although every attempt has been made by the provider to proofread this document, occasional misspellings and typographical errors may still be present Due to the previous pandemic, and the use of personal protective equipment (PPE) This may decrease voice recognition accuracy Inadvertent prosthetic assistant errors may occur 12/27/2023 Other obesity due [...] minimum of 6 months The most recent [place] [employer]ocrinologists and [place] [employer] guidelines recommend patients who [...] software and direct typing Please excuse inadvertent prosthetic assistant or typing errors, or uncorrected word substitutions Although every attempt has been made by the provider to proofread this document, occasional misspellings and typographical errors may still be present Due to the previous pandemic, and the use of personal protective equipment (PPE) This may decrease voice recognition accuracy Inadvertent prosthetic assistant errors may occur 12/27/2023 BMI 37.0-37.9, adult [...] minimum of 6 months The most recent [place] [employer]ocrinologists and [place] [employer] guidelines recommend patients who [...] software and direct typing Please excuse inadvertent prosthetic assistant or typing errors, or uncorrected word substitutions Although every attempt has been made by the provider to proofread this document, occasional misspellings and typographical errors may still be present Due to the previous pandemic, and the use of personal protective equipment (PPE) This may decrease voice recognition accuracy Inadvertent prosthetic assistant errors may occur 01/31/2024 Other obesity due [...] minimum of 6 months The most recent [place] [employer]ocrinologists and [place] [employer] guidelines recommend patients who [...] software and direct typing Please excuse inadvertent prosthetic assistant or typing errors, or uncorrected word substitutions Although every attempt has been made by the provider to proofread this document, occasional misspellings and typographical errors may still be present Due to the previous pandemic, and the use of personal protective equipment (PPE) This may decrease voice recognition accuracy Inadvertent prosthetic assistant errors may occur 04/03/2024 Body mass index [...] software and direct typing Please excuse inadvertent prosthetic assistant or typing errors, or uncorrected word substitutions Although every attempt has been made by the provider to proofread this document, occasional misspellings and typographical errors may still be present Due to the previous pandemic, and the use of personal protective equipment (PPE) This may decrease voice recognition accuracy Inadvertent prosthetic assistant errors may occur 04/03/2024 Other obesity due [...] software and direct typing Please excuse inadvertent prosthetic assistant or typing errors, or uncorrected word substitutions Although every attempt has been made by the provider to proofread this document, occasional misspellings and typographical errors may still be present Due to the previous pandemic, and the use of personal protective equipment (PPE) This may decrease voice recognition accuracy Inadvertent prosthetic assistant errors may occur 05/10/2024 Other obesity due [...] software and direct typing Please excuse inadvertent prosthetic assistant or typing errors, or uncorrected word substitutions Although every attempt has been made by the provider to proofread this document, occasional misspellings and typographical errors may still be present Due to the previous pandemic, and the use of personal protective equipment (PPE) This may decrease voice recognition accuracy Inadvertent prosthetic assistant errors may occur 07/03/2024 Other obesity due [...] software and direct typing Please excuse inadvertent prosthetic assistant or typing errors, or uncorrected word substitutions Although every attempt has been made by the provider to proofread this document, occasional misspellings and typographical errors may still be present Due to the previous pandemic, and the use of personal protective equipment (PPE) This may decrease voice recognition accuracy Inadvertent prosthetic assistant errors may occur 08/03/2024 Other obesity due [...] software and direct typing Please excuse inadvertent prosthetic assistant or typing errors, or uncorrected word substitutions Although every attempt has been made by the provider to proofread this document, occasional misspellings and typographical errors may still be present Due to the previous pandemic, and the use of personal protective equipment (PPE) This may decrease voice recognition accuracy Inadvertent prosthetic assistant errors may occur 08/21/2024 BMI 34.0-34.9,adult (ICD-10 [...] software and direct typing Please excuse inadvertent prosthetic assistant or typing errors, or uncorrected word substitutions Although every attempt has been made by the provider to proofread this document, occasional misspellings and typographical errors may still be present Due to the previous pandemic, and the use of personal protective equipment (PPE) This may decrease voice recognition accuracy Inadvertent prosthetic assistant errors may occur 10/02/2024 Other obesity due to excess calories (ICD-10 - E66.09) #Weight Management 10/02/2024 We discussed metabolic adaptation and targeting different pathways such as adding on some Contrave Continue micronutrients Continue 2.4 mg maximum dosing of Wegovy Total time spent today was 30 minutes [...] software and direct typing Please excuse inadvertent prosthetic assistant or typing errors, or uncorrected word substitutions Although every attempt has been made by the provider to proofread this document, occasional misspellings and typographical errors may still be present Due to the previous pandemic, and the use of personal protective equipment (PPE) This may decrease voice recognition accuracy Inadvertent prosthetic assistant errors may occur 10/02/2024 BMI 34.0-34.9,adult (ICD-10 - Z68.34) #Weight Management 10/02/2024 We discussed metabolic adaptation and targeting different pathways such as adding on some Contrave Continue micronutrients Continue 2.4 mg maximum dosing of Wegovy Total time spent today was 30 minutes [...] software and direct typing Please excuse inadvertent prosthetic assistant or typing errors, or uncorrected word substitutions Although every attempt has been made by the provider to proofread this document, occasional misspellings and typographical errors may still be present Due to the previous pandemic, and the use of personal protective equipment (PPE) This may decrease voice recognition accuracy Inadvertent prosthetic assistant errors may occur 08/21/2024 Dietary counseling and [...] software and direct typing Please excuse inadvertent prosthetic assistant or typing errors, or uncorrected word substitutions Although every attempt has been made by the provider to proofread this document, occasional misspellings and typographical errors may still be present Due to the previous pandemic, and the use of personal protective equipment (PPE) This may decrease voice recognition accuracy Inadvertent prosthetic assistant errors may occur 05/22/2024 Body mass index [...] software and direct typing Please excuse inadvertent prosthetic assistant or typing errors, or uncorrected word substitutions Although every attempt has been made by the provider to proofread this document, occasional misspellings and typographical errors may still be present Due to the previous pandemic, and the use of personal protective equipment (PPE) This may decrease voice recognition accuracy Inadvertent prosthetic assistant errors may occur 07/03/2024 Body mass index [...] software and direct typing Please excuse inadvertent prosthetic assistant or typing errors, or uncorrected word substitutions Although every attempt has been made by the provider to proofread this document, occasional misspellings and typographical errors may still be present Due to the previous pandemic, and the use of personal protective equipment (PPE) This may decrease voice recognition accuracy Inadvertent prosthetic assistant errors may occur 04/03/2024 Dietary counseling and [...] software and direct typing Please excuse inadvertent prosthetic assistant or typing errors, or uncorrected word substitutions Although every attempt has been made by the provider to proofread this document, occasional misspellings and typographical errors may still be present Due to the previous pandemic, and the use of personal protective equipment (PPE) This may decrease voice recognition accuracy Inadvertent prosthetic assistant errors may occur 11/29/2023 BMI 38.0-38.9,adult (ICD-10 [...] minimum of 6 months The most recent [place] [employer]ocrinologists and [place] [employer] guidelines recommend patients who [...] track activity level. Consider using apps like [employer], [employer]fitnesspal, lose it, stick as needed for self-monitoring and weight management. Consider group exercises. Consider hiring a personal carer. Regular exercise is sandra to sustainable health [...] counseling and psychiatry and Dr Dao at [employer]. We would like to cover regular topics [...] software and direct typing Please excuse inadvertent prosthetic assistant or typing errors, or uncorrected word substitutions Although every attempt has been made by the provider to proofread this document, occasional misspellings and typographical errors may still be present Due to the previous pandemic, and the use of personal protective equipment (PPE) This may decrease voice recognition accuracy Inadvertent prosthetic assistant errors may occur 01/31/2024 BMI 37.0-37.9, adult [...] minimum of 6 months The most recent [place] [employer]ocrinologists and [place] [employer] guidelines recommend patients who [...] software and direct typing Please excuse inadvertent prosthetic assistant or typing errors, or uncorrected word substitutions Although every attempt has been made by the provider to proofread this document, occasional misspellings and typographical errors may still be present Due to the previous pandemic, and the use of personal protective equipment (PPE) This may decrease voice recognition accuracy Inadvertent prosthetic assistant errors may occur 12/27/2023 Dietary counseling and [...] minimum of 6 months The most recent [place] [employer]ocrinologists and [place] [employer] guidelines recommend patients who [...] software and direct typing Please excuse inadvertent prosthetic assistant or typing errors, or uncorrected word substitutions Although every attempt has been made by the provider to proofread this document, occasional misspellings and typographical errors may still be present Due to the previous pandemic, and the use of personal protective equipment (PPE) This may decrease voice recognition accuracy Inadvertent prosthetic assistant errors may occur 11/29/2023 Dietary counseling and [...] minimum of 6 months The most recent [place] [employer]ocrinologists and [place] [employer] guidelines recommend patients who [...] track activity level. Consider using apps like [employer], [employer], lose it, stick as needed for self-monitoring and weight management. Consider group exercises. Consider hiring a personal carer. Regular exercise is sandra to sustainable health [...] counseling and psychiatry and Dr Dao at [employer]. We would like to cover regular topics [...] software and direct typing Please excuse inadvertent prosthetic assistant or typing errors, or uncorrected word substitutions Although every attempt has been made by the provider to proofread this document, occasional misspellings and typographical errors may still be present Due to the previous pandemic, and the use of personal protective equipment (PPE) This may decrease voice recognition accuracy Inadvertent prosthetic assistant errors may occur 12/27/2023 Prediabetes (ICD-10 - [...] minimum of 6 months The most recent [place] [employer]ocrinologists and [place] [employer] guidelines recommend patients who [...] software and direct typing Please excuse inadvertent prosthetic assistant or typing errors, or uncorrected word substitutions Although every attempt has been made by the provider to proofread this document, occasional misspellings and typographical errors may still be present Due to the previous pandemic, and the use of personal protective equipment (PPE) This may decrease voice recognition accuracy Inadvertent prosthetic assistant errors may occur 01/31/2024 Dietary counseling and [...] minimum of 6 months The most recent [place] [employer]ocrinologists and [place] [employer] guidelines recommend patients who [...] software and direct typing Please excuse inadvertent prosthetic assistant or typing errors, or uncorrected word substitutions Although every attempt has been made by the provider to proofread this document, occasional misspellings and typographical errors may still be present Due to the previous pandemic, and the use of personal protective equipment (PPE) This may decrease voice recognition accuracy Inadvertent prosthetic assistant errors may occur 04/03/2024 Prediabetes (ICD-10 - [...] software and direct typing Please excuse inadvertent prosthetic assistant or typing errors, or uncorrected word substitutions Although every attempt has been made by the provider to proofread this document, occasional misspellings and typographical errors may still be present Due to the previous pandemic, and the use of personal protective equipment (PPE) This may decrease voice recognition accuracy Inadvertent prosthetic assistant errors may occur 05/22/2024 Dietary counseling and [...] software and direct typing Please excuse inadvertent prosthetic assistant or typing errors, or uncorrected word substitutions Although every attempt has been made by the provider to proofread this document, occasional misspellings and typographical errors may still be present Due to the previous pandemic, and the use of personal protective equipment (PPE) This may decrease voice recognition accuracy Inadvertent prosthetic assistant errors may occur 07/03/2024 Dietary counseling and [...] software and direct typing Please excuse inadvertent prosthetic assistant or typing errors, or uncorrected word substitutions Although every attempt has been made by the provider to proofread this document, occasional misspellings and typographical errors may still be present Due to the previous pandemic, and the use of personal protective equipment (PPE) This may decrease voice recognition accuracy Inadvertent prosthetic assistant errors may occur 08/21/2024 Prediabetes (ICD-10 - [...] software and direct typing Please excuse inadvertent prosthetic assistant or typing errors, or uncorrected word substitutions Although every attempt has been made by the provider to proofread this document, occasional misspellings and typographical errors may still be present Due to the previous pandemic, and the use of personal protective equipment (PPE) This may decrease voice recognition accuracy Inadvertent prosthetic assistant errors may occur 10/02/2024 Dietary counseling and surveillance (ICD-10 - Z71.3) #Weight Management 10/02/2024 We discussed metabolic adaptation and targeting different pathways such as adding on some Contrave Continue micronutrients Continue 2.4 mg maximum dosing of Wegovy Total time spent today was 30 minutes [...] software and direct typing Please excuse inadvertent prosthetic assistant or typing errors, or uncorrected word substitutions Although every attempt has been made by the provider to proofread this document, occasional misspellings and typographical errors may still be present Due to the previous pandemic, and the use of personal protective equipment (PPE) This may decrease voice recognition accuracy Inadvertent prosthetic assistant errors may occur 10/02/2024 Prediabetes (ICD-10 - R73.03) #Weight Management 10/02/2024 We discussed metabolic adaptation and targeting different pathways such as adding on some Contrave Continue micronutrients Continue 2.4 mg maximum dosing of Wegovy Total time spent today was 30 minutes [...] software and direct typing Please excuse inadvertent prosthetic assistant or typing errors, or uncorrected word substitutions Although every attempt has been made by the provider to proofread this document, occasional misspellings and typographical errors may still be present Due to the previous pandemic, and the use of personal protective equipment (PPE) This may decrease voice recognition accuracy Inadvertent prosthetic assistant errors may occur 08/21/2024 Encounter for examination [...] software and direct typing Please excuse inadvertent prosthetic assistant or typing errors, or uncorrected word substitutions Although every attempt has been made by the provider to proofread this document, occasional misspellings and typographical errors may still be present Due to the previous pandemic, and the use of personal protective equipment (PPE) This may decrease voice recognition accuracy Inadvertent prosthetic assistant errors may occur 07/03/2024 Prediabetes (ICD-10 - [...] software and direct typing Please excuse inadvertent prosthetic assistant or typing errors, or uncorrected word substitutions Although every attempt has been made by the provider to proofread this document, occasional misspellings and typographical errors may still be present Due to the previous pandemic, and the use of personal protective equipment (PPE) This may decrease voice recognition accuracy Inadvertent prosthetic assistant errors may occur 05/22/2024 Prediabetes (ICD-10 - [...] software and direct typing Please excuse inadvertent prosthetic assistant or typing errors, or uncorrected word substitutions Although every attempt has been made by the provider to proofread this document, occasional misspellings and typographical errors may still be present Due to the previous pandemic, and the use of personal protective equipment (PPE) This may decrease voice recognition accuracy Inadvertent prosthetic assistant errors may occur 01/31/2024 Prediabetes (ICD-10 - [...] minimum of 6 months The most recent [place] [employer]ocrinologists and [place] [employer] guidelines recommend patients who [...] software and direct typing Please excuse inadvertent prosthetic assistant or typing errors, or uncorrected word substitutions Although every attempt has been made by the provider to proofread this document, occasional misspellings and typographical errors may still be present Due to the previous pandemic, and the use of personal protective equipment (PPE) This may decrease voice recognition accuracy Inadvertent prosthetic assistant errors may occur 11/29/2023 Prediabetes (ICD-10 - [...] minimum of 6 months The most recent [place] [employer]in[employer] and [place] [employer] guidelines recommend patients who [...] track activity level. Consider using apps like [employer], myfitnesspal, lose it, stick as needed for self-monitoring and weight management. Consider group exercises. Consider hiring a personal carer. Regular exercise is sandra to sustainable health [...] counseling and psychiatry and Dr Dao at [employer]. We would like to cover regular topics [...] software and direct typing Please excuse inadvertent prosthetic assistant or typing errors, or uncorrected word substitutions Although every attempt has been made by the provider to proofread this document, occasional misspellings and typographical errors may still be present Due to the previous pandemic, and the use of personal protective equipment (PPE) This may decrease voice recognition accuracy Inadvertent prosthetic assistant errors may occur 10/02/2024 Encounter for examination of blood pressure without abnormal findings (ICD-10 - Z01.30) #Weight Management 10/02/2024 We discussed metabolic adaptation and targeting different pathways such as adding on some Contrave Continue micronutrients Continue 2.4 mg maximum dosing of Wegovy Total time spent today was 30 minutes [...] software and direct typing Please excuse inadvertent prosthetic assistant or typing errors, or uncorrected word substitutions Although every attempt has been made by the provider to proofread this document, occasional misspellings and typographical errors may still be present Due to the previous pandemic, and the use of personal protective equipment (PPE) This may decrease voice recognition accuracy Inadvertent prosthetic assistant errors may occur 03/06/2024 #Weight Management 03/06/2024 [...] minimum of 6 months The most recent [place] [employer]ocrin[employer] and [place] [employer] guidelines recommend patients who [...] software and direct typing Please excuse inadvertent prosthetic assistant or typing errors, or uncorrected word substitutions Although every attempt has been made by the provider to proofread this document, occasional misspellings and typographical errors may still be present Due to the previous pandemic, and the use of personal protective equipment (PPE) This may decrease voice recognition accuracy Inadvertent prosthetic assistant errors may occur 05/08/2024 #Weight Management 05/08/2024 [...] software and direct typing Please excuse inadvertent prosthetic assistant or typing errors, or uncorrected word substitutions Although every attempt has been made by the provider to proofread this document, occasional misspellings and typographical errors may still be present Due to the previous pandemic, and the use of personal protective equipment (PPE) This may decrease voice recognition accuracy Inadvertent prosthetic assistant errors may occur Plan Of Treatment Next Appt Details Provider Name:BORIS HASSAN, 11/20/2024 09:00:00 AM, [address] [facility], [place], [address], Insurance Providers Payer Name Payer Address Payer Phone Subscriber Number Group Number Insured Name Patient Relationship to Insured Coverage Start Date Coverage End Date [facility] [address] [place] [address] [id number] Juliet Gan Self - patient is the insured 2
== END 2024-11-15 09:27 | disposition home or self-care (01) ==
PROVIDERS: PCP Internal Medicine; Visit Provider Nurse Practitioner Family
DX: J06.9 Acute upper respiratory infection, unspecified (principal)